=== PATIENT | female | born 1945 | race Caucasian/White ===

== ENCOUNTER 2023-11-15 22:11 | Inpatient (IN) | payer OTHER, SELFPAY ==
[2023-11-15] VITALS (7 sets, daily range): BP systolic 81–168; BP diastolic 51–94; BMI 18.4
[2023-11-15 14:49] LABS: COVID-19 Antigen Negative (Negative)
[2023-11-15] MEDS: NSS 1000 IV ×2 (18:33→21:02)
--- NOTE | 2023-11-15 18:33 | ED.GENMED ---
History of Present Illness
General
Chief Complaint: Abdominal Pain
Source: patient
Exam Limitations: none
Time Seen by Provider: 11/15/23 17:48
Travel History
Have you had any contact with someone who has COVID-19?: No
Do you have any symptoms of coronavirus? Fever > 100 degrees, chills, cough, shortness of breath, sore throat, loss of taste or smell, muscle aches, or headache?: No
History of Present Illness
History of Present Illness:
See MDM
Past History
Past History
ED Past Medical History: Arrthythmia, CHF and HTN
ED Past Surgical History: Appendectomy and Cholecystectomy
Social History
Tobacco: Non-smoker
Alcohol: None
Phy Exam
Physical Exam
Physical Exam:
See MDM
Course
Orders/Labs/Results
Orders:
Orders
11/15/23 14:07
CR Chest - 2 Views Urgent
Comment:
Reason For Exam: congestion
11/15/23 14:27
COVID-19 Antigen Urgent
Source: Nasal Swab
Influenza A+B Rapid Molecular Urgent
RICK Source: Nasal Swab
Specimen Description:
11/15/23 18:19
Complete Blood Count/With Diff Urgent
Comprehensive Metabolic Panel Urgent
Lactic Acid Urgent
Lipase Urgent
Troponin I Urgent
Blood Culture Urgent
RICK Source: Blood/Venous
Specimen Description:
11/15/23 18:30
CT Abd/pelvis W Iv Cont Urgent
Comment:
Reason For Exam: general abd pain
11/15/23 18:31
0.9% Sodium Chloride 1000 ml [Nss] 1,000 ml IV BOLUS
11/15/23 18:55
Ketorolac [Toradol] 15 mg IV NOW STA
11/15/23 19:00
Electrocardiogram (*1) Urgent
Reason for Study: Abdominal Pain
EKG- Treatment ONCE
11/15/23 19:11
Aspirin Chewable [Low Strength Aspirin] 324 mg PO NOW STA
11/15/23 20:39
Consult Colorectal Surgery [ColoRectal Surgery Consult] Urgent
Consulting Provider: Barak Alcaraz
Was physician already notified: Yes
Piperacillin/Tazo 3.375 Gram [Zosyn] 3.375 gram in 50 ml IV NOW
11/15/23 20:45
Protime/PTT Urgent
Prothrombin Complex(Pcc),Human [Kcentra] 2,505 unit Empty Viaflex Container 100 ml [Viaflex Empty Container] 0 ml IV NOW
Does patient have a dx of serious acute active bleeding?: No
Does patient have prior history of HIT?: No
Urgent surgery/invasive procedure planned in next 6 hours?: Yes
Abnormal Lab Results
11/15/23
18:19
RDW 15.1 H %
(11.5-14.5)
Plt Count 407 H 10^3/uL
(130-400)
Absolute Monos (auto) 0.8 H 10^3/uL
(0.1-0.6)
Lymphocytes % 16.3 L %
(20.5-51.1)
Glucose 238 H mg/dl
(70-99)
Lactic Acid 4.9 H* mmol/L
(0.7-2.0)
Troponin I 0.083 H* ng/ml
11/15/23 18:19
11/15/23 18:19
Vital Signs
Initial and Last Documented VS:
Initial Vital Signs
Temp Pulse Resp BP Pulse Ox
98.9 F 78 18 168/94 98
11/15/23 14:03 11/15/23 14:03 11/15/23 14:03 11/15/23 14:03 11/15/23 14:03
Last Documented Vital Signs
Temp Pulse Resp BP Pulse Ox
98.9 F 78 18 168/94 98
11/15/23 14:03 11/15/23 14:03 11/15/23 14:03 11/15/23 14:03 11/15/23 14:03
MDM/Problems Addressed
Differential Diagnosis Includes:
HPI and MDM Narrative:
78-year-old female presenting with shortness of breath and cough. This has been ongoing for the past few days. She is also complaining of constipation and abdominal pain. Patient lives with her daughter. Her daughter recently developed COVID so
she was avoiding contact with the patient. Because of that, daughter is concerned that the patient did not have enough oversight to ensure that she was drinking enough water
Patient is clinically dehydrated. Will give IV fluids. Rectal vault empty. Will obtain CT abdomen/pelvis. Chest x-ray clear
Physical exam
General: Well appearing and non-toxic
HEENT: protecting airway. Dry mucous membranes
Neck: appears supple
CV: No evidence of cyanosis
Resp: No accessory muscle use. Lungs clear
Abd: Non-distended. Generalized tenderness throughout
Rectal: Performed with nurse Marla. No stool palpated
Extremities: No deformities
Neuro: alert
Psych: Normal affect
Skin: Intact
Problems Addressed including Acute and Chronic Conditions affecting care:
1. Shortness of breath and cough
Acuity: acute
Prognosis: stable
Details: Viral testing negative. Chest x-ray clear
2. Sterile coral colitis with perforation
Acuity: acute
Prognosis: stable
Details: Colorectal surgery made aware. Zosyn started
Updates
Radiology called indicating concern for stercoral colitis with perforation at descending colon or sigmoid. Colorectal surgery made aware. Zosyn started
Per colorectal surgery, will reverse Eliquis for OR tonight
Differential Diagnosis (but not limited to): Perforation, constipation
Testing considered: Urinalysis
Drug therapy (if applicable): OTC meds, please see d/c instruction regarding Rx drugs
Amount and/or Complexity of Data Reviewed
Clinical info obtained from: Patient
External data reviewed: N/A
Labs I independently reviewed (but not limited to): Elevated troponin and lactic acid
Radiology: X-ray independently reviewed: Chest x-ray clear
The CT scan was personally and independently reviewed. In addition, official CT report reviewed.
Pulse Ox: not hypoxic
EKG independently reviewed: sinus rhythm, normal axis, no STEMI
Supervisor Finish End: Sinus rhythm
Critical Care: N/A
Risk of Complication:
Social Determinants of health: Good social support
Discussed with other providers: Colorectal surgery, hospitalist
Escalation of Care includes Admit/Obs: Given the stercoral colitis with perforation, will admit
Occasional wrong word or 'sound a like' substitutions may have occurred due to the inherent limitations of voice recognition software. Read the chart carefully and recognize, using context, where substitutions have occurred.
*Critical Care Note
Total Time (30-74mins, 75-104mins- exclusive of procedures): Not Applicable
ED Attending Note
-
Portions of this chart may have been created with voice recognition software.� Occasional wrong word or��sound alike� substitutions may have occurred due to the inherent limitations of voice recognition software.
Discharge Plan
Departure
Patient Disposition: Admit
Date of Disposition: 11/15/23
Time of Disposition: 20:44
Admit to: Telemetry
Presentation/result/management discussed w/ accepting MD/DO: Hospitalist
Discharge Problem:
Stercoral colitis, Bowel perforation
Prescriptions:
No Action
atorvastatin 20 mg Tablet
20 mg PO DAILY
doxazosin 1 mg Tablet
1 mg PO HS
metoprolol succinate 100 mg Tablet Extended Release 24 Hr
100 mg PO BID
buprenorphine-naloxone 4-1 mg Film
1 film BUCCAL BID
Patient Comments:
11/15/2023: last filled 10/14/23, 60 film for 30 days from [facility]
Eliquis 5 mg Tablet
5 mg PO BID
polyethylene glycol 3350 [Miralax] 17 gram Powder In Packet
17 g PO BID
ondansetron HCl 8 mg tablet
8 mg PO Q12H PRN (Reason: nausea/vomiting)
nicotine 7 mg/24 hr Patch 24 Hour
7 mg TRANSDERMAL Q48H
melatonin 10 mg Tablet
10 mg PO HS
Referrals:
UNKNOWN - PT DOES,NOT KNOW [Family Provider] -
Interventions
Interventions:
*Risk Screen - Suicide Last Done: 11/15/23 14:03
*General Assessment Last Done: 11/15/23 14:03
*Neglect/Abuse Screening Last Done: 11/15/23 14:03
*ED COVID-19 Vaccine History Last Done: 11/15/23 18:07
ND-Tvlmug-Saltfftoyp Assessment Last Done: 11/15/23 18:23
[2023-11-15 18:38] LABS: % Basophils 0.5 % (0-2); % Eosinophils 0.1 % (0-6); % Immature Granulocytes 0.2 % (0-0.5); % Lymphocytes 16.3 % (20.5-51.1); % Monocytes 8.9 % (1.7-9.3); Absolute Lymphocytes 1.4 10^3/uL (1.2-3.4); Absolute Monocytes 0.8 10^3/uL (0.1-0.6); Absolute Neutrophils 6.2 10^3/uL (1.4-6.5); Hemoglobin 13.3 g/dL (12.0-16.0); Mean Corp Hgb Conc. 34.1 g/dL (33.0-37.0); Mean Corpuscular Hgb 27.7 pg (27.0-31.0); Mean Corpuscular Volume 81.3 fL (81.0-99.0); Nucleated Red Blood Cells % 0 %; Platelet Count 407 10^3/uL (130-400); Red Cell Dist. Width 15.1 % (11.5-14.5); White Blood Cell Count 8.4 10^3/uL (4.8-10.8)
[2023-11-15 18:46] LABS: ALT (SGPT) 19 U/L (0-35); AST (SGOT) 32 U/L (14-36); Alkaline Phosphatase 100 U/L (38-126); Blood Urea Nitrogen 17 mg/dl (7-17); Calcium 9.6 mg/dl (8.4-10.2); Carbon Dioxide 23 mmol/L (22-30); Chloride 101 mmol/L (98-107); Estimated Creatinine Clearance 44 ml/min; Glucose 238 mg/dl (70-99); Potassium 3.8 mmol/L (3.5-5.1); Sodium 135 mmol/L (135-145); Total Bilirubin 0.8 mg/dl (0.2-1.3); Total Protein 6.8 g/dl (6.3-8.2); eGFR > 60.00
[2023-11-15 18:49] LABS: Lactic Acid 4.9 mmol/L (0.7-2.0)
[2023-11-15 18:59] LABS: Troponin I 0.083 ng/ml
[2023-11-15 19:10] LABS: Lipase 47 U/L (23-300)
[2023-11-15] MEDS: TORADOL 15 MG IV (19:22)
[2023-11-15] MEDS: LOW STRENGTH ASPIRIN 324 MG PO (19:23)
[2023-11-15] MEDS: ZOSYN 50 IV (20:52)
--- NOTE | 2023-11-15 21:09 | HPS.HSE ---
Addendum entered and electronically signed by Dav Gudino MD 11/15/23 21:31:
Patient seen and examined independently with PA.� 78-year-old female past medical history of paroxysmal atrial fibrillation on Eliquis status post ablation, hypertension, chronic pain presenting with abdominal pain over the past few days.� Abdominal
distention with severe pain and peritoneal signs on examination.� CT abdomen pelvis consistent with perforation of a diverticulum with free air, masslike area of fluid and free air in left-sided abdomen findings consistent with peritonitis.� N.p.o.,
IV fluids, Zosyn.� Hold Eliquis and all p.o. medications.� Eliquis being reversed with Kcentra.� Colorectal surgery to take to the OR today.
Original Note:
Family Physician
-
Family Physician: NOT KNOW UNKNOWN - PT DOES
Chief Complaint
-
Abdominal pain
History of Present Illness
Patient is an 78-year-old female with past medical history of paroxysmal atrial fibrillation on anticoagulation, and chronic pain with opiate dependence who presents with constipation and abdominal pain. Patient lives in an in-law suite with her
daughter. Daughter recently had COVID and therefore was not checking on her mother quite as frequently. Over the last 2 days patient began to complain of increased abdominal pain. She was associated chills. CT scan revealed findings consistent
with perforated diverticulitis with peritonitis. Patient reports prior history of diverticulitis. While emergency room patient developed hypotension. Colorectal surgery was notified and plans for patient to go the operating room this evening
following Eliquis reversed with Kcentra. Hospitalist group was asked evaluate patient for admission to the hospital.
Medical History
Past Medical History
Past Medical History: Reports Other
Additional Past Medical History:
Paroxysmal Atrial Fibrillation
Essential Hypertension
Hyperlipidemia
Interstitial cystitis
Chronic Pain with Opioid Dependence
Past Surgical History: Reports Other
Additional Past Surgical History:
Tonsillectomy
Appendectomy
Hysterectomy
Partial hysterectomy
Right rotator cuff
Social History
Tobacco: Former Smoker (Quit a little over a year ago)
Alcohol: None
Living: With Family
Family History
Family History: Not pertinent
Allergies / Home Medications
Allergies reflects when Allergies were last updated in [facility].
Home Medications with original date entered in [facility]
Allergy/Medication List:
Allergies
Allergy/AdvReac Type Severity Reaction Status Date / Time
No Known Allergies Allergy Verified 11/15/23 14:07
Home Medications
apixaban 5 mg tablet (Eliquis) 5 mg PO BID 05/15/23
atorvastatin 20 mg tablet 20 mg PO DAILY 05/15/23
buprenorphine 4 mg-naloxone 1 mg sublingual film 1 film buccal BID 05/15/23
doxazosin 1 mg tablet 1 mg PO HS 05/15/23
metoprolol succinate 100 mg tablet,extended release 24 hr 100 mg PO BID 05/15/23
melatonin 10 mg tablet 10 mg PO HS 11/15/23
nicotine 7 mg/24 hr daily transdermal patch 7 mg transdermal Q48H 11/15/23
ondansetron HCl 8 mg tablet 8 mg PO Q12H PRN nausea/vomiting 11/15/23
polyethylene glycol 3350 17 gram oral powder packet (Miralax) 17 g PO BID 11/15/23
Review of Systems
-
A 12 point ROS was completed and negative except as noted: Yes
Constitutional: Reports Chills
Respiratory: Reports Cough; Denies Trouble Breathing
Cardiac: Denies Chest Pain or Palpitations
Abdomen/GI: Reports See HPI
Physical Exam
Vital Signs
Vital Signs
Temp Pulse Resp BP Pulse Ox
98.9 F 89 29 120/62 98
11/15/23 14:03 11/15/23 21:00 11/15/23 21:00 11/15/23 21:00 11/15/23 20:43
Physical Exam
General: No Apparent Distress, Conversant and Other (Appears acutely ill with poor coloration)
HEENT: Anicteric, Moist mucous membranes and Other (Mucous membranes are dry)
Respiratory: Clear and Non Labored Respirations
Cardiac: S1/S2 and Regular Rhythm; No Murmur
GI: Tender (Significant tenderness throughout with positive peritoneal signs) and Distended
Rectal: Deferred by Provider
Musculoskeletal: No Clubbing, No Cyanosis and No Edema
Skin: Warm and Dry
Neuro: Awake, Alert, Oriented and Nonfocal/grossly intact
Laboratory Results
-
11/15/23 18:19
11/15/23 18:19
Laboratory Results
Lactic Acid 4.9 mmol/L (0.7-2.0) H* 11/15/23 18:19
Total Bilirubin 0.8 mg/dl (0.2-1.3) 11/15/23 18:19
AST 32 U/L (14-36) 11/15/23 18:19
ALT 19 U/L (0-35) 11/15/23 18:19
Alkaline Phosphatase 100 U/L (38-126) 11/15/23 18:19
Troponin I 0.083 ng/ml H* 11/15/23 18:19
Lipase 47 U/L (23-300) 11/15/23 18:19
Abd/Pelvis CT Scan:
The findings are most consistent with perforation (partially contained) of a diverticulum in the descending or sigmoid colon with free air scattered throughout the abdomen and pelvis, forming a masslike area with fluid and free air in the left side
of the abdomen measuring 10 x 10 x 13 cm. Additionally there is fluid in the anterior peripancreatic and pararenal space consistent with peritonitis, no discrete fluid collection to suggest an abscess.
There is significant stool within the colon and air within the colon wall, which may be due to previous obstruction prior to perforation or the differential includes the possibility of stercoral colitis.
Edema within the small bowel wall. Likely reactive. No small bowel obstruction.
Data Reviewed
-
Lab Data: Labs Reviewed by me
Impression/Plan
-
Severe Sepsis Secondary to Perforated Diverticulitis with Peritonitis by CT Scan
-Plan for OR this evening with colorectal surgery then monitor closely in ICU postop
-Continue Zosyn
-Continue NPO/IV fluids
-Monitor blood pressure closely -May need pressors if blood pressure does not improve following sepsis fluid resuscitation
Paroxysmal Atrial Fibrillation
-Patient received Kcentra on 11/15 prior to OR
-Metoprolol on hold due to hypotension
Chronic Pain with Opioid Dependence
-Continue Dilaudid as needed for pain
-Resume buprenorphine when able
DVT prophylaxis: SCDs preparation for OR
CODE STATUS: Full code
--- NOTE | 2023-11-15 21:15 | EDRN ---
marquise contacted for tatianaa and to be sent to tube station [id number] in OR
--- NOTE | 2023-11-15 21:46 | CON.MD ---
Consultation - Medical
-
Full consult to be dictated.
History, vitals, labs, and imaging reviewed. Patient seen and examined.
78-year-old female on Eliquis for atrial fibrillation; also with a history of chronic pain issues, chronic constipation, and opioid dependence here with apparent perforation of the descending/sigmoid colon due to either diverticulitis or more likely
stercoral colitis. There is free air in all 4 quadrants of the abdomen on CT and she is fairly tender on exam. She has evidence for sepsis particularly with hypotension and an elevated lactate. Discussed the situation with the patient and her
daughter at the bedside in detail. Recommended trip to the OR for exploration with likely Juliet's resection. Risk and benefits described. Risks discussed included but are not limited to bleeding, infection, ureteral injury, bowel or solid
organ injury, rectal stump dehiscence, urinary or sexual dysfunction, and anesthetic risks. I did touch on the possibility of given her morbid state. I did also emphasized that her increased risk for bleeding and that we will be giving her
Kcentra to mitigate the effects of her Eliquis. She understood and agrees to proceed.
Thanks.
[2023-11-16] VITALS (16 sets, daily range): BP systolic 57–166; BP diastolic 36–73; BMI 18.4; BMI 18.7
--- NOTE | 2023-11-16 00:31 | W.IMMPOSTOP ---
Addendum entered and electronically signed by Barak Alcaraz MD 11/16/23 00:49:
Patient's daughter updated in waiting area.
Original Note:
Surgical Immed Post Op Note
-
Primary Surgeon: Nancy Alcaraz MD
Assisting Surgeon: none
Pre-op Diagnosis: perforated sigmoid/descending colon
Post-op Diagnosis: same
Procedure Performed: 1) Juliet's procedure (left colectomy with colostomy) 2) takedown splenic flexure
Anesthesia Type: general plus TAP
Specimen / Cultures: 1) abdominal fluid cultures 2) descending and sigmoid colon
Estimated Blood Loss: 150 cc
Complications: no immediate
Operative Findings: perforated distal descending colon with associated bloody contamination (blood plus stool--particularly at left retroperitoneum)
#19 Toni in pelvis.
Joseph in bladder.
NGT in stomach--confirmed intraoperatively.
Kept intubated and sent to ICU.
--- NOTE | 2023-11-16 01:00 | PTCARENOTE ---
pt adm from OR, arrived intubated #05/29, NGT in place, BRAD w/gamal drsg, LUQ colostomy w/red stoma, abd HEMA draining bloody, Joseph in place, B/L UE IV WNL, precedex gtt/IVF infusing per work list. L radial calderon leveled/zeroed. CHG cloths done.
[2023-11-16] MEDS: NORMOSOL-R 1000 IV ×2 (01:38→13:30)
[2023-11-16] MEDS: OFIRMEV 100 IV ×4 (01:38→18:24)
[2023-11-16] MEDS: ZOSYN 50 IV ×4 (01:39→20:32)
[2023-11-16] MEDS: LEVOPHED 250 IV (02:05)
[2023-11-16 02:33] LABS: Lactic Acid 4.4 mmol/L (0.7-2.0); Troponin I 0.128 ng/ml
--- NOTE | 2023-11-16 02:44 | W.PN.UPDATE ---
Update Note
Progress Note Update
1 unit of RBC, given for hgb of 6.6.
[2023-11-16] MEDS: LR 500 IV (02:58)
[2023-11-16] MEDS: DILAUDID 0.5 MG IV ×3 (03:18→20:32)
--- NOTE | 2023-11-16 04:00 | PTCARENOTE ---
pt received 500cc LR bolus for low BP, levo gtt as documented on work list.
[2023-11-16 05:57] LABS: % Basophils 0.1 % (0-2); % Immature Granulocytes 0.9 % (0-0.5); % Lymphocytes 15.1 % (20.5-51.1); % Monocytes 4.5 % (1.7-9.3); % Neutrophils 79.4 % (42.2-75.2); Absolute Immature Granulocytes 0.1 10^3/uL (0-0.05); Absolute Monocytes 0.3 10^3/uL (0.1-0.6); Absolute Neutrophils 5.4 10^3/uL (1.4-6.5); B.E. -5.1 mmol/L; HCO3 19.7 mmol/L (21-28); Mean Corpuscular Hgb 28.8 pg (27.0-31.0); Mean Corpuscular Volume 84.7 fL (81.0-99.0); Mean Platelet Volume 9.4 fL (7.4-10.4); Nucleated Red Blood Cells % 0 %; PCO2 34 mmHg (32-35); PO2 244 mmHg (83-108); Platelet Count 247 10^3/uL (130-400); Potassium 3.7 mMOL/L (3.5-5.1); Red Blood Cell Count 2.29 10^6/uL (4.20-5.40); Red Cell Dist. Width 15.1 % (11.5-14.5); Sodium 133 mMOL/L (136-145); White Blood Cell Count 6.7 10^3/uL (4.8-10.8); pH 7.37 (7.35-7.45)
[2023-11-16 06:06] LABS: INR 1.25; O2 Therapy 50%
[2023-11-16 06:07] LABS: APTT 29.9 Sec (23.4-35.0)
[2023-11-16 06:13] LABS: Hematocrit 19.4 % (37.0-47.0); Hemoglobin 6.6 g/dL (12.0-16.0)
--- NOTE | 2023-11-16 06:15 | PTCARENOTE ---
BDoughertyNP aware of hgb 6.6
[2023-11-16 06:26] LABS: Lactic Acid 4.8 mmol/L (0.7-2.0)
[2023-11-16 06:33] LABS: Blood Urea Nitrogen 19 mg/dl (7-17); Calcium 7.2 mg/dl (8.4-10.2); Carbon Dioxide 19 mmol/L (22-30); Chloride 103 mmol/L (98-107); Estimated Creatinine Clearance 52 ml/min; Glucose 142 mg/dl (70-99); Potassium 3.6 mmol/L (3.5-5.1); Sodium 133 mmol/L (135-145); eGFR > 60.00
--- NOTE | 2023-11-16 07:30 | CON.INTV ---
Consultation
Consultation Request
Date/Time Consultation Requested: 11-16-23
Date/Time Consultation Performed: 11-16-23
Requesting Provider: Hospitalist
Performing Provider: Dr Amador
Reason for Consultation: resp failure
Medical History
-
Chief Complaint: abd pain
History of Present Illness:
Mrs Bailey Martinez is an 78/W adm 11-15 with 2 d h/o abd pain, constipation and chills.
Seen at ER, abd CT showed perforated colon. Taken to OR, needed reversal of DOAC with kcentra (apixaban for AFib). Intubated for surgery and left on MV
Past Medical History
Past Medical History: Other (see A&P for PMH/PSH)
Social History
Tobacco: Former Smoker
Alcohol: None
Drug: None
Personal:
Living: With Family
Employment: Not Employed
Family History
Family History: Reviewed & Not Pertinent
Allergies / Home Medications
Allergies
Allergy/AdvReac Type Severity Reaction Status Date / Time
No Known Allergies Allergy Verified 11/15/23 14:07
Home Medications
Medication Instructions Recorded Confirmed Last Taken Type
apixaban 5 mg tablet (Eliquis) 5 mg PO BID 05/15/23 11/15/23 11/15/23 History
atorvastatin 20 mg tablet 20 mg PO DAILY 05/15/23 11/15/23 11/15/23 History
buprenorphine 4 mg-naloxone 1 mg 1 film buccal BID 05/15/23 11/15/23 11/15/23 History
sublingual film
doxazosin 1 mg tablet 1 mg PO HS 05/15/23 11/15/23 11/14/23 History
metoprolol succinate 100 mg 100 mg PO BID 05/15/23 11/15/23 11/15/23 History
tablet,extended release 24 hr
melatonin 10 mg tablet 10 mg PO HS 11/15/23 11/15/23 11/14/23 History
nicotine 7 mg/24 hr daily 7 mg transdermal Q48H 11/15/23 11/15/23 11/15/23 History
transdermal patch
ondansetron HCl 8 mg tablet 8 mg PO Q12H PRN nausea/vomiting 11/15/23 11/15/23 Unknown History
polyethylene glycol 3350 17 gram 17 g PO BID 11/15/23 11/15/23 11/15/23 History
oral powder packet (Miralax)
Review of Systems
-
Unable to Obtain full review of systems at this time due to: Patient Intubation
Vitals / Labs / Diagnostic Testing
Vital Signs
Temp Pulse Resp BP Pulse Ox
96.8 F L 65 12 75/54 100
11/16/23 03:01 11/16/23 05:30 11/16/23 05:30 11/16/23 02:00 11/16/23 04:57
Lab Data
11/16/23 05:41
Laboratory Results
11/16/23
05:41
PT 16.0 H
INR 1.25
APTT 29.9
pH 7.37
pCO2 34
pO2 244 H
HCO3 19.7 L
O2 Delivery Level 50%
Microbiology
11/15/23 14:27 Nasal Swab Influenza Types A & B (MARIELA) - Final
Negative for Influenza A & B, NAAT
Negative results must be combined with clinical observations
and patient history.
Nucleic Acid Amplification test (NAAT)performed on the
[employer] platform.
Diagnostic Testing:
Physical Exam
-
HEENT: Normocephalic and Moist Mucous Membranes
Cardiovascular: Regular Rhythm, Murmur (n) and Peripheral Edema (n)
Respiratory: Clear and Non-Labored Respirations
GI: Non Tender (postsurgical)
Neurology: Other (sedated)
Skin: Dry
General: Respiratory Distress (n)
Assessment
-
Assessment:
Mrs Bailey Martinez is an 78/W adm 11-15 with 2 d h/o abd pain, constipation and chills. Seen at ER, abd CT showed perforated colon. Taken to OR, needed reversal of DOAC with kcentra. Intubated for surgery and left on MV
Impression
Postop resp failure
Intubated for surgery
Perforated sigmoid/descending colon
S/p Juliet's procedure (left colectomy with colostomy), takedown splenic flexure
Postop anemia
Chronic apixaban, s/p reversal pre surgery
Conditions [employer] WORK[employer]:
AFib on apixaban
HLD
HTN
Chronic pain on chronic buprenorphine
Tobacco dependence, on NRT
Plan:
Admitted to ICU after abd surgery for perforated sigmoid/descending colon
Intubated for surgery, kept on MV afterwards
ACV: 12-400-5-0.4 (POx 100%)
Comfortable on above settings
Daily weaning trial
SBT today, wean as tolerated, will reevaluate for extubation
Dexmedetomidine
IV opiates (noted h/o opiate use for chronic back pain)
IVFs
Transfusion ongoing (2nd U to be started this AM)
Monitor Hgb
NE gtt at 8 mcg this morning, will wean as tolerated
Follow HEMA output
Continue on empiric zosyn
Follow cxs
Postop pain mgmt
SCDs
D/w patient's daughter at bedside
Critical care time: 35 min
Diagnostic tests:
CXR 11-16-23: no infiltrates
--- NOTE | 2023-11-16 09:00 | PTCARENOTE ---
pt sedated on vent , awakens with moderate to severe pain , pt given Dilaudid for pain , pt nods head appropriately , follows commands , restless at times , Levophed to keep map of 65, currently at 12mcg , pt receiving 1st unit of PRBC hemoglobin
down to 6.6 , abd incision intact , colostomy stoma pink , no drainage, Joseph draining adequate amount of urine , Precedex gtt for agitation
--- NOTE | 2023-11-16 09:50 | WOUNDNOTE ---
KARINA RN note: Patient s/p Juliet's for perforated sigmoid by Dr. Alcaraz.
See H&P for complete history.
PMH: CHF,HTN, Appy and cholecystectomy.
Ostomy location and type: L Colostomy, stoma red, no output at this time. Patient is vented still, left ostomy folder at bedside for family to review, will do further teaching with patient/family when appropriate.
[place] wafer # [id number]
[place] pouch # [id number]
Ostomy supplies ordered from [facility] and instructed nurse Maura to bring to bedside.
Note to case management: VN services recommended for ostomy teaching.
Nursing care plan updated, will follow as needed.
--- NOTE | 2023-11-16 09:55 | W.PN.CRS1 ---
Today's Communication / Plan
-
Give a second pRBC and repeat CBC, hold all AC
Continue critical care needs
Assessment/Plan
-
78-year-old female with PMH of A-fib (on Eliquis, last dose was the morning of 11/15/2023), chronic pain (on Suboxone), HTN who presented with acute abdominal pain and was found to have perforated stercoral colitis and underwent emergency Dos Santos's
procedure for perforation in the descending colon, in septic shock; given Kcentra preoperatively
POD 1 Dos Santos's procedure
Remains intubated, on levo at 8, on Precedex, Hb 6.6 s/p pRBC X1, pending second pRBC
�Appreciate hospitalist and human services case manager for critical care needs
�Wean vent
�Wean pressors
� Hold AC, no evidence of surgical bleeding at this point but needs to be closely monitored as she still has Eliquis in her system
-give a second PRBC and repeat CBC once completed
� Continue NGT
� Continue Weiss
� Continue antibiotics
� Continue HEMA to bulb suction
Subjective Data
Subjective Data
Date of Service: November 16, 2023
Per nurse, Hb 6.6 this a.m. and patient received 1 pRBC. Was on levo at 12, down to 8 this a.m.
Patient sedated but awake/alert to verbal commands.
+intubated
+ngt
+weiss
Objective Data
-
Vital Signs
Temp Pulse Resp BP Pulse Ox
98.4 F 74 14 106/46 100
11/16/23 08:02 11/16/23 08:02 11/16/23 08:02 11/16/23 08:02 11/16/23 07:30
Intake & Output
11/15/23 11/16/23 11/17/23
06:59 06:59 06:59
Intake Total 1390.3 / 1499.1 108.8 / 108.8
Output Total 645 / 715 70 / 70
Balance 745.3 / 784.1 38.8 / 38.8
Intake:
IV fluids (Total) 640.3 / 749.1 108.8 / 108.8
Normosol-R 1,000 ml @ 100 mls/ 600 / 700 100 / 100
hr IV .Q10H FELIPA Rx#:[id number]
precedex 40.3 / 49.1 8.8 / 8.8
IV piggybacks 750 / 750
Blood Product Amount Infused ( 0 / 0
mL)
Packed Rbc Leukoreduced Unit 0 / 0
[id number]
Output:
Drain Output (Total) 320 / 390 70 / 70
Abdomen David-Clarke 320 / 390 70 / 70
Gastrointestinal tube output ( 0 / 0
Total)
Cloud Sump 0 / 0
Urine, Weiss 325 / 325
Lab Results
11/16/23 05:41
Physical Exam
-
General: No Acute Distress and Other (Intubated/sedated)
HEENT: Grossly Normal
Abdomen: Soft, Non Distended, Tender (Appropriately tender near incisions), No Guarding, No Rebound and Other (HEMA-390 cc, dark serosanguineous output; colostomy bud pink)
Skin: Warm and Dry
Wound: No Signs of Infection, Dressing in Place (Aquacel) and No Skin Erythema
[2023-11-16] MEDS: SUBLIMAZE 50 MCG IV ×3 (10:49→14:10)
[2023-11-16] MEDS: PRECEDEX 100 IV (11:37)
[2023-11-16 12:01] LABS: Glucose - Point of Care 103 mg/dl (70-99)
[2023-11-16] MEDS: NSS (PRESERVATIVE FREE) 10 ML IV (13:20)
[2023-11-16] MEDS: PROTONIX IV 40 MG IV (13:20)
[2023-11-16] MEDS: NORMOSOL-R IV (13:37)
--- NOTE | 2023-11-16 13:50 | W.PN.HOSP.TC ---
Today's Communication/Plan
-
see outlined plan below
Assessment / Plan
Assessment / Plan
Assessment:
Septic Shock secondary to perforated bowel from diverticulitis vs stercoral colitis
- s/p urgent K-centra for Eliquis reversal
- s/p 1) Juliet's procedure (left colectomy with colostomy) 2) takedown splenic flexure on 11/16/23. Operative findings: perforated distal descending colon with associated bloody contamination (blood plus stool--particularly at left retroperitoneum)
- continue NPO/IVF
- wean pressors; currently on 2 mcg
- continue Zosyn
- NGT/Joseph
- Colorectal following
VDRF in setting of acute emergency surgery for airway protection
- wean vent/sedation
Post-operative acute anemia from blood loss
- 2 units PRBCs and follow Hb
Non-IN trop elevation
- trend trops to peak
- follow tele/EKGs
Parox A. fib
- s/p urgent K-centra for Eliquis reversal; resume when cleared by surgery
- hold BB until sepsis improves
Chronic Pain with Opioid Dependence
- continue Dilaudid as needed for pain
- resume buprenorphine when able
Essential HTN
- hold BB/Doxazosin until sepsis improves
DVT prophylaxis: SCDs
CODE STATUS: Full code
Total Critical Care Time 40 minutes. I was immediately available to the patient and staff. I personally examined, reviewed labs, diagnostic images/reports, interpretations, treatment plans, discussed patient care with other providers and family
or caregivers (if patient is unable to make decisions), entered orders as appropriate and documented the medical record.
Anticipated Discharge: > 48 hours
Subjective/Interval History
-
Date of Service: November 16, 2023
remains intubated, on and off on pressors
received 2 units PRBCs
Objective Data
-
Labs:
Laboratory Results
11/16/23 11/16/23 11/16/23
05:41 05:41 05:41
WBC 6.7 Pending
Hgb 6.6 L* D Pending
Hct 19.4 L*
Plt Count
PT
INR
APTT
HCO3
Sodium
Potassium
Chloride
Carbon Dioxide
BUN
Creatinine
Glucose
Calcium
11/16/23 11/16/23 11/16/23
05:41 05:41 05:41
WBC
Hgb
Hct Pending
Plt Count 247 D Pending
PT 16.0 H
INR 1.25
APTT 29.9
HCO3 19.7 L
Sodium 133 L Cancelled
Potassium 3.6
Chloride
Carbon Dioxide
BUN
Creatinine
Glucose
Calcium
11/16/23 11/16/23 11/16/23
05:41 05:41 05:41
WBC
Hgb
Hct
Plt Count
PT
INR
APTT
HCO3
Sodium
Potassium Cancelled
Chloride 103 Cancelled
Carbon Dioxide 19 L Cancelled
BUN 19 H
Creatinine
Glucose
Calcium
11/16/23 11/16/23 11/16/23
05:41 05:41 05:41
WBC
Hgb
Hct
Plt Count
PT
INR
APTT
HCO3
Sodium
Potassium
Chloride
Carbon Dioxide
BUN Cancelled
Creatinine 0.7 Cancelled
Glucose 142 H Cancelled
Calcium 7.2 L D
11/16/23 11/16/23
05:41 09:00
WBC
Hgb Pending
Hct Pending
Plt Count
PT
INR
APTT
HCO3
Sodium
Potassium
Chloride
Carbon Dioxide
BUN
Creatinine
Glucose
Calcium Cancelled
Vital Signs:
Vital Signs
Temp Pulse Resp BP Pulse Ox
99.1 F 74 18 113/49 98
11/16/23 13:05 11/16/23 13:05 11/16/23 13:05 11/16/23 13:05 11/16/23 12:00
I&O
11/15/23 11/16/23 11/17/23
06:59 06:59 06:59
Intake Total 1390.3 / 1652.9 1634.5 / 1634.5
Output Total 645 / 765 470 / 470
Balance 745.3 / 887.9 1164.5 / 1164.5
Physical Exam
-
General: Intubated
HEENT: Normocephalic and Atraumatic
Cardiac: Regular Rhythm and S1/S2
GI: Soft
Neuro: Sedated
Psych: Calm
Data Reviewed
-
Critical Care Time (in minutes): 40
Labs: Labs Reviewed by me
--- NOTE | 2023-11-16 14:14 | PTCARENOTE ---
pt on vent wean of Cpap and PS tolerating well, pt having episodes of anxiety and pain , fentanyl has been effective for pain , completed PRBC , urine output adequate .pt daughter at bedside and updated on current plan of care and condition
[2023-11-16 14:15] LABS: Hematocrit 29.4 % (37.0-47.0)
[2023-11-16 14:22] LABS: Hemoglobin 10.5 g/dL (12.0-16.0)
[2023-11-16 14:31] LABS: Lactic Acid 3.5 mmol/L (0.7-2.0)
--- NOTE | 2023-11-16 14:35 | CM ---
CM following re: discharge planning.
Discussed in rounds, reviewed pt's chart, met with pt and pt's daughter Jennifer at bedside.
Pt is an 78 year old female, admitted with primary dx of Septic Shock . Per Rounds meeting, pt intubated for surgery S/p Juliet's procedure.
Per daughter, she brought her mother from [place] where pt lived for many years and pt lives in in law suite attached to daughter's house. Pt has been falling at home and daughter was in and out to help the pt.
Pharmacy: [facility].
D/c plan: TBD and will depend on pt's progress
CM will follow with discharge plan updates as hospitalization progresses
[2023-11-16 14:52] LABS: Troponin I 0.096 ng/ml
--- NOTE | 2023-11-16 15:12 | RESPNOTE ---
Patient extubated at 1445 to 6LNC spo2 100% no signs of stridor are present.
--- NOTE | 2023-11-16 15:49 | PTCARENOTE ---
pt extubated at 1445 as ordered, pt is now on 6L NC with 02 sat at 100% , continues on Levophed for low MAPs , rate 2-4 mcg per hour , pt is alert and oriented , pleasant and following commands
[2023-11-16] MEDS: CALCIUM GLUCONATE 100 IV (16:39)
[2023-11-16 18:01] LABS: Glucose - Point of Care 86 mg/dl (70-99)
[2023-11-16 18:49] LABS: Lactic Acid 2.9 mmol/L (0.7-2.0)
--- NOTE | 2023-11-16 20:15 | PTCARENOTE ---
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 SR HR 70s. L radial calderon WNL, leveled&zeroed. B/L IV patent- levo gtt, IVF infusing per work list. RA Sat 100% on 4LNC. R NGT to LIWS, bilious drainage. LUQ colostomy WNL- no drainage in bag. HEMA drain
w/bloody drainage. Joseph catheter in place draining yellow urine. prn pain med per JAN. POC discussed, call simmons with patient.
[2023-11-16 21:18] LABS: Lactic Acid 2.8 mmol/L (0.7-2.0)
[2023-11-16 21:32] LABS: Troponin I 0.089 ng/ml
[2023-11-17] VITALS (16 sets, daily range): BP systolic 129–217; BP diastolic 63–109; PULSE 106–125; BMI 20.2
--- NOTE | 2023-11-17 00:30 | PTCARENOTE ---
no changes in pt assessment, prn dilaudid per MAR, assisted w/repositioning. levo remains off.
[2023-11-17] MEDS: DILAUDID 0.5 MG IV ×6 (00:42→19:29)
[2023-11-17] MEDS: NORMOSOL-R 1000 IV ×3 (00:49→20:22)
[2023-11-17] MEDS: ZOSYN 50 IV ×4 (03:00→22:21)
[2023-11-17 04:20] LABS: Hematocrit 26.9 % (37.0-47.0); Hemoglobin 9.8 g/dL (12.0-16.0); Mean Corp Hgb Conc. 36.4 g/dL (33.0-37.0); Mean Corpuscular Hgb 30.3 pg (27.0-31.0); Mean Corpuscular Volume 83.3 fL (81.0-99.0); Mean Platelet Volume 9.2 fL (7.4-10.4); Platelet Count 177 10^3/uL (130-400); Red Blood Cell Count 3.23 10^6/uL (4.20-5.40); Red Cell Dist. Width 14.7 % (11.5-14.5); White Blood Cell Count 19.7 10^3/uL (4.8-10.8)
[2023-11-17 04:30] LABS: Lactic Acid 2.2 mmol/L (0.7-2.0)
[2023-11-17 04:45] LABS: Troponin I 0.077 ng/ml
[2023-11-17 04:49] LABS: Blood Urea Nitrogen 19 mg/dl (7-17); Calcium 8.2 mg/dl (8.4-10.2); Carbon Dioxide 23 mmol/L (22-30); Chloride 103 mmol/L (98-107); Estimated Creatinine Clearance 45 ml/min; Glucose 88 mg/dl (70-99); Potassium 3.8 mmol/L (3.5-5.1); Sodium 135 mmol/L (135-145); eGFR > 60.00
--- NOTE | 2023-11-17 07:53 | W.PN.INTV ---
Today's Communication / Plan
Recommendations
Asp precs
Zosyn
Pain mgmt
AC per sx
GMF
Reconsult prn
Assessment
-
Assessment:
Mrs Bailey Martinez is an 78/W adm 11-15 with 2 d h/o abd pain, constipation and chills. Seen at ER, abd CT showed perforated colon. Taken to OR, needed reversal of DOAC with kcentra. Intubated for surgery and left on MV
Impression
Postop resp failure
Intubated for surgery 11-15
Extubated 11-16
Perforated sigmoid/descending colon
S/p Juliet's procedure (left colectomy with colostomy), takedown splenic flexure
Postop anemia
Chronic apixaban, s/p reversal pre surgery
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
AFib on apixaban
HLD
HTN
Chronic pain on chronic buprenorphine
Tobacco dependence, on NRT
Plan:
Admitted to ICU after abd surgery for perforated sigmoid/descending colon
Intubated for surgery, kept on MV afterwards
Was on ACV: 12-400-5-0.4 (POx 100%)
Comfortable on above settings
SBT 11-16, extubated with no issue
Currently on RA, POx high 90s
Dexmedetomidine off
Postop pain mgmt
IV opiates (noted h/o opiate use for chronic back pain): hydromorphone 0.5 mg IV q4hrs prn
Resume buprenorphine SL 11-17
IVFs
S/p 2 U PRBCs 11-16
Monitor Hgb, Hgb remains stable
NE off since MN last night
Follow HEMA output
Can adm enteral meds per Sx starting -
Continue on empiric zosyn
Abd cx: moderate presumptive E coli
Blood cxs so far negative
Resolving lactic acidosis
HTN, on oral metoprolol at home
Resume enteral metoprolol regular release at 100 mg bid
SCDs
Can resume apixaban once OK by Sx
D/w MDT
Can transfer to [facility] today, OK by Sx, will sign off then
Diagnostic tests:
CXR 11-16-23: no infiltrates
Subjective Dataa
Subjective Data
Date of Service:
Date of Service: November 17, 2023
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
Subjective:
No major events reported overnight
Extubated with no issue yesterday afternoon
Pain better controlled
Review of Systems
General: Fever (n), Sweats (n), Chills and Satisfactory Appetite
Cardiopulmonary: Dyspnea, Cough and Chest Pain
GI: Abdominal Pain (postop), Nausea (n) and Vomiting (n)
Neuro: Weakness
Objective Data
Data Reviewed
Vital Signs / I&O / Oxygen:
Vital Signs
Temp Pulse Resp BP Pulse Ox
99.7 F 84 17 83/50 97
11/17/23 07:45 11/17/23 06:00 11/17/23 06:00 11/16/23 15:42 11/17/23 06:32
Intake and Output
11/16/23 11/17/23 11/18/23
06:59 06:59 06:59
Intake Total 1390.3 / 1652.9 3658.3 / 3658.3
Output Total 645 / 765 2395 / 2395
Balance 745.3 / 887.9 1263.3 / 1263.3
SaO2 [CPAP/PSV] 98
SaO2 [A/C] 100
SaO2 97
Nasal Cannula flow liters per 2
minute
Physical Exam
General: Respiratory Distress (n)
HEENT: Normocephalic and Moist Mucous Membranes
Cardiovascular: Regular Rhythm and Peripheral Edema (n)
Respiratory: Clear, Non-Labored Respirations and Stridor
GI: Soft, Non Distended, Tender, Other (surgical wound with clean dressing) and Other (colostomy)
Neurology: Awake, Oriented and No Motor Deficits
Skin: Dry
Labs/Micro/Reports
Lab Data
11/17/23 04:06
11/17/23 04:06
Microbiology
11/15/23 18:19 Blood/Venous Blood Culture - Preliminary
No Growth in 24 hours- Final report to follow
11/15/23 22:44 Abdomen Gram Stain - Preliminary
11/15/23 14:27 Nasal Swab Influenza Types A & B (MARIELA) - Final
Negative for Influenza A & B, NAAT
Negative results must be combined with clinical observations
and patient history.
Nucleic Acid Amplification test (NAAT)performed on the
[facility] platform.
--- NOTE | 2023-11-17 07:54 | W.PN.ANS.POP ---
Anesthesia Post Operative
- Anesthesia Post Op Note
Vital Signs Stable-See Nursing Note: Yes
Airway Patent: Yes (extubated)
Adequate Pain Control: Yes
Change in Mental Status: No
Current Postoperative Nausea & Vomiting: No
Anesthesia Complications: No
General Anesthetic Recall: No
Unplanned Admission: No
Post Op Hydration Adequate: Yes
[2023-11-17] MEDS: TYLENOL/FEVERALL 650 MG RECTAL (08:03)
[2023-11-17] MEDS: PROTONIX IV 40 MG IV (08:03)
[2023-11-17] MEDS: NSS (PRESERVATIVE FREE) 10 ML IV (08:04)
--- NOTE | 2023-11-17 08:21 | W.PN.HOSP.TC ---
Addendum entered and electronically signed by Liborio Andrade MD 11/17/23 13:22:
Lactic acidosis
Underweight
Original Note:
Today's Communication/Plan
-
monitor vitals
DC [place] and later Joseph and continue NGT
continue Abx
possible transfer to floors later
Assessment / Plan
Assessment / Plan
Assessment:
Septic Shock secondary to perforated bowel from diverticulitis vs stercoral colitis
- s/p urgent K-centra for Eliquis reversal
- s/p 1) Juliet's procedure (left colectomy with colostomy) 2) takedown splenic flexure on 11/16/23. Operative findings: perforated distal descending colon with associated bloody contamination (blood plus stool--particularly at left retroperitoneum)
- continue NPO/IVF
- pressors weaned overnight
- continue Zosyn
- continue NGT/Joseph
- Colorectal following
VDRF in setting of acute emergency surgery for airway protection
- extubated 11/26/23 - satting well
Post-operative acute anemia from blood loss
- s/p 2 units PRBCs. Hb is 9.8
Non-CT trop elevation
- trop peaked at .128
- follow tele/EKGs
Parox A. fib
- s/p urgent K-centra for Eliquis reversal; resume when cleared by surgery
- hold BB until sepsis improves
Chronic Pain with Opioid Dependence
- continue Dilaudid as needed for pain
- resume buprenorphine when able
Essential HTN
- hold BB/Doxazosin until sepsis improves
DVT prophylaxis: SCDs
CODE STATUS: Full code
Dispo: possible transfer to 2S/Tele if ok with ICU/CRS
Total Critical Care Time 41 minutes. I was immediately available to the patient and staff. I personally examined, reviewed labs, diagnostic images/reports, interpretations, treatment plans, discussed patient care with other providers and family
or caregivers (if patient is unable to make decisions), entered orders as appropriate and documented the medical record.
Anticipated Discharge: > 48 hours
Subjective/Interval History
-
Date of Service: November 17, 2023
extubated last evening
remains with NGT
reports pain
Objective Data
-
Labs:
Laboratory Results
11/17/23
04:06
WBC 19.7 H
Hgb 9.8 L
Hct 26.9 L
Plt Count 177 D
Sodium 135
Potassium 3.8
Chloride 103
Carbon Dioxide 23
BUN 19 H
Creatinine 0.8
Glucose 88
Calcium 8.2 L
Vital Signs:
Vital Signs
Temp Pulse Resp BP Pulse Ox
99.7 F 84 17 83/50 97
11/17/23 07:45 11/17/23 06:00 11/17/23 06:00 11/16/23 15:42 11/17/23 06:32
I&O
11/16/23 11/17/23 11/18/23
06:59 06:59 06:59
Intake Total 1390.3 / 1652.9 3658.3 / 3658.3
Output Total 645 / 765 2395 / 2395
Balance 745.3 / 887.9 1263.3 / 1263.3
Physical Exam
-
General: No Apparent Distress
HEENT: Normocephalic, Atraumatic and Other (NGT)
Respiratory: Clear to Auscultation; Negative Wheezes or Rales
Cardiac: Regular Rhythm and S1/S2
GI: Soft and Nontender
Genito-urinary: No Costovertebral Tender
Neuro: AO x 3
Psych: Calm
Data Reviewed
-
Critical Care Time (in minutes): 41
Labs: Labs Reviewed by me
--- NOTE | 2023-11-17 09:00 | W.PN.CRS1 ---
Today's Communication / Plan
-
Continue NGT
Discontinue Joseph
Okay to transfer to floor
Assessment/Plan
-
78-year-old female with PMH of A-fib (on Eliquis, last dose was the morning of 11/15/2023), chronic pain (on Suboxone), HTN who presented with acute abdominal pain and was found to have perforated stercoral colitis and underwent emergency Dos Santos's
procedure for perforation in the descending colon, in septic shock; given Kcentra preoperatively
POD 2 Dos Santos's procedure
Extubated, off levo, Hb 9.8 from 10.5
�Appreciate hospitalist and utility tender carding for critical care needs
� Hold AC, Daily CBC; expected blood loss from operation and delusional
� Continue NGT until ostomy function
�Discontinue Joseph, monitor for void
� Continue antibiotics
� Continue HEMA to bulb suction
Subjective Data
Subjective Data
Date of Service: November 17, 2023
No overnight events. Per nurse, patient was extubated this morning and pressors have been weaned off.
Pain not well�controlled.
Denies nausea/vomiting. Patient n.p.o. with NGT.
No ostomy function
+ Joseph
Objective Data
-
Vital Signs
Temp Pulse Resp BP Pulse Ox
99.7 F 84 17 83/50 97
11/17/23 07:45 11/17/23 06:00 11/17/23 06:00 11/16/23 15:42 11/17/23 06:32
Intake & Output
11/16/23 11/17/23 11/18/23
06:59 06:59 06:59
Intake Total 1390.3 / 1652.9 3658.3 / 3658.3
Output Total 645 / 765 2395 / 2395
Balance 745.3 / 887.9 1263.3 / 1263.3
Intake:
IV fluids (Total) 640.3 / 902.9 2828.3 / 2828.3
Normosol-R 1,000 ml @ 100 mls/ 600 / 800 2500 / 2500
hr IV .Q10H FELIPA Rx#:[id number]
levophed 254.3 / 254.3
precedex 40.3 / 57.9 74.0 / 74.0
IV piggybacks 750 / 750 300 / 300
Amount instilled into GI Tube ( 30 / 30
Total)
[place] Sump 30 / 30
Blood Product Amount Infused ( 500 / 500
mL)
Packed Rbc Leukoreduced Unit 250 / 250
[id number]
Packed Rbc Leukoreduced Unit 250 / 250
[id number]
Output:
Drain Output (Total) 320 / 390 370 / 370
Abdomen David-Clarke 320 / 390 370 / 370
Gastrointestinal tube output ( 0 / 0 150 / 150
Total)
[place] Sump 0 / 0 150 / 150
Urine, Joseph 325 / 375 1875 / 1875
Lab Results
11/17/23 04:06
11/17/23 04:06
Physical Exam
-
General: No Acute Distress and AOx3
HEENT: Grossly Normal
Abdomen: Soft, Non Distended, Tender (Appropriately tender near incisions), No Guarding, No Rebound and Other (HEMA-300 mL serous sanguinous output, NGT 150 mL output; ostomy pink and edematous)
Neurological: No Motor Deficits and No Sensory Deficits
Skin: Warm and Dry
Wound: No Signs of Infection, Dressing in Place (Aquacel) and No Skin Erythema
--- NOTE | 2023-11-17 12:06 | PN.CDI ---
CDI
- -
CDI:
Physician Documentation Request
Admit Date: 11/15/23 22:11
Dear Doctor Raymond,
Patient admitted with septic shock.
Clinical Indicators: 11/15/23
Height: 5' 5'
Weight: 110 lb 7 oz
BMI: 18.4
Please provide an associated diagnosis related to the abnormal BMI, such as:
Underweight
Cachectic
Anorexia
BMI is not significant
Other
BMI < or = to 19
Underweight
Weight Loss
Cachectic
Anorexia
Use of terms such as suspected, likely, concern for, or probable (associated with a specific diagnosis that is being evaluated, monitored, or treated as if it exists) are acceptable and can be coded in the inpatient setting, when documented at the
time of discharge.
Thank you,
Twila HERNANDEZ,RN,CCDS
CDI Specialist
Available via [place]
Please use your independent medical judgment in providing your response.
--- NOTE | 2023-11-17 12:35 | PN.CDI ---
CDI
- -
CDI:
Physician Documentation Request
Admit Date: 11/15/23 22:11
Dear Doctor Raymond,
Patient admitted with septic shock.
Lactic acid levels documented below:
Patient received IV NSS.
Laboratory Tests
11/15/23 11/16/23 11/16/23
18:19 01:52 05:41
Lactic Acid 4.9 H* 4.4 H* 4.8 H*
Based on the above, please clarify in the progress notes, the appropriate diagnosis, if significant, that supports the above abnormalities and additional evaluation, monitoring and/or treatment rendered:
Lactic acidosis
Insignificant abnormal lab findings
Other
Unable to determine
Use of terms such as suspected, likely, concern for, or probable (associated with a specific diagnosis that is being evaluated, monitored, or treated as if it exists) are acceptable and can be coded in the inpatient setting, when documented at the
time of discharge.
Thank you,
Twila HERNANDEZ,RN,CCDS
CDI Specialist
Available via [employer] text
Please use your independent medical judgment in providing your response.
[2023-11-17] MEDS: SUBUTEX 4 MG SL ×2 (12:50→21:27)
[2023-11-17] MEDS: LOPRESSOR 100 MG PO (12:50)
--- NOTE | 2023-11-17 14:05 | PTCARENOTE ---
pt awake and oriented, NSR on monitor , BP elevated 169/57 , weiss draining clear yellow urine , DC at 0900 , pt with NGT minimal drainage , pt has started on her home dose of Metoprol for BP control via NGT as ordered , oob in chair at 14:00
tolerating well , frequent complaints of pain with abdomen , pt was restarted on her Subutex, for better pain control , pt is now written for telemetry status
--- NOTE | 2023-11-17 16:32 | PTCARENOTE ---
pt to transfer to room 2108 , report given to receiving RN
--- NOTE | 2023-11-17 17:25 | PTCARENOTE ---
Pt received from ICU via bed. Transport was w/o incident. Pt is AAOx3, HRR/bounding @86 apically. Lungs are clear, NGT to Right nare intact, draining green fluid. Abd round, Colostomy stoma, pink and budded. Wilfred drain to Left abd intact draining
serosanquinous fluid. Aquacell dressing to mid abd intact, with old shadowing noted. Pt w/ generalized anasarca 1+, maegan area, hips, thighs, arms. Pt with positive PP,no pedal edema, Pt denies nausea and denies pain at this time. Vss, Pt is
afebrile. Pt instructed on plan of care, pt verbalized understanding of instructions, Call simmons is within reach.
[2023-11-17] MEDS: LOPRESSOR 5 MG IV ×2 (19:46→20:09)
[2023-11-17] MEDS: NSS 250 IV (20:20)
[2023-11-17 20:24] LABS: Hematocrit 27.1 % (37.0-47.0); Hemoglobin 9.6 g/dL (12.0-16.0); Mean Corp Hgb Conc. 35.4 g/dL (33.0-37.0); Mean Corpuscular Hgb 29.6 pg (27.0-31.0); Mean Corpuscular Volume 83.6 fL (81.0-99.0); Mean Platelet Volume 9.3 fL (7.4-10.4); Platelet Count 196 10^3/uL (130-400); Red Blood Cell Count 3.24 10^6/uL (4.20-5.40); Red Cell Dist. Width 15.4 % (11.5-14.5); White Blood Cell Count 17.4 10^3/uL (4.8-10.8)
[2023-11-17 20:35] LABS: Lactic Acid 2.3 mmol/L (0.7-2.0)
[2023-11-17 20:36] LABS: Blood Urea Nitrogen 20 mg/dl (7-17); Calcium 8.5 mg/dl (8.4-10.2); Carbon Dioxide 29 mmol/L (22-30); Chloride 99 mmol/L (98-107); Estimated Creatinine Clearance 43 ml/min; Glucose 83 mg/dl (70-99); Magnesium 2.4 mg/dl (1.6-2.3); Potassium 4.1 mmol/L (3.5-5.1); Sodium 134 mmol/L (135-145); eGFR > 60.00
--- NOTE | 2023-11-17 20:44 | W.PN.UPDATE ---
Update Note
Progress Note Update
Patient has tachycardia with hr 160s-170s. Denied chest pain and SOB. Afebrile, 157/85, SPo2 93 on RA.
-Stat lab ordered, Pro kimberly and WBCs elevated but patient continue to be afebrile and currently one Zosyn, will order set of blood culture, Ua. Also initially lactic acid was elevated IVF bolus given repeated Lactic acid within limit.
-EKG a-fib with RVR, Lopressor 5mg IV x2. Patient continue with hr between 150s-160s Cardizem bolus and Cardizem drip started. This morning K is 3.3 repleted as needed and hypoglycemic 59. Hypoglycemia protocol initiated for IV dextrose 12.5 PRN as
needed.
[2023-11-17 20:54] LABS: Absolute Neutrophils -Man Diff 15.3 10^3/uL (1.4-6.5); Atypical Lymphocytes 1 %; Band Neutrophils 12 % (0-3); Lymphocytes 6 % (20-51); Metamyelocytes 3 % (-); Monocytes 2 % (2-9); Segmented Neutrophils 76 % (42-75)
[2023-11-17 20:55] LABS: Burr Cells 1+; Normal RBC Morphology No; Platelets Checked Yes; Total Cells Counted 100
[2023-11-17] MEDS: DILAUDID 0.25 MG IV (21:56)
[2023-11-17] MEDS: LOPRESSOR PO (22:00)
[2023-11-18] VITALS (15 sets, daily range): BP systolic 96–134; BP diastolic 44–71; BMI 20.2
--- NOTE | 2023-11-18 00:32 | PTCARENOTE ---
Nurse did 2300 vitals.
[2023-11-18] MEDS: DILAUDID 0.5 MG IV ×4 (00:44→20:27)
[2023-11-18] MEDS: ZOFRAN 4 MG IV ×2 (00:45→18:36)
[2023-11-18 01:10] LABS: Lactic Acid 1.7 mmol/L (0.7-2.0)
[2023-11-18] MEDS: NSS 500 IV (01:33)
[2023-11-18] MEDS: CARDIZEM 125 IV ×2 (02:19→17:39)
[2023-11-18] MEDS: NORMOSOL-R 1000 IV (02:41)
[2023-11-18] MEDS: ZOSYN 50 IV ×4 (03:12→20:28)
--- NOTE | 2023-11-18 04:18 | PTCARENOTE ---
Nurse took 0300 vitals.
[2023-11-18] MEDS: CARDIZEM 5 MG IV (04:33)
[2023-11-18 05:28] LABS: Hematocrit 23.1 % (37.0-47.0); Hemoglobin 8.2 g/dL (12.0-16.0); Mean Corp Hgb Conc. 35.5 g/dL (33.0-37.0); Mean Corpuscular Hgb 29.9 pg (27.0-31.0); Mean Corpuscular Volume 84.3 fL (81.0-99.0); Mean Platelet Volume 9.4 fL (7.4-10.4); Platelet Count 173 10^3/uL (130-400); Red Blood Cell Count 2.74 10^6/uL (4.20-5.40); Red Cell Dist. Width 15.4 % (11.5-14.5); White Blood Cell Count 18.5 10^3/uL (4.8-10.8)
[2023-11-18 05:46] LABS: Blood Urea Nitrogen 21 mg/dl (7-17); Calcium 7.9 mg/dl (8.4-10.2); Carbon Dioxide 24 mmol/L (22-30); Chloride 103 mmol/L (98-107); Estimated Creatinine Clearance 43 ml/min; Glucose 59 mg/dl (70-99); Potassium 3.3 mmol/L (3.5-5.1); Sodium 135 mmol/L (135-145); eGFR > 60.00
[2023-11-18 05:48] LABS: Lactic Acid 1.2 mmol/L (0.7-2.0)
[2023-11-18] MEDS: DILAUDID 0.25 MG IV (06:02)
[2023-11-18] MEDS: KCL 270 MEQ IV (07:28)
--- NOTE | 2023-11-18 07:33 | PTCARENOTE ---
11/17 Patient has tachycardia with hr 160s-170s. Denied chest pain and SOB. VS initiated. ADVISOR TO COMMAND IN COMBAT made aware. EKG Afib W/ RVR. new order Lopressor 5mg IV x2. Patient continue with hr between 150s-160s Cardizem drip started.
[2023-11-18] MEDS: DEXTROSE 50% SYRINGE 12.5 GRAMS IV (08:03)
[2023-11-18] MEDS: NSS (PRESERVATIVE FREE) 10 ML IV (08:04)
[2023-11-18] MEDS: PROTONIX IV 40 MG IV (08:04)
[2023-11-18] MEDS: SUBUTEX 4 MG SL ×2 (08:07→20:27)
[2023-11-18] MEDS: LOPRESSOR 100 MG PO (08:14)
[2023-11-18 08:47] LABS: Glucose - Point of Care 135 mg/dl (70-99)
--- NOTE | 2023-11-18 09:03 | W.PN.CRS1 ---
Today's Communication / Plan
-
Afib w/ RVR, cont dilt gtt, appreciate hospitalist
If fails another void trail, place weiss
Cont abx
Assessment/Plan
-
78-year-old female with PMH of A-fib (on Eliquis, last dose was the morning of 11/15/2023), chronic pain (on Suboxone), HTN who presented with acute abdominal pain and was found to have perforated stercoral colitis and underwent emergency Dos Santos's
procedure for perforation in the descending colon, in septic shock; given Kcentra preoperatively
POD 2 Dos Santos's procedure
Afib w/ RVR to 140s-105s, BP stable; Hb 8.2 from 9.8
�Appreciate hospitalist; d/w Dr. Coburn, plan will be to transfer back to ICU after he evaluates her
-drawing repeat trop
� Hold AC, Daily CBC; expected blood loss from operation and delusional
-hold dvt ppx as Hb drifted today
� Continue NGT until ostomy function
� If fails next void trial, replace weiss
� Continue antibiotics
� Continue HEMA to bulb suction
Subjective Data
Subjective Data
Date of Service: November 18, 2023
Overnight, the patient went into A-fib with RVR. She was given 2 doses of metoprolol, but it persisted. She was bolused with Cardizem and started on a Cardizem gtt.
This morning, she feels okay. She states she had some shortness of breath overnight but that improved. She has some mild chest pain.
Mild nausea overnight, no vomiting. Still n.p.o. with NGT.
No ostomy function.
Weiss was removed, but was just recently straight cath.
Objective Data
-
Vital Signs
Temp Pulse Resp BP Pulse Ox
98.8 F 137 17 134/64 95
11/18/23 07:15 11/18/23 07:15 11/18/23 07:15 11/18/23 07:15 11/18/23 07:15
Intake & Output
11/17/23 11/18/23 11/19/23
06:59 06:59 06:59
Intake Total 3658.3 / 3758.3 2280 / 2310 30 / 30
Output Total 2395 / 2395 460 / 960 1130 / 1130
Balance 1263.3 / 1363.3 1820 / 1350 -1100 / -1100
Intake:
IV fluids (Total) 2828.3 / 2928.3 2120 / 2120
Normosol-R 1,000 ml @ 100 mls/ 2500 / 2600 1000 / 1000
hr IV .Q10H FELIPA Rx#:[id number]
levophed 254.3 / 254.3
precedex 74.0 / 74.0
IV piggybacks 300 / 300 100 / 100
Amount instilled into GI Tube ( 30 / 30 60 / 90 30 / 30
Total)
[place] Sump 30 / 30 60 / 90 30 / 30
Blood Product Amount Infused ( 500 / 500
mL)
Packed Rbc Leukoreduced Unit 250 / 250
[id number]
Packed Rbc Leukoreduced Unit 250 / 250
[id number]
Output:
Drain Output (Total) 370 / 370 60 / 60 30 / 30
Abdomen David-Clarke 370 / 370 60 / 60 30 / 30
Gastrointestinal tube output ( 150 / 150 100 / 600 500 / 500
Total)
[place] Sump 150 / 150 100 / 600 500 / 500
Urine, Weiss 1875 / 1875 300 / 300
Straight cath output 600 / 600
Other:
Number of approximated MODERATE 1
amounts of urine
Lab Results
11/18/23 05:13
11/18/23 05:13
Physical Exam
-
General: No Acute Distress and AOx3
HEENT: Grossly Normal
Chest: Other (Bilateral excursion, no respiratory distress)
Abdomen: Soft, Distended (Mildly distended), Tender (Appropriately tender near incisions), No Guarding, No Rebound and Other (HEMA-90 mL serosang output, NGT-600 mL light bilious output; ostomy pink with bowel sweat in bag)
Neurological: Other (Moving all extremities)
Skin: Warm and Dry
Wound: No Signs of Infection, Dressing in Place (Aquacel) and No Skin Erythema
[2023-11-18 10:04] LABS: % Basophils 0.6 % (0-2); % Immature Granulocytes 0.4 % (0-0.5); % Monocytes 2.8 % (1.7-9.3); % Neutrophils 92.2 % (42.2-75.2); Absolute Basophils 0.1 10^3/uL (0-0.2); Absolute Immature Granulocytes 0.1 10^3/uL (0-0.05); Absolute Lymphocytes 0.9 10^3/uL (1.2-3.4); Absolute Monocytes 0.6 10^3/uL (0.1-0.6); Absolute Neutrophils 21.1 10^3/uL (1.4-6.5); Hematocrit 25.8 % (37.0-47.0); Hemoglobin 9.2 g/dL (12.0-16.0); Mean Corp Hgb Conc. 35.7 g/dL (33.0-37.0); Mean Corpuscular Hgb 30.2 pg (27.0-31.0); Mean Corpuscular Volume 84.6 fL (81.0-99.0); Mean Platelet Volume 9.3 fL (7.4-10.4); Nucleated Red Blood Cells % 0 %; Platelet Count 184 10^3/uL (130-400); Red Blood Cell Count 3.05 10^6/uL (4.20-5.40); Red Cell Dist. Width 15.5 % (11.5-14.5); White Blood Cell Count 22.9 10^3/uL (4.8-10.8)
[2023-11-18 10:30] LABS: Troponin I 0.744 ng/ml
--- NOTE | 2023-11-18 11:42 | W.PN.HOSP.TC ---
Today's Communication/Plan
-
transfer back to ICU
Assessment / Plan
Assessment / Plan
Assessment:
Septic Shock secondary to perforated bowel from diverticulitis vs stercoral colitis
- s/p urgent K-centra for Eliquis reversal
- underwent on 11/16 1) Juliet's procedure (left colectomy with colostomy) 2) takedown splenic flexure on 11/16/23. Operative findings: perforated distal descending colon with associated bloody contamination (blood plus stool--particularly at left
retroperitoneum)
- continue NPO/IVF
- pressors were weaned
as per nursing, BP currently in the 130/60 range
- continue Zosyn
- continue NGT/Joseph
- Colorectal following
Called to see pt urgently due to A. Fib with rvr
Pt with hx of a.fib, has not yet established with a cardio in this area since her move from [facility]
VDRF in setting of acute emergency surgery for airway protection
- extubated - pt denies respiratory distress
Post-operative acute anemia from blood loss
- s/p 2 units PRBCs. Hb is 9.8
Non-UT trop elevation
- trop this morning 0.744
- follow tele/EKGs
Parox A. fib
- s/p urgent K-centra for Eliquis reversal; resume when cleared by surgery
- hold oral BB as pt is NPO
currently on IV Dilt for rate control
Chronic Pain with Opioid Dependence
- continue Dilaudid as needed for pain
- resume buprenorphine when able
Essential HTN
- hold BB/Doxazosin until sepsis improves
DVT prophylaxis: SCDs
CODE STATUS: Full code
Dispo: discussed with Dr. Jerry Ramsey, pt top be transferred back to ICU. Replanter and Cardio consults will be requested
Total Critical Care Time 50 minutes. I was immediately available to the patient and staff. I personally examined, reviewed labs, diagnostic images/reports, interpretations, treatment plans, discussed patient care with other providers and family
or caregivers (if patient is unable to make decisions), entered orders as appropriate and documented the medical record.
Anticipated Discharge: > 48 hours
Subjective/Interval History
-
Date of Service: November 18, 2023
Called to see pt urgently because of a.fib with rvr. Discussed with Dr. Ramsey, ISABELLE
Objective Data
-
Labs:
Laboratory Results
11/18/23 11/18/23
05:13 09:55
WBC 18.5 H 22.9 H
Hgb 8.2 L 9.2 L
Hct 23.1 L 25.8 L
Plt Count 173 184
Sodium 135
Potassium 3.3 L
Chloride 103
Carbon Dioxide 24
BUN 21 H
Creatinine 0.9
Glucose 59 L
Calcium 7.9 L
Vital Signs:
Vital Signs
Temp Pulse Resp BP Pulse Ox
98.8 F 137 17 134/64 95
11/18/23 07:15 11/18/23 07:15 11/18/23 07:15 11/18/23 07:15 11/18/23 07:15
I&O
11/17/23 11/18/23 11/19/23
06:59 06:59 06:59
Intake Total 3658.3 / 3758.3 2280 / 2310 30 / 30
Output Total 2395 / 2395 460 / 960 1130 / 1130
Balance 1263.3 / 1363.3 1820 / 1350 -1100 / -1100
Review of Systems
-
History Source: Patient, Physician and Coordinated Provider
Constitutional: Denies Fever
EENT: Reports No Symptoms Reported
Cardiac: Reports Palpitations; Denies Chest Pain
Abdomen/GI: Reports Abdominal Pain (post op)
Physical Exam
-
General: Well Developed and Well Nourished; Negative Respiratory Distress
HEENT: Normocephalic, Atraumatic, Moist Mucous Membranes and Other (NG tube in place)
Respiratory: Clear to Auscultation; Negative Wheezes, Rales or Rhonchi
Cardiac: S1/S2, Irregular Rhythm and Tachycardic
GI: Soft, Nontender (to light palpation) and Ostomy
Musculoskeletal: No Clubbing, No Cyanosis and No Edema
Neuro: Awake, Alert and Oriented
--- NOTE | 2023-11-18 12:05 | WOUNDNOTE ---
[facility] RN note: Patient's stoma pink and budded. Appliance intact. t/c Spoke with daughter earlier today who wants to do ostomy teaching session tomorrow at 11:30am when she is available. Instructed patient pouch emptying, how to cut wafer and snap on
pouch. Patient was able to open and close pouch, assist with cutting wafer and snapping on pouch. Skin on heels intact. Sacrum mild red and intact. Sacral shaped silicone border foam maintained. Heels off bed with pillow and air chair cushion.
Discussed with EUGENE Pena who stated she will apply waffle air overlay if patient not transferred to IMU or ICU. Ostomy supplies and teaching folder in room.
[2023-11-18 12:24] LABS: Lactic Acid 1.1 mmol/L (0.7-2.0)
--- NOTE | 2023-11-18 12:34 | CON.CAR ---
Addendum entered and electronically signed by Martin De Jesus MD 11/18/23 14:45:
I saw and examined the patient.
The Council Member's note was reviewed and I agree with the note.
Comment:
GEN: No distress, awake, Ox3
HEENT: supple, anicteric, mmm
LUNGS: CTA, no wheezes/rales
CV: Irreg, S1/S2, 1/6 syst LSB, no gallop
ABD: soft, BS dec, incis tenderness
EXT: No edema
NEURO: Gross non-focal
SKIN: No rash
plan:
She has a past medical history of paroxysmal atrial fibrillation, chronic heart failure preserved action fraction, hypertension, and hyperlipidemia who presented with a perforated diverticulum and peritonitis. She then had a Dos Santos's procedure
with takedown of splenic flexure. On postop day November 17 she went into rapid atrial fibrillation. She was started on IV diltiazem. She takes long-term Eliquis but this is currently on hold. She is having many episodes of pain per surgery.
Continue IV diltiazem drip. Blood pressure is overall stable. Would resume metoprolol oral when she is able to take p.o. medication.
Okay to hold Eliquis for now would restart when okay with surgery. Eliquis dosing based on age and weight should be 2.5 mg p.o. twice daily.
We will check an echocardiogram this admission
She has no chest pain and abnormal troponin is likely non-AL troponin elevation from A-fib.
Continue antibiotics and postop care.
Original Note:
Consultation
Consultation Request
Date/Time Consultation Requested: 11/18/2023
Date/Time Consultation Performed: 11/18/2023 at 1200
Requesting Provider: Dr. Coburn
Performing Provider: Dr. De Jesus
Reason for Consultation: Afib w/ RVR
Medical History
-
History of Present Illness:
HPI: Bailey is an 78 year old female with PMH of paroxysmal atrial fibrillation, chronic HFpEF, hypertension, hyperlipidemia, and chronic pain who presented to [facility] for evaluation of abdominal pain. She reported that for approximately 2 days prior
to arrival, she noted increased abdominal pain and constipation. She also noted associated chills. On arrival to ER, she was found to have perforated diverticulitis by CT scan with associated peritonitis. She was admitted, started on antibiotics,
and ultimately underwent Juliet's procedure w/ takedown of splenic flexure on 11/16/2023. She then went into rapid atrial fibrillation post op on 11/17/2023. She was started on IV diltiazem and cardiology consulted for evaluation. She was symptomatic
with this and noted palpitations and some chest pain. Her heart rates are improved this AM on cardizem gtt and she is feeling better from a cardiac standpoint, although still complains of pain related to surgery.
PMH:
Paroxysmal atrial fibrillation
Chronic Eliquis anticoagulation
Chronic HFpEF
Hypertension
Hyperlipidemia
Spinal stenosis
Fibromyalgia
h/o tobacco abuse on nicotine patch
Past Medical History
Past Medical History: Other (In HPI)
Past Surgical History: Appendectomy, Cholecystectomy, Gynecological (Hysterectomy), Orthopedic (Rotator cuff repair) and Tonsilectomy
Social History
Tobacco: Former Smoker
Alcohol: None
Drug: None
Personal:
Living: With Family
Employment: Retired
Family History
Family History: CAD and Hypertension
Allergies / Home Medications
Allergy/AdvReac Type Severity Reaction Status Date / Time
No Known Allergies Allergy Verified 11/15/23 14:07
Medication Instructions Recorded Confirmed Type
apixaban 5 mg tablet (Eliquis) 5 mg PO BID Blood Clot 05/15/23 11/15/23 History
Prevention/Tx
atorvastatin 20 mg tablet 20 mg PO DAILY High Cholesterol 05/15/23 11/15/23 History
buprenorphine 4 mg-naloxone 1 mg 1 film buccal BID Pain 05/15/23 11/15/23 History
sublingual film
doxazosin 1 mg tablet 1 mg PO HS Blood Pressure 05/15/23 11/15/23 History
metoprolol succinate 100 mg 100 mg PO BID Heart 05/15/23 11/15/23 History
tablet,extended release 24 hr Disease/Condition
melatonin 10 mg tablet 10 mg PO HS Sleep 11/15/23 11/15/23 History
nicotine 7 mg/24 hr daily 7 mg transdermal Q48H Smoking 11/15/23 11/15/23 History
transdermal patch Cessation
ondansetron HCl 8 mg tablet 8 mg PO Q12H PRN nausea/vomiting 11/15/23 11/15/23 History
polyethylene glycol 3350 17 gram 17 g PO BID Constipation 11/15/23 11/15/23 History
oral powder packet (Miralax)
Review of Systems
-
History Source: Patient
All other systems: Negative unless noted
Physical Exam
Vital Signs
Temp Pulse Resp BP Pulse Ox
98.6 F 94 15 109/62 94
11/18/23 11:43 11/18/23 11:43 11/18/23 11:43 11/18/23 11:43 11/18/23 11:43
Lab Results
11/18/23 09:55
11/18/23 05:13
Troponin I 0.744 ng/ml H* 11/18/23 09:55
Physical Exam
General: Well Developed, Well Nourished and No Apparent Distress
HEENT: Normocephalic, Anicteric and Other (NGT in place)
Respiratory: Rhonchi and Non Labored Respirations
Cardiac: S1/S2, Irregular Rhythm and Murmur
Musculoskeletal: No Clubbing, No Cyanosis and No Edema
Skin: Warm and Dry
Neuro: AO x 3 and Nonfocal/Grossly Intact
Psych: Calm
Impression / Plan
-
Automation Developer: Dr. HAILEY Nash
Impression:
Presented with abdominal pain
Septic shock
Perforated stercoral colitis s/p Juliet's procedure 11/16/2023
Paroxysmal atrial fibrillation w/ RVR
Chronic Eliquis anticoagulation
Acute blood loss anemia
Hypokalemia
Troponin elevation
Chronic HFpEF
Hypertension
Hyperlipidemia
Spinal stenosis
Fibromyalgia
h/o tobacco abuse on nicotine patch
Echo 11/19/2023: Study pending
Plan:
-Presented with abdominal pain and constipation, found to have perforated colon s/p Juliet's procedure on 11/16/2023.
-Has been NPO and metoprolol and Eliquis have been on hold perioperatively.
-Went into rapid afib in PM on 11/17/2023. Patient noted palpitations and some mild chest pain with this
-Started on cardizem gtt and HRs improved in the 80s this AM. Continue cardizem gtt while NPO.
-K 3.3, agree w/ repletion. Continue to follow K and mag.
-TSH 1.0
-Hemoglobin stable at 9.2. Resume Eliquis when ok per surgery
-Troponin elevation noted, trending up to 0.744. Continue to trend to peak. Suspect nonMI troponin elevation in the setting of septic shock and rapid afib.
-EKG w/ rapid afib, would repeat in AM. Will check echo
-Continue post op care/abx per surgery/primary service
HPI: Bailey is an 78 year old female with PMH of paroxysmal atrial fibrillation, chronic HFpEF, hypertension, hyperlipidemia, and chronic pain who presented to [facility] for evaluation of abdominal pain. She reported that for approximately 2 days prior
to arrival, she noted increased abdominal pain and constipation. She also noted associated chills. On arrival to ER, she was found to have perforated diverticulitis by CT scan with associated peritonitis. She was admitted, started on antibiotics,
and ultimately underwent Juliet's procedure w/ takedown of splenic flexure on 11/16/2023. She then went into rapid atrial fibrillation post op on 11/17/2023. She was started on IV diltiazem and cardiology consulted for evaluation. She was symptomatic
with this and noted palpitations and some chest pain. Her heart rates are improved this AM on cardizem gtt and she is feeling better from a cardiac standpoint, although still complains of pain related to surgery.
Data Reviewed
-
EKG: Tracing Personally Visualized and interpreted
[2023-11-18 12:55] LABS: Glucose - Point of Care 72 mg/dl (70-99)
--- NOTE | 2023-11-18 13:10 | PTCARENOTE ---
Pt was received this morning with a heart rate of 154. Pt on Cardizem drip. Cardizem drip was increased to 10mg/hr @6am by prior shift. Pt currently remains in Afib. Pt blood glucose was 59 with AM labs. 1/2amp of Dextrose given as ordered. Blood
sugar up to 135. Pt also given k-rider as ordered for K+ level of 3.3. Pt continues with Cardizem drip running at 10mg/10 mls/hr. Pt's heart rate now varies from 70's to 90's. Dr Coburn notified of changes. Pt awaiting ICU bed. No new changes at
this time.
--- NOTE | 2023-11-18 14:30 | CM ---
communication manager reviewed patient's chart and per notes patient is for possible transfer to ICU. communication manager will need to follow with patient progress.
Plan; To follow with patient progress.
--- NOTE | 2023-11-18 15:30 | PTCARENOTE ---
Pt transferred to ICU as ordered. Verbal Report given to Omaira KNIGHT.
--- NOTE | 2023-11-18 17:45 | W.PN.INTV ---
Today's Communication / Plan
Recommendations
IS
Diltiazem
Assessment
-
Assessment:
Mrs Bailey Martinez is an 78/W adm 11-15 with 2 d h/o abd pain, constipation and chills. Seen at ER, abd CT showed perforated colon. Taken to OR, needed reversal of DOAC with kcentra. Intubated for surgery 11-15 and left on MV with extubation 11-16.
Transferred to [facility] 11-17, developed RVR AFib, did not respond to IV BB, started diltiazem gtt, returned to ICU 11-18
Impression
AFib c RVR since evening 11-17, h/o AFib
Perforated sigmoid/descending colon
S/p Juliet's procedure (left colectomy with colostomy), takedown splenic flexure
Intubated for surgery 11-15, extubated 11-16
Postop anemia
Chronic apixaban, s/p reversal pre surgery
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
AFib on apixaban
HLD
HTN
Chronic pain on chronic buprenorphine
Tobacco dependence, on NRT
Plan:
Returned to ICU for RVR AFib
Already on diltiazem gtt, attempted rate control with IV BB prior to diltiazem
O2 protocol if needed
So far on RA, POx 93%
Encouraged to do IS
Postop pain mgmt
IV opiates (noted h/o opiate use for chronic back pain): hydromorphone 0.25 to 0.5 mg IV q4hrs prn
Resumed buprenorphine SL 11-17
Surgery following
Enteral meds when OK with Sx
Continue on empiric zosyn
Abd cx: E coli, Enterococcus sp, Strep sp
Blood cxs 11-15 so far negative, 11-18 pending
HTN, on oral metoprolol at home, will resume when able
SCDs
Can resume apixaban once OK by Sx (2.5 mg bid)
GI proph: PPI IV
D/w Mrs Martinez in presence of EUGENE Castano
Diagnostic tests:
CXR 11-16-23: no infiltrates
Subjective Dataa
Subjective Data
Date of Service:
Date of Service: November 18, 2023
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
Objective Data
Data Reviewed
Vital Signs / I&O / Oxygen:
Vital Signs
Temp Pulse Resp BP Pulse Ox
98.3 F 90 15 125/64 92
11/18/23 16:31 11/18/23 16:31 11/18/23 16:31 11/18/23 16:31 11/18/23 16:31
Intake and Output
11/17/23 11/18/23 11/19/23
06:59 06:59 06:59
Intake Total 3658.3 / 3758.3 2280 / 2310 30 / 30
Output Total 2395 / 2395 460 / 960 1130 / 1130
Balance 1263.3 / 1363.3 1820 / 1350 -1100 / -1100
SaO2 [CPAP/PSV] 98
SaO2 [A/C] 100
SaO2 92
Nasal Cannula flow liters per 2
minute
Physical Exam
General: Respiratory Distress (n)
HEENT: Normocephalic and Moist Mucous Membranes
Cardiovascular: Regular Rhythm and Peripheral Edema (n)
Respiratory: Clear, Non-Labored Respirations and Stridor
GI: Soft, Non Distended, Tender, Other (surgical wound with clean dressing) and Other (colostomy)
Neurology: Awake, Oriented and No Motor Deficits
Skin: Dry
Labs/Micro/Reports
Lab Data
11/18/23 09:55
11/18/23 05:13
Microbiology
11/15/23 22:44 Abdomen Anaerobic Culture - Preliminary
Culture pending. Anaerobic cultures are examined after 3
days incubation. Additional information to follow.
11/15/23 22:44 Abdomen Wound Culture - Preliminary
Escherichia coli
Enterococcus species
Streptococcus species
11/15/23 22:44 Abdomen Gram Stain - Preliminary
11/15/23 18:19 Blood/Venous Blood Culture - Preliminary
No Growth in 48 hours- Final report to follow
11/15/23 14:27 Nasal Swab Influenza Types A & B (MARIELA) - Final
Negative for Influenza A & B, NAAT
Negative results must be combined with clinical observations
and patient history.
Nucleic Acid Amplification test (NAAT)performed on the
[employer] platform.
[2023-11-18 18:01] LABS: Glucose - Point of Care 79 mg/dl (70-99)
[2023-11-18] MEDS: D5/0.45%NSS with KCL 20 MEQ 1000 IV (18:26)
[2023-11-18 18:38] LABS: Lactic Acid 0.9 mmol/L (0.7-2.0); Magnesium 2.5 mg/dl (1.6-2.3)
[2023-11-18 18:43] LABS: Urine Albumin 1+ (Neg - Trace); Urine Bilirubin Negative (Negative); Urine Character Slightly Cloudy (Clear); Urine Color Yellow; Urine Glucose Negative (Negative); Urine Ketone 3+ (Negative); Urine Leukocyte Trace (Negative); Urine Nitrite Negative (Negative); Urine Occult Blood 3+ (Negative); Urine Urobilinogen Negative (Neg - 1+)
[2023-11-18 18:45] LABS: INR 1.27; PT 16.1 Sec (11.4-14.6)
--- NOTE | 2023-11-18 18:45 | PTCARENOTE ---
recd from 2S as transfer to ICU into room 3357 at 1700, settled into new bed, cardizem infusing as ordered 10 mg/hr. VS noted stable. Joseph placed per order, discussed wtih Dr. Amador before proceeding. c/o pain, 08/17 aware not due for anything
at this time and very agreeable. c/o nausea requested zofran, given. 12 lead, CXR, labs obtained per ICU protocol/orders. positioned to side for comfort. IS given, using with encouragement, shallow, requested ice chips, advised NPO order at this
time does not include ice chips, mouth swabs offered. IV fluids ordered, hanging now.
[2023-11-18 18:46] LABS: APTT 27.8 Sec (23.4-35.0)
[2023-11-18 18:57] LABS: Troponin I 0.834 ng/ml
[2023-11-18 19:09] LABS: Urine Bacteria Moderate (Negative); Urine Red Blood Cell 0-2 /HPF (0-2)
[2023-11-18 19:10] LABS: Urine Granular Cast 0-2 /LPF (0)
[2023-11-18 19:37] LABS: Blood Urea Nitrogen 24 mg/dl (7-17); Calcium 8.2 mg/dl (8.4-10.2); Carbon Dioxide 21 mmol/L (22-30); Chloride 105 mmol/L (98-107); Estimated Creatinine Clearance 49 ml/min; Glucose 80 mg/dl (70-99); Potassium 3.8 mmol/L (3.5-5.1); Sodium 136 mmol/L (135-145); eGFR > 60.00
--- NOTE | 2023-11-18 20:53 | PTCARENOTE ---
pt received. alert and oriented x3. afib on monitor, rate 70-90s. cardizem gtt infusing at 10mg. IVF also infusing. temp 101.5, ICU TUBE DISPATCHER notified, IV ofirmev ordered. pt satting 89-90%, 2L nasal cannula placed, now satting 96%. intermittent,
productive cough noted. lips dry and flaking, oral care provided along with moistened swabs. NGT to LIS, green drainage noted. colostomy and HEMA drain in place, stoma beefy red, minimal drainage noted. abdominal dressing C/D/I. weiss in place,
draining clear yellow urine. patient repositioned. c/o 08/17 generalized pain, PRN dilaudid given - see MAR. meds given. patient now resting comfortably, pt care ongoing.
[2023-11-18] MEDS: OFIRMEV 100 IV (21:28)
[2023-11-18 23:42] LABS: Glucose - Point of Care 137 mg/dl (70-99)
[2023-11-19] VITALS (28 sets, daily range): BP systolic 103–170; BP diastolic 41–116; BMI 20.2
--- NOTE | 2023-11-19 00:04 | PTCARENOTE ---
pt reassessed. oriented x3. cardizem and ivf infusing, HR controlled 70-80s. repositioned q2h. oral swabs provided. resting comfortably in bed. pt care ongoing.
[2023-11-19] MEDS: DILAUDID 0.5 MG IV ×6 (00:38→22:53)
[2023-11-19] MEDS: ZOSYN 50 IV ×4 (00:39→20:02)
[2023-11-19] MEDS: ZOFRAN 4 MG IV (00:39)
[2023-11-19 01:21] LABS: Troponin I 0.744 ng/ml
[2023-11-19] MEDS: CARDIZEM 125 IV ×3 (03:46→22:31)
[2023-11-19] MEDS: D5/0.45%NSS with KCL 20 MEQ 1000 IV ×3 (03:47→23:49)
--- NOTE | 2023-11-19 04:22 | PTCARENOTE ---
pt reassessed. cardizem and IVF infusing. AM labs sent. pt repositioned, oral care provided. moistened swabs provided to patient for independent use. pt with moist productive cough, on 2L nasal cannula. HR controlled in 70-90s. abdomen incisional
site and HEMA drain site C/D/I. colostomy intact. weiss care provided. pt care ongoing.
[2023-11-19 04:37] LABS: Blood Urea Nitrogen 21 mg/dl (7-17); Calcium 7.5 mg/dl (8.4-10.2); Carbon Dioxide 25 mmol/L (22-30); Chloride 107 mmol/L (98-107); Estimated Creatinine Clearance 49 ml/min; Glucose 149 mg/dl (70-99); Potassium 3.7 mmol/L (3.5-5.1); Sodium 134 mmol/L (135-145); eGFR > 60.00
[2023-11-19 04:49] LABS: Troponin I 0.702 ng/ml
[2023-11-19 04:51] LABS: % Basophils 0.5 % (0-2); % Eosinophils 0.7 % (0-6); % Immature Granulocytes 0.4 % (0-0.5); % Lymphocytes 5.6 % (20.5-51.1); % Monocytes 4.4 % (1.7-9.3); % Neutrophils 88.4 % (42.2-75.2); Absolute Basophils 0.1 10^3/uL (0-0.2); Absolute Eosinophils 0.1 10^3/uL (0-0.7); Absolute Immature Granulocytes 0.1 10^3/uL (0-0.05); Absolute Monocytes 0.8 10^3/uL (0.1-0.6); Absolute Neutrophils 15.8 10^3/uL (1.4-6.5); Mean Corp Hgb Conc. 35.1 g/dL (33.0-37.0); Mean Corpuscular Hgb 29.5 pg (27.0-31.0); Mean Platelet Volume 9.5 fL (7.4-10.4); Nucleated Red Blood Cells % 0 %; Platelet Count 205 10^3/uL (130-400); Red Blood Cell Count 2.44 10^6/uL (4.20-5.40); Red Cell Dist. Width 15.7 % (11.5-14.5); White Blood Cell Count 17.9 10^3/uL (4.8-10.8)
[2023-11-19 05:11] LABS: Hematocrit 20.5 % (37.0-47.0); Hemoglobin 7.2 g/dL (12.0-16.0)
[2023-11-19] MEDS: CALCIUM GLUCONATE 100 IV (05:54)
[2023-11-19 06:26] LABS: Glucose - Point of Care 178 mg/dl (70-99)
--- NOTE | 2023-11-19 07:27 | W.PN.INTV ---
Today's Communication / Plan
Recommendations
Asp precs
Diltiazem gtt, IV BB prn
1u PRBCs
Zosyn
CT abd
Assessment
-
Assessment:
Mrs Bailey Martinez is an 78/W adm 11-15 with 2 d h/o abd pain, constipation and chills. Seen at ER, abd CT showed perforated colon. Taken to OR, needed reversal of DOAC with kcentra. Intubated for surgery 11-15 and left on MV with extubation 11-16.
Transferred to [facility] 11-17, developed RVR AFib, did not respond to IV BB, started diltiazem gtt, returned to ICU 11-18
Impression
AFib c RVR since evening 11-17, h/o AFib
Perforated sigmoid/descending colon
S/p Juliet's procedure (left colectomy with colostomy), takedown splenic flexure
Intubated for surgery 11-15, extubated 11-16
Postop anemia
Chronic apixaban, s/p reversal pre surgery
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
AFib on apixaban
HLD
HTN
Chronic pain on chronic buprenorphine
Tobacco dependence, on NRT
Plan:
Returned to ICU for RVR AFib 11-19
Already on diltiazem gtt, attempted rate control with IV BB prior to diltiazem
Continue diltiazem gtt
Added lopressor 5 mg IV prn
O2 protocol if needed
So far on RA, POx 93%
Encouraged to do IS
Postop pain mgmt
IV opiates (noted h/o opiate use for chronic back pain): hydromorphone 0.25 to 0.5 mg IV q4hrs prn
Resumed buprenorphine SL 11-17
APAP IV q6h
Surgery following
Enteral meds when OK with Sx
Continue on empiric zosyn
Abd cx: E coli, Enterococcus sp, Strep sp
Blood cxs 11-15 so far negative, 11-18 so far negative
Fever evening 11-18
CXR with no infiltrates 11-[address] c oral contrast 11-19 pending
Interim anemia with 2 g drop in 24 h
1 U PRBCs 11-19
HTN, on oral metoprolol at home, will resume when able
SCDs
Can resume apixaban once OK by Sx (2.5 mg bid)
GI proph: PPI IV
D/w Mrs Martinez in presence of RN Omaira
Critical care time: 35 min
Diagnostic tests:
CXR 11-16 and : no infiltrates
Subjective Dataa
Subjective Data
Date of Service:
Date of Service: November 19, 2023
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
Subjective:
Remains on room air
1 episode of fever reported
Surgery visiting, will check abdominal CT
Dropping hemoglobin, will proceed to 1 unit of packed red blood cells today
Review of Systems
General: Fever, Sweats (n), Chills and Satisfactory Appetite (n)
HEENT: Epistaxis (n)
Cardiopulmonary: Dyspnea (n), Cough (n) and Hemoptysis (n)
GI: Abdominal Pain (postop), Nausea (n) and Vomiting (n)
Neuro: Weakness
Objective Data
Data Reviewed
Vital Signs / I&O / Oxygen:
Vital Signs
Temp Pulse Resp BP Pulse Ox
98.5 F 95 16 120/57 97
11/19/23 03:22 11/19/23 06:30 11/19/23 06:30 11/19/23 06:00 11/19/23 06:30
Intake and Output
11/18/23 11/19/23 11/20/23
06:59 06:59 06:59
Intake Total 2280 / 2310 1959 / 2069 110 / 110
Output Total 460 / 960 2880 / 2880
Balance 1820 / 1350 -920 / -810 110 / 110
SaO2 [CPAP/PSV] 98
SaO2 [A/C] 100
SaO2 97
Nasal Cannula flow liters per 2
minute
Physical Exam
General: Respiratory Distress (n)
HEENT: Normocephalic and Moist Mucous Membranes
Cardiovascular: Regular Rhythm and Peripheral Edema (n)
Respiratory: Clear, Non-Labored Respirations and Stridor
GI: Soft, Non Distended, Tender, Other (surgical wound with clean dressing) and Other (colostomy)
Neurology: Awake, Oriented and No Motor Deficits
Skin: Dry
Labs/Micro/Reports
Laboratory Results
11/18/23
18:15
PT 16.1 H
INR 1.27
APTT 27.8
Microbiology
11/18/23 00:47 Blood/Venous Blood Culture - Preliminary
No Growth in 24 hours- Final report to follow
11/18/23 00:48 Blood/Venous Blood Culture - Preliminary
No Growth in 24 hours- Final report to follow
11/15/23 18:19 Blood/Venous Blood Culture - Preliminary
No Growth in 72 hours- Final report to follow
11/15/23 22:44 Abdomen Anaerobic Culture - Preliminary
Culture pending. Anaerobic cultures are examined after 3
days incubation. Additional information to follow.
11/15/23 22:44 Abdomen Wound Culture - Preliminary
Escherichia coli
Enterococcus species
Streptococcus species
11/15/23 22:44 Abdomen Gram Stain - Preliminary
[2023-11-19] MEDS: SUBUTEX 4 MG SL ×2 (07:40→20:02)
[2023-11-19] MEDS: NSS (PRESERVATIVE FREE) 10 ML IV (07:41)
[2023-11-19] MEDS: PROTONIX IV 40 MG IV (07:41)
--- NOTE | 2023-11-19 08:44 | PTCARENOTE ---
recd pt, handoff at bedside, assessed. cardizem continues, requesting pain med, rests when undisturbed. OOB to chair assist 2, tolerated, to recliner. seen by Drs. Alcaraz and Perry. stoma red, budded, HEMA minimal drainage. aquacell with
drainage, intact. NG to low intermittent, mouth swabs. Per Dr. Alcaraz, few ice chips allowed, given. pending plans for the day, discussed with pt, transfusion and CT. call simmons in reach.
[2023-11-19 09:26] LABS: Blood Urea Nitrogen 17 mg/dl (7-17); Calcium 8.1 mg/dl (8.4-10.2); Carbon Dioxide 23 mmol/L (22-30); Chloride 106 mmol/L (98-107); Estimated Creatinine Clearance 56 ml/min; Glucose 182 mg/dl (70-99); Potassium 3.7 mmol/L (3.5-5.1); Sodium 132 mmol/L (135-145); eGFR > 60.00
[2023-11-19] MEDS: OMNIPAQUE 50 ML PO (09:45)
--- NOTE | 2023-11-19 09:55 | PTCARENOTE ---
started CT contrast by mouth, prefers to drink rather than via NG. Off suction, still in chair.
--- NOTE | 2023-11-19 11:33 | W.PN.CRS1 ---
Today's Communication / Plan
-
CT scan.
Assessment/Plan
-
POD 4.
1. WBC still up at 17.9. Fever overnight with Tm 101.5. Source unclear. Arranging CTA/P with IV and water soluble oral (via NGT) and water soluble rectal contrast to further evaluate. OR cultures growing Zosyn sensitive E coli. Continue Zosyn
for now.
2. Hg down to 7.2 from 9.2--?some venous oozing. Ordered 1 uPRBCs to be transfused. Hold all anticoagulants for now.
3. tachycardic (a fib?). Troponin a bit elevated. Care per cardiology.
4. appreciate help of hospitalist/bicycle ii assembler/assembly detailer.
Subjective Data
Procedure
Juliet's resection 11/15/23
Subjective Data
Date of Service: November 19, 2023
Seems congested.
Denies dyspnea.
Admits to mild chest discomfort.
Pain control ok.
Denies nausea.
Objective Data
-
Vital Signs
Temp Pulse Resp BP Pulse Ox
97.9 F 107 20 124/60 93
11/19/23 11:30 11/19/23 10:56 11/19/23 10:56 11/19/23 10:56 11/19/23 08:00
Intake & Output
11/18/23 11/19/23 11/20/23
06:59 06:59 06:59
Intake Total 2280 / 2310 1960 / 2070 470 / 470
Output Total 460 / 960 2880 / 2880 300 / 300
Balance 1820 / 1350 -920 / -810 170 / 170
Intake:
IV fluids (Total) 2120 / 2120 1320 / 1430 390 / 390
D5/0.45%NSS with KCL 20 MEQ 20 1200 / 1300 350 / 350
meq In 1,000 ml @ 100 mls/hr IV
.Q10H FELIPA Rx#:[id number]
Normosol-R 1,000 ml @ 100 mls/ 1000 / 1000
hr IV .Q10H FELIPA Rx#:[id number]
cardizem 120 / 130 40 / 40
IV piggybacks 100 / 100 550 / 550 50 / 50
Amount instilled into GI Tube ( 60 / 90 90 / 90 30 / 30
Total)
[place] Sump 60 / 90 90 / 90 30 / 30
Blood Product Amount Infused ( 0 / 0
mL)
Packed Rbc Leukoreduced Unit 0 / 0
[id number]
Output:
Drain Output (Total) 60 / 60 130 / 130
Abdomen David-Clarke 60 / 60 130 / 130
Gastrointestinal tube output ( 100 / 600 1100 / 1100
Total)
[place] Sump 100 / 600 1100 / 1100
Urine, Joseph 300 / 300 1050 / 1050 300 / 300
Straight cath output 600 / 600
Other:
Number of approximated MODERATE 1
amounts of urine
Lab Results
11/19/23 09:00
Physical Exam
-
General: No Acute Distress
Chest: Decreased Breath Sounds (at bases)
Cardiovascular: Sinus Tachycardia (?a fib)
Abdomen: Distended (mild), Tender (mild incisional) and Other (stoma viable with bowel sweat in bag; HEMA with SS output)
Incision: No Skin Erythema and Serous Drainage (on dressing)
[2023-11-19 11:53] LABS: Glucose - Point of Care 196 mg/dl (70-99)
--- NOTE | 2023-11-19 12:06 | WOUNDNOTE ---
WO RN note: Patient in recliner chair. Skin on heels intact. Patient on an air chair cushion. Stoma pink, swollen and budded. Patient reports flatus. Peristomal skin intact. Patient and daughter Jennifer instructed ostomy pouch emptying and changing
appliance using Many wafer # [id number] and Enrique pouch #[id number]. Post op midline incisional Aquacell changed as approved by GI surgeon. Dry gauze dressing applied (sky left in place). Ostomy supplies and teaching folder in patient's room.
Patient gave this casualty underwriter verbal permission to order a Enrique ostomy secure starter kit. Next appliance change planned Wednesday. Daughter would like to be there if her working schedule allows.
--- NOTE | 2023-11-19 12:20 | WOUNDNOTE ---
WOC RN note: t/c Spoke with Destiney from [facility] and ordered patient a NGI ostomy secure starter kit.
--- NOTE | 2023-11-19 12:20 | W.PN.CARDCBS ---
Today's Communication / Plan
-
Continue IV Cardizem drip at 15. Will add Lopressor 5 mg IV as needed.
Hold anticoagulation for now with hemoglobin down to 7.2.
Continue antibiotics. Getting CT scan today with fever and elevated white count.
Weight is overall up but stable. May need a dose of Lasix over the next 24 to 48 hours.
Remains in the intensive care unit.
Abnormal troponins are likely non-DE troponin elevation
Impression / Plan
-
Bin Cleaner: Dr. HAILEY Nash
Impression:
Presented with abdominal pain
Septic shock
Perforated stercoral colitis s/p Juliet's procedure 11/16/2023
Paroxysmal atrial fibrillation w/ RVR
Chronic Eliquis anticoagulation
Acute blood loss anemia
Hypokalemia
Troponin elevation
Chronic HFpEF
Hypertension
Hyperlipidemia
Spinal stenosis
Fibromyalgia
h/o tobacco abuse on nicotine patch
Echo 11/19/2023: Study pending
Plan:
-Presented with abdominal pain and constipation, found to have perforated colon s/p Juliet's procedure on 11/16/2023.
-Has been NPO and metoprolol and Eliquis have been on hold perioperatively.
-Went into rapid afib in PM on 11/17/2023.
-Continue cardizem gtt at 15. Will add Lopressor 5 mg IV every 4 as needed for heart rates greater than 140
-Continue to follow K and mag.
-TSH 1.0
-Hemoglobin down to 7.2. Agree with transfusion. Resume Eliquis when ok per surgery. Possibly over the next 24 to 48 hours.
-Troponin elevation noted, peak at 0.744. Suspect nonMI troponin elevation in the setting of septic shock and rapid afib.
Will check echo
-Continue post op care/abx per surgery/primary service
CC time 32 min
HPI: Bailey is an 78 year old female with PMH of paroxysmal atrial fibrillation, chronic HFpEF, hypertension, hyperlipidemia, and chronic pain who presented to [facility] for evaluation of abdominal pain. She reported that for approximately 2 days prior
to arrival, she noted increased abdominal pain and constipation. She also noted associated chills. On arrival to ER, she was found to have perforated diverticulitis by CT scan with associated peritonitis. She was admitted, started on antibiotics,
and ultimately underwent Juliet's procedure w/ takedown of splenic flexure on 11/16/2023. She then went into rapid atrial fibrillation post op on 11/17/2023. She was started on IV diltiazem and cardiology consulted for evaluation. She was symptomatic
with this and noted palpitations and some chest pain. Her heart rates are improved this AM on cardizem gtt and she is feeling better from a cardiac standpoint, although still complains of pain related to surgery.
Progress Note - Bin Cleaner
Subjective
Date of Service: November 19, 2023
Having fevers. Remains in A-fib with modestly elevated rates. Occasional palpitations. getting PRBCs
Objective
Labs:
11/19/23 09:00
Labs
Hgb 7.2 g/dL (12.0-16.0) L D 11/19/23 03:56
Hct 20.5 % (37.0-47.0) L* 11/19/23 03:56
Plt Count 205 10^3/uL (130-400) 11/19/23 03:56
PT 16.1 Sec (11.4-14.6) H 11/18/23 18:15
INR 1.27 11/18/23 18:15
APTT 27.8 Sec (23.4-35.0) 11/18/23 18:15
Sodium 132 mmol/L (135-145) L 11/19/23 09:00
Potassium 3.7 mmol/L (3.5-5.1) 11/19/23 09:00
BUN 17 mg/dl (7-17) 11/19/23 09:00
Creatinine 0.7 mg/dL (0.6-1.0) 11/19/23 09:00
Glucose 182 mg/dl (70-99) H 11/19/23 09:00
Troponins
11/16/23 11/16/23 11/17/23
14:01 20:58 04:06
Troponin I 0.096 H* 0.089 H* 0.077 H*
11/18/23 11/18/23 11/19/23
09:55 18:15 00:47
Troponin I 0.744 H* 0.834 H* 0.744 H*
11/19/23
03:56
Troponin I 0.702 H*
Vital Signs and I&O:
Vital Signs
Temp Pulse Resp BP Pulse Ox
97.9 F 107 20 124/60 93
11/19/23 11:30 11/19/23 10:56 11/19/23 10:56 11/19/23 10:56 11/19/23 08:00
Vital Signs
Temp Pulse Resp BP Pulse Ox
97.9 F 107 20 124/60 93
11/19/23 11:30 11/19/23 10:56 11/19/23 10:56 11/19/23 10:56 11/19/23 08:00
Intake & Output
11/17/23 11/18/23 11/19/23 11/20/23
06:59 06:59 06:59 06:59
Intake Total 3658.3 / 3758.3 2280 / 2310 1960 / 2070 470 / 470
Output Total 2395 / 2395 460 / 960 2880 / 2880 300 / 300
Balance 1263.3 / 1363.3 1820 / 1350 -920 / -810 170 / 170
Physical Exam
Physical Exam
GEN: No distress, awake, Ox3
HEENT: supple, anicteric, mmm
LUNGS: scatt rhonchi
CV: Irreg, S1/S2, 11/13 syst LSB, no gallop
ABD: soft, BS dec, mild incis tend
EXT: No edema
NEURO: Gross non-focal
SKIN: No rash
--- NOTE | 2023-11-19 13:07 | PTCARENOTE ---
back to bed, PC completed, awaiting CAT scan.
--- NOTE | 2023-11-19 13:22 | CM ---
CM following re: discharge planning.
Discussed in rounds reviewed pt's chart, met with t and spoke to pt's daughter Jennifer to update on discharge planning progress.
Both pt and her daughter are aware that PT/OT recommended SNF vs home Pt and will re-evaluate that pt again. Pt reports she feels being very deconditioned and she stated she will prefer to go to a SNF for a short term rehab. A list of SNFs provided
to the pt and her daughter. Following SNFs preferred: [facility], [facility], [facility], [facility], [facility]. Referral to above SNFs made with a potential discharge date early next week. Awaiting for determination.
D/C plan: preferred SNF.
CM will follow to assist pt with discharge to a preferred SNF when pt is medically stable.
[2023-11-19 14:51] LABS: Hematocrit 27.6 % (37.0-47.0)
[2023-11-19 15:06] LABS: Hemoglobin 9.8 g/dL (12.0-16.0)
[2023-11-19] MEDS: OFIRMEV 100 IV ×2 (15:18→22:31)
--- NOTE | 2023-11-19 15:26 | W.PN.UPDATE ---
Update Note
Progress Note Update
CT scan reviewed. I discussed with Dr. Rodriguez of radiology. R pelvic fluid collection/abscess noted--approachable from transgluteal approach. Also some bibasilar airspace consolidation, which may represent subsegmental atelectasis or pneumonia.
Consulting IR for drain placement. Patient and her daughter updated.
--- NOTE | 2023-11-19 18:00 | PTCARENOTE ---
complete bath, linen change, monitor leads. Positioned for comfort. Awaiting IR procedure. Remains on cardizem gtt 15 mg/hr and IV fluids. taking few ice chips per order.
--- NOTE | 2023-11-19 19:56 | W.PN.HOSP.TC ---
Today's Communication/Plan
-
continue Zosyn
Continue Cardizem drip
follow labs
Assessment / Plan
Assessment / Plan
Assessment:
Septic Shock secondary to perforated bowel from diverticulitis vs stercoral colitis
- was given K-centra for Eliquis reversal
- underwent on 11/16 1) Juliet's procedure (left colectomy with colostomy) 2) takedown splenic flexure on 11/16/23. Operative findings: perforated distal descending colon with associated bloody contamination (blood plus stool--particularly at left
retroperitoneum)
- continue NPO/IVF
- pressors were weaned
as per nursing, BP currently in the 130/60 range
- continue Zosyn
- continue NGT/Joseph
- Colorectal following
11/19 CT scan: 1. Elongated fluid collection within the pelvis, extending into the retroperitoneum, measuring 8 x 5.6 x 3.3 cm. Internal gas bubbles and peripheral contrast enhancement are suggestive of postoperative abscess. Abscess is not
immediately adjacent to the suture line for the rectal stump.
2. Bubbles of air within the left paracolic gutter as detailed above, without associated abscess formation. These bubbles of air may be postoperative in nature.
3. Bibasilar airspace consolidation, which may represent subsegmental atelectasis or pneumonia. Tiny left pleural effusion.
Called to see pt urgently due to A. Fib with rvr 11/18
transferred to ICU, now on Cardizem gtt, cardio following
VDRF in setting of acute emergency surgery for airway protection
- extubated - pt denies respiratory distress
Post-operative acute anemia from blood loss
- s/p 2 units PRBCs. Hb was 9.8, the morning of 11/19 Hgb dropped to 7.2, transfused another unit 9.8 on 11/19 post transfusion
Non-OH trop elevation
- trop 0.744
- follow tele/EKGs
Parox A. fib
- s/p urgent K-centra for Eliquis reversal; resume when cleared by surgery
- hold oral BB as pt is NPO
currently on IV Dilt for rate control
Chronic Pain with Opioid Dependence
- continue Dilaudid as needed for pain
- resume buprenorphine when able
Essential HTN
- hold BB/Doxazosin until sepsis improves
DVT prophylaxis: SCDs
CODE STATUS: Full code
Dispo: discussed with Dr. Jerry Ramsey, pt top be transferred back to ICU. Temp Recruiter and Cardio consults noted and appreciated
Dr Alcaraz consulted IRAD for drain placement
Total Critical Care Time 40 minutes. I was immediately available to the patient and staff. I personally examined, reviewed labs, diagnostic images/reports, interpretations, treatment plans, discussed patient care with other providers and family
or caregivers (if patient is unable to make decisions), entered orders as appropriate and documented the medical record.
Anticipated Discharge: > 48 hours
Subjective/Interval History
-
Date of Service: November 19, 2023
Awake, alert, looks less toxic past 24 hrs
Objective Data
-
Labs:
Laboratory Results
11/19/23 11/19/23
09:00 14:38
Hgb 9.8 L D
Hct 27.6 L
Sodium 132 L
Potassium 3.7
Chloride 106
Carbon Dioxide 23
BUN 17
Creatinine 0.7
Glucose 182 H
Calcium 8.1 L
Vital Signs:
Vital Signs
Temp Pulse Resp BP Pulse Ox
98.8 F 99 19 114/56 93
11/19/23 15:36 11/19/23 18:00 11/19/23 18:00 11/19/23 16:00 11/19/23 18:00
I&O
11/18/23 11/19/23 11/20/23
06:59 06:59 06:59
Intake Total 2280 / 2310 1959 / 0 2460 / 2460
Output Total 460 / 960 2880 / 2880 1700 / 1700
Balance 1820 / 1350 -920 / -810 760 / 760
Review of Systems
-
History Source: Patient, Physician and Coordinated Provider
Constitutional: Denies Fever
EENT: Reports No Symptoms Reported
Cardiac: Reports Palpitations; Denies Chest Pain
Abdomen/GI: Reports Abdominal Pain (post op)
Physical Exam
-
General: Well Developed, Well Nourished and No Apparent Distress
HEENT: Normocephalic, Atraumatic and Moist Mucous Membranes
Respiratory: Clear to Auscultation; Negative Wheezes, Rales or Rhonchi
Cardiac: Regular Rhythm and S1/S2
GI: Soft, Nondistended and Ostomy; Negative Normal Bowel Sounds (absent BS)
Musculoskeletal: No Clubbing, No Cyanosis and No Edema
--- NOTE | 2023-11-19 22:20 | PTCARENOTE ---
Assumed care of pt at 1900. Pt is A/Ox4, pleasant and cooperative with care. Received pt on cardizem infusion at 15mg/hr, pt has been in AFib 90s-110s so far this shift. Physical assessment completed, see nursing shift assessment flowsheet for full
details. Pt consistently c/o 10/10 pain, states it is in her lower abd, back, and legs. Receiving PRN Dilaudid and scheduled Ofirmev.
[2023-11-20] VITALS (38 sets, daily range): BP systolic 86–162; BP diastolic 47–128; BMI 20.1
--- NOTE | 2023-11-20 00:14 | PTCARENOTE ---
Assessment unchanged. Pt was due to void by around 2200, bladder scan done closer to 2245 and showed 174mL, pt says she does not feel the urge to urinate, will rescan later in shift. Remains on cardizem at 15mg/hr, HR in 80s-90s.
[2023-11-20] MEDS: ZOSYN 50 IV ×4 (02:36→20:57)
[2023-11-20] MEDS: DILAUDID 0.5 MG IV ×5 (02:40→20:57)
[2023-11-20 03:51] LABS: Hematocrit 25.5 % (37.0-47.0); Mean Corp Hgb Conc. 35.3 g/dL (33.0-37.0); Mean Corpuscular Hgb 29.1 pg (27.0-31.0); Mean Corpuscular Volume 82.5 fL (81.0-99.0); Mean Platelet Volume 9.4 fL (7.4-10.4); Platelet Count 231 10^3/uL (130-400); Red Blood Cell Count 3.09 10^6/uL (4.20-5.40); Red Cell Dist. Width 16.3 % (11.5-14.5); White Blood Cell Count 14.6 10^3/uL (4.8-10.8)
[2023-11-20 04:18] LABS: Blood Urea Nitrogen 8 mg/dl (7-17); Calcium 7.8 mg/dl (8.4-10.2); Carbon Dioxide 24 mmol/L (22-30); Chloride 100 mmol/L (98-107); Estimated Creatinine Clearance 65 ml/min; Glucose 158 mg/dl (70-99); Potassium 3.3 mmol/L (3.5-5.1); Sodium 133 mmol/L (135-145); eGFR > 60.00
[2023-11-20] MEDS: OFIRMEV 100 IV ×3 (04:25→15:46)
--- NOTE | 2023-11-20 05:33 | PTCARENOTE ---
0400 assessment mostly unchanged, lung sounds are more clear with just faint crackles in the bases. Remains on cardizem drip, attempted to wean down to 10mg/hr but pt's HR increased again to 110s-120s, therefore increased back to 15mg/hr. Remains in
AFib. Pt finally felt the urge to void around 0300, agreeable to using the BSC. Pt was a heavy x2 assist to the BSC and back to bed. With this exertion, pt's HR increased to the 140s, came down on its own once pt back in bed.
[2023-11-20] MEDS: KCL 270 MEQ IV (06:34)
[2023-11-20] MEDS: CARDIZEM 125 IV ×2 (07:18→15:53)
--- NOTE | 2023-11-20 07:36 | W.PN.INTV ---
Today's Communication / Plan
Recommendations
Cardizem
Atb
IRad drainage
Pain mgmt
Assessment
-
Assessment:
Mrs Bailey Martinez is an 78/W adm 11-15 with 2 d h/o abd pain, constipation and chills. Seen at ER, abd CT showed perforated colon. Taken to OR, needed reversal of DOAC with kcentra. Intubated for surgery 11-15 and left on MV with extubation 11-16.
Transferred to [facility] 11-17, developed RVR AFib, did not respond to IV BB, started diltiazem gtt, returned to ICU 11-18
Impression
AFib c RVR since evening 11-17, h/o AFib
Perforated sigmoid/descending colon
S/p Juliet's procedure (left colectomy with colostomy), takedown splenic flexure
Intubated for surgery 11-15, extubated 11-16
Postop anemia
Chronic apixaban, s/p reversal pre surgery
Conditions THREAD CHECKER:
AFib on apixaban
HLD
HTN
Chronic pain on chronic buprenorphine
Tobacco dependence, on NRT
Plan:
Returned to ICU for RVR AFib 11-19
Already on diltiazem gtt, attempted rate control with IV BB prior to diltiazem
Continue diltiazem gtt while NPO
Added lopressor 5 mg IV prn
Cards following
O2 protocol if needed
So far on RA, POx 93%
Encouraged to do IS
Postop pain mgmt
IV opiates (noted h/o opiate use for chronic back pain): hydromorphone 0.25 to 0.5 mg IV q4hrs prn
Resumed buprenorphine SL 11-17
APAP IV q6h
Surgery following
Enteral meds when OK with Sx
Continue on empiric zosyn
Abd cx: E coli, Enterococcus sp, Strep sp
Blood cxs 11-15 so far negative, 11-18 so far negative
Fever evening 11-18
CXR with no infiltrates 11-[address] c oral contrast 11-19: R pelvic fluid/abscess, mild posterior basilar atelectatic changes
IRad consulted for drainage
Interim anemia with 2 g drop in 24 h down to 7.2
1 U PRBCs 11-19, Hgb then 9.8 and now 9.0
HTN, on oral metoprolol at home, will resume when able
SCDs
Can resume apixaban once OK by Sx (2.5 mg bid)
GI proph: PPI IV
D/w Mrs Martinez in presence of EUGENE Castano
Critical care time: 35 min
Diagnostic tests:
CXR 11-16 and : no infiltrates
Subjective Dataa
Subjective Data
Date of Service:
Date of Service: November 20, 2023
Chief Complaint: Accordion Tuner Follow Up
Subjective:
No major events reported overnight
Continues on antibiotic
CT abdomen found collection that would be drained today by IR
Review of Systems
General: Fever (n), Sweats (n), Chills and Satisfactory Appetite (n)
HEENT: Epistaxis (n)
Cardiopulmonary: Dyspnea (n), Cough (n) and Chest Pain (n)
GI: Abdominal Pain (incisional), Nausea (n) and Vomiting
Neuro: Weakness
Objective Data
Data Reviewed
Vital Signs / I&O / Oxygen:
Vital Signs
Temp Pulse Resp BP Pulse Ox
98.9 F 92 20 126/65 92
11/20/23 01:55 11/20/23 07:00 11/20/23 07:00 11/20/23 07:00 11/20/23 07:00
Intake and Output
11/19/23 11/20/23 11/21/23
06:59 06:59 06:59
Intake Total 1959 4315 / 4700 385 / 385
Output Total 2880 / 2880 2465 / 2665 200 / 200
Balance -920 / -810 1849 185 / 185
SaO2 [CPAP/PSV] 98
SaO2 [A/C] 100
SaO2 92
Nasal Cannula flow liters per 2
minute
Physical Exam
General: Respiratory Distress (n)
HEENT: Normocephalic and Moist Mucous Membranes
Cardiovascular: Regular Rhythm and Peripheral Edema (n)
Respiratory: Clear, Non-Labored Respirations and Stridor
GI: Soft, Non Distended, Tender, Other (surgical wound with clean dressing) and Other (colostomy)
Neurology: Awake, Oriented and No Motor Deficits
Skin: Dry
Labs/Micro/Reports
Lab Data
11/20/23 03:33
11/20/23 03:33
Microbiology
11/18/23 00:47 Blood/Venous Blood Culture - Preliminary
No Growth in 48 hours- Final report to follow
11/18/23 00:48 Blood/Venous Blood Culture - Preliminary
No Growth in 48 hours- Final report to follow
11/15/23 18:19 Blood/Venous Blood Culture - Preliminary
No Growth in 4 days- Final report to follow
11/18/23 18:31 Urine Urine Culture - Final
NO GROWTH
11/15/23 22:44 Abdomen Wound Culture - Preliminary
Escherichia coli
Enterococcus faecium
Streptococcus species
11/15/23 22:44 Abdomen Gram Stain - Preliminary
11/15/23 22:44 Abdomen Anaerobic Culture - Preliminary
Culture pending. Anaerobic cultures are examined after 3
days incubation. Additional information to follow.
[2023-11-20] MEDS: SUBUTEX 4 MG SL (07:58)
[2023-11-20] MEDS: PROTONIX IV 40 MG IV (07:59)
--- NOTE | 2023-11-20 08:00 | PTCARENOTE ---
Received pt from previous shift. Assessment performed, see flowsheets. AFib 90s-100s on heart monitor. SaO2 92-93% on RA. Lungs diminished with crackles at the bases. R nare NGT to LIWS. LUQ colostomy in place. RLQ HEMA drain in place. Hypoactive BS.
Midline surgical incision with gauze dressing dry and intact. Pt states 10/10 RLQ abdominal pain but that the recent IV dilaudid took the edge off the pain. R upper arm #20 PIV patent with KCL repletion infusing. R forearm PIV patent with D2 1/2NS
w/ 20KCl and cardizem gtt infusing. Waiting to hear from IRAD about procedure. Will continue to monitor.
[2023-11-20] MEDS: NSS (PRESERVATIVE FREE) 10 ML IV (08:01)
--- NOTE | 2023-11-20 08:20 | W.PN.CARDCBS ---
Today's Communication / Plan
-
Continue IV Cardizem while NPO. Continue Lopressor as needed.
Hemoglobin improved.
Resume Eliquis when okay with surgery.
Continue antibiotics and treatment for sepsis/infection
Impression / Plan
-
Deicer Element Winder Machine: Dr. HAILEY Nash
Impression:
Presented with abdominal pain
Septic shock
Perforated stercoral colitis s/p Juliet's procedure 11/16/2023
Paroxysmal atrial fibrillation w/ RVR
Chronic Eliquis anticoagulation
Acute blood loss anemia
Hypokalemia
Troponin elevation
Chronic HFpEF
Hypertension
Hyperlipidemia
Spinal stenosis
Fibromyalgia
h/o tobacco abuse on nicotine patch
Echo 11/19/2023: Study pending
Plan:
-Presented with abdominal pain and constipation, found to have perforated colon s/p Juliet's procedure on 11/16/2023.
-Has been NPO and metoprolol and Eliquis have been on hold perioperatively.
-Went into rapid afib in PM on 11/17/2023.
-Continue cardizem gtt at 15. Ventricular rates are controlled. Cont Lopressor 5 mg IV every 4 as needed for heart rates greater than 140
-Continue to follow K and mag.
-TSH 1.0
-Hemoglobin to 9.0. Resume Eliquis when ok per surgery. Possibly over the next 24 to 48 hours.
-Troponin elevation noted, peak at 0.744. Suspect nonMI troponin elevation in the setting of septic shock and rapid afib.
Will check echo
-Continue post op care/abx per surgery/primary service
CC time 31 min
HPI: Bailey is an 78 year old female with PMH of paroxysmal atrial fibrillation, chronic HFpEF, hypertension, hyperlipidemia, and chronic pain who presented to [facility] for evaluation of abdominal pain. She reported that for approximately 2 days prior
to arrival, she noted increased abdominal pain and constipation. She also noted associated chills. On arrival to ER, she was found to have perforated diverticulitis by CT scan with associated peritonitis. She was admitted, started on antibiotics,
and ultimately underwent Juliet's procedure w/ takedown of splenic flexure on 11/16/2023. She then went into rapid atrial fibrillation post op on 11/17/2023. She was started on IV diltiazem and cardiology consulted for evaluation. She was symptomatic
with this and noted palpitations and some chest pain. Her heart rates are improved this AM on cardizem gtt and she is feeling better from a cardiac standpoint, although still complains of pain related to surgery.
Progress Note - Deicer Element Winder Machine
Subjective
Date of Service: November 20, 2023
Remains in A-fib. Still with intermittent abdominal pains.
Objective
Labs:
11/20/23 03:33
11/20/23 03:33
Labs
Hgb 9.0 g/dL (12.0-16.0) L 11/20/23 03:33
Hct 25.5 % (37.0-47.0) L 11/20/23 03:33
Plt Count 231 10^3/uL (130-400) 11/20/23 03:33
PT 16.1 Sec (11.4-14.6) H 11/18/23 18:15
INR 1.27 11/18/23 18:15
APTT 27.8 Sec (23.4-35.0) 11/18/23 18:15
Sodium 133 mmol/L (135-145) L 11/20/23 03:33
Potassium 3.3 mmol/L (3.5-5.1) L 11/20/23 03:33
BUN 8 mg/dl (7-17) 11/20/23 03:33
Creatinine 0.6 mg/dL (0.6-1.0) 11/20/23 03:33
Glucose 158 mg/dl (70-99) H 11/20/23 03:33
Troponins
0111/18/23 11/19/23
09:55 18:15 00:47
Troponin I 0.744 H* 0.834 H* 0.744 H*
11/19/23
03:56
Troponin I 0.702 H*
Vital Signs and I&O:
Vital Signs
Temp Pulse Resp BP Pulse Ox
98.8 F 92 20 126/65 92
11/20/23 07:30 11/20/23 07:00 11/20/23 07:00 11/20/23 07:00 11/20/23 07:00
Vital Signs
Temp Pulse Resp BP Pulse Ox
98.8 F 92 20 126/65 92
11/20/23 07:30 11/20/23 07:00 11/20/23 07:00 11/20/23 07:00 11/20/23 07:00
Intake & Output
11/18/23 11/19/23 11/20/23 11/21/23
06:59 06:59 06:59 06:59
Intake Total 2280 / 2310 1960 / 2070 4315 / 4700 385 / 385
Output Total 460 / 960 2880 / 2880 2465 / 2665 200 / 200
Balance 1820 / 1350 -920 / -810 1850 / 2035 185 / 185
Physical Exam
Physical Exam
GEN: No distress, awake, Ox3
HEENT: supple, anicteric, mmm
LUNGS: CTA, no wheezes/rales
CV: Irreg, S1/S2, 1/6 syst LSB, no gallop
ABD: soft, BS+, incisional tenderness
EXT: No edema
NEURO: Gross non-focal
SKIN: No rash
[2023-11-20] MEDS: D5/0.45%NSS with KCL 20 MEQ 1000 IV ×2 (10:14→20:57)
--- NOTE | 2023-11-20 11:30 | PTCARENOTE ---
Brought pt down for IRAD procedure.
--- NOTE | 2023-11-20 12:52 | W.PN.CRS1 ---
Today's Communication / Plan
-
IR drain/abx
NGT to LIWS
Assessment/Plan
-
78 yo female presents with perforated sigmoid/descending colon now POD 5 Juliet's
Await bowel function to return
VSS
WBC trending back down. Hemoglobin slowly trending down
11/19/23 Fevers/chills/increased leucocytosis: Pelvic abscess noted on repeat CT of abd/pelvis. Transfused d/t drifting h/h.
11/20/23 IR drain placed for 50ml of purulent drainage (after my exam), cultures sent
--Continue IV abx and IR drain of pelvic abscess
--NPO with NGT to LIWS until ROBF
--Repeat h/h this afternoon
--HEMA to be removed prior to d/c
--Continue local dressing changes to incisions
--Medical management as per primary team
Subjective Data
Procedure
Juliet's resection 11/15/23
Subjective Data
Date of Service: November 20, 2023
Patient seen and examined at bedside with Dr. Harvey. Edie n/v. No passage of flatus as of yet. Pain management has been difficult.
Objective Data
-
Vital Signs
Temp Pulse Resp BP Pulse Ox
98.4 F 106 22 144/86 96
11/20/23 12:15 11/20/23 12:15 11/20/23 12:15 11/20/23 12:15 11/20/23 12:15
Intake & Output
11/19/23 11/20/23 11/21/23
06:59 06:59 06:59
Intake Total 1959 / 2069 4315 / 4700 995 / 995
Output Total 2880 / 2880 2465 / 2665 200 / 200
Balance -920 / -810 185 / 5 795 / 795
Intake:
Oral fluids 100 / 100
IV fluids (Total) 1320 / 1430 2600 / 2715 575 / 575
D5/0.45%NSS with KCL 20 MEQ 20 1200 / 1300 2275 / 2375 500 / 500
meq In 1,000 ml @ 100 mls/hr IV
.Q10H [facility] Rx#:[id number]
cardizem 120 / 130 325 / 340 75 / 75
IV piggybacks 550 / 550 525 / 795 420 / 420
Amount instilled into GI Tube ( 90 / 90 840 / 840
Total)
[place] Sump / 90 840 / 840
Blood Product Amount Infused ( 250 / 250
mL)
Packed Rbc Leukoreduced Unit 250 / 250
[id number]
Output:
Drain Output (Total) 130 / 130 115 / 115
Abdomen David-Clarke 130 / 130 115 / 115
Gastrointestinal tube output ( 1100 / 1100 1350 / 1350
Total)
[place] Sump 1100 / 1100 1350 / 1350
Urine, Joseph 1050 / 1050 750 / 750
Urine, Voided 250 / 450 200 / 200
Straight cath output 600 / 600
Other:
How many times incontinent 1
SMALL amount urine
How many times incontinent 1
MODERATE amount urine
Lab Results
11/20/23 03:33
Physical Exam
-
General: No Acute Distress
Abdomen: Soft, Distended (mild), Tender, No Bowel Movement, No Flatus (stoma pale pink/viable/appliance flat without flatus/stool. minimal bowel sweat noted) and Other (NGT with bilious outputs)
Skin: Warm
Wound: Dressing in Place, Dressing Dry and Other (HEMA with SSF)
Incision: Clear, Dry, Intact
Data Reviewed
-
CT Scan: Image Reviewed, Report Reviewed and Discussed with Radiology
--- NOTE | 2023-11-20 13:30 | PTCARENOTE ---
Back from IRAD. New R transglutteal HEMA drain in place with 50mL output during the procedure. Once back in the ICU, pt became tachycardic into the 160s. PRN IV lopressor given. H&H drawn post procedure. Pt shivering and reporting feeling very cold.
Temp taken, 98.7F. Warm blankets applied, thermostat raised. Will continue to monitor.
[2023-11-20] MEDS: LOPRESSOR 5 MG IV (13:31)
[2023-11-20 13:47] LABS: Hematocrit 34.5 % (37.0-47.0); Hemoglobin 12.4 g/dL (12.0-16.0)
--- NOTE | 2023-11-20 16:00 | PTCARENOTE ---
Cardizem gtt now at 10. PRN dilaudid given for '9.5/10' pain in the RLQ and R lower back (new drain site). Otherwise no changes in assessment. Pt's daughter at bedside.
[2023-11-20 17:06] LABS: Glucose - Point of Care 118 mg/dl (70-99)
--- NOTE | 2023-11-20 17:58 | W.PN.HOSP.TC ---
Today's Communication/Plan
-
advance diet once bowel fxn returns
follow labs
continue IVF
Assessment / Plan
Assessment / Plan
Assessment:
Septic Shock secondary to perforated bowel from diverticulitis vs stercoral colitis
- was given K-centra for Eliquis reversal
- underwent on 11/16 1) Juliet's procedure (left colectomy with colostomy) 2) takedown splenic flexure on 11/16/23. Operative findings: perforated distal descending colon with associated bloody contamination (blood plus stool--particularly at left
retroperitoneum)
- continue NPO/IVF
- pressors were weaned
as per nursing, BP currently in the 130/60 range
- continue Zosyn
- continue NGT/Joseph
- Colorectal following
11/19 CT scan: 1. Elongated fluid collection within the pelvis, extending into the retroperitoneum, measuring 8 x 5.6 x 3.3 cm. Internal gas bubbles and peripheral contrast enhancement are suggestive of postoperative abscess. Abscess is not
immediately adjacent to the suture line for the rectal stump.
2. Bubbles of air within the left paracolic gutter as detailed above, without associated abscess formation. These bubbles of air may be postoperative in nature.
3. Bibasilar airspace consolidation, which may represent subsegmental atelectasis or pneumonia. Tiny left pleural effusion.
Called to see pt urgently due to A. Fib with rvr 11/18
transferred to ICU, now on Cardizem gtt, cardio following. remains in A.Fib
IRAD placed CT guided drain into pelvic abscess 11/20
VDRF in setting of acute emergency surgery for airway protection
- extubated - pt denies respiratory distress
Post-operative acute anemia from blood loss
- s/p 2 units PRBCs. Hb was 9.8, the morning of 11/19 Hgb dropped to 7.2, transfused another unit 9.8 on 11/19 post transfusion, 11/20 Hgb 12.4
Non-HI trop elevation
- trop 0.744
- follow tele/EKGs
Parox A. fib
- s/p urgent K-centra for Eliquis reversal; resume when cleared by surgery
- hold oral BB as pt is NPO
currently on IV Dilt for rate control
Chronic Pain with Opioid Dependence
- continue Dilaudid as needed for pain
- resume buprenorphine when able
Essential HTN
- hold BB/Doxazosin until sepsis improves
DVT prophylaxis: SCDs
CODE STATUS: Full code
Dispo: discussed with Dr. Jerry Ramsey, pt remains in ICU. 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
reviewed with dgt at bedside 11/20
Anticipated Discharge: > 48 hours
Subjective/Interval History
-
Date of Service: November 20, 2023
Awake, alert, appears much less toxic
Objective Data
-
Labs:
Laboratory Results
11/20/23
13:36
Hgb 12.4 D
Hct 34.5 L
Vital Signs:
Vital Signs
Temp Pulse Resp BP Pulse Ox
97.8 F 83 15 111/58 98
11/20/23 15:12 11/20/23 17:30 11/20/23 17:30 11/20/23 17:30 11/20/23 17:30
I&O
11/19/23 11/20/23 11/21/23
06:59 06:59 06:59
Intake Total 1959 4315 / 4700 1575 / 1575
Output Total 2880 / 2880 2465 / 2665 730 / 730
Balance -920 / -810 1849 845 / 845
Review of Systems
-
History Source: Patient, Physician and Coordinated Provider
Constitutional: Denies Fever
EENT: Reports No Symptoms Reported
Cardiac: Reports Palpitations; Denies Chest Pain
Abdomen/GI: Reports Abdominal Pain (post op)
Musculoskeletal: Reports No Symptoms
Neuro: Reports No Symptoms
Physical Exam
-
General: Well Developed, Well Nourished and No Apparent Distress
HEENT: Normocephalic, Atraumatic and Moist Mucous Membranes
Respiratory: Clear to Auscultation; Negative Wheezes, Rales or Rhonchi
Cardiac: S1/S2 and Irregular Rhythm
GI: Soft, Nondistended, Ostomy and Other (drain placed by IRAD); Negative Normal Bowel Sounds (scattered BS are now present)
Musculoskeletal: No Clubbing, No Cyanosis and No Edema
[2023-11-20] MEDS: SUBUTEX SL ×2 (20:57→21:50)
--- NOTE | 2023-11-20 21:58 | PTCARENOTE ---
Pt receiving Subutex BID (continued from home which, per patient, she is on for chronic pain). Pt consistently c/o 9-10 pain mostly to abdominal region 2/2 incision, drains, etc. Has been medicated ATC with PRN Dilaudid with very little effect.
Discussed with pharmacy, per pharmacist Dilaudid is most likely not helping patient because of the Subutex she is on. He stated the half life of Subutex is approx 37 hrs, if it were to be stopped. Discussed with Bria WALDRON, Subutex now on
hold. Continuing PRN Dilaudid. Valium 5mg x1 ordered to see if it helps with patient's pain/helps her to relax.
[2023-11-20] MEDS: VALIUM INJECTION 5 MG IV (22:05)
--- NOTE | 2023-11-20 22:32 | PTCARENOTE ---
Assumed care of pt at 1900. Pt is A/O x4, pleasant and cooperative with care. Received pt on cardizem infusion at 10mg/hr, has been AFib 80s most of shift. NGT to LIWS with green drainage, patent, irrigated PRN. x2 HEMA drains, protective foam
dressing placed under stopcock of new right transgluteal drain that was placed today, as it was digging into pt's skin. CHG cloth bath done and all linens changed. Purewick in place. Currently on 2LNC with SpO2 97%. See nursing shift assessment
flowsheet for further physical assessment details. Pt fell asleep, snoring, almost immediately after receiving Valium which is the first time (between last night's shift and current shift) that pt has seemed relaxed and actually sleeping. Call simmons
and personal belongings within reach.
[2023-11-21] VITALS (25 sets, daily range): BP systolic 99–166; BP diastolic 53–99; PULSE 95; O2SAT 96; BMI 20.4
--- NOTE | 2023-11-21 00:08 | PTCARENOTE ---
Assessment unchanged. AFib 80s on monitor, SpO2 98-99% on 2LNC. Pt still resting with eyes closed, no s/s pain or distress noted. Cardizem infusion still at 10mg/hr.
[2023-11-21] MEDS: ZOSYN 50 IV ×4 (02:43→20:20)
[2023-11-21] MEDS: CARDIZEM 125 IV ×3 (03:41→23:18)
[2023-11-21] MEDS: DILAUDID 0.5 MG IV ×2 (03:49→08:03)
--- NOTE | 2023-11-21 04:23 | PTCARENOTE ---
Assessment unchanged. Pt has slept most of the shift. AFib 80s on monitor, still on cardizem at 10mg/hr. Purewick changed.
[2023-11-21 04:56] LABS: Hematocrit 24.7 % (37.0-47.0); Hemoglobin 8.8 g/dL (12.0-16.0); Mean Corp Hgb Conc. 35.6 g/dL (33.0-37.0); Mean Corpuscular Hgb 29.8 pg (27.0-31.0); Mean Corpuscular Volume 83.7 fL (81.0-99.0); Mean Platelet Volume 9.5 fL (7.4-10.4); Platelet Count 289 10^3/uL (130-400); Red Blood Cell Count 2.95 10^6/uL (4.20-5.40); Red Cell Dist. Width 16.8 % (11.5-14.5); White Blood Cell Count 13.8 10^3/uL (4.8-10.8)
[2023-11-21] MEDS: VALIUM INJECTION 5 MG IV (05:18)
[2023-11-21 05:19] LABS: Blood Urea Nitrogen 6 mg/dl (7-17); Calcium 7.3 mg/dl (8.4-10.2); Carbon Dioxide 24 mmol/L (22-30); Chloride 107 mmol/L (98-107); Estimated Creatinine Clearance 66 ml/min; Glucose 113 mg/dl (70-99); Potassium 3.9 mmol/L (3.5-5.1); Sodium 132 mmol/L (135-145); eGFR > 60.00
[2023-11-21] MEDS: D5/0.45%NSS with KCL 20 MEQ 1000 IV ×2 (05:24→14:58)
--- NOTE | 2023-11-21 07:42 | W.PN.CARDCBS ---
Today's Communication / Plan
-
Continue IV Cardizem and Lopressor as needed
Hemoglobin stable at 8.8. Continue to hold Eliquis
Continue antibiotics for sepsis/abscess
Ventricular rates are stable and controlled.
No clear signs of volume overload and weight stable
Impression / Plan
-
Mail Weigher: Dr. HAILEY Nash
Impression:
Presented with abdominal pain
Septic shock
Perforated stercoral colitis s/p Juliet's procedure 11/16/2023
Paroxysmal atrial fibrillation w/ RVR
Chronic Eliquis anticoagulation
Acute blood loss anemia
Hypokalemia
Troponin elevation
Chronic HFpEF
Hypertension
Hyperlipidemia
Spinal stenosis
Fibromyalgia
h/o tobacco abuse on nicotine patch
Plan:
-Presented with abdominal pain and constipation, found to have perforated colon s/p Juliet's procedure on 11/16/2023 and abd abscess
-Has been NPO and metoprolol and Eliquis have been on hold perioperatively.
-Went into rapid afib in PM on 11/17/2023.
-Continue cardizem gtt at 15. Ventricular rates are stable Cont Lopressor 5 mg IV every 4 as needed for heart rates greater than 140
-Continue to follow K and mag.
-TSH 1.0
-Hemoglobin at 8.8.. Resume Eliquis when ok per surgery. Possibly over the next 24 to 48 hours.
-Troponin elevation noted, peak at 0.744. Suspect nonMI troponin elevation in the setting of septic shock and rapid afib.
-Will check echo. Weight and volume status appears stable.
-Continue post op care/abx per surgery/primary service
-CC time 33 min
HPI: Bailey is an 78 year old female with PMH of paroxysmal atrial fibrillation, chronic HFpEF, hypertension, hyperlipidemia, and chronic pain who presented to [facility] for evaluation of abdominal pain. She reported that for approximately 2 days prior
to arrival, she noted increased abdominal pain and constipation. She also noted associated chills. On arrival to ER, she was found to have perforated diverticulitis by CT scan with associated peritonitis. She was admitted, started on antibiotics,
and ultimately underwent Juliet's procedure w/ takedown of splenic flexure on 11/16/2023. She then went into rapid atrial fibrillation post op on 11/17/2023. She was started on IV diltiazem and cardiology consulted for evaluation. She was symptomatic
with this and noted palpitations and some chest pain. Her heart rates are improved this AM on cardizem gtt and she is feeling better from a cardiac standpoint, although still complains of pain related to surgery.
Progress Note - Mail Weigher
Subjective
Date of Service: November 21, 2023
Having significant abdominal pains. Does not feel A-fib. No chest pains. Weight is stable.
Objective
Labs:
11/21/23 04:16
Labs
Hgb 8.8 g/dL (12.0-16.0) L D 11/21/23 04:16
Hct 24.7 % (37.0-47.0) L 11/21/23 04:16
Plt Count 289 10^3/uL (130-400) D 11/21/23 04:16
PT 16.1 Sec (11.4-14.6) H 11/18/23 18:15
INR 1.27 11/18/23 18:15
APTT 27.8 Sec (23.4-35.0) 11/18/23 18:15
Sodium 132 mmol/L (135-145) L 11/21/23 04:16
Potassium 3.9 mmol/L (3.5-5.1) 11/21/23 04:16
BUN 6 mg/dl (7-17) L 11/21/23 04:16
Creatinine 0.6 mg/dL (0.6-1.0) 11/21/23 04:16
Glucose 113 mg/dl (70-99) H 11/21/23 04:16
Troponins
11/18/23 11/18/23 11/19/23
09:55 18:15 00:47
Troponin I 0.744 H* 0.834 H* 0.744 H*
11/19/23
03:56
Troponin I 0.702 H*
Vital Signs and I&O:
Vital Signs
Temp Pulse Resp BP Pulse Ox
98.6 F 94 18 99/59 98
11/21/23 03:23 11/21/23 06:00 11/21/23 06:00 11/21/23 06:00 11/21/23 06:00
Vital Signs
Temp Pulse Resp BP Pulse Ox
98.6 F 94 18 99/59 98
11/21/23 03:23 11/21/23 06:00 11/21/23 06:00 11/21/23 06:00 11/21/23 06:00
Intake & Output
11/19/23 11/20/23 11/21/23 11/22/23
06:59 06:59 06:59 06:59
Intake Total 1960 / 0 4315 / 4700 3320 / 3320
Output Total 2880 / 2880 2465 / 2665 2295 / 2295
Balance -920 / -810 1850 / 2035 1025 / 1025
Physical Exam
Physical Exam
GEN: No distress, awake,
HEENT: supple, anicteric, mmm, Ng tube
LUNGS: scatt rhonchi
CV: irreg, S1/S2, 1/6 syst LSB, no gallop
ABD: soft, BSdec , incisional tenderness
EXT: No edema
NEURO: Gross non-focal
SKIN: No rash
--- NOTE | 2023-11-21 08:00 | PTCARENOTE ---
Received pt from previous shift. Assessment performed, see flowsheets. AFib 80s-100s on heart monitor. SaO2 98-99% on 2L NC. R nare NGT to LIWS with sticky green output. RLQ HEMA drain in place draining serous fluid. R transgluteal HEMA drain with
sanguineous fluid. Purewick in place. Midline incision dressing intact. LUQ colostomy with small amount of yellow fluid. Cardizem gtt at 10 and D5 1/2 NS w/ 20KCl at 100mL/hr infusing through R forearm PIV. R upper arm #[address] Pt
requesting more valium as it controlled her pain better than the dilaudid. Will reach out to MD and continue to monitor.
[2023-11-21] MEDS: PROTONIX IV 40 MG IV (08:02)
[2023-11-21] MEDS: NSS (PRESERVATIVE FREE) 10 ML IV (08:03)
[2023-11-21] MEDS: CALCIUM GLUCONATE 100 IV (09:55)
--- NOTE | 2023-11-21 11:14 | W.PN.INTV ---
Today's Communication / Plan
Recommendations
O2 protocol
Diltiazem gtt, BB prn
Atbs
IMU
Assessment
-
Assessment:
Mrs Bailey Martinez is an 78/W adm 11-15 with 2 d h/o abd pain, constipation and chills. Seen at ER, abd CT showed perforated colon. Taken to OR, needed reversal of DOAC with kcentra. Intubated for surgery 11-15 and left on MV with extubation 11-16.
Transferred to [facility] 11-17, developed RVR AFib, did not respond to IV BB, started diltiazem gtt, returned to ICU 11-18
Impression
AFib c RVR since evening 11-17, h/o AFib
Perforated sigmoid/descending colon
S/p Juliet's procedure (left colectomy with colostomy), takedown splenic flexure
Intubated for surgery 11-15, extubated 11-16
Postop anemia
Chronic apixaban, s/p reversal pre surgery
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
AFib on apixaban
HLD
HTN
Chronic pain on chronic buprenorphine
Tobacco dependence, on NRT
Plan:
Returned to ICU for RVR AFib 11-19
Already on diltiazem gtt, attempted rate control with IV BB prior to diltiazem
Continue diltiazem gtt while NPO
Added lopressor 5 mg IV prn
Cards following, HR controlled on diltiazem
O2 protocol if needed
Currently on 2L, POx 99%
Encouraged to do IS
Postop pain mgmt
IV opiates (noted h/o opiate use for chronic back pain): hydromorphone 0.25 to 0.5 mg IV q4hrs prn
Resumed buprenorphine SL 11-17
APAP IV q6h
Surgery following
Enteral meds when OK with Sx
Continue zosyn
Abd cx: E coli, Enterococcus faecium (both quirzo-S), Strep sp
Consider ID evaluation to tailor atbs
Blood cxs 11-15 so far negative, 11-18 so far negative
Fever evening 11-18
CXR with no infiltrates 11-[address] c oral contrast 11-19: R pelvic fluid/abscess, mild posterior basilar atelectatic changes
IRad placed pelvic drain 11-20
Interim anemia with 2 g drop in 24 h down to 7.2
1 U PRBCs 11-19, Hgb then 9.8 and now 9.0
HTN, on oral metoprolol at home, will resume when able
SCDs
Can resume apixaban once OK by Sx (2.5 mg bid)
GI proph: PPI IV
D/w Mrs Martinez on a daily basis
Can transfer to IMU today, will sign off then
Diagnostic tests:
CXR 11-16 and : no infiltrates
Subjective Dataa
Subjective Data
Date of Service:
Date of Service: November 21, 2023
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
Subjective:
No major events reported overnight
Pelvic collection addressed yesterday by IR, drainage catheter placed
Review of Systems
General: Fever (n), Sweats (n), Chills (n) and Satisfactory Appetite (n)
HEENT: Epistaxis (n)
Cardiopulmonary: Dyspnea (n) and Cough (n)
GI: Abdominal Pain (incisional), Nausea (n) and Vomiting (n)
Neuro: Weakness
Objective Data
Data Reviewed
Vital Signs / I&O / Oxygen:
Vital Signs
Temp Pulse Resp BP Pulse Ox
98.4 F 113 21 120/67 97
11/21/23 07:30 11/21/23 10:00 11/21/23 10:00 11/21/23 10:00 11/21/23 10:00
Intake and Output
01/11/21/23 11/22/23
06:59 06:59 06:59
Intake Total 4315 / 4700 3320 / 3430 700 / 700
Output Total 2465 / 2665 2295 / 2295
Balance 1850 / 2035 1025 / 1135 700 / 700
SaO2 [CPAP/PSV] 98
SaO2 [A/C] 100
SaO2 97
Nasal Cannula flow liters per 2
minute
Physical Exam
General: Respiratory Distress (n)
HEENT: Normocephalic and Moist Mucous Membranes
Cardiovascular: Regular Rhythm and Peripheral Edema (n)
Respiratory: Clear, Non-Labored Respirations and Stridor
GI: Soft, Non Distended, Tender, Other (surgical wound with clean dressing) and Other (colostomy. HEMA drain at RLQ)
Neurology: Awake, Oriented and No Motor Deficits
Skin: Dry
Labs/Micro/Reports
Lab Data
11/21/23 04:16
Microbiology
11/20/23 12:39 Fluid Body Fluid Culture - Preliminary
Escherichia coli
Enterococcus faecium
11/20/23 12:39 Fluid Gram Stain - Preliminary
11/15/23 22:44 Abdomen Anaerobic Culture - Preliminary
Culture pending. Anaerobic cultures are examined after 3
days incubation. Additional information to follow.
11/18/23 00:47 Blood/Venous Blood Culture - Preliminary
No Growth in 72 hours- Final report to follow
11/18/23 00:48 Blood/Venous Blood Culture - Preliminary
No Growth in 72 hours- Final report to follow
11/15/23 18:19 Blood/Venous Blood Culture - Final
No Growth - Final Report
11/18/23 18:31 Urine Urine Culture - Final
NO GROWTH
11/15/23 22:44 Abdomen Wound Culture - Preliminary
Escherichia coli
Enterococcus faecium
Streptococcus species
11/15/23 22:44 Abdomen Gram Stain - Preliminary
--- NOTE | 2023-11-21 11:42 | W.PN.CRS1 ---
Today's Communication / Plan
-
--Continue IV abx and IR drain
--NPO with NGT to LIWS until ROBF
--Repeat h/h this afternoon
--HEMA to be removed prior to d/c
--Continue local dressing changes to incisions
--Anxiolytics prn with multimodal analgesics
--SCD's while in bed
--Continue to hold full strength anticoagulation
--Medical management as per primary team
OK to transfer to IMU from surgical standpoint
Assessment/Plan
-
78 yo female presents with perforated sigmoid/descending colon now POD 6 Juliet's
Await bowel function to return
VSS
WBC trending down. Hemoglobin slowly trending down s/p transfusion
11/19/23 Fevers/chills/increased leucocytosis: Pelvic abscess noted on repeat CT of abd/pelvis. Transfused d/t drifting h/h.
11/20/23 IR drain placed for fluid collection, cultures sent and +ecoli/enterococcus f.
Subjective Data
Procedure
Juliet's resection 11/15/23
Subjective Data
Date of Service: November 21, 2023
Patient seen and examined at bedside. Denies n/v. c/o rlq abdominal pain which is stable from previous.
Objective Data
-
Vital Signs
Temp Pulse Resp BP Pulse Ox
98.4 F 113 21 120/67 97
11/21/23 11:29 11/21/23 10:00 11/21/23 10:00 11/21/23 10:00 11/21/23 10:00
Intake & Output
11/20/23 11/21/23 11/22/23
06:59 06:59 06:59
Intake Total 4315 / 4700 3320 / 3430 700 / 700
Output Total 2465 / 2665 2295 / 2295
Balance 1850 / 2034 1025 / 1135 700 / 700
Intake:
Oral fluids 100 / 100 120 / 120
IV fluids (Total) 2600 / 2715 2485 / 2595 550 / 550
D5/0.45%NSS with KCL 20 MEQ 20 2275 / 2375 2200 / 2300 500 / 500
meq In 1,000 ml @ 100 mls/hr IV
.Q10H [facility] Rx#:[id number]
cardizem 325 / 340 285 / 295 50 / 50
IV piggybacks 525 / 795 595 / 595 150 / 150
Amount instilled into GI Tube ( 840 / 840 120 / 120
Total)
[place] Sump 840 / 840 120 / 120
Blood Product Amount Infused ( 250 / 250
mL)
Packed Rbc Leukoreduced Unit 250 / 250
[id number]
Output:
Drain Output (Total) 115 / 115 145 / 145
Abdomen David-Clarke 115 / 115 70 / 70
Right Back David-Clarke Placed 75 / 75
in IR
Gastrointestinal tube output ( 1350 / 1350 750 / 750
Total)
[place] Sump 1350 / 1350 750 / 750
Urine, Joseph 750 / 750
Urine, Voided 250 / 450 1400 / 1400
Other:
How many times incontinent 1
SMALL amount urine
How many times incontinent 1
MODERATE amount urine
How many times incontinent 1
SATURATED amount urine
Lab Results
11/21/23 04:16
Physical Exam
-
General: No Acute Distress
Abdomen: Soft, Distended (mild), Tender, No Bowel Movement, No Flatus (stoma pale pink/viable/appliance flat without flatus/stool. minimal bowel sweat noted) and Other (NGT with bilious outputs)
Skin: Warm
Wound: Dressing in Place, Dressing Dry and Other (HEMA with serous drainage, IR drain with rust colored drainage)
Incision: Clear, Dry, Intact
[2023-11-21] MEDS: DILAUDID 1 MG IV ×2 (11:51→18:24)
[2023-11-21 12:14] LABS: Glucose - Point of Care 133 mg/dl (70-99)
--- NOTE | 2023-11-21 12:56 | W.PN.HOSP.TC ---
Today's Communication/Plan
-
transfer to IMU
consider TPN
remains on Zosyn, will continue
Assessment / Plan
Assessment / Plan
Assessment:
Septic Shock secondary to perforated bowel from diverticulitis vs stercoral colitis
- was given K-centra for Eliquis reversal
- underwent on 11/16 1) Juliet's procedure (left colectomy with colostomy) 2) takedown splenic flexure on 11/16/23. Operative findings: perforated distal descending colon with associated bloody contamination (blood plus stool--particularly at left
retroperitoneum)
- continue NPO/IVF
CRS is considering starting TPN
- pressors were weaned
as per nursing, BP currently in the 130/67 range
- continue Zosyn
- continue NGT/Joseph
- Colorectal following
11/19 CT scan: 1. Elongated fluid collection within the pelvis, extending into the retroperitoneum, measuring 8 x 5.6 x 3.3 cm. Internal gas bubbles and peripheral contrast enhancement are suggestive of postoperative abscess. Abscess is not
immediately adjacent to the suture line for the rectal stump.
2. Bubbles of air within the left paracolic gutter as detailed above, without associated abscess formation. These bubbles of air may be postoperative in nature.
3. Bibasilar airspace consolidation, which may represent subsegmental atelectasis or pneumonia. Tiny left pleural effusion.
Called to see pt urgently due to A. Fib with rvr 11/18
transferred to ICU, now on Cardizem gtt, cardio following. remains in A.Fib
IRAD placed CT guided drain into pelvic abscess 11/20
VDRF in setting of acute emergency surgery for airway protection
- extubated - pt denies respiratory distress
Post-operative acute anemia from blood loss
- s/p 2 units PRBCs. Hb was 9.8, the morning of 11/19 Hgb dropped to 7.2, transfused another unit 9.8 on 11/19 post transfusion, 11/20 Hgb 12.4-->11/21 8.8
Non-AK trop elevation
- trop 0.744
- follow tele/EKGs
Parox A. fib
- s/p urgent K-centra for Eliquis reversal; resume when cleared by surgery
- hold oral BB as pt is NPO
currently on IV Dilt for rate control
Chronic Pain with Opioid Dependence
- continue Dilaudid as needed for pain
- resume buprenorphine when able
Essential HTN
- hold BB/Doxazosin until sepsis improves
DVT prophylaxis: SCDs
CODE STATUS: Full code
Dispo: CRS has cleared pt to move to IMU, will place transfer orders
Anticipated Discharge: > 48 hours
Subjective/Interval History
-
Date of Service: November 21, 2023
Appears weak, fully alert
Objective Data
-
Labs:
Laboratory Results
11/21/23 11/21/23
04:16 13:00
WBC 13.8 H
Hgb 8.8 L D Pending
Hct 24.7 L Pending
Plt Count 289 D
Sodium 132 L
Potassium 3.9
Chloride 107
Carbon Dioxide 24
BUN 6 L
Creatinine 0.6
Glucose 113 H
Calcium 7.3 L
Vital Signs:
Vital Signs
Temp Pulse Resp BP Pulse Ox
98.4 F 113 21 120/67 97
11/21/23 11:29 11/21/23 10:00 11/21/23 10:00 11/21/23 10:00 11/21/23 10:00
I&O
11/20/23 11/21/23 11/22/23
06:59 06:59 06:59
Intake Total 4315 / 4700 3320 / 3430 810 / 810
Output Total 2465 / 2665 2295 / 2295
Balance 1849 1025 / 1135 810 / 810
Review of Systems
-
History Source: Patient, Physician and Coordinated Provider
Constitutional: Denies Fever
EENT: Reports No Symptoms Reported
Cardiac: Reports Palpitations; Denies Chest Pain
Abdomen/GI: Reports Abdominal Pain (post op)
Musculoskeletal: Reports No Symptoms
Neuro: Reports No Symptoms
Physical Exam
-
General: Well Developed, No Apparent Distress and Appears Chronically Ill
HEENT: Normocephalic, Atraumatic and Moist Mucous Membranes
Respiratory: Clear to Auscultation; Negative Wheezes, Rales or Rhonchi
Cardiac: S1/S2 and Irregular Rhythm
GI: Soft, Nondistended, Ostomy and Other (drain placed by IRAD); Negative Normal Bowel Sounds (scattered BS are now present)
Musculoskeletal: No Clubbing, No Cyanosis and No Edema
Neuro: Awake and Alert
[2023-11-21 13:53] LABS: Hemoglobin 9.2 g/dL (12.0-16.0)
[2023-11-21] MEDS: ATIVAN 0.5 MG IV (14:57)
[2023-11-21] MEDS: NSS (PRESERVATIVE FREE) 0.25 ML IV (14:58)
--- NOTE | 2023-11-21 16:39 | CON.ID ---
Consultation
-
Date/Time Consultation Requested: November 21, 2023 1508
Date/Time Consultation Performed: November 21, 2023 1640
Requesting Provider: Dr. Barak Coburn
Performing Provider: Dr. Jackie Sanchez
Reason for Consultation: yeast in blood
Chief Complaint / Past History
Chief Complaint
Abdominal pain
History of Present Illness
78-year-old female with atrial fibrillation, hypertension, who presented to the ER on November 15, 2023 night due to several day history of worsening abdominal pain. No fever. Positive chills and constipation. CAT scan showed perforated descending
colon/sigmoid diverticulitis with free air and peritonitis. She was taken to the OR emergently status post left colectomy with colostomy, abdominal washout. The OR culture grew polymicrobial bacteria. She was maintained on Zosyn. On November 18
she spiked a fever with worsening leukocytosis. She was pancultured. Urine culture was negative. Blood cultures obtained. Repeat CAT scan on November 19 showed postop fluid collections/abscess. On November 20, she underwent percutaneous drain
placement into pelvic fluid collection with turbid hemorrhagic fluid output. The culture was positive for E. coli and Enterococcus faecium. In the meantime the blood culture 1 out of 2 set shows yeast. Today she reports no stool yet.
+ abdominal discomfort from surgery. + cough from NGT.
Past History
Additional Past Medical History:
Paroxysmal Atrial Fibrillation
CHF
Essential Hypertension
Hyperlipidemia
Interstitial cystitis
Chronic Pain with Opioid Dependence
Diverticulitis
Appendectomy
Cholecystectomy
Hysterectomy
Partial hysterectomy
Right rotator cuff
Allergy History:
No Known Allergies Allergy (Verified 11/15/23 14:07)
Medications Reviewed: Yes
Current Antibiotics:
Zosyn day 6
Social History
Tobacco: Former Smoker (Recently quit)
Alcohol: None
Drug: None
Living: With Family
Family History
Family History: Not Pertinent
Review of Systems
Review of Systems
General: Change in Appetite
HEENT: Negative Sinus Problems, Headache or Pharyngitis
Respiratory: Dyspnea and Cough
Gasteroenterology: Negative Nausea or Vomiting
Genital / Urological: Negative Dysuria
Endocrine: Weakness and Fatigue
Neurological: Negative Headache or Dizziness
All systems: All other systems were reviewed and were negative
Vital Signs
Temp Pulse Resp BP Pulse Ox
97.7 F 93 19 125/61 99
11/21/23 15:30 11/21/23 14:30 11/21/23 14:30 11/21/23 14:00 11/21/23 14:30
Physical Exam
Physical Exam
Constitutional: Acutely Ill
Head: Other (NGT in place)
Eyes: No Conjunctival Hemorrhage and Sclera Anicteric
Cardiovascular: Irregular Rate and Other (tachy)
Pulmonary: Clear (anteriorly)
Gastrointestinal: Soft, Tender (mild diffuse. ), Non Distended, Decreased Bowel Sounds and Other (HEMA drain 1 serous fluid; HEMA 2 bloody fluid.)
Extremities: Edema (LUE 1+ edema)
Neurological: Oriented
Lab / Diagnostic Study Results
11/21/23 13:44
11/21/23 04:16
Abs Immat Gran (auto) 0.1 10^3/uL (0-0.05) H 11/19/23 03:56
Absolute Neuts (auto) 15.8 10^3/uL (1.4-6.5) H 11/19/23 03:56
Absolute Lymphs (auto) 1.0 10^3/uL (1.2-3.4) L 11/19/23 03:56
Absolute Monos (auto) 0.8 10^3/uL (0.1-0.6) H 11/19/23 03:56
Absolute Basos (auto) 0.1 10^3/uL (0-0.2) 11/19/23 03:56
Total Counted 100 01/10/24 20:16
Immature Gran % 0.4 % (0-0.5) 11/19/23 03:56
Neutrophils % 88.4 % (42.2-75.2) H 11/19/23 03:56
Lymphocytes % 5.6 % (20.5-51.1) L 11/19/23 03:56
Monocytes % 4.4 % (1.7-9.3) 11/19/23 03:56
Eosinophils % 0.7 % (0-6) 11/19/23 03:56
Basophils % 0.5 % (0-2) 11/19/23 03:56
Abs Neuts (Manual) 15.3 10^3/uL (1.4-6.5) H 11/17/23 20:16
Segmented Neutrophils 76 % (42-75) H 11/17/23 20:16
Band Neutrophils 12 % (0-3) H 11/17/23 20:16
Lymphocytes (Manual) 6 % (20-51) L 11/17/23 20:16
PT 16.1 Sec (11.4-14.6) H 11/18/23 18:15
INR 1.27 11/18/23 18:15
Lactic Acid 0.9 mmol/L (0.7-2.0) 11/18/23 18:15
Procalcitonin 8.20 ng/ml (0.0-0.25) H* 11/17/23 21:07
Ur Squamous Epith Cells 11-15 /LPF (Few) 11/18/23 18:31
Microbiology Results
Micro:
11/21/23 16:20 Blood Culture - Pending
Blood/Venous
11/18/23 00:47 Blood Culture - Preliminary
Blood/Venous Positive culture in progress
Gram Stain - Preliminary
11/15/23 22:44 Wound Culture - Final
Abdomen Escherichia coli
Enterococcus faecium
Streptococcus species
Gram Stain - Final
11/15/23 22:44 Anaerobic Culture - Final
Abdomen Bacteroides fragilis
Clostridium species
11/20/23 12:39 Body Fluid Culture - Preliminary
Fluid Escherichia coli
Enterococcus faecium
Gram Stain - Preliminary
11/18/23 00:48 Blood Culture - Preliminary
Blood/Venous No Growth in 72 hours- Final report to follow
11/15/23 18:19 Blood Culture - Final
Blood/Venous No Growth - Final Report
11/18/23 18:31 Urine Culture - Final
Urine NO GROWTH
11/15/23 14:27 Influenza Types A & B (MARIELA) - Final
Nasal Swab Negative for Influenza A & B, NAAT
Negative results must be combined with clinical observations
and patient history.
Nucleic Acid Amplification test (NAAT)performed on the
[employer] platform.
11/15/23 CT a/p: The findings are most consistent with perforation (partially contained) of a diverticulum in the descending or sigmoid colon with free air scattered throughout the abdomen and pelvis, forming a masslike area with fluid and free air in
the left side of the abdomen measuring 10 x 10 x 13 cm.� Additionally there is fluid in the anterior peripancreatic and pararenal space consistent with peritonitis, no discrete fluid collection to suggest an abscess. There is significant stool
within the colon and air within the colon wall, which may be due to previous obstruction prior to perforation or the differential includes the possibility of stercoral colitis.
11/19/23 CT a/p: Elongated fluid collection within the pelvis, extending into the retroperitoneum, measuring 8 x 5.6 x 3.3 cm. Internal gas bubbles and peripheral contrast enhancement are suggestive of postoperative abscess. Abscess is not
immediately adjacent to the suture line for the rectal stump. Bubbles of air within the left paracolic gutter as detailed above, without associated abscess formation. These bubbles of air may be postoperative in nature. Bibasilar airspace
consolidation, which may represent subsegmental atelectasis or pneumonia. Tiny left pleural effusion.
Assessment / Plan
# Candidemia 1 out of 2 sets
-Febrile at the time 11/18 bcx drawn
- Suspect GI source (although no yeast isolated from abdomen)
-Repeat blood cx's x 2 then start Micafungin 100mg IV q24.
# Perforated diverticulitis with free air and peritonitis
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
- OR cx, E. coli. E faecium, Strep, Clostridium, Bacteroides
- Continue Zosyn d6
# Post-op pelvic abscess
- 11/20 s/p perc drain
- Cx: E. coli, E. faecium; no anaerobic cx sent
- Continue Zosyn d6
# Leukocytosis slowly trending down
-Continue to follow.
[2023-11-21 17:44] LABS: Glucose - Point of Care 112 mg/dl (70-99)
--- NOTE | 2023-11-21 18:00 | PTCARENOTE ---
Pt transferred to IMU.
--- NOTE | 2023-11-21 18:35 | PTCARENOTE ---
Patient transferred from ICU to IMU. Patient oriented to the room, complaining of severe pain 10 out of 10 upon arrival. Dilaudid 1mg IV administered. Cardizem drip at 10 infusing along with IV fluids. Patient on 2 liters oxygen via nasal cannula,
pulse ox 90%. Oxygen increased to 3 liters. Patient is NPO.
[2023-11-21] MEDS: MYCAMINE 105 MG IV (19:07)
--- NOTE | 2023-11-21 20:38 | PTCARENOTE ---
Recieved patient resting in bed - sleeping, but easily arousable. AAOx3 Lungs w/ crackles at the bases on 2L o2 pox 99%. Frequent weak cough. NGT in place to Low Int Suction - confirmed placement - flushed w/ 20 ml - green drainage. Transgluteal HEMA
in place - flushed - draining sang drainage. R abd HEMA draining serous drainage. BS Hypoactive. Midline dressing CDI. L colostomy w/ small amount of fluid output. On Cardizem gtt - increased to 15 mg d/t elevated HR - Afib. Temp 99.5 orally. +2 LUE
swelling + pulses. +2 Anasarca. C/o 07/18 abd pain - medicated by previous RN. IVF infusing.
[2023-11-21] MEDS: OFIRMEV 100 IV (22:12)
[2023-11-22] VITALS (21 sets, daily range): BP systolic 80–138; BP diastolic 49–91; PULSE 113; O2SAT 100; BMI 20.4
[2023-11-22] MEDS: DILAUDID 1 MG IV ×4 (00:19→18:21)
[2023-11-22 00:35] LABS: Glucose - Point of Care 93 mg/dl (70-99)
[2023-11-22] MEDS: D5/0.45%NSS with KCL 20 MEQ 1000 IV ×2 (01:37→11:31)
[2023-11-22] MEDS: ZOSYN 50 IV ×4 (01:38→19:54)
[2023-11-22 04:56] LABS: Hematocrit 26.6 % (37.0-47.0); Hemoglobin 9.2 g/dL (12.0-16.0); Mean Corp Hgb Conc. 34.6 g/dL (33.0-37.0); Mean Corpuscular Hgb 29.2 pg (27.0-31.0); Mean Corpuscular Volume 84.4 fL (81.0-99.0); Mean Platelet Volume 8.9 fL (7.4-10.4); Platelet Count 369 10^3/uL (130-400); Red Blood Cell Count 3.15 10^6/uL (4.20-5.40); Red Cell Dist. Width 16.3 % (11.5-14.5); White Blood Cell Count 19.2 10^3/uL (4.8-10.8)
[2023-11-22 05:23] LABS: ALT (SGPT) 16 U/L (0-35); AST (SGOT) 26 U/L (14-36); Albumin 2.1 g/dl (3.5-5.0); Alkaline Phosphatase 101 U/L (38-126); Blood Urea Nitrogen 3 mg/dl (7-17); Calcium 7.7 mg/dl (8.4-10.2); Carbon Dioxide 25 mmol/L (22-30); Chloride 104 mmol/L (98-107); Estimated Creatinine Clearance 66 ml/min; Glucose 107 mg/dl (70-99); Magnesium 1.9 mg/dl (1.6-2.3); Phosphorus 3.1 mg/dl (2.5-4.5); Potassium 3.8 mmol/L (3.5-5.1); Sodium 132 mmol/L (135-145); Total Bilirubin 0.7 mg/dl (0.2-1.3); Total Protein 4.5 g/dl (6.3-8.2); Triglycerides 126 mg/dl (10-149); eGFR > 60.00
[2023-11-22 05:27] LABS: Prealbumin (Transthyretin) 7.4 mg/dl (17.6-36.0)
[2023-11-22 06:43] LABS: Glucose - Point of Care 127 mg/dl (70-99)
--- NOTE | 2023-11-22 06:43 | PTCARENOTE ---
Pt given IV Offirmev for a temp of 100.4 ax. Cardizem gtt remains at 15mg/hr. HRs in the 90s-100s.
[2023-11-22] MEDS: CARDIZEM 125 IV ×3 (08:05→21:54)
[2023-11-22] MEDS: PROTONIX IV 40 MG IV (08:09)
[2023-11-22] MEDS: NSS (PRESERVATIVE FREE) 10 ML IV (08:10)
[2023-11-22] MEDS: ATIVAN 0.5 MG IV (08:10)
[2023-11-22] MEDS: NSS (PRESERVATIVE FREE) 0.25 ML IV (08:11)
[2023-11-22] MEDS: FLUSH (NSS) 2 FLUSH IV (08:12)
--- NOTE | 2023-11-22 09:39 | W.PN.PUL3 ---
Today's Communication / Plan
-
O2
IS/acap
Levalb n prn
Assessment
-
Assessment:
Mrs Bailey Martinez is an 78/W adm 11-15 with 2 d h/o abd pain, constipation and chills. Seen at ER, abd CT showed perforated colon. Taken to OR, needed reversal of DOAC with kcentra. Intubated for surgery 11-15 and left on MV with extubation 11-16.
Transferred to F 11-17, developed RVR AFib, did not respond to IV BB, started diltiazem gtt, returned to ICU 11-18
Impression
AFib c RVR since evening 11-17, h/o AFib
Perforated sigmoid/descending colon
S/p Juliet's procedure (left colectomy with colostomy), takedown splenic flexure
Abd source cx: E coli, Enterococcus faecium (both quiroz-S), Strep sp
Fungemia 1/2 cx 11-18: budding yeasts
Intubated for surgery 11-15, extubated 11-16
Postop anemia
Chronic apixaban, s/p reversal pre surgery
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
AFib on apixaban
HLD
HTN
Chronic pain on chronic buprenorphine
Tobacco dependence, on NRT
Plan:
RVR AFib 11-19
Already on diltiazem gtt, attempted rate control with IV BB prior to diltiazem
Continue diltiazem gtt while NPO
Added lopressor 5 mg IV prn
Cards following, HR controlled on diltiazem
O2 protocol if needed
Currently on 1L, POx 95%
Encouraged to do IS
Asp precs
Acapella valve
Levalbuterol nebs prn
Postop pain mgmt
IV opiates (noted h/o opiate use for chronic back pain): hydromorphone 0.25 to 0.5 mg IV q4hrs prn
Resumed buprenorphine SL 11-17
APAP IV q6h
Surgery following
Enteral meds when OK with Sx
Continue zosyn
Abd cx: E coli, Enterococcus faecium (both quiroz-S), Strep sp
Fungemia /2 cx 11-18: budding yeasts
Blood cxs 11-15 so far negative
Fever evening 11-18
CXR with no infiltrates 11-[address] c oral contrast 11-19: R pelvic fluid/abscess, mild posterior basilar atelectatic changes
IRad placed pelvic drain 11-20
ID following: continue zosyn, added micafungin 11-21 (blood cx repeated)
Interim anemia with 2 g drop in 24 h down to 7.2
1 U PRBCs 11-19, Hgb then 9.8 and now 9.0
HTN, on oral metoprolol at home, will resume when able
LUE SVT cephalic just above antecubital vein
SCDs
Can resume apixaban once OK by Sx (2.5 mg bid)
GI proph: PPI IV
D/w Mrs Ritz on a daily basis
Diagnostic tests:
CXR 11-16 and 24: no infiltrates
Subjective Data
-
Date of Service:
Date of Service: November 22, 2023
Chief Complaint: Pulmonary Follow Up
Subjective:
No major events reported overnight
Continues on low-flow O2
Trace intermittent cough
Postop pain
Review of Systems
General: Fever (n), Sweats (n), Chills and Satisfactory Appetite (n)
Cardiopulmonary: Dyspnea (n), Cough (trace), Sputum Production and Wheezing (n)
GI: Abdominal Pain
Neuro: Weakness
Objective Data
Data Reviewed
Vital Signs / I&O / Oxygen:
Vital Signs
Temp Pulse Resp BP Pulse Ox
98.6 F 102 18 113/84 99
11/22/23 08:42 11/22/23 08:00 11/22/23 08:00 11/22/23 08:00 11/22/23 08:00
Intake and Output
11/21/23 11/22/23 11/23/23
06:59 06:59 06:59
Intake Total 3320 / 3430 3070 / 3070
Output Total 2295 / 2295 2070 / 2070
Balance 1025 / 1135 1000 / 1000
SaO2 [CPAP/PSV] 98
SaO2 [A/C] 100
SaO2 99
Nasal Cannula flow liters per 2
minute
Physical Exam
General: Comfortable
HEENT: Normocephalic and Moist Mucous Membranes
Cardiovascular: Regular Rhythm, Murmur (n) and Peripheral Edema (n)
Respiratory: Rhonchi (few scattered) and Stridor
GI: Tender and Other (RLQ drain)
Neurology: Awake, Oriented and No Motor Deficits
Skin: Dry
Labs/Micro/Reports
Lab Data
11/22/23 04:38
11/22/23 04:38
Microbiology
11/18/23 00:48 Blood/Venous Blood Culture - Preliminary
No Growth in 4 days- Final report to follow
11/18/23 00:47 Blood/Venous Blood Culture - Preliminary
Positive culture in progress
11/18/23 00:47 Blood/Venous Gram Stain - Preliminary
11/15/23 22:44 Abdomen Wound Culture - Final
Escherichia coli
Enterococcus faecium
Streptococcus species
11/15/23 22:44 Abdomen Gram Stain - Final
11/15/23 22:44 Abdomen Anaerobic Culture - Final
Bacteroides fragilis
Clostridium species
11/20/23 12:39 Fluid Body Fluid Culture - Preliminary
Escherichia coli
Enterococcus faecium
11/20/23 12:39 Fluid Gram Stain - Preliminary
11/15/23 18:19 Blood/Venous Blood Culture - Final
No Growth - Final Report
11/18/23 18:31 Urine Urine Culture - Final
NO GROWTH
--- NOTE | 2023-11-22 10:11 | W.PN.ID1 ---
Date of Service
Date of Service: November 22, 2023
Today's Communication
See below.
Assessment / Plan
# Sepsis: new fever and worsening leukocytosis
- Blood cx's pending
-Consider repeat CT a/p to evaluate for drainable abscess
- Continue broad-spectrum abx.
# Candidemia 1 out of 2 sets
-Febrile at the time 11/18 bcx drawn
- Suspect GI source (although no yeast isolated from abdomen)
-Continue Micafungin 100mg IV q24 (d2)
- Follow repeat blood cx (1 set prior to micafungin, 2nd set after 1 dose micafungin).
# Perforated diverticulitis with free air and peritonitis
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
- OR cx, E. coli. E faecium, Strep, Clostridium, Bacteroides
- Continue Zosyn d7
# Post-op pelvic abscess
- 11/20 s/p perc drain
- Cx: E. coli, E. faecium; no anaerobic cx sent
- Continue Zosyn d7
#Additional Past Medical History:
Paroxysmal Atrial Fibrillation
CHF
Essential Hypertension
Hyperlipidemia
Interstitial cystitis
Chronic Pain with Opioid Dependence
Diverticulitis
Appendectomy
Cholecystectomy
Hysterectomy
Partial hysterectomy
Right rotator cuff
Chief Complaint
-: Other (Fungemia)
Subjective / Review of Systems
Feels week. Still with abdominal pain.
Vital Signs / Physical Exam
Vital Signs
Vital Signs
Temp Pulse Resp BP Pulse Ox
98.6 F 102 18 113/84 99
11/22/23 08:42 11/22/23 08:00 11/22/23 08:00 11/22/23 08:00 11/22/23 08:00
Selected Entries
11/21/23
21:00 11/21/23
23:24
Temp 100.4 F H 100.5 F H
Physical Exam
Constitutional: Acutely Ill
Eyes: Sclera Anicteric
Cardiovascular: Irregular Rate and Other (tachycardic)
Pulmonary: Rhonchi
Gastrointestinal: Soft, Tender, Decreased Bowel Sounds and Other (colostomy- empty; dressings dry. HEMA drain#1 with serous fluid; #2 bloody fluid)
Extremities: Edema (LUE edema improving)
Neurological: Other (drowsy)
Objective Data
Lab Data
Lab Results
11/22/23 04:38
11/22/23 04:38
PT 16.1 Sec (11.4-14.6) H 11/18/23 18:15
INR 1.27 11/18/23 18:15
APTT 27.8 Sec (23.4-35.0) 11/18/23 18:15
Estimated Creat Clear 66 ml/min 11/22/23 04:38
Lactic Acid 0.9 mmol/L (0.7-2.0) 11/18/23 18:15
Total Bilirubin 0.7 mg/dl (0.2-1.3) 11/22/23 04:38
AST 26 U/L (14-36) 11/22/23 04:38
ALT 16 U/L (0-35) 11/22/23 04:38
Alkaline Phosphatase 101 U/L (38-126) 11/22/23 04:38
Most recent labs reviewed.
Micro Results:
11/21/23 16:20 Blood Culture - Pending
Blood/Venous
11/22/23 04:38 Blood Culture - Pending
Blood/Venous
11/18/23 00:48 Blood Culture - Preliminary
Blood/Venous No Growth in 4 days- Final report to follow
11/18/23 00:47 Blood Culture - Preliminary
Blood/Venous Positive culture in progress
Gram Stain - Preliminary
11/15/23 22:44 Wound Culture - Final
Abdomen Escherichia coli
Enterococcus faecium
Streptococcus species
Gram Stain - Final
11/15/23 22:44 Anaerobic Culture - Final
Abdomen Bacteroides fragilis
Clostridium species
11/20/23 12:39 Body Fluid Culture - Preliminary
Fluid Escherichia coli
Enterococcus faecium
Gram Stain - Preliminary
11/15/23 18:19 Blood Culture - Final
Blood/Venous No Growth - Final Report
11/18/23 18:31 Urine Culture - Final
Urine NO GROWTH
11/15/23 14:27 Influenza Types A & B (MARIELA) - Final
Nasal Swab Negative for Influenza A & B, NAAT
Negative results must be combined with clinical observations
and patient history.
Nucleic Acid Amplification test (NAAT)performed on the
[employer] platform.
11/15/23 CT a/p: The findings are most consistent with perforation (partially contained) of a diverticulum in the descending or sigmoid colon with free air scattered throughout the abdomen and pelvis, forming a masslike area with fluid and free air in
the left side of the abdomen measuring 10 x 10 x 13 cm.� Additionally there is fluid in the anterior peripancreatic and pararenal space consistent with peritonitis, no discrete fluid collection to suggest an abscess. There is significant stool
within the colon and air within the colon wall, which may be due to previous obstruction prior to perforation or the differential includes the possibility of stercoral colitis.
11/19/23 CT a/p: Elongated fluid collection within the pelvis, extending into the retroperitoneum, measuring 8 x 5.6 x 3.3 cm. Internal gas bubbles and peripheral contrast enhancement are suggestive of postoperative abscess. Abscess is not
immediately adjacent to the suture line for the rectal stump. Bubbles of air within the left paracolic gutter as detailed above, without associated abscess formation. These bubbles of air may be postoperative in nature. Bibasilar airspace
consolidation, which may represent subsegmental atelectasis or pneumonia. Tiny left pleural effusion.
--- NOTE | 2023-11-22 11:09 | W.PN.CARDCBS ---
Addendum entered and electronically signed by Mark eHrnandez DO 11/22/23 15:55:
I saw and examined the patient.
The Slag Dumper's note was reviewed and I agree with the note.
Comment:
Plan:
Continue IV Cardizem for heart rate control
Echo is pending
Cont post op supportive care
Remains NPO
Resume Eliquis once ok with surgery.
Original Note:
Today's Communication / Plan
-
Echo pending.
Continue IV Cardizem for heart rate control.
Resume Eliquis when okay per surgery
Impression / Plan
-
Welder Machine Operator: Dr. HAILEY Nash
Impression:
Presented with abdominal pain
Septic shock
Perforated stercoral colitis s/p Juliet's procedure 11/16/2023
Paroxysmal atrial fibrillation w/ RVR
Chronic Eliquis anticoagulation
Acute blood loss anemia
Hypokalemia
Troponin elevation
Chronic HFpEF
Hypertension
Hyperlipidemia
Spinal stenosis
Fibromyalgia
h/o tobacco abuse on nicotine patch
Echo 11/22/2023: Study pending.
Plan:
-Presented with abdominal pain and constipation, found to have perforated colon s/p Juliet's procedure on 11/16/2023 and abd abscess.
-Has been NPO and metoprolol and Eliquis have been on hold perioperatively.
-Went into rapid afib in PM on 11/17/2023. HRs stable on cardizem gtt @15.
-Resume Eliquis when okay per surgery. Hemoglobin 9.2.
-K stable at 3.8 with mag of 1.9. Continue to follow.
-TSH 1.0
-Elevated troponin noted with peak 0.774. Suspect non-AL troponin elevation in the setting of septic shock and rapid A-fib.
-Echo pending 11/22/2023. Weight and volume status stable.
-Continue post op care/abx per surgery/primary service
HPI: Bailey is an 78 year old female with PMH of paroxysmal atrial fibrillation, chronic HFpEF, hypertension, hyperlipidemia, and chronic pain who presented to [facility] for evaluation of abdominal pain. She reported that for approximately 2 days prior
to arrival, she noted increased abdominal pain and constipation. She also noted associated chills. On arrival to ER, she was found to have perforated diverticulitis by CT scan with associated peritonitis. She was admitted, started on antibiotics,
and ultimately underwent Juliet's procedure w/ takedown of splenic flexure on 11/16/2023. She then went into rapid atrial fibrillation post op on 11/17/2023. She was started on IV diltiazem and cardiology consulted for evaluation. She was symptomatic
with this and noted palpitations and some chest pain. Her heart rates are improved this AM on cardizem gtt and she is feeling better from a cardiac standpoint, although still complains of pain related to surgery.
Progress Note - Welder Machine Operator
Subjective
Date of Service: November 22, 2023
Objective
Labs:
11/22/23 04:38
11/22/23 04:38
Labs
Hgb 9.2 g/dL (12.0-16.0) L 11/22/23 04:38
Hct 26.6 % (37.0-47.0) L 11/22/23 04:38
Plt Count 369 10^3/uL (130-400) D 11/22/23 04:38
PT 16.1 Sec (11.4-14.6) H 11/18/23 18:15
INR 1.27 11/18/23 18:15
APTT 27.8 Sec (23.4-35.0) 11/18/23 18:15
Sodium 132 mmol/L (135-145) L 11/22/23 04:38
Potassium 3.8 mmol/L (3.5-5.1) 11/22/23 04:38
BUN 3 mg/dl (7-17) L 11/22/23 04:38
Creatinine 0.6 mg/dL (0.6-1.0) 11/22/23 04:38
Glucose 107 mg/dl (70-99) H 11/22/23 04:38
Vital Signs and I&O:
Vital Signs
Temp Pulse Resp BP Pulse Ox
99 F 102 18 113/84 99
11/22/23 11:03 11/22/23 08:00 11/22/23 08:00 11/22/23 08:00 11/22/23 08:00
Vital Signs
Temp Pulse Resp BP Pulse Ox
99 F 102 18 113/84 99
11/22/23 11:03 11/22/23 08:00 11/22/23 08:00 11/22/23 08:00 11/22/23 08:00
Intake & Output
11/20/23 11/21/23 11/22/23 11/23/23
06:59 06:59 06:59 06:59
Intake Total 4315 / 4700 3320 / 3430 3070 / 3070
Output Total 2465 / 2665 2295 / 2295 2069 / 2069
Balance 1849 / 2034 1025 / 1135 1000 / 1000
Physical Exam
Physical Exam
GEN: No distress, awake, alert
HEENT: supple, anicteric
LUNGS: scatt rhonchi
CV: irreg, S1/S2, 1/6 syst LSB, no gallop
EXT: No clubbing, cyanosis, or edema
NEURO: Gross non-focal
SKIN: Warm, dry, no rash
--- NOTE | 2023-11-22 11:21 | W.PN.CRS1 ---
Today's Communication / Plan
-
TPN
Await bowel function, continue NG tube
Assessment/Plan
-
78 yo female presents with perforated sigmoid/descending colon now�POD #7�Juliet's
1. Afebrile. WBC is 19.2. Trend.
2. Continue IV antibiotics.
3. Continue HEMA drain and IR drain.
4. N.p.o. with NG tube. Will start TPN today.
5. Continue to hold Eliquis.
6. Continue local dressing changes.
7. Follow cultures. Cultures E. coli and Enterococcus faecium. Blood cultures pending.
Subjective Data
Procedure
Juliet's resection 11/15/23
Subjective Data
Date of Service: November 22, 2023
Patient states she does not feel 'too bad'. Her main complaint is that she 'hurts all over'. She has an NG tube in place. She has not had bowel function yet.
Objective Data
-
Vital Signs
Temp Pulse Resp BP Pulse Ox
99 F 102 18 113/84 99
11/22/23 11:03 11/22/23 08:00 11/22/23 08:00 11/22/23 08:00 11/22/23 08:00
Intake & Output
11/21/23 11/22/23 11/23/23
06:59 06:59 06:59
Intake Total 3320 / 3430 3070 / 3070
Output Total 2295 / 2295 207 / 2070
Balance 1025 / 1135 1000 / 1000
Intake:
Oral fluids 120 / 120
IV fluids (Total) 2485 / 2595 2620 / 2620
D5/0.45%NSS with KCL 20 MEQ 20 2200 / 2300 1200 / 1200
meq In 1,000 ml @ 100 mls/hr IV
.Q10H FELIPA Rx#:[id number]
cardizem 285 / 295 120 / 120
IV piggybacks 595 / 595 350 / 350
Amount instilled into Drain (
Total)
Right Back David-Clarke Placed
in IR
Amount instilled into GI Tube ( 120 / 120 90 / 90
Total)
Chuckey Sump 120 / 120 90 / 90
Output:
Drain Output (Total) 145 / 145 120 / 120
Abdomen David-Clarke 70 / 70 80 / 80
Right Back David-Clarke Placed 75 / 75 40 / 40
in IR
Gastrointestinal tube output ( 750 / 750 300 / 300
Total)
Chuckey Sump 750 / 750 300 / 300
Urine, Voided 1400 / 1400 1650 / 1650
Other:
How many times incontinent 1
SMALL amount urine
How many times incontinent 1
MODERATE amount urine
How many times incontinent 1 1 1
SATURATED amount urine
Lab Results
11/22/23 04:38
11/22/23 04:38
Physical Exam
-
General: No Acute Distress and AOx3
Abdomen: Soft, Distended (Mild), Tender and Other (Stoma pink and warm to touch. Serous drainage in bag. No flatus. HEMA drain with serous drainage. IR drain with serous drainage.)
Incision: Clear, Dry, Intact
[2023-11-22] MEDS: FLUSH (NSS) 1 FLUSH IV ×2 (12:08→18:17)
[2023-11-22 12:33] LABS: Glucose - Point of Care 114 mg/dl (70-99)
--- NOTE | 2023-11-22 15:09 | W.PN.HOSP.TC ---
Today's Communication/Plan
-
continue IV abx per ID
TPN per CRS
Assessment / Plan
Assessment / Plan
Assessment:
Septic Shock secondary to perforated bowel from diverticulitis vs stercoral colitis
- was given K-centra for Eliquis reversal
- underwent on 11/16 1) Juliet's procedure (left colectomy with colostomy) 2) takedown splenic flexure on 11/16/23. Operative findings: perforated distal descending colon with associated bloody contamination (blood plus stool-- particularly at left
retroperitoneum)
- post-op course complicated by post-op pelvic abscess seen on CT 11/19 s/p IRAD drain. Culture growing E. coli. E faecium and yeast
- continue NPO/IVF. CRS starting TPN
- currently shock state is resolved
- continue Zosyn; OR cx, E. coli. E faecium, Strep, Clostridium, Bacteroides
- continue Micafungin for candidemia 1/2 sets
- continue NGT/Joseph
- Colorectal/ID following
Parox A Fib with RVR
- continue Cardizem drip; hold oral BB
- resume Eliquis when cleared by GS
VDRF in setting of acute emergency surgery for airway protection
- extubated - pt denies respiratory distress
Post-operative acute anemia from blood loss
- s/p 3 units PRBCs. Hb was 9.2
Non-PA trop elevation
- trop 0.744
- follow tele/EKGs
Chronic Pain with Opioid Dependence
- continue Dilaudid as needed for pain
- resume buprenorphine when able
Essential HTN
- hold BB/Doxazosin until sepsis improves
LUE SVT cephalic just above antecubital vein
- resume Eliquis when cleared by GS
DVT prophylaxis: SCDs
CODE STATUS: Full code
Anticipated Discharge: > 48 hours
Subjective/Interval History
-
Date of Service: November 22, 2023
no new complaints
a bit sedated from receiving IV ativan earlier
NGT remains
Objective Data
-
Labs:
Laboratory Results
11/22/23
04:38
WBC 19.2 H
Hgb 9.2 L
Hct 26.6 L
Plt Count 369 D
Sodium 132 L
Potassium 3.8
Chloride 104
Carbon Dioxide 25
BUN 3 L
Creatinine 0.6
Glucose 107 H
Calcium 7.7 L
Total Bilirubin 0.7
AST 26
ALT 16
Alkaline Phosphatase 101
Vital Signs:
Vital Signs
Temp Pulse Resp BP Pulse Ox
99 F 107 19 111/83 99
11/22/23 11:03 11/22/23 12:00 11/22/23 12:00 11/22/23 12:00 11/22/23 12:07
I&O
11/21/23 11/22/23 11/23/23
06:59 06:59 06:59
Intake Total 3320 / 3430 3070 / 3070 55 / 55
Output Total 2295 / 2295 2070 / 2070
Balance 1025 / 1135 1000 / 1000 55 / 55
Physical Exam
-
General: No Apparent Distress
HEENT: Normocephalic and Atraumatic
Respiratory: Negative Wheezes
Cardiac: Regular Rhythm and S1/S2
GI: Soft and Other (NGT in place)
Genito-urinary: No Costovertebral Tender
Musculoskeletal: No Edema
Neuro: AO x 3
Hematologic / Lymphatic: No Lymphadenopathy
Psych: Calm
Data Reviewed
-
Total Time Spent with Patient (in minutes): 47
Labs: Labs Reviewed by me
--- NOTE | 2023-11-22 16:08 | CM ---
CM reviewed pt with Dr Andrade- ADC >48 hours
Pt remains in IMU with NGT- plan to start TPN
Pt denied at [facility] and due to lack of [employer] contract
[facility] following for possible admission
Per attending, likely will not require Subutex on dc
Pt will require [employer] auth
Discharge Disposition- SNF pending [employer] auth
--- NOTE | 2023-11-22 18:00 | PTCARENOTE ---
Patient out of bed to chair for two hours. Heavy assist x2 back to bed. Patient drowsy, easily arousable. Right dual lumen PICC placed today. Cardizem drip at 15 mg/hr patient remains in afib with heart rates 95-120. IV fluids and antibiotics as
ordered. Patient will start TPN tonight. NPO with ice chips as per surgery. Medicating with IV dilaudid as ordered for pain. Colostomy drained 100 mls of serous drainage. HEMA drains and abdominal dressing C/D/I. Right thea santos to
intermittent suction draining dark green drainage.
[2023-11-22] MEDS: MYCAMINE 105 MG IV (18:13)
[2023-11-22 18:14] LABS: Glucose - Point of Care 99 mg/dl (70-99)
[2023-11-22] MEDS: Parenteral Nutrition, Central 820 IV (20:39)
[2023-11-23] VITALS (40 sets, daily range): BP systolic 82–140; BP diastolic 20–101; PULSE 105; O2SAT 98; BMI 19.7
[2023-11-23] MEDS: DILAUDID 0.5 MG IV ×5 (00:49→21:21)
--- NOTE | 2023-11-23 01:45 | PTCARENOTE ---
Pt drowsy, but arousable to voice, responds appropriately and follows commands, assessment as documented. TPN initiated via R double lumen PICC. Cardizem titrated to 5mg/hr with HR 80s-100s. O2 weaned to 2L with SaO2 maintaining >97%. BPs soft
throughout shift, 80s-low 100s systolic, mentation remains unchanged. Pt c/o 10/10 abdominal pain and requests medication. 0.5mg diluadid given per JAN. Pt experienced 1 episode of saturated incontinence, hygiene care performed and linens changed.
[place] sump patent in R nare to low intermittent suction, producing dark green drainage, tube flushed per order. HEMA drains and abdominal dressings CDI.
[2023-11-23 02:26] LABS: Glucose - Point of Care 138 mg/dl (70-99)
[2023-11-23] MEDS: ZOSYN 50 IV ×4 (02:28→19:28)
[2023-11-23 04:30] LABS: Blood Urea Nitrogen 6 mg/dl (7-17); Calcium 7.8 mg/dl (8.4-10.2); Carbon Dioxide 31 mmol/L (22-30); Chloride 98 mmol/L (98-107); Estimated Creatinine Clearance 66 ml/min; Glucose 139 mg/dl (70-99); Phosphorus 3.3 mg/dl (2.5-4.5); Potassium 3.4 mmol/L (3.5-5.1); Sodium 134 mmol/L (135-145); eGFR > 60.00
[2023-11-23 06:45] LABS: Glucose - Point of Care 138 mg/dl (70-99)
[2023-11-23] MEDS: PROTONIX IV 40 MG IV (08:08)
[2023-11-23] MEDS: NSS (PRESERVATIVE FREE) 10 ML IV (08:08)
[2023-11-23] MEDS: ATIVAN 0.5 MG IV ×2 (08:09→23:48)
[2023-11-23] MEDS: NSS (PRESERVATIVE FREE) 0.25 ML IV (08:09)
--- NOTE | 2023-11-23 09:09 | VATNOTE ---
11/23 Patient has need for 3 accesses but has a left arm clot and right arm PICC. MD notified and requested for order for either 'ok to have IV in right arm' or foot IV order.
--- NOTE | 2023-11-23 09:14 | W.PN.PUL3 ---
Today's Communication / Plan
-
O2 protocol
Asp precs
Reconsult prn
Assessment
-
Assessment:
Mrs Bailey Martinez is an 78/W adm 11-15 with 2 d h/o abd pain, constipation and chills. Seen at ER, abd CT showed perforated colon. Taken to OR, needed reversal of DOAC with kcentra. Intubated for surgery 11-15 and left on MV with extubation 11-16.
Transferred to F 11-17, developed RVR AFib, did not respond to IV BB, started diltiazem gtt, returned to ICU 11-18
Impression
AFib c RVR since evening 11-17, h/o AFib
Perforated sigmoid/descending colon
S/p Juliet's procedure (left colectomy with colostomy), takedown splenic flexure
Abd source cx: E coli, Enterococcus faecium (both quiroz-S), Strep sp
Fungemia 1/2 cx 11-18: budding yeasts
Intubated for surgery 11-15, extubated 11-16
Postop anemia
Chronic apixaban, s/p reversal pre surgery
Conditions HAT LINING PASTER:
AFib on apixaban
HLD
HTN
Chronic pain on chronic buprenorphine
Tobacco dependence, on NRT
Plan:
RVR AFib 11-19
Already on diltiazem gtt, attempted rate control with IV BB prior to diltiazem
Continue diltiazem gtt while NPO
Added lopressor 5 mg IV prn
Cards following, HR controlled on diltiazem
O2 protocol if needed
Currently on 2L, POx 99%
Encouraged to do IS and acapella
Asp precs
Levalbuterol nebs prn
Postop pain mgmt
IV opiates (noted h/o opiate use for chronic back pain): hydromorphone 0.25 to 0.5 mg IV q4hrs prn
Resumed buprenorphine SL 11-17
APAP IV q6h
Surgery following
Enteral meds when OK with Sx
Continue zosyn
Abd cx: E coli, Enterococcus faecium (both quiroz-S), Strep sp
Fungemia /2 cx 11-18: budding yeasts
Blood cxs 11-15 so far negative
Fever evening 11-18
CXR with no infiltrates 11-[address] c oral contrast 11-19: R pelvic fluid/abscess, mild posterior basilar atelectatic changes
IRad placed pelvic drain 11-20
ID following: continue zosyn, added micafungin 11-21 (blood cx repeated)
Started TPN
Interim anemia with 2 g drop in 24 h down to 7.2
1 U PRBCs 11-19, Hgb then 9.8 and now 9.0
HTN, on oral metoprolol at home, will resume when able
LUE SVT cephalic just above antecubital vein
SCDs
Can resume apixaban once OK by Sx (2.5 mg bid)
GI proph: PPI IV
D/w Mrs Ritz on a daily basis
Pulm randall stable
Reconsult prn
Diagnostic tests:
CXR 11-16 and 24: no infiltrates
CXR 11-22-23: no infiltrates. RUE PICC
Subjective Data
-
Date of Service:
Date of Service: November 23, 2023
Chief Complaint: Pulmonary Follow Up
Subjective:
No major events reported
Continue on low flow O2
Incisional pain
Started TPN
Review of Systems
General: Fever (n), Sweats (n), Chills and Satisfactory Appetite (n)
Cardiopulmonary: Dyspnea, Cough (mild intermittent), Sputum Production (n) and Wheezing (n)
GI: Abdominal Pain
Neuro: Weakness
Objective Data
Data Reviewed
Vital Signs / I&O / Oxygen:
Vital Signs
Temp Pulse Resp BP Pulse Ox
98 F 104 19 94/55 98
11/23/23 07:10 11/23/23 05:00 11/23/23 05:00 11/23/23 04:01 11/23/23 05:00
Intake and Output
11/22/23 11/23/23 11/24/23
06:59 06:59 06:59
Intake Total 3070 / 3070 1780 / 1780
Output Total 2069 / 0 2700 / 2700 400 / 400
Balance 1000 / 1000 -920 / -920 -400 / -400
SaO2 [CPAP/PSV] 98
SaO2 [A/C] 100
SaO2 98
Nasal Cannula flow liters per 3
minute
Physical Exam
General: Comfortable
HEENT: Normocephalic and Moist Mucous Membranes
Cardiovascular: Regular Rhythm, Murmur (n) and Peripheral Edema (n)
Respiratory: Rhonchi (few scattered), Non-Labored Respirations and Stridor
GI: Tender and Other (RLQ drain)
Neurology: Awake, Oriented and No Motor Deficits
Skin: Dry
Labs/Micro/Reports
Lab Data
11/23/23 03:49
Microbiology
11/18/23 00:47 Blood/Venous Blood Culture - Preliminary
Yeast
11/18/23 00:47 Blood/Venous Gram Stain - Preliminary
11/22/23 04:38 Blood/Venous Blood Culture - Preliminary
No Growth in 24 hours- Final report to follow
11/18/23 00:48 Blood/Venous Blood Culture - Final
No Growth - Final Report
11/21/23 16:20 Blood/Venous Blood Culture - Preliminary
No Growth in 24 hours- Final report to follow
11/20/23 12:39 Fluid Body Fluid Culture - Final
Escherichia coli
Enterococcus faecium
Yeast
11/20/23 12:39 Fluid Gram Stain - Final
11/15/23 22:44 Abdomen Wound Culture - Final
Escherichia coli
Enterococcus faecium
Streptococcus species
11/15/23 22:44 Abdomen Gram Stain - Final
11/15/23 22:44 Abdomen Anaerobic Culture - Final
Bacteroides fragilis
Clostridium species
11/15/23 18:19 Blood/Venous Blood Culture - Final
No Growth - Final Report
[2023-11-23 09:20] LABS: % Basophils 0.3 % (0-2); % Eosinophils 1.2 % (0-6); % Immature Granulocytes 1.2 % (0-0.5); % Lymphocytes 5.7 % (20.5-51.1); % Monocytes 4.8 % (1.7-9.3); % Neutrophils 86.8 % (42.2-75.2); Absolute Basophils 0.1 10^3/uL (0-0.2); Absolute Eosinophils 0.2 10^3/uL (0-0.7); Absolute Immature Granulocytes 0.2 10^3/uL (0-0.05); Absolute Monocytes 0.9 10^3/uL (0.1-0.6); Absolute Neutrophils 15.9 10^3/uL (1.4-6.5); Hematocrit 27.2 % (37.0-47.0); Hemoglobin 9.2 g/dL (12.0-16.0); Mean Corp Hgb Conc. 33.8 g/dL (33.0-37.0); Mean Corpuscular Hgb 29.4 pg (27.0-31.0); Mean Corpuscular Volume 86.9 fL (81.0-99.0); Mean Platelet Volume 8.8 fL (7.4-10.4); Nucleated Red Blood Cells % 0 %; Platelet Count 465 10^3/uL (130-400); Red Blood Cell Count 3.13 10^6/uL (4.20-5.40); Red Cell Dist. Width 15.9 % (11.5-14.5); White Blood Cell Count 18.3 10^3/uL (4.8-10.8)
--- NOTE | 2023-11-23 09:20 | W.PN.CARDCBS ---
Today's Communication / Plan
-
IV Lasix x 1
Supplement potassium
Renew IV diltiazem
And digoxin when potassium is improved
Will write for Paul-Synephrine if needed to support blood pressure
Eventual restart of anticoagulation
Impression / Plan
-
Casing In Line Setter: Dr. HAILEY Nash
Impression:
Presented with abdominal pain
Septic shock
Perforated stercoral colitis s/p Juliet's procedure 11/16/2023
Paroxysmal atrial fibrillation w/ RVR
Chronic Eliquis anticoagulation
Acute blood loss anemia
Hypokalemia
Troponin elevation
Chronic HFpEF
Hypertension
Hyperlipidemia
Spinal stenosis
Fibromyalgia
h/o tobacco abuse on nicotine patch
Acute HFpEF
Echo 11/22/2023: EF 55-60% mild LVH, dilated left atrium and right atrium, moderate mitral regurgitation mild TR, pulmonary artery systolic pressure 43-48 mmHg
Plan:
She needs additional rate control. Blood pressure is marginal on IV diltiazem. Will add Paul-Synephrine if blood pressure drops. Will add digoxin once potassium is improved. We could consider boluses of IV amiodarone for rate control as well.
IV access is a problem on TPN, IV diltiazem, and as needed IV meds.. She has a dual-lumen PICC.
She remains NPO.
She is volume overloaded at present and requires Lasix. We will ask colorectal surgery to add potassium to TPN.
Restart Eliquis when okay with surgery. If she will remain n.p.o. for a considerable period of time, consider IV heparin.
CCT: 40 minutes
HPI: Bailey is an 78 year old female with PMH of paroxysmal atrial fibrillation, chronic HFpEF, hypertension, hyperlipidemia, and chronic pain who presented to [facility] for evaluation of abdominal pain. She reported that for approximately 2 days prior
to arrival, she noted increased abdominal pain and constipation. She also noted associated chills. On arrival to ER, she was found to have perforated diverticulitis by CT scan with associated peritonitis. She was admitted, started on antibiotics,
and ultimately underwent Juliet's procedure w/ takedown of splenic flexure on 11/16/2023. She then went into rapid atrial fibrillation post op on 11/17/2023. She was started on IV diltiazem and cardiology consulted for evaluation. She was symptomatic
with this and noted palpitations and some chest pain. Her heart rates are improved this AM on cardizem gtt and she is feeling better from a cardiac standpoint, although still complains of pain related to surgery.
Progress Note - Casing In Line Setter
Subjective
Date of Service: November 23
Patient is fairly uncomfortable. She remains n.p.o., drainage from NG tube, on TPN, diltiazem is at 15 mg/h, blood pressure is relatively hypotensive
IV access is a problem she has a dual-lumen PICC
She has a upper extremity thrombus anticoagulation is currently on hold
Medications:: Pantoprazole 40 mg a day, Zosyn, Subutex, diltiazem IV, micafungin, TPN
PMH/PSH/FH/SH: Reviewed
Allergies: None
Outpatient meds: Apixaban 5 mg twice daily, atorvastatin, doxazosin, metoprolol ER 100 twice daily
ROS negative as above,
94/55, pulse 104, resp rate 19, afebrile, sats 98%, weight is 53.7 kg, was 50.1 kg on admission, peak was 55.7 kg, down 2 kg today
Intake and output -1.3 L
Chest x-ray today: Possible left basal infiltrate, vague opacity right lung
Potassium 3.4, sodium 134, CO2 31, BUN/creatinine 6 and 0.5, troponin 0.7, 0.834, proBNP is 2720
Objective
Labs:
11/23/23 03:49
Labs
Hgb Cancelled 11/23/23 08:25
Hct Cancelled 11/23/23 08:25
Plt Count Cancelled 11/23/23 08:25
PT 16.1 Sec (11.4-14.6) H 11/18/23 18:15
INR 1.27 11/18/23 18:15
APTT 27.8 Sec (23.4-35.0) 11/18/23 18:15
Sodium 134 mmol/L (135-145) L 11/23/23 03:49
Potassium 3.4 mmol/L (3.5-5.1) L 11/23/23 03:49
BUN 6 mg/dl (7-17) L 11/23/23 03:49
Creatinine 0.5 mg/dL (0.6-1.0) L 11/23/23 03:49
Glucose 139 mg/dl (70-99) H 11/23/23 03:49
Vital Signs and I&O:
Vital Signs
Temp Pulse Resp BP Pulse Ox
36.6 C 104 19 94/55 98
11/23/23 07:10 11/23/23 05:00 11/23/23 05:00 11/23/23 04:01 11/23/23 05:00
Vital Signs
Temp Pulse Resp BP Pulse Ox
36.6 C 104 19 94/55 98
11/23/23 07:10 11/23/23 05:00 11/23/23 05:00 11/23/23 04:01 11/23/23 05:00
Intake & Output
11/21/23 11/22/23 11/23/23 11/24/23
07:59 07:59 07:59 07:59
Intake Total 3045 / 3155 2960 / 2960 1780 / 1780
Output Total 5 / 2095 207 / 207 2700 / 2700 400 / 400
Balance 950 / 1060 890 / 890 -920 / -920 -400 / -400
Physical Exam
Physical Exam
Frail, uncomfortable, NG tube in place
Head neck exam unremarkable, NG tube as above
Limited pulmonary exam, relatively clear
Irregular rate and rhythm, tachycardic,JVD elevated, systolic murmur at apex
Abdomen quiet bowel sounds, dressing intact
Extremities without edema
Pulses palpable
[2023-11-23] MEDS: CARDIZEM 125 IV ×2 (10:38→19:28)
[2023-11-23 10:54] LABS: NT-proBNP 2720 pg/ml
--- NOTE | 2023-11-23 11:00 | WOUNDNOTE ---
WON RN NOTE: Appliance changed today, stoma pink slightly less swollen, for straw colored output. Peristomal skin intact, mid line dressing dry and intact. TPN started, tolerating ice chips. Spoke to daughter Jennifer who was not able to meet today
for appliance change. Answered all questions. Attempted to have patient participate in care but kept on falling asleep. Easily arousable and trying to be cooperative, too tired for teaching at this moment. Supplies at bedside, plan is for SNF when
ready for discharge. Patient able to turn to side, heels and sacrum are intact. Protective foams in place near intact drains. Pillow placed under calves and repositioned. Updated nurse Melva on the above.
--- NOTE | 2023-11-23 11:15 | W.PN.ID1 ---
Date of Service
Date of Service: November 23, 2023
Today's Communication
See below.
Continue Zosyn/micafungin
Assessment / Plan
# Sepsis: new fever and worsening leukocytosis
- fever trending down
- leukocytosis stable
- Blood cx's pending
- CXR worsening RLL infiltrate, on Zosyn
- If fever persists, consider repeat CT a/p to evaluate for drainable abscess
- Continue Zosyn d8
-Trend temps/wbc.
# Candidemia 1 out of 2 sets
- GI source. 11/20 perc drain of pelvic post-op abscess +yeast.
Asked micro to identify yeast.
- repeat blood cx (1 set prior to micafungin, 2nd set after 1 dose micafungin) neg to date
-Continue Micafungin 100mg IV q24 (d3)
# Perforated diverticulitis with free air and peritonitis
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
- OR cx, E. coli. E faecium, Strep, Clostridium, Bacteroides
- Continue Zosyn d8
# Post-op pelvic abscess
- 11/20 s/p perc drain
- Cx: E. coli, E. faecium;yeast, no anaerobic cx sent
- Continue Zosyn d8
# TPN started 11/22 for nutrition.
#Additional Past Medical History:
Paroxysmal Atrial Fibrillation
CHF
Essential Hypertension
Hyperlipidemia
Interstitial cystitis
Chronic Pain with Opioid Dependence
Diverticulitis
Appendectomy
Cholecystectomy
Hysterectomy
Partial hysterectomy
Right rotator cuff
Chief Complaint
-: Other (Fungemia)
Subjective / Review of Systems
Very weak/tired
Vital Signs / Physical Exam
Vital Signs
Vital Signs
Temp Pulse Resp BP Pulse Ox
98 F 123 20 121/101 98
11/23/23 07:10 11/23/23 09:30 11/23/23 09:30 11/23/23 08:00 11/23/23 10:12
Physical Exam
Constitutional: Acutely Ill
Cardiovascular: Irregular Rate, S1/S2 and Other (tachycardic)
Pulmonary: Clear (anteriorly)
Gastrointestinal: Soft and Decreased Bowel Sounds
Extremities: Edema (LUE edema improved. )
Neurological: Other (drowsy)
Lines: PICC (RUE)
Objective Data
Lab Data
Lab Results
11/23/23 09:03
11/23/23 03:49
PT 16.1 Sec (11.4-14.6) H 11/18/23 18:15
INR 1.27 11/18/23 18:15
APTT 27.8 Sec (23.4-35.0) 11/18/23 18:15
Estimated Creat Clear 66 ml/min 11/23/23 03:49
Lactic Acid 0.9 mmol/L (0.7-2.0) 11/18/23 18:15
Total Bilirubin 0.7 mg/dl (0.2-1.3) 11/22/23 04:38
AST 26 U/L (14-36) 11/22/23 04:38
ALT 16 U/L (0-35) 11/22/23 04:38
Alkaline Phosphatase 101 U/L (38-126) 11/22/23 04:38
Most recent labs reviewed.
Micro Results:
11/18/23 00:47 Blood Culture - Preliminary
Blood/Venous Yeast
Gram Stain - Preliminary
11/18/23 08:05 Fungus Mold Identification - Pending
Blood/Venous
11/22/23 04:38 Blood Culture - Preliminary
Blood/Venous No Growth in 24 hours- Final report to follow
11/18/23 00:48 Blood Culture - Final
Blood/Venous No Growth - Final Report
11/21/23 16:20 Blood Culture - Preliminary
Blood/Venous No Growth in 24 hours- Final report to follow
11/20/23 12:39 Body Fluid Culture - Final
Fluid Escherichia coli
Enterococcus faecium
Yeast
Gram Stain - Final
11/15/23 22:44 Wound Culture - Final
Abdomen Escherichia coli
Enterococcus faecium
Streptococcus species
Gram Stain - Final
11/15/23 22:44 Anaerobic Culture - Final
Abdomen Bacteroides fragilis
Clostridium species
11/15/23 18:19 Blood Culture - Final
Blood/Venous No Growth - Final Report
11/18/23 18:31 Urine Culture - Final
Urine NO GROWTH
11/15/23 14:27 Influenza Types A & B (MARIELA) - Final
Nasal Swab Negative for Influenza A & B, NAAT
Negative results must be combined with clinical observations
and patient history.
Nucleic Acid Amplification test (NAAT)performed on the
[employer] platform.
11/15/23 CT a/p: The findings are most consistent with perforation (partially contained) of a diverticulum in the descending or sigmoid colon with free air scattered throughout the abdomen and pelvis, forming a masslike area with fluid and free air in
the left side of the abdomen measuring 10 x 10 x 13 cm.� Additionally there is fluid in the anterior peripancreatic and pararenal space consistent with peritonitis, no discrete fluid collection to suggest an abscess. There is significant stool
within the colon and air within the colon wall, which may be due to previous obstruction prior to perforation or the differential includes the possibility of stercoral colitis.
11/19/23 CT a/p: Elongated fluid collection within the pelvis, extending into the retroperitoneum, measuring 8 x 5.6 x 3.3 cm. Internal gas bubbles and peripheral contrast enhancement are suggestive of postoperative abscess. Abscess is not
immediately adjacent to the suture line for the rectal stump. Bubbles of air within the left paracolic gutter as detailed above, without associated abscess formation. These bubbles of air may be postoperative in nature. Bibasilar airspace
consolidation, which may represent subsegmental atelectasis or pneumonia. Tiny left pleural effusion.
11/22/23: CXR: Right PICC in position as described. Worsening right lung airspace disease suspicious for pneumonia. Stable small left pleural effusion with associated airspace disease.
--- NOTE | 2023-11-23 11:43 | W.PN.CRS1 ---
Today's Communication / Plan
-
Continue n.p.o. with NGT and IV antibiotics; continue TPN
Hold on CT scan today as WBC improved; will continue to monitor
Assessment/Plan
-
78-year-old female with PMH of A-fib (on Eliquis, last dose was the morning of 11/15/2023), chronic pain (on Suboxone), HTN who presented with acute abdominal pain and was found to have perforated stercoral colitis and underwent emergency Dos Santos's
procedure for perforation in the descending colon, in septic shock; given Kcentra preoperatively
POD 8 Dos Santos's procedure, c/b intra-abdominal abscess s/p IR drain on 11/20, still with ileus
HRs 90-120s, BP stable; Hb stable, WBC 18.3 from 19.2
�Appreciate hospitalist
� Okay for DVT PPx with Lovenox; continue to hold Eliquis
� Continue NGT until ostomy function
� Continue antibiotics, appreciate ID
-WBC improved today; hold off on CT scan, but may reconsider tomorrow if no improvement
� Continue HEMA to bulb suction
�Appreciate PT, OOB/IS
-Appreciate cardiology
Subjective Data
Procedure
Juliet's resection 11/15/23
Subjective Data
Date of Service: November 23, 2023
No overnight events.
Pain controlled.
Denies nausea/vomiting. Patient is n.p.o. with NGT.
-Ostomy function +voiding
Objective Data
-
Vital Signs
Temp Pulse Resp BP Pulse Ox
98 F 123 20 121/101 98
11/23/23 07:10 11/23/23 09:30 11/23/23 09:30 11/23/23 08:00 11/23/23 10:12
Intake & Output
01/15/24 01/16/24 01/17/24
06:59 06:59 06:59
Intake Total 3070 / 3070 1780 / 1780
Output Total 2069 / 0 2700 / 2700 400 / 400
Balance 1000 / 1000 -920 / -920 -400 / -400
Intake:
IV fluids (Total) 2620 / 2620 1000 / 1000
D5/0.45%NSS with KCL 20 MEQ 20 1200 / 1200
meq In 1,000 ml @ 100 mls/hr IV
.Q10H FELIPA Rx#:[id number]
cardizem 120 / 120
IV piggybacks 350 / 350 345 / 345
TPN/PPN 340 / 340
Amount instilled into Drain ( 10 5 / 5
Total)
Right Back David-Clarke Placed 10 10 5 / 5
in IR
Amount instilled into GI Tube ( 90 / 90 / 90
Total)
[place] Sump 90 / 90 90 / 90
Output:
Liquid stool amount 100 / 100
Colostomy 100 / 100
Drain Output (Total) 120 / 120 70 / 70
Abdomen David-Clarke 80 / 80 60 / 60
Right Back David-Clarke Placed 40 / 40 10 / 10
in IR
Gastrointestinal tube output ( 300 / 300 820 / 820 400 / 400
Total)
[place] Sump 300 / 300 820 / 820 400 / 400
Urine, Voided 1650 / 1650 1710 / 1710
Other:
How many times incontinent 1
MODERATE amount urine
How many times incontinent 1 2
SATURATED amount urine
Lab Results
11/23/23 09:03
11/23/23 03:49
Physical Exam
-
General: No Acute Distress and AOx3
HEENT: Grossly Normal
Abdomen: Soft, Distended (Mildly distended), Tender (Appropriately tender near incision), No Guarding, No Rebound and Other (Ostomy pink with bowel sweat; IR-10 mL serous, OR drain-60 mL serosang)
Skin: Warm and Dry
Wound: No Signs of Infection, Dressing Changed and No Skin Erythema
Incision: Clear, Dry, Intact (Telfa sky removed)
[2023-11-23 12:39] LABS: Glucose - Point of Care 147 mg/dl (70-99)
[2023-11-23] MEDS: NEO-SYNEPHRINE 250 IV (14:02)
--- NOTE | 2023-11-23 14:20 | PTCARENOTE ---
Pt hypotensive Paul started per protocol as ordered. Discussed with VAT team. OK to Y site with Cardizem as they are compatible. ABX and antifungals infusing through right wrist.
--- NOTE | 2023-11-23 16:15 | W.PN.HOSP.TC ---
Today's Communication/Plan
-
await ROBF and continue NGT/TPN
considering CT scan tomorrow
continue dilt drip; monitor bella-synephrine
Assessment / Plan
Assessment / Plan
Assessment:
Septic Shock secondary to perforated bowel from diverticulitis vs stercoral colitis
- was given K-centra for Eliquis reversal
- underwent on 11/16 1) Juliet's procedure (left colectomy with colostomy) 2) takedown splenic flexure on 11/16/23. Operative findings: perforated distal descending colon with associated bloody contamination (blood plus stool-- particularly at left
retroperitoneum)
- post-op course complicated by post-op pelvic abscess seen on CT 11/19 s/p IRAD drain. Culture growing E. coli. E faecium and yeast
- continue NPO/IVF. CRS starting TPN
- currently shock state is resolved
- continue Zosyn; OR cx, E. coli. E faecium, Strep, Clostridium, Bacteroides
- continue Micafungin for candidemia 1/2 sets
- continue NGT/Joseph
- Colorectal/ID following
Parox A Fib with RVR
- continue Cardizem drip; hold oral BB
- resume Eliquis when cleared by GS
VDRF in setting of acute emergency surgery for airway protection
- extubated - pt denies respiratory distress
Post-operative acute anemia from blood loss
- s/p 3 units PRBCs. Hb was 9.2
Non-AZ trop elevation
- trop 0.744
- follow tele/EKGs
Chronic Pain with Opioid Dependence
- continue Dilaudid as needed for pain
- resume buprenorphine when able
Essential HTN
- hold BB/Doxazosin until sepsis improves
LUE SVT cephalic just above antecubital vein
- resume Eliquis when cleared by GS
DVT prophylaxis: Lovenox
CODE STATUS: Full code
Anticipated Discharge: > 48 hours
Subjective/Interval History
-
Date of Service: November 23, 2023
placed on bella-synephrine
remains with NGT
Objective Data
-
Labs:
Laboratory Results
11/23/23 11/23/23 11/23/23
03:49 08:25 09:03
WBC Cancelled 18.3 H
Hgb Cancelled 9.2 L
Hct Cancelled 27.2 L
Plt Count Cancelled 465 H D
Sodium 134 L
Potassium 3.4 L
Chloride 98
Carbon Dioxide 31 H
BUN 6 L
Creatinine 0.5 L
Glucose 139 H
Calcium 7.8 L
Vital Signs:
Vital Signs
Temp Pulse Resp BP Pulse Ox
98 F 112 20 93/66 98
11/23/23 15:37 11/23/23 15:30 11/23/23 15:30 11/23/23 15:30 11/23/23 15:30
I&O
11/22/23 11/23/23 11/24/23
06:59 06:59 06:59
Intake Total 3070 / 3070 1780 / 1780
Output Total 2069 / 2069 2700 / 2700 400 / 400
Balance 1000 / 1000 -920 / -920 -400 / -400
Physical Exam
-
General: Well Developed and Well Nourished
HEENT: Normocephalic, Atraumatic and Other (NGT)
Respiratory: Negative Wheezes or Rales
Cardiac: Regular Rhythm and S1/S2
GI: Soft and Ostomy
Neuro: AO x 3
Psych: Calm
Data Reviewed
-
Total Time Spent with Patient (in minutes): 45
Labs: Labs Reviewed by me
[2023-11-23] MEDS: DURAGESIC 25 MCG/HR PATCH 1 PATCH TRANSDERM (16:29)
[2023-11-23] MEDS: LOVENOX 40 MG SC (17:25)
[2023-11-23] MEDS: LASIX 20 MG IV (17:25)
[2023-11-23] MEDS: MYCAMINE 105 MG IV (17:25)
[2023-11-23 18:04] LABS: Glucose - Point of Care 139 mg/dl (70-99)
--- NOTE | 2023-11-23 18:26 | PTCARENOTE ---
Pt tolerating NGT, large amount of dark green drainage. pain well controlled at this time. no drainage in ostomy. small amount in both HEMA drains.
[2023-11-23] MEDS: LANOXIN 250 MCG IV (19:29)
[2023-11-23] MEDS: OFIRMEV 100 IV (19:32)
[2023-11-23] MEDS: Parenteral Nutrition, Central 1050 IV (21:06)
--- NOTE | 2023-11-23 21:37 | PTCARENOTE ---
Pt drowsy, but arousable to verbal stimuli. Continues w/ complaints of 10/10 pain across her abdomen and R buttock. Fentanyl patch present on RUE, 0.5mL diluadid given per JAN, repositioning performed. HR remains elevated 100-130 with episodes of
increased tachycardia up to 180bpm. IV cardizem running at 15mg/hr, COTY running at 20mcg/min. TPN running at 44mL/hr, tubing exchanged. 1x Ofirmev given for fever per CHIVO Solano. Carpenter sump NGT remains patent in R nare producing green drainage,
flushed with NSS per orders. Both HEMA drains remain patent, see I&O for drainage. Pt has been educated to alert this RN of any changes. Will monitor and titrate gtts closely throughout shift.
[2023-11-23 23:39] LABS: Glucose - Point of Care 182 mg/dl (70-99)
[2023-11-24] VITALS (53 sets, daily range): BP systolic 85–159; BP diastolic 40–130; BMI 19.2
[2023-11-24] MEDS: ZOSYN 50 IV ×4 (01:27→19:22)
[2023-11-24] MEDS: DILAUDID 0.5 MG IV ×5 (04:13→22:35)
[2023-11-24 04:19] LABS: Glucose - Point of Care 195 mg/dl (70-99)
[2023-11-24 04:31] LABS: % Basophils 0.2 % (0-2); % Eosinophils 1.9 % (0-6); % Lymphocytes 6.3 % (20.5-51.1); % Monocytes 6.7 % (1.7-9.3); % Neutrophils 83.9 % (42.2-75.2); Absolute Eosinophils 0.4 10^3/uL (0-0.7); Absolute Immature Granulocytes 0.2 10^3/uL (0-0.05); Absolute Lymphocytes 1.2 10^3/uL (1.2-3.4); Absolute Monocytes 1.2 10^3/uL (0.1-0.6); Absolute Neutrophils 15.2 10^3/uL (1.4-6.5); Hematocrit 27.6 % (37.0-47.0); Hemoglobin 9.3 g/dL (12.0-16.0); Mean Corp Hgb Conc. 33.7 g/dL (33.0-37.0); Mean Platelet Volume 8.8 fL (7.4-10.4); Nucleated Red Blood Cells % 0 %; Platelet Count 572 10^3/uL (130-400); Red Blood Cell Count 3.21 10^6/uL (4.20-5.40); Red Cell Dist. Width 15.5 % (11.5-14.5); White Blood Cell Count 18.2 10^3/uL (4.8-10.8)
[2023-11-24 04:42] LABS: Blood Urea Nitrogen 10 mg/dl (7-17); Calcium 8.2 mg/dl (8.4-10.2); Carbon Dioxide 32 mmol/L (22-30); Chloride 97 mmol/L (98-107); Estimated Creatinine Clearance 63 ml/min; Glucose 192 mg/dl (70-99); Magnesium 2.3 mg/dl (1.6-2.3); Phosphorus 3.1 mg/dl (2.5-4.5); Potassium 3.5 mmol/L (3.5-5.1); Sodium 133 mmol/L (135-145); eGFR > 60.00
[2023-11-24] MEDS: CARDIZEM 125 IV (06:17)
[2023-11-24] MEDS: PROTONIX IV 40 MG IV (07:54)
[2023-11-24] MEDS: NSS (PRESERVATIVE FREE) 10 ML IV (07:54)
[2023-11-24] MEDS: ATIVAN 0.5 MG IV (08:00)
[2023-11-24] MEDS: NSS (PRESERVATIVE FREE) 0.25 ML IV (08:01)
--- NOTE | 2023-11-24 09:07 | W.PN.CARDCBS ---
Today's Communication / Plan
-
Cont IV Cardizem for rate control. Blood pressure has been labile and she was briefly on IV Paul-synephrine for bp support.
She is now on IV Digoxin
Consider IV amiodarone for rate control if needed.
Her IV access is a problem on TPN, IV diltiazem, and as needed IV meds. She has a dual-lumen PICC.
She remains NPO and is getting CT scan 11/24/2023.
Cont Lasix for volume overload. She continues with TPN. Monitor lytes and replete as needed.
Restart Eliquis when okay with surgery. If she will remain NPO need to consider IV heparin once ok with surgery
Impression / Plan
-
Internet Network Specialist: Dr. HAILEY Nash
Impression:
Presented with abdominal pain
Septic shock
Perforated stercoral colitis s/p Juliet's procedure 11/16/2023
Paroxysmal atrial fibrillation w/ RVR
Chronic Eliquis anticoagulation
Acute blood loss anemia
Hypokalemia
Troponin elevation
Chronic HFpEF
Hypertension
Hyperlipidemia
Spinal stenosis
Fibromyalgia
h/o tobacco abuse on nicotine patch
Acute HFpEF
Echo 11/22/2023: EF 55-60% mild LVH, dilated left atrium and right atrium, moderate mitral regurgitation mild TR, pulmonary artery systolic pressure 43-48 mmHg
Plan:
Cont IV Cardizem for rate control. Blood pressure has been labile and she was briefly on IV Paul-synephrine for bp support.
She is now on IV Digoxin
Consider IV amiodarone for rate control if needed.
Her IV access is a problem on TPN, IV diltiazem, and as needed IV meds. She has a dual-lumen PICC.
She remains NPO and is getting CT scan 11/24/2023.
Cont Lasix for volume overload. She continues with TPN. Monitor lytes and replete as needed.
Restart Eliquis when okay with surgery. If she will remain NPO need to consider IV heparin once ok with surgery
Reviewed with nursing
HPI: Bailey is an 78 year old female with PMH of paroxysmal atrial fibrillation, chronic HFpEF, hypertension, hyperlipidemia, and chronic pain who presented to [facility] for evaluation of abdominal pain. She reported that for approximately 2 days prior
to arrival, she noted increased abdominal pain and constipation. She also noted associated chills. On arrival to ER, she was found to have perforated diverticulitis by CT scan with associated peritonitis. She was admitted, started on antibiotics,
and ultimately underwent Juliet's procedure w/ takedown of splenic flexure on 11/16/2023. She then went into rapid atrial fibrillation post op on 11/17/2023. She was started on IV diltiazem and cardiology consulted for evaluation. She was symptomatic
with this and noted palpitations and some chest pain. Her heart rates are improved this AM on cardizem gtt and she is feeling better from a cardiac standpoint, although still complains of pain related to surgery.
Progress Note - Internet Network Specialist
Subjective
Date of Service: November 24, 2023
Pt seen and examined. No cp.
Objective
Labs:
11/24/23 04:01
11/24/23 04:01
Labs
Hgb 9.3 g/dL (12.0-16.0) L 11/24/23 04:01
Hct 27.6 % (37.0-47.0) L 11/24/23 04:01
Plt Count 572 10^3/uL (130-400) H D 11/24/23 04:01
PT 16.1 Sec (11.4-14.6) H 11/18/23 18:15
INR 1.27 11/18/23 18:15
APTT 27.8 Sec (23.4-35.0) 11/18/23 18:15
Sodium 133 mmol/L (135-145) L 11/24/23 04:01
Potassium 3.5 mmol/L (3.5-5.1) 11/24/23 04:01
BUN 10 mg/dl (7-17) 11/24/23 04:01
Creatinine 0.5 mg/dL (0.6-1.0) L 11/24/23 04:01
Glucose 192 mg/dl (70-99) H 11/24/23 04:01
Vital Signs and I&O:
Vital Signs
Temp Pulse Resp BP Pulse Ox
97.6 F 108 22 123/91 98
11/24/23 07:15 11/24/23 06:00 11/24/23 06:00 11/24/23 06:00 11/24/23 04:00
Vital Signs
Temp Pulse Resp BP Pulse Ox
97.6 F 108 22 123/91 98
11/24/23 07:15 11/24/23 06:00 11/24/23 06:00 11/24/23 06:00 11/24/23 04:00
Intake & Output
11/22/23 11/23/23 11/24/23 11/25/23
06:59 06:59 06:59 06:59
Intake Total 3070 / 3070 1870 / 1870 1721 / 1721
Output Total 2069 / 2069 2700 / 2700 2940 / 2940
Balance 1000 / 1000 -830 / -830 -1219 / -1219
Physical Exam
Physical Exam
General: No acute distress, arousable, frail
HEENT: NGT in place
Neck: Negative JVD
Heart: Irregularly irregular, Negative S3 positive S1/S2, Negative S4, No murmur
Lungs: CTA b/l, negative wheezes/rales/rhonchi
Abd: Positive BS, NT/ND, neg rebound/rigidity/guarding
Ext: Negative cyanosis/clubbing/edema
Neuro: nonfocal
[2023-11-24] MEDS: OMNIPAQUE 50 ML PO (09:49)
--- NOTE | 2023-11-24 10:15 | CM ---
Patient with Dx Septic Shock secondary to perforated bowel s/p left colectomy with colostomy, Parox A Fib with RVR, Post-operative anemia, LUE SVT cephalic. O2 2L last charted. NPO/TPN. On cardizem gtt. Receiving IV Digoxin, IV Micafingin, IV
Zosyn. Fentanyl Patch. PT recommends skilled rehab. OT recommends SNF vs . Per nurse; minimally awake, lethargic. Seen by [facility] for ostomy. Plan CT Scan today.
SNF referrals reviewed in [facility] - accepted by [facility] if bed available at time of d/c. Declined by [facility] due to [email or web address] insurance. No response [facility] or [facility].
CM continuing to follow for d/c needs.
Plan contact patient & daughter about SNF when closer to d/c.
Plan [facility] when medically ready.
--- NOTE | 2023-11-24 10:45 | PTCARENOTE ---
Rec'd pt this AM. Pain and anxiety meds given. Contrast given and NGT clamped as per GI for CT scan at noon. Per Dr. Raymond DE LA VEGA to stop TPN during CT scan to allow PICC to be used for IV contrast.
--- NOTE | 2023-11-24 11:32 | W.PN.CRS1 ---
Today's Communication / Plan
-
CT abdomen and pelvis
TPN
Assessment/Plan
-
78-year-old female with PMH of A-fib (on Eliquis, last dose was the morning of 11/15/2023), chronic pain (on Suboxone), HTN who presented with acute abdominal pain and was found to have perforated stercoral colitis and underwent emergency Dos Santos's
procedure for perforation in the descending colon, in septic shock; given Kcentra preoperatively, on Paul-Synephrine overnight
1. WBC is about the same, 18.2. Hypotensive overnight and placed on a Paul-Synephrine drip. Afebrile.
2. Given lack of bowel function and minimal improvement, CT abdomen and pelvis with p.o. and IV contrast ordered.
3. TPN daily.
4. Continue to hold Eliquis. On Lovenox for DVT prophylaxis.
5. NG tube until ostomy function.
6. Continue antibiotics, appreciate ID.
7. Continue HEMA drains.
Subjective Data
Procedure
Juliet's resection 11/15/23
Subjective Data
Date of Service: November 24, 2023
Patient states she feels bloated. She has no changes since yesterday. She denies nausea or vomiting. She has no colostomy output. Overnight she became hypotensive and was placed on Paul-Synephrine drip which has been weaning off.
Objective Data
-
Vital Signs
Temp Pulse Resp BP Pulse Ox
97.6 F 126 33 146/95 96
11/24/23 07:15 11/24/23 10:00 11/24/23 10:00 11/24/23 10:00 11/24/23 10:46
Intake & Output
11/23/23 11/24/23 11/25/23
06:59 06:59 06:59
Intake Total 1870 / 1870 1721 / 1721
Output Total 2700 / 2700 2940 / 2940
Balance -830 / -830 -1219 / -1219
Intake:
IV fluids (Total) 1000 / 1000
IV piggybacks 345 / 345 625 / 625
TPN/PPN 340 / 340 916 / 916
Amount instilled into Drain ( 5 / 5
Total)
Right Back David-Clarke Placed 5 / 5
in IR
Amount instilled into GI Tube ( 180 / 180 180 / 180
Total)
[place] Sump 180 / 180 180 / 180
Output:
Liquid stool amount 100 / 100
Colostomy 100 / 100
Drain Output (Total) 70 / 70 40 / 40
Abdomen David-Clarke 60 / 60 30 / 30
Right Back David-Clarke Placed 10 / 10 10 / 10
in IR
Gastrointestinal tube output ( 820 / 820 1400 / 1400
Total)
[place] Sump 820 / 820 1400 / 1400
Urine, Voided 1710 / 1710 1500 / 1500
Other:
How many times incontinent 1
MODERATE amount urine
How many times incontinent 2 3
SATURATED amount urine
Lab Results
11/24/23 04:01
11/24/23 04:01
Physical Exam
-
General: No Acute Distress
Abdomen: Soft, Distended (mild), Non Tender and Other (Colostomy warm and pink. IR drain with serosanguineous output, OR drain with serous output.)
Skin: Warm and Dry
[2023-11-24] MEDS: LANOXIN 125 MCG IV (12:08)
[2023-11-24 12:49] LABS: Glucose - Point of Care 155 mg/dl (70-99)
--- NOTE | 2023-11-24 12:58 | W.PN.ID1 ---
Date of Service
Date of Service: November 24, 2023
Today's Communication
Continue Zosyn and Micafungin.
Assessment / Plan
# Perforated diverticulitis with free air and peritonitis
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
- OR cx, E. coli. E faecium, Strep, Clostridium, Bacteroides
# Post-op pelvic abscess
- 11/20 s/p perc drain
- Cx: E. coli, E. faecium;yeast, no anaerobic cx sent
# Candidemia 1 out of 2 sets
- Intra-abdominal source.
Asked micro to identify yeast.
- repeat blood cx (1 set prior to micafungin, 2nd set after 1 dose micafungin) neg to date
# Leukocytosis stable
# New fever resolved
# Ileus - on TPN since 11/22
PLAN:
- Continue Zosyn d9 and Micafungin d3
-For repeat CT a/p, per Surgery.
- Follow wbc, temps.
#Additional Past Medical History:
Paroxysmal Atrial Fibrillation
CHF
Essential Hypertension
Hyperlipidemia
Interstitial cystitis
Chronic Pain with Opioid Dependence
Diverticulitis
Appendectomy
Cholecystectomy
Hysterectomy
Partial hysterectomy
Right rotator cuff
Chief Complaint
-: Other (Fungemia)
Subjective / Review of Systems
High NGT ouput per nurse
Vital Signs / Physical Exam
Vital Signs
Vital Signs
Temp Pulse Resp BP Pulse Ox
98.3 F 127 26 140/102 92
11/24/23 11:15 11/24/23 12:30 11/24/23 12:30 11/24/23 12:30 11/24/23 12:30
Physical Exam
Constitutional: Acutely Ill and Chronically Ill
Cardiovascular: Irregular Rate and Other (tachycardic)
Pulmonary: Clear
Gastrointestinal: Soft, Tender and Decreased Bowel Sounds
Extremities: Negative Edema (LE)
Neurological: Other (drowsy)
Lines: PICC
Objective Data
Lab Data
Lab Results
11/24/23 04:01
11/24/23 04:01
PT 16.1 Sec (11.4-14.6) H 11/18/23 18:15
INR 1.27 11/18/23 18:15
APTT 27.8 Sec (23.4-35.0) 11/18/23 18:15
Estimated Creat Clear 63 ml/min 11/24/23 04:01
Lactic Acid 0.9 mmol/L (0.7-2.0) 11/18/23 18:15
Total Bilirubin 0.7 mg/dl (0.2-1.3) 11/22/23 04:38
AST 26 U/L (14-36) 11/22/23 04:38
ALT 16 U/L (0-35) 11/22/23 04:38
Alkaline Phosphatase 101 U/L (38-126) 11/22/23 04:38
Most recent labs reviewed.
Micro Results:
11/22/23 04:38 Blood Culture - Preliminary
Blood/Venous No Growth in 48 hours- Final report to follow
11/21/23 16:20 Blood Culture - Preliminary
Blood/Venous No Growth in 48 hours- Final report to follow
11/18/23 00:47 Blood Culture - Preliminary
Blood/Venous Yeast
Gram Stain - Preliminary
11/20/23 12:39 Body Fluid Culture - Preliminary
Fluid Escherichia coli
Enterococcus faecium
Yeast
Gram Stain - Final
11/18/23 08:05 Fungus Mold Identification - Pending
Blood/Venous
11/18/23 00:48 Blood Culture - Final
Blood/Venous No Growth - Final Report
11/15/23 22:44 Wound Culture - Final
Abdomen Escherichia coli
Enterococcus faecium
Streptococcus species
Gram Stain - Final
11/15/23 22:44 Anaerobic Culture - Final
Abdomen Bacteroides fragilis
Clostridium species
11/15/23 18:19 Blood Culture - Final
Blood/Venous No Growth - Final Report
11/18/23 18:31 Urine Culture - Final
Urine NO GROWTH
11/15/23 14:27 Influenza Types A & B (MARIELA) - Final
Nasal Swab Negative for Influenza A & B, NAAT
Negative results must be combined with clinical observations
and patient history.
Nucleic Acid Amplification test (NAAT)performed on the
[employer] platform.
11/15/23 CT a/p: The findings are most consistent with perforation (partially contained) of a diverticulum in the descending or sigmoid colon with free air scattered throughout the abdomen and pelvis, forming a masslike area with fluid and free air in
the left side of the abdomen measuring 10 x 10 x 13 cm.� Additionally there is fluid in the anterior peripancreatic and pararenal space consistent with peritonitis, no discrete fluid collection to suggest an abscess. There is significant stool
within the colon and air within the colon wall, which may be due to previous obstruction prior to perforation or the differential includes the possibility of stercoral colitis.
11/19/23 CT a/p: Elongated fluid collection within the pelvis, extending into the retroperitoneum, measuring 8 x 5.6 x 3.3 cm. Internal gas bubbles and peripheral contrast enhancement are suggestive of postoperative abscess. Abscess is not
immediately adjacent to the suture line for the rectal stump. Bubbles of air within the left paracolic gutter as detailed above, without associated abscess formation. These bubbles of air may be postoperative in nature. Bibasilar airspace
consolidation, which may represent subsegmental atelectasis or pneumonia. Tiny left pleural effusion.
11/22/23: CXR: Right PICC in position as described. Worsening right lung airspace disease suspicious for pneumonia. Stable small left pleural effusion with associated airspace disease.
--- NOTE | 2023-11-24 13:12 | W.PN.HOSP.TC ---
Today's Communication/Plan
-
continue NPO/TPN and await CT imaging
continue Abx
Assessment / Plan
Assessment / Plan
Assessment:
Septic Shock secondary to perforated bowel from diverticulitis vs stercoral colitis
- was given K-centra for Eliquis reversal
- underwent on 11/16 1) Juliet's procedure (left colectomy with colostomy) 2) takedown splenic flexure on 11/16/23. Operative findings: perforated distal descending colon with associated bloody contamination (blood plus stool-- particularly at left
retroperitoneum)
- post-op course complicated by post-op pelvic abscess seen on CT 11/19 s/p IRAD drain. Culture growing E. coli. E faecium and yeast.
- continue NPO/IVF. CRS started TPN
- currently shock state is resolved after bella-synephrine shut off this morning
- continue Zosyn; OR cx, E. coli. E faecium, Strep, Clostridium, Bacteroides
- continue Micafungin for candidemia 1/2 sets
- continue NGT/Joseph
- CT abdomen/pelvis today
- Colorectal/ID following
Parox A Fib with RVR
- continue Cardizem drip; hold oral BB
- continue IV digoxin
- consider IV Amiodarone
- resume Eliquis when cleared by GS
Acute HFpEF
- IV Lasix - requires intensive monitoring
VDRF in setting of acute emergency surgery for airway protection
- extubated - pt denies respiratory distress
Post-operative acute anemia from blood loss
- s/p 3 units PRBCs. Hb was 9.3
Hyponatremia
Non-SC trop elevation
- trop 0.744
- follow tele/EKGs
Chronic Pain with Opioid Dependence
- continue Dilaudid as needed for pain. Fentanyl patch also added
- holding buprenorphine
Essential HTN
- hold BB/Doxazosin
LUE SVT cephalic just above antecubital vein
- resume Eliquis when cleared by GS
DVT prophylaxis: Lovenox
CODE STATUS: Full code
Anticipated Discharge: > 48 hours
Subjective/Interval History
-
Date of Service: November 24, 2023
off pressors
for CT abdomen today
Objective Data
-
Labs:
Laboratory Results
11/24/23
04:01
WBC 18.2 H
Hgb 9.3 L
Hct 27.6 L
Plt Count 572 H D
Sodium 133 L
Potassium 3.5
Chloride 97 L
Carbon Dioxide 32 H
BUN 10
Creatinine 0.5 L
Glucose 192 H
Calcium 8.2 L
Vital Signs:
Vital Signs
Temp Pulse Resp BP Pulse Ox
98.3 F 127 26 140/102 92
11/24/23 11:15 11/24/23 12:30 11/24/23 12:30 11/24/23 12:30 11/24/23 12:30
I&O
11/23/23 11/24/23 11/25/23
06:59 06:59 06:59
Intake Total 1870 / 1870 1721 / 1721
Output Total 2700 / 2700 2940 / 2940
Balance -830 / -830 -1219 / -1219
Physical Exam
-
General: No Apparent Distress
HEENT: Normocephalic and Atraumatic
Respiratory: Negative Wheezes or Rales
Cardiac: Regular Rhythm, S1/S2 and Tachycardic
GI: Soft and Tender
Neuro: AO x 3
Psych: Calm
Data Reviewed
-
Total Time Spent with Patient (in minutes): 51
Labs: Labs Reviewed by me
--- NOTE | 2023-11-24 14:54 | W.PN.UPDATE ---
Update Note
Progress Note Update
Today CT results are back. I reviewed the images with Dr. Amaral of interventional radiology. The fluid collection that the right-sided drain was placed into is resolved. There is a maturing fluid collection in the left paracolic gutter area
noted which is not being addressed by the the drains. He will attempt to placement into this area either later today or tomorrow morning. Patient and patient's daughter updated.
[2023-11-24] MEDS: LOVENOX 40 MG SC (17:04)
[2023-11-24] MEDS: MYCAMINE 105 MG IV (17:04)
[2023-11-24 18:26] LABS: Glucose - Point of Care 194 mg/dl (70-99)
[2023-11-24] MEDS: Parenteral Nutrition, Central 1060 IV (20:44)
[2023-11-24 23:48] LABS: Glucose - Point of Care 147 mg/dl (70-99)
[2023-11-25] VITALS (44 sets, daily range): BP systolic 78–156; BP diastolic 57–139; BMI 18.2
[2023-11-25] MEDS: ATIVAN 0.5 MG IV ×3 (00:25→19:23)
[2023-11-25] MEDS: NSS (PRESERVATIVE FREE) 0.25 ML IV ×2 (00:26→19:23)
[2023-11-25] MEDS: CARDIZEM 125 IV ×3 (01:40→19:57)
[2023-11-25] MEDS: ZOSYN 50 IV ×4 (01:43→19:26)
[2023-11-25] MEDS: OFIRMEV 100 IV ×2 (03:11→20:09)
--- NOTE | 2023-11-25 03:20 | PTCARENOTE ---
Pt AAOx3, but forgetful, lethargic and drowsy. Easily arousable to verbal stimuli. Requests pain management when awoken, this RN is providing PRN 0.5mg diluadid and PRN ativan 0.5mg as ordered. Pt repositioned frequently as tolerated. Upon follow-up
assessment at 02:00, pt noted to feel very warm, temp 99.7 axillary. Unable to acquire accurate oral temp d/t open mouth breathing and order to follow nothing by rectum. Pt complains of feeling uncomfortably warm. CHIVO Sotelo ordered IV
acetaminophen, medication given per JAN. Attempted cardizem titration to 10mcg, not tolerated by HR, gtt increased to 15 mcg. Systolic BP remains >90. TPN in place, tubing replaced. Assessment as documented. Safe environment maintained.
[2023-11-25] MEDS: DILAUDID 0.5 MG IV ×3 (03:53→14:05)
[2023-11-25 04:49] LABS: % Basophils 0.3 % (0-2); % Immature Granulocytes 1.5 % (0-0.5); % Lymphocytes 5.7 % (20.5-51.1); % Monocytes 7.2 % (1.7-9.3); % Neutrophils 83.3 % (42.2-75.2); Absolute Basophils 0.1 10^3/uL (0-0.2); Absolute Eosinophils 0.4 10^3/uL (0-0.7); Absolute Immature Granulocytes 0.3 10^3/uL (0-0.05); Absolute Lymphocytes 1.1 10^3/uL (1.2-3.4); Absolute Monocytes 1.4 10^3/uL (0.1-0.6); Absolute Neutrophils 16.4 10^3/uL (1.4-6.5); Hematocrit 25.5 % (37.0-47.0); Hemoglobin 8.7 g/dL (12.0-16.0); Mean Corp Hgb Conc. 34.1 g/dL (33.0-37.0); Mean Corpuscular Hgb 28.9 pg (27.0-31.0); Mean Corpuscular Volume 84.7 fL (81.0-99.0); Mean Platelet Volume 8.8 fL (7.4-10.4); Nucleated Red Blood Cells % 0 %; Platelet Count 636 10^3/uL (130-400); Red Blood Cell Count 3.01 10^6/uL (4.20-5.40); Red Cell Dist. Width 15.7 % (11.5-14.5); White Blood Cell Count 19.7 10^3/uL (4.8-10.8)
[2023-11-25 05:16] LABS: Blood Urea Nitrogen 12 mg/dl (7-17); Calcium 8.1 mg/dl (8.4-10.2); Carbon Dioxide 30 mmol/L (22-30); Chloride 95 mmol/L (98-107); Estimated Creatinine Clearance 59 ml/min; Glucose 152 mg/dl (70-99); Magnesium 2.3 mg/dl (1.6-2.3); Phosphorus 3.3 mg/dl (2.5-4.5); Potassium 3.7 mmol/L (3.5-5.1); Sodium 133 mmol/L (135-145); eGFR > 60.00
--- NOTE | 2023-11-25 06:08 | PTCARENOTE ---
Pt requesting pain medication, but is not yet due for diluadid or ativan. Supportive care provided, repositioning offered.
[2023-11-25] MEDS: NSS (PRESERVATIVE FREE) 10 ML IV (08:28)
[2023-11-25] MEDS: PROTONIX IV 40 MG IV (08:29)
--- NOTE | 2023-11-25 09:39 | W.PN.CARDCBS ---
Today's Communication / Plan
-
Start bolus amiodarone
Renew diltiazem
Follow digoxin level with addition of amiodarone
Start full dose Lovenox for anticoagulation given persistent atrial fibrillation
Impression / Plan
-
Soil Science Teacher: Dr. HAILEY Nash
Impression:
Perforated stercoral colitis with septic shock
s/p Juliet's procedure 11/16/2023
Paroxysmal atrial fibrillation w/ RVR recurrent postoperatively with difficult to control rates
Acute blood loss anemia
Troponin elevation
Chronic HFpEF
Hypertension
Hyperlipidemia
Spinal stenosis
Fibromyalgia
h/o tobacco abuse on nicotine patch
Acute HFpEF postoperatively
Echo 11/22/2023: EF 55-60% mild LVH, dilated left atrium and right atrium, moderate mitral regurgitation mild TR, pulmonary artery systolic pressure 43-48 mmHg
Plan:
She is still strictly n.p.o. with lots of NG drainage. This makes management difficult as oral medications are not an option.
Her heart rate is still relatively rapid in atrial fibrillation, she is not anticoagulated, and she is hypotensive. She may need repositioning of an abdominal/pelvic drain later today per nursing.
Based on this, will add amiodarone as a bolus IV for rate control.
We will need to follow digoxin levels on amiodarone.
Continue IV diltiazem.
Regarding acute HFpEF, her volume status seems reasonable at present, no need for Lasix
We will continue to follow, discussed with nursing.
HPI: Bailey is an 78 year old female with PMH of paroxysmal atrial fibrillation, chronic HFpEF, hypertension, hyperlipidemia, and chronic pain who presented to [facility] for evaluation of abdominal pain. She reported that for approximately 2 days prior
to arrival, she noted increased abdominal pain and constipation. She also noted associated chills. On arrival to ER, she was found to have perforated diverticulitis by CT scan with associated peritonitis. She was admitted, started on antibiotics,
and ultimately underwent Juliet's procedure w/ takedown of splenic flexure on 11/16/2023. She then went into rapid atrial fibrillation post op on 11/17/2023. She was started on IV diltiazem and cardiology consulted for evaluation. She was symptomatic
with this and noted palpitations and some chest pain. Her heart rates are improved this AM on cardizem gtt and she is feeling better from a cardiac standpoint, although still complains of pain related to surgery.
Progress Note - Soil Science Teacher
Subjective
Date of Service: November 25, 2023:
No new complaints, abdominal discomfort, NG tube uncomfortable no chest pain or dyspnea of note
Medications: IV diltiazem, IV Protonix, IV Zosyn, nicotine patch, digoxin 125 mcg daily, subcu Lovenox, fentanyl, TPN
Outpatient meds apixaban 5 twice daily, atorvastatin, doxazosin, metoprolol ER 100 twice daily,
PMH/PSH/FH/SH: Reviewed
Allergies reviewed
ROS no changes
111/70, 90/63 pulse 120s, weight is 49.6 kg down 2.8 kg, peak weight had been 55.7 kg, intake and output -1.1 L
Hemoglobin 19.7, hemoglobin 8.7, hemoglobin had been 9.3, sodium 133, BUN/creatinine 12 and 0.5, potassium 3.7, proBNP had been [address] 11/24/2023: Improved pelvic abscess with drain, left lower lobe lung consolidation with small left pleural effusion consistent with atelectasis/pneumonia, cannot exclude small left flank collection
Objective
Labs:
11/25/23 04:32
11/25/23 04:32
Labs
Hgb 8.7 g/dL (12.0-16.0) L 11/25/23 04:32
Hct 25.5 % (37.0-47.0) L 11/25/23 04:32
Plt Count 636 10^3/uL (130-400) H 11/25/23 04:32
PT 16.1 Sec (11.4-14.6) H 11/18/23 18:15
INR 1.27 11/18/23 18:15
APTT 27.8 Sec (23.4-35.0) 11/18/23 18:15
Sodium 133 mmol/L (135-145) L 11/25/23 04:32
Potassium 3.7 mmol/L (3.5-5.1) 11/25/23 04:32
BUN 12 mg/dl (7-17) 11/25/23 04:32
Creatinine 0.5 mg/dL (0.6-1.0) L 11/25/23 04:32
Glucose 152 mg/dl (70-99) H 11/25/23 04:32
Vital Signs and I&O:
Vital Signs
Temp Pulse Resp BP Pulse Ox
36.6 C 121 26 111/70 97
11/25/23 07:10 11/25/23 06:00 11/25/23 06:00 11/25/23 06:00 11/25/23 06:00
Vital Signs
Temp Pulse Resp BP Pulse Ox
36.6 C 121 26 111/70 97
11/25/23 07:10 11/25/23 06:00 11/25/23 06:00 11/25/23 06:00 11/25/23 06:00
Intake & Output
11/23/23 11/24/23 11/25/23 11/26/23
07:59 07:59 07:59 07:59
Intake Total 1870 / 1870 1721 / 1721 933 / 933
Output Total 2700 / 2700 2940 / 2940 2064 / 2064
Balance -830 / -830 -1219 / -1219 -1132 / -1132
Physical Exam
Physical Exam
Frail, NG tube, appears uncomfortable but not acutely in distress
Temporal wasting, cachectic
Lungs with rhonchi
Relatively tachycardic irregular rate and rhythm, JVD okay
Abdomen drains in place, dressing intact
Extremities without edema
Neuro nonfocal
--- NOTE | 2023-11-25 10:34 | W.PN.ID1 ---
Date of Service
Date of Service: November 25, 2023
Today's Communication
Continue Zosyn/micafungin.
Agree with perc drain abd fluid collection; send cx.
Assessment / Plan
# Perforated diverticulitis with free air and peritonitis
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
- OR cx, E. coli. E faecium, Strep, Clostridium, Bacteroides
# Post-op pelvic abscess
- 11/20 s/p perc drain
- Cx: E. coli, E. faecium;yeast, no anaerobic cx sent
# Transient Candidemia 1 out of 2 sets
- Intra-abdominal source.
- identification of yeast in progress
- repeat blood cx (1 set prior to micafungin, 2nd set after 1 dose micafungin) neg to date
# Leukocytosis
# Ileus - on TPN since 11/22 (picc placed after candidemia)
PLAN:
- Leukocytosis continues to trend up.
-Repeat CT with possible left paracolic gutter.
Agree with IR drain placement, as per Colorectal. Send cx.
- Continue Zosyn d10 and Micafungin d4
- Follow wbc
#Additional Past Medical History:
Paroxysmal Atrial Fibrillation
CHF
Essential Hypertension
Hyperlipidemia
Interstitial cystitis
Chronic Pain with Opioid Dependence
Diverticulitis
Appendectomy
Cholecystectomy
Hysterectomy
Partial hysterectomy
Right rotator cuff
Chief Complaint
-: Leukocytosis and Other (Fungemia)
Subjective / Review of Systems
Still with post-op abdominal pain.
Vital Signs / Physical Exam
Vital Signs
Vital Signs
Temp Pulse Resp BP Pulse Ox
97.8 F 100 19 93/60 98
11/25/23 07:10 11/25/23 09:30 11/25/23 09:30 11/25/23 09:20 11/25/23 09:50
Physical Exam
Constitutional: Acutely Ill
Eyes: Sclera Anicteric
Cardiovascular: Irregular Rate and Other (tachy)
Pulmonary: Rales (bases)
Gastrointestinal: Soft, Tender (mild diffuse), Decreased Bowel Sounds and Other (HEMA drains x 2: serous in one drain, serosanguinous in 2nd drain; ostomy empty)
Extremities: Negative Edema
Skin: Negative Rash
Lines: PICC
Objective Data
Lab Data
Lab Results
11/25/23 04:32
11/25/23 04:32
PT 16.1 Sec (11.4-14.6) H 11/18/23 18:15
INR 1.27 11/18/23 18:15
APTT 27.8 Sec (23.4-35.0) 11/18/23 18:15
Estimated Creat Clear 59 ml/min 11/25/23 04:32
Lactic Acid 0.9 mmol/L (0.7-2.0) 11/18/23 18:15
Total Bilirubin 0.7 mg/dl (0.2-1.3) 11/22/23 04:38
AST 26 U/L (14-36) 11/22/23 04:38
ALT 16 U/L (0-35) 11/22/23 04:38
Alkaline Phosphatase 101 U/L (38-126) 11/22/23 04:38
Most recent labs reviewed.
Micro Results:
11/22/23 04:38 Blood Culture - Preliminary
Blood/Venous No Growth in 72 hours- Final report to follow
11/21/23 16:20 Blood Culture - Preliminary
Blood/Venous No Growth in 72 hours- Final report to follow
11/18/23 00:47 Blood Culture - Preliminary
Blood/Venous Yeast
Gram Stain - Preliminary
11/20/23 12:39 Body Fluid Culture - Preliminary
Fluid Escherichia coli
Enterococcus faecium
Yeast
Gram Stain - Final
11/18/23 08:05 Fungus Mold Identification - Pending
Blood/Venous
11/18/23 00:48 Blood Culture - Final
Blood/Venous No Growth - Final Report
11/15/23 22:44 Wound Culture - Final
Abdomen Escherichia coli
Enterococcus faecium
Streptococcus species
Gram Stain - Final
11/15/23 22:44 Anaerobic Culture - Final
Abdomen Bacteroides fragilis
Clostridium species
11/15/23 18:19 Blood Culture - Final
Blood/Venous No Growth - Final Report
11/18/23 18:31 Urine Culture - Final
Urine NO GROWTH
11/15/23 14:27 Influenza Types A & B (MARIELA) - Final
Nasal Swab Negative for Influenza A & B, NAAT
Negative results must be combined with clinical observations
and patient history.
Nucleic Acid Amplification test (NAAT)performed on the
[employer] platform.
11/15/23 CT a/p: The findings are most consistent with perforation (partially contained) of a diverticulum in the descending or sigmoid colon with free air scattered throughout the abdomen and pelvis, forming a masslike area with fluid and free air in
the left side of the abdomen measuring 10 x 10 x 13 cm.� Additionally there is fluid in the anterior peripancreatic and pararenal space consistent with peritonitis, no discrete fluid collection to suggest an abscess. There is significant stool
within the colon and air within the colon wall, which may be due to previous obstruction prior to perforation or the differential includes the possibility of stercoral colitis.
11/19/23 CT a/p: Elongated fluid collection within the pelvis, extending into the retroperitoneum, measuring 8 x 5.6 x 3.3 cm. Internal gas bubbles and peripheral contrast enhancement are suggestive of postoperative abscess. Abscess is not
immediately adjacent to the suture line for the rectal stump. Bubbles of air within the left paracolic gutter as detailed above, without associated abscess formation. These bubbles of air may be postoperative in nature. Bibasilar airspace
consolidation, which may represent subsegmental atelectasis or pneumonia. Tiny left pleural effusion.
11/22/23: CXR: Right PICC in position as described. Worsening right lung airspace disease suspicious for pneumonia. Stable small left pleural effusion with associated airspace disease.
11/24/23 CT a/p: Right true pelvic pigtail drainage catheter in position with significantly decreased abnormal fluid collection/abscess in comparison to prior study.
Density left lower lobe consolidation and small left pleural effusion which could represent atelectasis and/or pneumonia. Limited evaluation as a result of paucity of oral contrast including possibly of oral contrast opacification of portions of
small bowel as well as entire large bowel. CANNOT EXCLUDE small extraluminal collection in the left flank measuring approximately 3.5 cm such as an abscess, as noted above.
[2023-11-25] MEDS: CORDARONE 104 MG IV ×2 (11:50→21:38)
[2023-11-25 12:07] LABS: Glucose - Point of Care 152 mg/dl (70-99)
--- NOTE | 2023-11-25 12:19 | W.PN.CRS1 ---
Today's Communication / Plan
-
IR for drain placement
continue TPN/NGT
Assessment/Plan
-
78-year-old female with PMH of A-fib (on Eliquis, last dose was the morning of 11/15/2023), chronic pain (on Suboxone), HTN who presented with acute abdominal pain and was found to have perforated stercoral colitis and underwent emergency Dos Santos's
procedure for perforation in the descending colon, in septic shock; given Kcentra preoperatively, on Paul-Synephrine overnight
1.� WBC is 9.7, � Somewhat hypotensive.� Afebrile.
2.� Given lack of bowel function and minimal improvement, CT abdomen and pelvis with left paracolic gutter fluid. IR to place drain today.
3.� TPN daily.
4.� Continue to hold Eliquis.� On Lovenox for DVT prophylaxis.
5.� NG tube until ostomy function.
6.� Continue antibiotics, appreciate ID.
7.� Continue HEMA drains.
Subjective Data
Procedure
Juliet's resection 11/15/23
Subjective Data
Date of Service: November 25, 2023
Patient states she feels 'so-so'. She feels about the same since yesterday. She denies nausea or vomiting.
Objective Data
-
Vital Signs
Temp Pulse Resp BP Pulse Ox
97.6 F 100 19 93/60 98
11/25/23 11:00 11/25/23 09:30 11/25/23 09:30 11/25/23 09:20 11/25/23 09:50
Intake & Output
11/24/23 11/25/23 11/26/23
06:59 06:59 06:59
Intake Total 1721 / 1721 265 / 265 668 / 668
Output Total 2940 / 2940 1415 / 1415 650 / 650
Balance -1219 / -1219 -1150 / -1150
Intake:
IV piggybacks 625 / 625 200 / 200 140 / 140
TPN/PPN 916 / 916 528 / 528
Amount instilled into Drain (
Total)
Right Back David-Clarke Placed
in IR
Amount instilled into GI Tube ( 180 / 180 60 / 60
Total)
[place] Sump 180 / 180 60 / 60
Output:
Drain Output (Total) 40 / 40 15
Abdomen David-Clarke
Right Back David-Clarke Placed
in IR
Gastrointestinal tube output ( 1400 / 1400 650 / 650
Total)
[place] Sump 1400 / 1400 650 / 650
Urine, Joseph 700 / 700
Urine, Voided 1500 / 1500 700 / 700
Other:
How many times incontinent 3
SATURATED amount urine
Lab Results
11/25/23 04:32
11/25/23 04:32
Physical Exam
-
General: No Acute Distress and AOx3
Abdomen: Soft, Non Distended, Non Tender and Other (stoma warm no output)
Skin: Warm and Dry
[2023-11-25] MEDS: LANOXIN 125 MCG IV (13:07)
--- NOTE | 2023-11-25 15:52 | W.PN.HOSP.TC ---
Today's Communication/Plan
-
IRAD drainage
continue plan per consultants
Assessment / Plan
Assessment / Plan
Assessment:
Septic Shock secondary to perforated bowel from diverticulitis vs stercoral colitis
- was given K-centra for Eliquis reversal
- underwent on 11/16 1) Juliet's procedure (left colectomy with colostomy) 2) takedown splenic flexure on 11/16/23. Operative findings: perforated distal descending colon with associated bloody contamination (blood plus stool-- particularly at left
retroperitoneum)
- post-op course complicated by post-op pelvic abscess seen on CT 11/19 s/p IRAD drain. Culture growing E. coli. E faecium and yeast.
- currently shock state is resolved after bella-synephrine shut off this morning
- continue Zosyn; OR cx, E. coli. E faecium, Strep, Clostridium, Bacteroides
- continue Micafungin for candidemia 1/2 sets
- continue NPO/IVF/TPN per CRS
- continue NGT/Joseph
- CT abdomen/pelvis on 11/24 showed left paracolic gutter area; for IR Drainage today.
- Colorectal/ID following
Parox A Fib with RVR
- continue Cardizem drip; hold oral BB
- continue IV digoxin
- start IV Amiodarone
- resume Eliquis when cleared by GS; currently on full dose Lovenox
Acute HFpEF
- monitoring off Lasix
VDRF in setting of acute emergency surgery for airway protection
- extubated - pt denies respiratory distress
Post-operative acute anemia from blood loss
- s/p 3 units PRBCs. Hb was 8.7
Hyponatremia
Non-AR trop elevation
- trop 0.744
- follow tele/EKGs
Chronic Pain with Opioid Dependence
- continue Dilaudid as needed for pain. Fentanyl patch also added
- holding buprenorphine
Essential HTN
- hold BB/Doxazosin
LUE SVT cephalic just above antecubital vein
- resume Eliquis when cleared by GS; currently on full dose Lovenox
DVT prophylaxis: Lovenox
CODE STATUS: Full code
Anticipated Discharge: > 48 hours
Subjective/Interval History
-
Date of Service: November 25, 2023
for IR drain today
Objective Data
-
Labs:
Laboratory Results
11/25/23
04:32
WBC 19.7 H
Hgb 8.7 L
Hct 25.5 L
Plt Count 636 H
Sodium 133 L
Potassium 3.7
Chloride 95 L
Carbon Dioxide 30
BUN 12
Creatinine 0.5 L
Glucose 152 H
Calcium 8.1 L
Vital Signs:
Vital Signs
Temp Pulse Resp BP Pulse Ox
97.6 F 106 20 116/58 95
11/25/23 14:30 11/25/23 14:30 11/25/23 14:30 11/25/23 14:30 11/25/23 14:30
I&O
11/24/23 11/25/23 11/26/23
06:59 06:59 06:59
Intake Total 1721 / 1721 265 / 265 668 / 668
Output Total 2940 / 2940 1415 / 1415 650 / 650
Balance -1219 / -1219 -1150 / -1150
Physical Exam
-
General: No Apparent Distress
HEENT: Normocephalic and Atraumatic
Respiratory: Negative Wheezes
Cardiac: Regular Rhythm and S1/S2
GI: Soft
Genito-urinary: No Costovertebral Tender
Musculoskeletal: No Edema
Neuro: AO x 3
Hematologic / Lymphatic: No Lymphadenopathy
Psych: Calm
Data Reviewed
-
Total Time Spent with Patient (in minutes): 47
Labs: Labs Reviewed by me
[2023-11-25] MEDS: DILAUDID 1 MG IV ×2 (17:55→22:13)
[2023-11-25] MEDS: MYCAMINE 105 MG IV (17:56)
[2023-11-25 18:07] LABS: Glucose - Point of Care 128 mg/dl (70-99)
--- NOTE | 2023-11-25 19:26 | PTCARENOTE ---
assessment as charted. pt had new chaka drain placed in irad this afternoon and posterior chaka removed. pts heart rate increased post return to floor, cardizem increased to 15mg/hr per protocol. pt medicated for c/o incisional pain with 1 mg dilaudid
heart rate not improved with increase cardizem.heart rate up to 150s.pt s bp is increase to 140s systolic from 110s systolic this am. discussed with oncoming rn and general freight agent. pt to recieve prn ativan and prn lopressor. colostomy with minimal
amount of serous drainage, no flatus or bm noted.
[2023-11-25] MEDS: LOPRESSOR 5 MG IV (19:48)
[2023-11-25] MEDS: LOVENOX 50 MG SC (21:10)
[2023-11-25] MEDS: Parenteral Nutrition, Central 1060 IV (21:13)
[2023-11-25] MEDS: NSS 500 IV (23:25)
--- NOTE | 2023-11-25 23:33 | W.PN.UPDATE ---
Update Note
Progress Note Update
Patient will noticeable drop in bp post amiodorone bolus infusion. She also received 1 mg of Dilaudid IV at 2213. Will hold Cardizem, give NS 500 IV bolus at 125/hr, dc'd dilaudid 1 mg for severe pain, changed dilaudid 0.5 mg to q 3 hours and add
ofirmiv Q6 H RTC for pain control. If necessary will restart Paul infusion for bp support.
[2023-11-25 23:42] LABS: Glucose - Point of Care 199 mg/dl (70-99)
[2023-11-26] VITALS (35 sets, daily range): BP systolic 83–171; BP diastolic 51–101; PULSE 107–128; O2SAT 93–96; BMI 18.0
[2023-11-26] MEDS: OFIRMEV 100 IV ×4 (02:02→19:54)
[2023-11-26] MEDS: DILAUDID 0.5 MG IV ×7 (02:16→23:10)
[2023-11-26] MEDS: ZOSYN 50 IV ×4 (02:17→19:55)
[2023-11-26] MEDS: ATIVAN 0.5 MG IV (03:40)
[2023-11-26] MEDS: NSS (PRESERVATIVE FREE) 0.25 ML IV (03:41)
--- NOTE | 2023-11-26 04:39 | PTCARENOTE ---
Received pt at start of shift. aaox3, forgetful, drowsy. C/o 10 abdominal pain. Colostomy in place, no drainage. 2JP drains in place & draining. NGT in place, draining. Joseph in place, draining. Belly round, tender, incision covered and cdi.
scds. q2t. Fever overnight, SKI PATROL DIRECTOR ordered ofirmev q6 to help with fevers and pain. Dilaudid order changed to 0.5 q3h to reduce the risk of dropping pts bp too much with giving 1mg dilaudid. Remains afib on monitor. Order from SKI PATROL DIRECTOR to titrated
cardizem drip down to 5mg while giving amio bolus d/t pts bp's being so low. A few hours after, pt bp continued to drop. 500cc bolus given & cardizem gtt turned off, HR 100's at this time. Pt bp began rising & stable, around 0430 order from SKI PATROL DIRECTOR to
resume cardizem gtt. Pt remains NPO with ice chips. Extensive mouth care provided. Ativan given as needed. NO other issues at this time. call iris in reach, will monitor.
[2023-11-26 05:45] LABS: % Basophils 0.4 % (0-2); % Eosinophils 2.5 % (0-6); % Immature Granulocytes 1.1 % (0-0.5); % Lymphocytes 6.4 % (20.5-51.1); % Monocytes 7.1 % (1.7-9.3); % Neutrophils 82.5 % (42.2-75.2); Absolute Basophils 0.1 10^3/uL (0-0.2); Absolute Eosinophils 0.5 10^3/uL (0-0.7); Absolute Immature Granulocytes 0.2 10^3/uL (0-0.05); Absolute Lymphocytes 1.2 10^3/uL (1.2-3.4); Absolute Monocytes 1.3 10^3/uL (0.1-0.6); Absolute Neutrophils 15.1 10^3/uL (1.4-6.5); Hematocrit 23.3 % (37.0-47.0); Mean Corp Hgb Conc. 34.3 g/dL (33.0-37.0); Mean Corpuscular Hgb 29.2 pg (27.0-31.0); Nucleated Red Blood Cells % 0 %; Platelet Count 686 10^3/uL (130-400); Red Blood Cell Count 2.74 10^6/uL (4.20-5.40); Red Cell Dist. Width 15.8 % (11.5-14.5); White Blood Cell Count 18.3 10^3/uL (4.8-10.8)
[2023-11-26 06:31] LABS: ALT (SGPT) 17 U/L (0-35); AST (SGOT) 27 U/L (14-36); Albumin 2.1 g/dl (3.5-5.0); Alkaline Phosphatase 123 U/L (38-126); Blood Urea Nitrogen 13 mg/dl (7-17); Calcium 7.8 mg/dl (8.4-10.2); Carbon Dioxide 28 mmol/L (22-30); Chloride 103 mmol/L (98-107); Digoxin 0.7 ng/ml (0.8-2.0); Estimated Creatinine Clearance 59 ml/min; Glucose 148 mg/dl (70-99); Potassium 4.5 mmol/L (3.5-5.1); Sodium 131 mmol/L (135-145); Total Bilirubin 0.8 mg/dl (0.2-1.3); Total Protein 4.8 g/dl (6.3-8.2); eGFR > 60.00
[2023-11-26] MEDS: PROTONIX IV 40 MG IV (07:29)
[2023-11-26] MEDS: NSS (PRESERVATIVE FREE) 10 ML IV (07:29)
[2023-11-26] MEDS: CORDARONE 104 MG IV ×2 (07:32→20:10)
--- NOTE | 2023-11-26 10:25 | WOUNDNOTE ---
[facility] RN note: Assisted from chair to bed with help from RN Wendy. Midline incisional dry gauze dressing was changed. Small-moderate serous drainage. Stoma pink and budded. Minimal local erythema. Colostomy appliance changed using [place] wafer #
[id number] and Enrique pouch # [id number]. Ostomy supplies left in room. Skin on patient's heels and sacrum intact. Heels off bed with pillow. Patient turned to L semi side lying position. Air chair cushion in chair. Patient is on a [facility] air bed.
No stool in pouch. NGT in place. Next appliance change due Wednesday.
[2023-11-26] MEDS: LOVENOX 50 MG SC ×2 (10:26→19:56)
--- NOTE | 2023-11-26 12:06 | W.PN.ID1 ---
Date of Service
Date of Service: November 26, 2023
Today's Communication
Continue antibiotics. Trend white count. Continue supportive care. Hornick very guarded.
Assessment / Plan
# Perforated diverticulitis with free air and peritonitis
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
- OR cx, E. coli. E faecium, Strep spp., Clostridium, Bacteroides
# Post-op pelvic abscess
- 11/20 s/p perc drain
- Cx: E. coli, E. faecium;yeast, no anaerobic cx sent
# Transient Candidemia 1 out of 2 sets
- Intra-abdominal source.
- identification of yeast in progress
- repeat blood cx (1 set prior to micafungin, 2nd set after 1 dose micafungin) neg to date
# Leukocytosis
# Ileus - on TPN since 11/22 (picc placed after candidemia)
PLAN:
- Leukocytosis stable today.
- Continue Zosyn (d#11) and Micafungin (d#5)
- Follow WBC
#Additional Past Medical History:
Paroxysmal Atrial Fibrillation
CHF
Essential Hypertension
Hyperlipidemia
Interstitial cystitis
Chronic Pain with Opioid Dependence
Diverticulitis
Appendectomy
Cholecystectomy
Hysterectomy
Partial hysterectomy
Right rotator cuff
Chief Complaint
-: Leukocytosis and Other (Fungemia)
Vital Signs / Physical Exam
Vital Signs
Vital Signs
Temp Pulse Resp BP Pulse Ox
98.5 F 124 22 109/84 96
11/26/23 07:22 11/26/23 06:30 11/26/23 06:30 11/26/23 06:30 11/26/23 06:30
Physical Exam
Constitutional: Comfortable, Acutely Ill, Chronically Ill, Non-toxic, Cachetic and Other (Exceedingly frail in appearance)
Eyes: Pupils Equal
Oropharyngeal: Poor Dention and Other (NG in place to suction.)
Cardiovascular: S1/S2; Negative S3/S4
Pulmonary: Non Labored
Gastrointestinal: Soft, Decreased Bowel Sounds and Other (HEMA x 2.)
Extremities: Edema; Negative Cyanosis or Erythema
Skin: Warm and Dry; Negative Rash
Neurological: Other (Arousable to voice.)
Objective Data
Lab Data
Lab Results
11/26/23 05:04
11/26/23 05:04
PT 16.1 Sec (11.4-14.6) H 11/18/23 18:15
INR 1.27 11/18/23 18:15
APTT 27.8 Sec (23.4-35.0) 11/18/23 18:15
Estimated Creat Clear 59 ml/min 11/26/23 05:04
Lactic Acid 0.9 mmol/L (0.7-2.0) 11/18/23 18:15
Total Bilirubin 0.8 mg/dl (0.2-1.3) 11/26/23 05:04
AST 27 U/L (14-36) 11/26/23 05:04
ALT 17 U/L (0-35) 11/26/23 05:04
Alkaline Phosphatase 123 U/L (38-126) 11/26/23 05:04
Most recent labs reviewed.
Micro Results:
11/25/23 15:39 Wound Culture - Preliminary
Abscess Gram negative bacilli
Gram Stain - Preliminary
11/22/23 04:38 Blood Culture - Preliminary
Blood/Venous No Growth in 4 days- Final report to follow
11/21/23 16:20 Blood Culture - Preliminary
Blood/Venous No Growth in 4 days- Final report to follow
11/20/23 12:39 Body Fluid Culture - Final
Fluid Escherichia coli
Enterococcus faecium
Samantha glabrata (T. glab)
Gram Stain - Final
11/18/23 08:05 Fungus Mold Identification - Preliminary
Blood/Venous
11/18/23 00:47 Blood Culture - Preliminary
Blood/Venous Yeast
Gram Stain - Preliminary
11/18/23 00:48 Blood Culture - Final
Blood/Venous No Growth - Final Report
11/15/23 22:44 Wound Culture - Final
Abdomen Escherichia coli
Enterococcus faecium
Streptococcus species
Gram Stain - Final
11/15/23 22:44 Anaerobic Culture - Final
Abdomen Bacteroides fragilis
Clostridium species
11/15/23 18:19 Blood Culture - Final
Blood/Venous No Growth - Final Report
11/18/23 18:31 Urine Culture - Final
Urine NO GROWTH
11/15/23 14:27 Influenza Types A & B (MARIELA) - Final
Nasal Swab Negative for Influenza A & B, NAAT
Negative results must be combined with clinical observations
and patient history.
Nucleic Acid Amplification test (NAAT)performed on the
[employer] platform.
11/15/23 CT a/p: The findings are most consistent with perforation (partially contained) of a diverticulum in the descending or sigmoid colon with free air scattered throughout the abdomen and pelvis, forming a masslike area with fluid and free air in
the left side of the abdomen measuring 10 x 10 x 13 cm.� Additionally there is fluid in the anterior peripancreatic and pararenal space consistent with peritonitis, no discrete fluid collection to suggest an abscess. There is significant stool
within the colon and air within the colon wall, which may be due to previous obstruction prior to perforation or the differential includes the possibility of stercoral colitis.
11/19/23 CT a/p: Elongated fluid collection within the pelvis, extending into the retroperitoneum, measuring 8 x 5.6 x 3.3 cm. Internal gas bubbles and peripheral contrast enhancement are suggestive of postoperative abscess. Abscess is not
immediately adjacent to the suture line for the rectal stump. Bubbles of air within the left paracolic gutter as detailed above, without associated abscess formation. These bubbles of air may be postoperative in nature. Bibasilar airspace
consolidation, which may represent subsegmental atelectasis or pneumonia. Tiny left pleural effusion.
11/22/23: CXR: Right PICC in position as described. Worsening right lung airspace disease suspicious for pneumonia. Stable small left pleural effusion with associated airspace disease.
11/24/23 CT a/p: Right true pelvic pigtail drainage catheter in position with significantly decreased abnormal fluid collection/abscess in comparison to prior study.
Density left lower lobe consolidation and small left pleural effusion which could represent atelectasis and/or pneumonia. Limited evaluation as a result of paucity of oral contrast including possibly of oral contrast opacification of portions of
small bowel as well as entire large bowel. CANNOT EXCLUDE small extraluminal collection in the left flank measuring approximately 3.5 cm such as an abscess, as noted above.
--- NOTE | 2023-11-26 12:12 | W.PN.CRS1 ---
Today's Communication / Plan
-
continue tpn
await IR drain cultures
digitilize stoma
Assessment/Plan
-
78-year-old female with PMH of A-fib (on Eliquis, last dose was the morning of 11/15/2023), chronic pain (on Suboxone), HTN who presented with acute abdominal pain and was found to have perforated stercoral colitis and underwent emergency Dos Santos's
procedure for perforation in the descending colon, in septic shock; given Kcentra preoperatively, on Paul-Synephrine overnight, s/p IR drain placement
1.� WBC is 18.3, � Somewhat hypotensive.� Afebrile.
2.� S/P IR drain placement yesterday. OR cultures are pending.
3.� TPN daily.
4.� Continue to hold Eliquis.� On Lovenox for DVT prophylaxis, 50meq BID.
5.� NG tube until ostomy function. Put out 425ml.
6.� Continue antibiotics, appreciate ID.
7.� Continue HEMA drains.
8. Cultures from IR drain placement are pending.
9. Will reach out to wound RN to digitalize colostomy.
Subjective Data
Procedure
Juliet's resection 11/15/23
Subjective Data
Date of Service: November 26, 2023
Patient states she feels 'the same'. She is still bloated but improving. She has no pain.
Objective Data
-
Vital Signs
Temp Pulse Resp BP Pulse Ox
98.5 F 124 22 109/84 96
11/26/23 07:22 11/26/23 06:30 11/26/23 06:30 11/26/23 06:30 11/26/23 06:30
Intake & Output
11/25/23 11/26/23 11/27/23
06:59 06:59 06:59
Intake Total 265 / 265 3125 / 3125
Output Total 1415 / 1415 2695 / 2695
Balance -1150 / -1150 430 / 430
Intake:
IV fluids (Total) 500 / 500
IV piggybacks 200 / 200 924 / 924
TPN/PPN 1576 / 1576
Amount instilled into Drain (
Total)
Left Middle Abdomen David-
Clarke C Placed in IR
Right Back David-Clarke Placed
in IR
Amount instilled into GI Tube ( 60 / 60 120 / 120
Total)
Shackelford Sump 60 / 60 120 / 120
Output:
Liquid stool amount 25 / 25
Colostomy 25 / 25
Drain Output (Total) 15 / 15 45 / 45
Abdomen David-Clarke 10 / 10 40 / 40
Left Middle Abdomen David-
Clarke C Placed in IR
Right Back David-Clarke Placed
in IR
Gastrointestinal tube output ( 1075 / 1075
Total)
Shackelford Sump 1075 / 1075
Urine, Joseph 700 / 700 1550 / 1550
Urine, Voided 700 / 700
Lab Results
11/26/23 05:04
11/26/23 05:04
Physical Exam
-
General: No Acute Distress and AOx3
Abdomen: Soft, Distended (mild) and Non Tender
Skin: Warm and Dry
[2023-11-26] MEDS: LANOXIN 125 MCG IV (12:35)
[2023-11-26] MEDS: CARDIZEM 125 IV ×2 (12:36→23:10)
[2023-11-26 12:42] LABS: Glucose - Point of Care 180 mg/dl (70-99)
--- NOTE | 2023-11-26 13:12 | W.PN.UPDATE ---
Update Note
Progress Note Update
Patient's daughterJennifer, updated via phone.
--- NOTE | 2023-11-26 13:35 | WOUNDNOTE ---
[facility] RN note: Dr. Ramsey requested this keno writer/runner to digitize and irrigate stoma with 50-100ml of tap water x 1. Digitized stoma using water soluble lubricant then irrigated stoma with 100ml of water with approximately 80ml brown tinged irrigant return
with few very small pieces of soft dark brown stool. Patient tolerated well.
--- NOTE | 2023-11-26 14:10 | W.PN.CARDCBS ---
Today's Communication / Plan
-
Continue amidoarone, diltiazem, digoxin
Daily digoxin level
IV AC when able for AF
Transition to orals when able
Impression / Plan
-
Administrative Technician: Dr. HAILEY Nash
Impression:
Perforated stercoral colitis with septic shock
s/p Juliet's procedure 11/16/2023
Paroxysmal atrial fibrillation w/ RVR recurrent postoperatively with difficult to control rates
Acute blood loss anemia
Troponin elevation
Chronic HFpEF
Hypertension
Hyperlipidemia
Spinal stenosis
Fibromyalgia
h/o tobacco abuse on nicotine patch
Acute HFpEF postoperatively
Echo 11/22/2023: EF 55-60% mild LVH, dilated left atrium and right atrium, moderate mitral regurgitation mild TR, pulmonary artery systolic pressure 43-48 mmHg
Plan:
She is still strictly n.p.o. with lots of NG drainage. This makes management difficult as oral medications are not an option currently.
Her heart rate improved control on IV amiodarone, digoxin, diltiazem. Transition to oral when able. Medications currently used for rate control.
We will need to follow digoxin levels on amiodarone, please obtain daily levels for digoxin.
Continue IV diltiazem.
Regarding acute HFpEF, her volume status seems reasonable at present, no need for Lasix
Resume anticoagulation when stable from surgical standpoint.
We will continue to follow, discussed with nursing.
HPI: Bailey is an 78 year old female with PMH of paroxysmal atrial fibrillation, chronic HFpEF, hypertension, hyperlipidemia, and chronic pain who presented to [facility] for evaluation of abdominal pain. She reported that for approximately 2 days prior
to arrival, she noted increased abdominal pain and constipation. She also noted associated chills. On arrival to ER, she was found to have perforated diverticulitis by CT scan with associated peritonitis. She was admitted, started on antibiotics,
and ultimately underwent Juliet's procedure w/ takedown of splenic flexure on 11/16/2023. She then went into rapid atrial fibrillation post op on 11/17/2023. She was started on IV diltiazem and cardiology consulted for evaluation. She was symptomatic
with this and noted palpitations and some chest pain. Her heart rates are improved this AM on cardizem gtt and she is feeling better from a cardiac standpoint, although still complains of pain related to surgery.
Progress Note - Administrative Technician
Subjective
Date of Service: November 26, 2023
Patient seen and examined this morning. No acute events overnight. AF with controlled rates on telemetry. Notes nausea, fatigue, abdominal pain. No other complaints.
Objective
Labs:
11/26/23 05:04
11/26/23 05:04
Labs
Hgb 8.0 g/dL (12.0-16.0) L 11/26/23 05:04
Hct 23.3 % (37.0-47.0) L 11/26/23 05:04
Plt Count 686 10^3/uL (130-400) H 11/26/23 05:04
PT 16.1 Sec (11.4-14.6) H 11/18/23 18:15
INR 1.27 11/18/23 18:15
APTT 27.8 Sec (23.4-35.0) 11/18/23 18:15
Sodium 131 mmol/L (135-145) L 11/26/23 05:04
Potassium 4.5 mmol/L (3.5-5.1) 11/26/23 05:04
BUN 13 mg/dl (7-17) 11/26/23 05:04
Creatinine 0.6 mg/dL (0.6-1.0) 11/26/23 05:04
Glucose 148 mg/dl (70-99) H 11/26/23 05:04
Digoxin 0.7 ng/ml (0.8-2.0) L 11/26/23 05:04
Vital Signs and I&O:
Vital Signs
Temp Pulse Resp BP Pulse Ox
98.4 F 95 22 95/74 96
11/26/23 11:38 11/26/23 12:35 11/26/23 12:00 11/26/23 12:00 11/26/23 12:43
Vital Signs
Temp Pulse Resp BP Pulse Ox
98.4 F 95 22 95/74 96
11/26/23 11:38 11/26/23 12:35 11/26/23 12:00 11/26/23 12:00 11/26/23 12:43
Intake & Output
11/24/23 11/25/23 11/26/23 11/27/23
06:59 06:59 06:59 06:59
Intake Total 1721 / 1721 265 / 265 3125 / 3125
Output Total 2940 / 2940 1415 / 1415 2695 / 2695
Balance -1219 / -1219 -1150 / -1150 430 / 430
Physical Exam
Physical Exam
Frail, NG tube, appears uncomfortable but not acutely in distress
Temporal wasting, cachectic
Lungs with scattered, faint rhonchi
Relatively tachycardic irregular rate and rhythm, JVD okay
Abdomen drains in place, dressing intact
Extremities without edema
Neuro nonfocal
--- NOTE | 2023-11-26 15:44 | W.PN.HOSP.TC ---
Today's Communication/Plan
-
continue IV abx and drains
TPN per GS
Afib control with Dig, Amio, Cardizem per Cards
Assessment / Plan
Assessment / Plan
Assessment:
Septic Shock secondary to perforated bowel from diverticulitis vs stercoral colitis
- was given K-centra for Eliquis reversal
- underwent on 11/16 1) Juliet's procedure (left colectomy with colostomy) 2) takedown splenic flexure on 11/16/23. Operative findings: perforated distal descending colon with associated bloody contamination (blood plus stool-- particularly at left
retroperitoneum)
- post-op course complicated by post-op pelvic abscess seen on CT 11/19 s/p IRAD drain. Culture growing E. coli. E faecium and yeast.
- later CT abdomen/pelvis on 11/24 showed left paracolic gutter area; IR drain placed 11/25
- currently shock state is resolved
- continue Zosyn; OR cx, E. coli. E faecium, Strep, Clostridium, Bacteroides
- continue Micafungin for candidemia 1/2 sets
- continue NPO/IVF/TPN per CRS
- continue NGT/Joseph
- CT abdomen/pelvis on 11/24 showed left paracolic gutter area; IR drain placed 11/25
- Colorectal/ID following
Parox A Fib with RVR
- continue Cardizem drip; hold oral BB
- continue IV digoxin
- start IV Amiodarone
- resume Eliquis when cleared by GS; currently on full dose Lovenox
Acute HFpEF
- monitoring off Lasix
VDRF in setting of acute emergency surgery for airway protection
- extubated - pt denies respiratory distress
Post-operative acute anemia from blood loss
- s/p 3 units PRBCs. Hb was 8.7
Hyponatremia
Non-GA trop elevation
- trop 0.744
- follow tele/EKGs
Chronic Pain with Opioid Dependence
- continue Dilaudid as needed for pain. Fentanyl patch also added
- holding buprenorphine
Essential HTN
- hold BB/Doxazosin
LUE SVT cephalic just above antecubital vein
- resume Eliquis when cleared by GS; currently on full dose Lovenox
DVT prophylaxis: Lovenox
CODE STATUS: Full code
Anticipated Discharge: > 48 hours
Subjective/Interval History
-
Date of Service: November 26, 2023
reports pain
Objective Data
-
Labs:
Laboratory Results
11/26/23
05:04
WBC 18.3 H
Hgb 8.0 L
Hct 23.3 L
Plt Count 686 H
Sodium 131 L
Potassium 4.5
Chloride 103
Carbon Dioxide 28
BUN 13
Creatinine 0.6
Glucose 148 H
Calcium 7.8 L
Total Bilirubin 0.8
AST 27
ALT 17
Alkaline Phosphatase 123
Vital Signs:
Vital Signs
Temp Pulse Resp BP Pulse Ox
98.4 F 95 22 95/74 96
11/26/23 11:38 11/26/23 12:35 11/26/23 12:00 11/26/23 12:00 11/26/23 12:43
I&O
11/25/23 11/26/23 11/27/23
06:59 06:59 06:59
Intake Total 265 / 265 3125 / 3125
Output Total 1415 / 1415 2695 / 2695
Balance -1150 / -1150 430 / 430
Physical Exam
-
General: No Apparent Distress
HEENT: Normocephalic and Atraumatic
Respiratory: Negative Wheezes
Cardiac: Regular Rhythm
GI: Soft
Genito-urinary: No Costovertebral Tender
Psych: Calm
Data Reviewed
-
Total Time Spent with Patient (in minutes): 43
Labs: Labs Reviewed by me
[2023-11-26] MEDS: DURAGESIC 25 MCG/HR PATCH 1 PATCH TRANSDERM (16:01)
--- NOTE | 2023-11-26 16:39 | CM ---
Patient with Dx Septic Shock secondary to perforated bowel s/p left colectomy with colostomy, Parox A Fib with RVR, Post-operative anemia, LUE SVT cephalic. O2 2L. Receiving IV Amio, IV Cardizem, IV Abx. TPN/NPO/NGT. HEMA drain for abscess. Seen
by [facility] for ostomy. PT & OT recommend skilled rehab.
Plan contact patient & daughter about SNF when closer to d/c.
Plan [facility] when medically ready.
[2023-11-26] MEDS: MYCAMINE 105 MG IV (16:58)
[2023-11-26 18:30] LABS: Glucose - Point of Care 183 mg/dl (70-99)
--- NOTE | 2023-11-26 19:31 | PTCARENOTE ---
day shift note. assessmnet as charted. pt remains in afib. cardizem at 15mg /hr per orders. tpn infusing. ng drained 350 mls green fluid. no flatus or bm noted in colostomy. pt was oob in chair x 1 hr and tolerated well. abd incision with lamonte
intact. chaka x 2 recorded in i&o. pt drowsy but awakens easily. requesting dilaudid q 3 hrs for pain.
[2023-11-26] MEDS: Parenteral Nutrition, Central 1060 IV (21:01)
--- NOTE | 2023-11-26 23:32 | PTCARENOTE ---
Pt received at beginning of shift resting in bed requesting pain med. PRN Dilaudid given as ordered for pain rating of 10/10 abdominal pain. Fentanyl patch on MAGGIE and verified with day shift RN. Abdominal incision c/d/i. HEMA sites c/d/i with no
drainage in either bulb. Colostomy intact with no stool or flatus - bag completely flat on abdomen. Right nare salem sump to LIS with scant amount green drainage in canister. Irrigated with 30mls NS with minimal return. Hypoactive BS. Joseph draining
clear yellow urine. TPN infusing as ordered. Cardizem gtt infusing at 15ml/hr. VSS. Afebrile. POX on 3L NC 98%. Afib on CM rate 90's-110's. Rest of assessment as documented. Maintained on Q2hr turns. Call simmons remains within reach. Will continue to
monitor.
[2023-11-26 23:57] LABS: Glucose - Point of Care 180 mg/dl (70-99)
[2023-11-27] VITALS (23 sets, daily range): BP systolic 90–152; BP diastolic 50–97; BMI 17.9
[2023-11-27] MEDS: ZOSYN 50 IV ×4 (01:59→20:25)
[2023-11-27] MEDS: DILAUDID 0.5 MG IV ×6 (02:10→18:42)
[2023-11-27 05:04] LABS: % Basophils 0.3 % (0-2); % Eosinophils 1.6 % (0-6); % Immature Granulocytes 0.8 % (0-0.5); % Lymphocytes 5.1 % (20.5-51.1); % Monocytes 6.5 % (1.7-9.3); % Neutrophils 85.7 % (42.2-75.2); Absolute Basophils 0.1 10^3/uL (0-0.2); Absolute Eosinophils 0.4 10^3/uL (0-0.7); Absolute Immature Granulocytes 0.2 10^3/uL (0-0.05); Absolute Lymphocytes 1.1 10^3/uL (1.2-3.4); Absolute Monocytes 1.5 10^3/uL (0.1-0.6); Absolute Neutrophils 19.2 10^3/uL (1.4-6.5); Hematocrit 25.8 % (37.0-47.0); Hemoglobin 8.9 g/dL (12.0-16.0); Mean Corp Hgb Conc. 34.5 g/dL (33.0-37.0); Mean Corpuscular Hgb 29.5 pg (27.0-31.0); Mean Corpuscular Volume 85.4 fL (81.0-99.0); Mean Platelet Volume 8.8 fL (7.4-10.4); Nucleated Red Blood Cells % 0 %; Platelet Count 801 10^3/uL (130-400); Red Blood Cell Count 3.02 10^6/uL (4.20-5.40); Red Cell Dist. Width 15.6 % (11.5-14.5); White Blood Cell Count 22.4 10^3/uL (4.8-10.8)
[2023-11-27 06:09] LABS: Glucose - Point of Care 160 mg/dl (70-99)
[2023-11-27 06:12] LABS: ALT (SGPT) 18 U/L (0-35); AST (SGOT) 26 U/L (14-36); Albumin 2.5 g/dl (3.5-5.0); Alkaline Phosphatase 142 U/L (38-126); Blood Urea Nitrogen 11 mg/dl (7-17); Calcium 8.4 mg/dl (8.4-10.2); Carbon Dioxide 26 mmol/L (22-30); Chloride 102 mmol/L (98-107); Estimated Creatinine Clearance 57 ml/min; Glucose 145 mg/dl (70-99); Potassium 4.5 mmol/L (3.5-5.1); Sodium 131 mmol/L (135-145); Total Bilirubin 0.7 mg/dl (0.2-1.3); Total Protein 5.7 g/dl (6.3-8.2); eGFR > 60.00
--- NOTE | 2023-11-27 06:13 | PTCARENOTE ---
No colostomy output or HEMA output for both HEMA's overnight. 100ml green liquid from salem sump after irrigating with 90mls overnight.
[2023-11-27] MEDS: CORDARONE 104 MG IV ×2 (07:48→20:27)
[2023-11-27] MEDS: LOVENOX 50 MG SC ×2 (07:52→20:25)
[2023-11-27] MEDS: PROTONIX IV 40 MG IV (07:55)
[2023-11-27] MEDS: NSS (PRESERVATIVE FREE) 10 ML IV (07:56)
[2023-11-27] MEDS: NSS (PRESERVATIVE FREE) 0.25 ML IV ×2 (09:15→23:29)
[2023-11-27] MEDS: ATIVAN 0.5 MG IV ×2 (09:15→23:29)
--- NOTE | 2023-11-27 09:39 | W.PN.CRS1 ---
Today's Communication / Plan
-
Continue TPN/NPO/NGT
Assessment/Plan
-
78-year-old female with PMH of A-fib, chronic pain (on Suboxone), HTN who presented with acute abdominal pain and was found to have perforated stercoral colitis and underwent emergency Dos Santos's procedure for perforation in the descending colon on
11/15/23
IR drainage of intraabdominal abscess on 11/20 with subsequent drain removal and drainage of second collection to left paracolic gutter in IR on 11/25 with drain still in place.
Ecoli, enterococcus and ramiro from abscess cultures. Yeast in blood initially, repeat cultures with NGTD
Await return of bowel function
Tachycardia with AFib/rvr
No further fevers
H/H stable on BID Lovenox
WBC continues to trend up
1.� ID following for abx
2.� Continue HEMA and IR drain
3.� NPO with NGT until bowel function returns. TPN daily, renewed with attention to hyponatremia
4.� Continue to hold Eliquis until ROBF.� Stable on therapeutic Lovenox
5.� OOB as able
6. Stoma/Wound nurse following
7. Medical management as per primary team
Subjective Data
Procedure
Juliet's resection 11/15/23
Subjective Data
Date of Service: November 27, 2023
Patient seen and examined with Dr Benito at bedside. Denies n/v. Voice is hoarse. Requesting anxiety medications
Objective Data
-
Vital Signs
Temp Pulse Resp BP Pulse Ox
98.5 F 117 27 130/92 99
11/27/23 08:22 11/27/23 06:00 11/27/23 06:00 11/27/23 06:00 11/27/23 06:00
Intake & Output
01/19/24 01/20/24 01/21/24
06:59 06:59 06:59
Intake Total 3125 / 3125 2176 / 2176
Output Total 2695 / 2695 3165 / 3165
Balance 430 / 430 -989 / -989
Intake:
IV fluids (Total) 500 / 500 180 / 180
IV piggybacks 924 / 924 700 / 700
TPN/PPN 1576 / 1576 1056 / 1056
Amount instilled into Drain ( 5 / 5
Total)
Left Middle Abdomen David- 5 /
Clarke C Placed in IR
Amount instilled into GI Tube ( 120 / 120 240 / 240
Total)
[place] Sump 120 / 120 240 / 240
Output:
Liquid stool amount 25 / 25
Colostomy 25 / 25
Drain Output (Total) 45 / 45 15 / 15
Abdomen David-Clarke 40 / 40 10 / 10
Left Middle Abdomen David- 5 / 5 5 / 5
Clarke C Placed in IR
Gastrointestinal tube output ( 1075 / 1075 450 / 450
Total)
[place] Sump 1075 / 1075 450 / 450
Urine, Joseph 1550 / 1550 2700 / 2700
Lab Results
11/27/23 04:53
11/27/23 04:53
Physical Exam
-
General: No Acute Distress and AOx3
Abdomen: Soft, Distended (mild), Non Tender, No Bowel Movement (Ostomy with very minimal air/bowel sweat. Stoma pink/viable) and Other (NGT with bilious output)
Skin: Warm and Dry
Wound: No Signs of Infection and Other (HEMA with minimal serous fluid. IR drain with cloudy ssf)
[2023-11-27 10:02] LABS: Digoxin 0.5 ng/ml (0.8-2.0)
[2023-11-27] MEDS: CARDIZEM 125 IV (10:02)
--- NOTE | 2023-11-27 10:29 | W.PN.ID1 ---
Date of Service
Date of Service: November 27, 2023
Today's Communication
Continue Zosyn (d#12) and Micafungin (d#6)
Assessment / Plan
# Perforated diverticulitis with free air and peritonitis
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
- OR cx, E. coli. E faecium, Strep spp., Clostridium, Bacteroides
# Post-op pelvic abscess
- 11/20 s/p perc drain - right/pelvis
- Cx: E. coli, E. faecium; C glabrata, no anaerobic cx sent
- E faecium amp sensitive in this instance
- 11/25 s/p per drain in the LEFT collection
- Cx: E coli, C albicans, enterococcus
# Transient Candidemia 1 out of 2 sets
- Intra-abdominal source.
- identification of yeast in progress; from the body fluid was C glabrata likely the same isolate
- repeat blood cx (1 set prior to micafungin, 2nd set after 1 dose micafungin) neg to date
# Leukocytosis
- trend
# Ileus - on TPN since 11/22 (picc placed after candidemia)
PLAN:
- Leukocytosis stable today.
- Continue Zosyn (d#12) and Micafungin (d#6)
- Follow WBC
#Additional Past Medical History:
Paroxysmal Atrial Fibrillation
CHF
Essential Hypertension
Hyperlipidemia
Interstitial cystitis
Chronic Pain with Opioid Dependence
Diverticulitis
Appendectomy
Cholecystectomy
Hysterectomy
Partial hysterectomy
Right rotator cuff
Chief Complaint
-: Leukocytosis and Other (Fungemia)
Subjective / Review of Systems
afebrile
bp stable
stable leukocytosis
progression of thrombocytosis
cr stable
samantha was IDd as glabrata
Vital Signs / Physical Exam
Vital Signs
Vital Signs
Temp Pulse Resp BP Pulse Ox
98.5 F 117 27 130/92 99
11/27/23 08:22 11/27/23 06:00 11/27/23 06:00 11/27/23 06:00 11/27/23 09:46
Physical Exam
Constitutional: No Acute Distress and Comfortable
Cardiovascular: Regular Rate
Pulmonary: Symmetric
Gastrointestinal: Non Distended
Neurological: Negative Awake
Objective Data
Lab Data
Lab Results
11/27/23 04:53
11/27/23 04:53
PT 16.1 Sec (11.4-14.6) H 11/18/23 18:15
INR 1.27 11/18/23 18:15
APTT 27.8 Sec (23.4-35.0) 11/18/23 18:15
Estimated Creat Clear 57 ml/min 11/27/23 04:53
Lactic Acid 0.9 mmol/L (0.7-2.0) 11/18/23 18:15
Total Bilirubin 0.7 mg/dl (0.2-1.3) 11/27/23 04:53
AST 26 U/L (14-36) 11/27/23 04:53
ALT 18 U/L (0-35) 11/27/23 04:53
Alkaline Phosphatase 142 U/L (38-126) H 11/27/23 04:53
Most recent labs reviewed.
Micro Results:
11/25/23 15:39 Wound Culture - Preliminary
Abscess Escherichia coli
Samantha albicans
Enterococcus species
Gram Stain - Preliminary
11/22/23 04:38 Blood Culture - Final
Blood/Venous No Growth - Final Report
11/18/23 08:05 Fungus Mold Identification - Preliminary
Blood/Venous Nakaseomyces glabrata
11/21/23 16:20 Blood Culture - Final
Blood/Venous No Growth - Final Report
11/18/23 00:47 Blood Culture - Final
Blood/Venous Yeast
Gram Stain - Final
11/20/23 12:39 Body Fluid Culture - Final
Fluid Escherichia coli
Enterococcus faecium
Samantha glabrata (T. glab)
Gram Stain - Final
11/18/23 00:48 Blood Culture - Final
Blood/Venous No Growth - Final Report
11/15/23 22:44 Wound Culture - Final
Abdomen Escherichia coli
Enterococcus faecium
Streptococcus species
Gram Stain - Final
11/15/23 22:44 Anaerobic Culture - Final
Abdomen Bacteroides fragilis
Clostridium species
11/15/23 18:19 Blood Culture - Final
Blood/Venous No Growth - Final Report
11/18/23 18:31 Urine Culture - Final
Urine NO GROWTH
11/15/23 14:27 Influenza Types A & B (MARIELA) - Final
Nasal Swab Negative for Influenza A & B, NAAT
Negative results must be combined with clinical observations
and patient history.
Nucleic Acid Amplification test (NAAT)performed on the
[employer] platform.
11/15/23 CT a/p: The findings are most consistent with perforation (partially contained) of a diverticulum in the descending or sigmoid colon with free air scattered throughout the abdomen and pelvis, forming a masslike area with fluid and free air in
the left side of the abdomen measuring 10 x 10 x 13 cm.� Additionally there is fluid in the anterior peripancreatic and pararenal space consistent with peritonitis, no discrete fluid collection to suggest an abscess. There is significant stool
within the colon and air within the colon wall, which may be due to previous obstruction prior to perforation or the differential includes the possibility of stercoral colitis.
11/19/23 CT a/p: Elongated fluid collection within the pelvis, extending into the retroperitoneum, measuring 8 x 5.6 x 3.3 cm. Internal gas bubbles and peripheral contrast enhancement are suggestive of postoperative abscess. Abscess is not
immediately adjacent to the suture line for the rectal stump. Bubbles of air within the left paracolic gutter as detailed above, without associated abscess formation. These bubbles of air may be postoperative in nature. Bibasilar airspace
consolidation, which may represent subsegmental atelectasis or pneumonia. Tiny left pleural effusion.
11/22/23: CXR: Right PICC in position as described. Worsening right lung airspace disease suspicious for pneumonia. Stable small left pleural effusion with associated airspace disease.
11/24/23 CT a/p: Right true pelvic pigtail drainage catheter in position with significantly decreased abnormal fluid collection/abscess in comparison to prior study.
Density left lower lobe consolidation and small left pleural effusion which could represent atelectasis and/or pneumonia. Limited evaluation as a result of paucity of oral contrast including possibly of oral contrast opacification of portions of
small bowel as well as entire large bowel. CANNOT EXCLUDE small extraluminal collection in the left flank measuring approximately 3.5 cm such as an abscess, as noted above.
--- NOTE | 2023-11-27 11:07 | W.PN.CARDCBS ---
Today's Communication / Plan
-
Continue Amio, diltiazem, digoxin for rate control
Daily dig level for monitoring
Anticoagulation when able
Oral medical therapy when able per surgical service
Impression / Plan
-
Feather Edger: Dr. HAILEY Nash
Impression:
Perforated stercoral colitis with septic shock
s/p Juliet's procedure 11/16/2023
Paroxysmal atrial fibrillation w/ RVR recurrent postoperatively with difficult to control rates
Acute blood loss anemia
Troponin elevation
Chronic HFpEF
Hypertension
Hyperlipidemia
Spinal stenosis
Fibromyalgia
h/o tobacco abuse on nicotine patch
Acute HFpEF postoperatively
Echo 11/22/2023: EF 55-60% mild LVH, dilated left atrium and right atrium, moderate mitral regurgitation mild TR, pulmonary artery systolic pressure 43-48 mmHg
Plan:
She is still strictly n.p.o. with lots of NG drainage. This makes management difficult as oral medications are not an option currently.
Her heart rate improved control on IV amiodarone, digoxin, diltiazem. Transition to oral when able. 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
poor inspiratory effort as well, potentially affecting her HR, consider CXR
We will need to follow digoxin levels on amiodarone, please obtain daily levels for digoxin.
Continue IV diltiazem.
Regarding acute HFpEF, her volume status seems reasonable at present, no need for Lasix
Resume anticoagulation when stable from surgical standpoint.
WBC uptrending, defer to surgical service; afebrile
HPI: Bailey is an 78 year old female with PMH of paroxysmal atrial fibrillation, chronic HFpEF, hypertension, hyperlipidemia, and chronic pain who presented to [facility] for evaluation of abdominal pain. She reported that for approximately 2 days prior
to arrival, she noted increased abdominal pain and constipation. She also noted associated chills. On arrival to ER, she was found to have perforated diverticulitis by CT scan with associated peritonitis. She was admitted, started on antibiotics,
and ultimately underwent Juliet's procedure w/ takedown of splenic flexure on 11/16/2023. She then went into rapid atrial fibrillation post op on 11/17/2023. She was started on IV diltiazem and cardiology consulted for evaluation. She was symptomatic
with this and noted palpitations and some chest pain. Her heart rates are improved this AM on cardizem gtt and she is feeling better from a cardiac standpoint, although still complains of pain related to surgery.
Progress Note - Feather Edger
Subjective
Date of Service: November 27, 2023
Patient seen examined. No acute events overnight. Patient resting in bed reporting abdominal pain. Denies chest pain, shortness of breath, palpitations, PND, edema, or weakness. WBC increasing from yesterday, patient remains afebrile.; -900 cc
over 24h. AF 100-120s on telemetry.
Objective
Labs:
11/27/23 04:53
11/27/23 04:53
Labs
Hgb 8.9 g/dL (12.0-16.0) L 11/27/23 04:53
Hct 25.8 % (37.0-47.0) L 11/27/23 04:53
Plt Count 801 10^3/uL (130-400) H 11/27/23 04:53
PT 16.1 Sec (11.4-14.6) H 11/18/23 18:15
INR 1.27 11/18/23 18:15
APTT 27.8 Sec (23.4-35.0) 11/18/23 18:15
Sodium 131 mmol/L (135-145) L 11/27/23 04:53
Potassium 4.5 mmol/L (3.5-5.1) 11/27/23 04:53
BUN 11 mg/dl (7-17) 11/27/23 04:53
Creatinine 0.5 mg/dL (0.6-1.0) L 11/27/23 04:53
Glucose 145 mg/dl (70-99) H 11/27/23 04:53
Digoxin 0.5 ng/ml (0.8-2.0) L 11/27/23 08:46
Vital Signs and I&O:
Vital Signs
Temp Pulse Resp BP Pulse Ox
98.5 F 117 27 130/92 99
11/27/23 08:22 11/27/23 06:00 11/27/23 06:00 11/27/23 06:00 11/27/23 09:46
Vital Signs
Temp Pulse Resp BP Pulse Ox
98.5 F 117 27 130/92 99
11/27/23 08:22 11/27/23 06:00 11/27/23 06:00 11/27/23 06:00 11/27/23 09:46
Intake & Output
11/25/23 11/26/23 11/27/23 11/28/23
06:59 06:59 06:59 06:59
Intake Total 265 / 265 3125 / 3125 2176 / 2176
Output Total 1415 / 1415 2695 / 2695 3165 / 3165
Balance -1150 / -1150 430 / 430 -989 / -989
Physical Exam
Physical Exam
Frail, NG tube, appears uncomfortable but not acutely in distress
Temporal wasting, cachectic
Lungs with scattered, faint rhonchi
Relatively tachycardic irregular rate and rhythm, JVD okay
Abdomen drains in place, dressing intact
Extremities without edema
Neuro nonfocal
[2023-11-27 11:53] LABS: Glucose - Point of Care 181 mg/dl (70-99)
[2023-11-27] MEDS: LANOXIN 125 MCG IV (12:01)
[2023-11-27] MEDS: OFIRMEV 100 IV ×2 (13:27→18:43)
--- NOTE | 2023-11-27 14:34 | W.PN.HOSP.TC ---
Today's Communication/Plan
-
reduce Dilaudid to q4hprn
continue NPO/TPN
IV Abx
Assessment / Plan
Assessment / Plan
Assessment:
Septic Shock secondary to perforated bowel from diverticulitis vs stercoral colitis
- was given K-centra for Eliquis reversal
- underwent on 11/16 1) Juliet's procedure (left colectomy with colostomy) 2) takedown splenic flexure on 11/16/23. Operative findings: perforated distal descending colon with associated bloody contamination (blood plus stool-- particularly at left
retroperitoneum)
- post-op course complicated by post-op pelvic abscess seen on CT 11/19 s/p IRAD drain. Culture growing E. coli. E faecium and yeast.
- later CT abdomen/pelvis on 11/24 showed left paracolic gutter area; IR drain placed 11/25
- currently shock state is resolved
- continue Zosyn; OR cx, E. coli. E faecium, Strep, Clostridium, Bacteroides
- continue Micafungin for candidemia 1/ sets
- continue NPO/IVF/TPN per CRS
- continue NGT/Joseph
- Colorectal/ID following
Parox A Fib with RVR
- resume Eliquis when cleared by GS; currently on full dose Lovenox
Acute HFpEF
- monitoring off Lasix
VDRF in setting of acute emergency surgery for airway protection
- extubated - pt denies respiratory distress
Post-operative acute anemia from blood loss
- s/p 3 units PRBCs. Hb is 8.9
Hyponatremia
Non-NJ trop elevation
- trop 0.744
- follow tele/EKGs
Chronic Pain with Opioid Dependence
- continue Dilaudid as needed for pain; reduce to q4hprn. Fentanyl patch also added
- holding buprenorphine
Essential HTN
- hold BB/Doxazosin
LUE SVT cephalic just above antecubital vein
- resume Eliquis when cleared by GS; currently on full dose Lovenox
DVT prophylaxis: Lovenox
CODE STATUS: Full code
Anticipated Discharge: > 48 hours
Subjective/Interval History
-
Date of Service: November 27, 2023
hoarse voice, requesting pain/anxiety meds
Objective Data
-
Labs:
Laboratory Results
11/27/23
04:53
WBC 22.4 H
Hgb 8.9 L
Hct 25.8 L
Plt Count 801 H
Sodium 131 L
Potassium 4.5
Chloride 102
Carbon Dioxide 26
BUN 11
Creatinine 0.5 L
Glucose 145 H
Calcium 8.4
Total Bilirubin 0.7
AST 26
ALT 18
Alkaline Phosphatase 142 H
Vital Signs:
Vital Signs
Temp Pulse Resp BP Pulse Ox
98.2 F 121 27 130/92 99
11/27/23 12:00 11/27/23 12:01 11/27/23 06:00 11/27/23 06:00 11/27/23 09:46
I&O
11/26/23 11/27/23 11/28/23
06:59 06:59 06:59
Intake Total 3125 / 3125 2176 / 2176
Output Total 2695 / 2695 3165 / 3165
Balance 430 / 430 -989 / -989
Physical Exam
-
General: No Apparent Distress
HEENT: Normocephalic and Atraumatic
Respiratory: Negative Wheezes
Cardiac: Regular Rhythm
GI: Soft
Genito-urinary: No Costovertebral Tender
Neuro: AO x 3
Psych: Calm
Data Reviewed
-
Total Time Spent with Patient (in minutes): 45
Labs: Labs Reviewed by me
[2023-11-27] MEDS: MYCAMINE 105 MG IV (17:21)
[2023-11-27 18:49] LABS: Glucose - Point of Care 198 mg/dl (70-99)
[2023-11-27] MEDS: Parenteral Nutrition, Central 1060 IV (20:22)
[2023-11-28] VITALS (25 sets, daily range): BP systolic 90–187; BP diastolic 58–102
[2023-11-28] MEDS: ZOSYN 50 IV ×4 (01:24→20:05)
[2023-11-28] MEDS: OFIRMEV 100 IV ×4 (01:24→18:26)
[2023-11-28 01:45] LABS: Glucose - Point of Care 171 mg/dl (70-99)
[2023-11-28] MEDS: CARDIZEM 125 IV (03:33)
[2023-11-28] MEDS: DILAUDID 0.5 MG IV ×5 (04:47→20:24)
[2023-11-28] MEDS: PROTONIX IV 40 MG IV (07:37)
[2023-11-28] MEDS: NSS (PRESERVATIVE FREE) 10 ML IV (07:37)
[2023-11-28] MEDS: CORDARONE 104 MG IV ×2 (07:37→20:25)
[2023-11-28] MEDS: LOVENOX 50 MG SC ×2 (07:38→20:06)
--- NOTE | 2023-11-28 09:51 | W.PN.CRS1 ---
Today's Communication / Plan
-
Continue NPO/TPN/ABX
Assessment/Plan
-
78-year-old female with PMH of A-fib, chronic pain (on Suboxone) who presented with perforated stercoral colitis and underwent emergency Dos Santos's procedure for perforation in the descending colon on 11/15/23
11/20 IR drainage of intraabdominal abscess with subsequent drain removal
11/24 f/u CT limited d/t paucity of oral contrast, abscess seen
11/25 IR drainage of second collection to left paracolic gutter with drain still in place/brown purulent drainage present
Ecoli, enterococcus and ramiro from abscess cultures. Yeast in blood initially with final result fungal/mould, repeat cultures without growth
Await return of bowel function on TPN
Tachycardia with Afib/rvr
No further fevers
Labs pending for today. H/H has been stable on therapeutic Lovenox. Rising leukocytosis
-- ID following for abx
-- Continue HMEA and IR drain
--�NPO with NGT until bowel function returns
-- TPN daily, await labs for renewal orders today
-- Continue to hold Eliquis until ROBF.� Stable on therapeutic Lovenox
-- OOB as able
-- Stoma/Wound nurse following
-- May need repeat CT with PO contrast pending course, will follow CBC and character of abscess drainage
-- Medical management as per primary team
Subjective Data
Procedure
Juliet's resection 11/15/23
Subjective Data
Date of Service: November 28, 2023
Patient seen and examined at bedside with Dr. Benito. Avi energy levels. Denies n/v.
Objective Data
-
Vital Signs
Temp Pulse Resp BP Pulse Ox
98.2 F 105 23 129/102 98
11/28/23 04:00 11/28/23 08:00 11/28/23 08:00 11/28/23 08:00 11/28/23 08:00
Intake & Output
11/27/23 11/28/23 11/29/23
06:59 06:59 06:59
Intake Total 2176 / 2176 1970 / 1970
Output Total 3165 / 3165 1300 / 1300
Balance -989 / -989 671 / 671
Intake:
IV fluids (Total) 180 / 180 420 / 420
IV piggybacks 700 / 700 405 / 405
TPN/PPN 1056 / 1056 1056 / 1056
Amount instilled into GI Tube ( 240 / 240 90 / 90
Total)
[place] Sump 240 / 240 90 / 90
Output:
Drain Output (Total) 15 / 15 0 / 0
Abdomen David-Calrke 10 / 10 0 / 0
Left Middle Abdomen David- 5 / 5 0 / 0
Clarke C Placed in IR
Gastrointestinal tube output ( 450 / 450 100 / 100
Total)
[place] Sump 450 / 450 100 / 100
Urine, Joseph 2700 / 2700 1200 / 1200
Physical Exam
-
General: No Acute Distress and AOx3
Abdomen: Soft, Distended (mild), Non Tender, No Bowel Movement (Ostomy with very minimal air/bowel sweat. Stoma pink/viable) and Other (NGT with minimal bilious output)
Skin: Warm and Dry
Wound: No Signs of Infection and Other (HEMA with minimal serous fluid. IR drain with brown/purulent drainage)
Incision: Clear, Dry, Intact (lamonte intact with minimal SSF)
[2023-11-28 09:56] LABS: % Basophils 0.5 % (0-2); % Immature Granulocytes 0.8 % (0-0.5); % Monocytes 8.2 % (1.7-9.3); % Neutrophils 81.5 % (42.2-75.2); Absolute Basophils 0.1 10^3/uL (0-0.2); Absolute Eosinophils 0.3 10^3/uL (0-0.7); Absolute Immature Granulocytes 0.1 10^3/uL (0-0.05); Absolute Lymphocytes 1.1 10^3/uL (1.2-3.4); Absolute Monocytes 1.3 10^3/uL (0.1-0.6); Absolute Neutrophils 12.6 10^3/uL (1.4-6.5); Hematocrit 24.9 % (37.0-47.0); Hemoglobin 8.6 g/dL (12.0-16.0); Mean Corp Hgb Conc. 34.5 g/dL (33.0-37.0); Mean Corpuscular Hgb 30.2 pg (27.0-31.0); Mean Corpuscular Volume 87.4 fL (81.0-99.0); Mean Platelet Volume 8.8 fL (7.4-10.4); Nucleated Red Blood Cells % 0 %; Platelet Count 873 10^3/uL (130-400); Red Blood Cell Count 2.85 10^6/uL (4.20-5.40); Red Cell Dist. Width 15.8 % (11.5-14.5); White Blood Cell Count 15.5 10^3/uL (4.8-10.8)
[2023-11-28 11:15] LABS: ALT (SGPT) 20 U/L (0-35); AST (SGOT) 30 U/L (14-36); Albumin 2.4 g/dl (3.5-5.0); Alkaline Phosphatase 132 U/L (38-126); Blood Urea Nitrogen 15 mg/dl (7-17); Calcium 8.3 mg/dl (8.4-10.2); Carbon Dioxide 25 mmol/L (22-30); Chloride 105 mmol/L (98-107); Estimated Creatinine Clearance 57 ml/min; Glucose 171 mg/dl (70-99); Potassium 4.3 mmol/L (3.5-5.1); Sodium 132 mmol/L (135-145); Total Bilirubin 0.6 mg/dl (0.2-1.3); Total Protein 5.6 g/dl (6.3-8.2); eGFR > 60.00
[2023-11-28 11:17] LABS: Digoxin 0.4 ng/ml (0.8-2.0)
[2023-11-28] MEDS: LANOXIN 125 MCG IV (12:07)
--- NOTE | 2023-11-28 14:20 | W.PN.CARDCBS ---
Today's Communication / Plan
-
Tele monitoring
IV Amio, digoxin, diltiazem for rate control transition to oral when able
Anticoagulation when able from surgical standpoint
Impression / Plan
-
Housetrailer Servicer: Dr. HAILEY Nash
Impression:
Perforated stercoral colitis with septic shock
s/p Juliet's procedure 11/16/2023
Paroxysmal atrial fibrillation w/ RVR recurrent postoperatively with difficult to control rates
Acute blood loss anemia
Troponin elevation
Chronic HFpEF
Hypertension
Hyperlipidemia
Spinal stenosis
Fibromyalgia
h/o tobacco abuse on nicotine patch
Acute HFpEF postoperatively
Echo 11/22/2023: EF 55-60% mild LVH, dilated left atrium and right atrium, moderate mitral regurgitation mild TR, pulmonary artery systolic pressure 43-48 mmHg
Plan:
She is still strictly n.p.o. with lots of NG drainage. This makes management difficult as oral medications are not an option currently. Reported more significant abdominal discomfort and pain today
Her heart rate improved control on IV amiodarone, digoxin, diltiazem. Transition to oral when able. 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
poor inspiratory effort as well, potentially affecting her HR, consider CXR
We will need to follow digoxin levels on amiodarone, please obtain daily levels for digoxin.
Continue IV diltiazem, dig, amiodarone
Regarding acute HFpEF, her volume status seems reasonable at present, no need for Lasix
Resume anticoagulation when stable from surgical standpoint.
HPI: Bailey is an 78 year old female with PMH of paroxysmal atrial fibrillation, chronic HFpEF, hypertension, hyperlipidemia, and chronic pain who presented to [facility] for evaluation of abdominal pain. She reported that for approximately 2 days prior
to arrival, she noted increased abdominal pain and constipation. She also noted associated chills. On arrival to ER, she was found to have perforated diverticulitis by CT scan with associated peritonitis. She was admitted, started on antibiotics,
and ultimately underwent Juliet's procedure w/ takedown of splenic flexure on 11/16/2023. She then went into rapid atrial fibrillation post op on 11/17/2023. She was started on IV diltiazem and cardiology consulted for evaluation. She was symptomatic
with this and noted palpitations and some chest pain. Her heart rates are improved this AM on cardizem gtt and she is feeling better from a cardiac standpoint, although still complains of pain related to surgery.
Progress Note - Housetrailer Servicer
Subjective
Date of Service: November 28, 2023
Patient seen and examined this morning. No acute events overnight. Patient A-fib on monitor. Patient reporting more significant abdominal discomfort today. Patient denies chest pain, shortness of breath or palpitations.
Objective
Labs:
11/28/23 09:46
11/28/23 10:53
Labs
Hgb 8.6 g/dL (12.0-16.0) L 11/28/23 09:46
Hct 24.9 % (37.0-47.0) L 11/28/23 09:46
Plt Count 873 10^3/uL (130-400) H 11/28/23 09:46
PT 16.1 Sec (11.4-14.6) H 11/18/23 18:15
INR 1.27 11/18/23 18:15
APTT 27.8 Sec (23.4-35.0) 11/18/23 18:15
Sodium 132 mmol/L (135-145) L 11/28/23 10:53
Potassium 4.3 mmol/L (3.5-5.1) 11/28/23 10:53
BUN 15 mg/dl (7-17) 11/28/23 10:53
Creatinine 0.5 mg/dL (0.6-1.0) L 11/28/23 10:53
Glucose 171 mg/dl (70-99) H 11/28/23 10:53
Digoxin 0.4 ng/ml (0.8-2.0) L 11/28/23 10:53
Vital Signs and I&O:
Vital Signs
Temp Pulse Resp BP Pulse Ox
97.5 F 105 23 129/102 98
11/28/23 07:10 11/28/23 12:07 11/28/23 08:00 11/28/23 08:00 11/28/23 08:00
Vital Signs
Temp Pulse Resp BP Pulse Ox
97.5 F 105 23 129/102 98
11/28/23 07:10 11/28/23 12:07 11/28/23 08:00 11/28/23 08:00 11/28/23 08:00
Intake & Output
11/26/23 11/27/23 11/28/23 11/29/23
06:59 06:59 06:59 06:59
Intake Total 3125 / 3125 2176 / 2176 1970 / 1970
Output Total 2695 / 2695 3165 / 3165 1300 / 1300
Balance 430 / 430 -989 / -989 671 / 671
Physical Exam
Physical Exam
Frail, NG tube, appears uncomfortable but not acutely in distress
Temporal wasting, cachectic
Lungs with scattered, faint rhonchi, poor inspiratory effort
Relatively tachycardic irregular rate and rhythm, JVD okay
Abdomen drains in place, dressing intact
Extremities without edema
Neuro nonfocal
[2023-11-28 15:54] LABS: Glucose - Point of Care 159 mg/dl (70-99)
--- NOTE | 2023-11-28 17:34 | W.PN.HOSP.TC ---
Today's Communication/Plan
-
continue NPO/TPN
IV Abx
Assessment / Plan
Assessment / Plan
Assessment:
Septic Shock secondary to perforated bowel from diverticulitis vs stercoral colitis
- was given K-centra for Eliquis reversal
- underwent on 11/16 1) Juliet's procedure (left colectomy with colostomy) 2) takedown splenic flexure on 11/16/23. Operative findings: perforated distal descending colon with associated bloody contamination (blood plus stool-- particularly at left
retroperitoneum)
- post-op course complicated by post-op pelvic abscess seen on CT 11/19 s/p IRAD drain. Culture growing E. coli. E faecium and yeast.
- later CT abdomen/pelvis on 11/24 showed left paracolic gutter area; IR drain placed 11/25
- currently shock state is resolved
- continue Zosyn; OR cx, E. coli. E faecium, Strep, Clostridium, Bacteroides
- continue Micafungin for candidemia 1/2 sets
- continue NPO/IVF/TPN per CRS
- continue NGT/Joseph
- Colorectal/ID following
Parox A Fib with RVR
- resume Eliquis when cleared by GS; currently on full dose Lovenox
Acute HFpEF
- monitoring off Lasix
VDRF in setting of acute emergency surgery for airway protection
- extubated - pt denies respiratory distress
Post-operative acute anemia from blood loss
- s/p 3 units PRBCs. Hb is 8.9
Hyponatremia
Non-CO trop elevation
- trop 0.744
- follow tele/EKGs
Chronic Pain with Opioid Dependence
- continue Dilaudid as needed for pain; reduce to q4hprn. Fentanyl patch also added
- holding buprenorphine
Essential HTN
- hold BB/Doxazosin
LUE SVT cephalic just above antecubital vein
- resume Eliquis when cleared by GS; currently on full dose Lovenox
DVT prophylaxis: Lovenox
CODE STATUS: Full code
Anticipated Discharge: > 48 hours
Subjective/Interval History
-
Date of Service: November 28, 2023
no new complaints
has poor energy levels
Objective Data
-
Labs:
Laboratory Results
11/28/23 11/28/23
09:46 10:53
WBC 15.5 H
Hgb 8.6 L
Hct 24.9 L
Plt Count 873 H
Sodium Cancelled 132 L
Potassium Cancelled 4.3
Chloride Cancelled 105
Carbon Dioxide Cancelled 25
BUN Cancelled 15
Creatinine Cancelled 0.5 L
Glucose Cancelled 171 H
Calcium Cancelled 8.3 L
Total Bilirubin Cancelled 0.6
AST Cancelled 30
ALT Cancelled 20
Alkaline Phosphatase Cancelled 132 H
Vital Signs:
Vital Signs
Temp Pulse Resp BP Pulse Ox
97.5 F 105 23 129/102 98
11/28/23 07:10 11/28/23 12:07 11/28/23 08:00 11/28/23 08:00 11/28/23 08:00
I&O
11/27/23 11/28/23 11/29/23
06:59 06:59 06:59
Intake Total 2176 / 2176 1970 / 1970
Output Total 3165 / 3165 1300 / 1300
Balance -989 / -989 671 / 671
Physical Exam
-
General: No Apparent Distress
HEENT: Normocephalic and Atraumatic
Respiratory: Negative Wheezes
Cardiac: Regular Rhythm
GI: Soft
Genito-urinary: No Costovertebral Tender
Neuro: AO x 3
Psych: Calm
Data Reviewed
-
Total Time Spent with Patient (in minutes): 45
Labs: Labs Reviewed by me
[2023-11-28] MEDS: MYCAMINE 105 MG IV (18:27)
[2023-11-28] MEDS: Parenteral Nutrition, Central 1070 IV (21:20)
[2023-11-29] VITALS (22 sets, daily range): BP systolic 83–134; BP diastolic 57–111; PULSE 105–112; O2SAT 97; BMI 18.4
[2023-11-29] MEDS: NSS (PRESERVATIVE FREE) 0.25 ML IV (00:01)
[2023-11-29 00:07] LABS: Glucose - Point of Care 165 mg/dl (70-99)
[2023-11-29] MEDS: OFIRMEV 100 IV ×2 (01:25→07:30)
[2023-11-29] MEDS: ZOSYN 50 IV ×2 (02:20→07:30)
[2023-11-29] MEDS: CARDIZEM 125 IV ×2 (02:33→07:40)
[2023-11-29] MEDS: DILAUDID 0.5 MG IV ×6 (03:36→23:41)
--- NOTE | 2023-11-29 05:02 | W.PN.HOSP.TC ---
Today's Communication/Plan
-
TPN as per surgery
cont abx as per ID
rate control IV medications as per cardio
Therapeutic Lovenox
Assessment / Plan
Assessment / Plan
Physical Exam
General: No Apparent Distress
HEENT: Normocephalic and Atraumatic
Respiratory: Negative Wheezes
Cardiac: Regular Rhythm
GI: Soft colostomy and HEMA drain inplace
Genito-urinary: No Costovertebral Tender
Neuro: AO x 3
Psych: Calm
Assessment:
Septic Shock secondary to perforated bowel from diverticulitis vs stercoral colitis
- was given K-centra for Eliquis reversal
- underwent on 11/16 1) Juliet's procedure (left colectomy with colostomy) 2) takedown splenic flexure on 11/16/23. Operative findings: perforated distal descending colon with associated bloody contamination (blood plus stool-- particularly at left
retroperitoneum)
- post-op course complicated by post-op pelvic abscess seen on CT 11/19 s/p IRAD drain. Culture growing E. coli. E faecium and yeast.
- later CT abdomen/pelvis on 11/24 showed left paracolic gutter area; IR drain placed 11/25
- shock state resolved
- Zosyn narrowed to ceftriaxone/metronidazole and empiric vanc added as per ID; OR cx, E. coli. E faecium, Strep, Clostridium, Bacteroides
- continue Micafungin for candidemia 1/2 sets
- continue NPO/IVF/TPN per CRS
- continue NGT/Joseph
- Colorectal/ID eval appreciated
Parox A Fib with RVR
- resume Eliquis when cleared by GS; currently on full dose Lovenox
Acute HFpEF
- monitoring off Lasix
VDRF in setting of acute emergency surgery for airway protection
- extubated - stable respiratory status
Post-operative acute anemia from blood loss
- s/p 3 units PRBCs
-H&H so far stable
Hyponatremia
Non-AK trop elevation
- trop 0.744
- follow tele/EKGs
Chronic Pain with Opioid Dependence
- continue Dilaudid as needed for pain; reduce to q4hprn. Fentanyl patch also added
- holding buprenorphine
Essential HTN
- hold BB/Doxazosin
LUE SVT cephalic just above antecubital vein
- resume Eliquis when cleared by GS; currently on full dose Lovenox
DVT prophylaxis: Lovenox
CODE STATUS: Full code
discussed with patient's daughter Jennifer over phone
I spent a total of 50 minutes with the patient or on the floor. More than 50% of this time involved counseling and coordination of care.
Anticipated Discharge: > 48 hours
Subjective/Interval History
-
Date of Service: November 29, 2023
Denies flatus. Abdomen remains tender.
Objective Data
-
Labs:
Laboratory Results
11/29/23
06:00
WBC Pending
Hgb Pending
Hct Pending
Plt Count Pending
Sodium Pending
Potassium Pending
Chloride Pending
Carbon Dioxide Pending
BUN Pending
Creatinine Pending
Glucose Pending
Calcium Pending
Total Bilirubin Pending
AST Pending
ALT Pending
Alkaline Phosphatase Pending
Vital Signs:
Vital Signs
Temp Pulse Resp BP Pulse Ox
98.3 F 124 26 111/88 97
11/29/23 03:05 11/29/23 03:00 11/29/23 03:00 11/29/23 03:00 11/29/23 03:00
I&O
11/27/23 11/28/23 11/29/23
06:59 06:59 06:59
Intake Total 2176 / 2176 1970 / 1970 1313 / 1313
Output Total 3165 / 3165 1300 / 1300 1770 / 1770
Balance -989 / -989 671 / 671 -457 / -457
[2023-11-29 06:11] LABS: % Basophils 0.5 % (0-2); % Eosinophils 2.6 % (0-6); % Immature Granulocytes 0.9 % (0-0.5); % Monocytes 7.1 % (1.7-9.3); % Neutrophils 79.9 % (42.2-75.2); Absolute Basophils 0.1 10^3/uL (0-0.2); Absolute Eosinophils 0.4 10^3/uL (0-0.7); Absolute Immature Granulocytes 0.1 10^3/uL (0-0.05); Absolute Lymphocytes 1.3 10^3/uL (1.2-3.4); Absolute Neutrophils 11.6 10^3/uL (1.4-6.5); Hematocrit 24.4 % (37.0-47.0); Hemoglobin 8.1 g/dL (12.0-16.0); Mean Corp Hgb Conc. 33.2 g/dL (33.0-37.0); Mean Corpuscular Hgb 28.8 pg (27.0-31.0); Mean Corpuscular Volume 86.8 fL (81.0-99.0); Nucleated Red Blood Cells % 0 %; Platelet Count 885 10^3/uL (130-400); Red Blood Cell Count 2.81 10^6/uL (4.20-5.40); Red Cell Dist. Width 15.4 % (11.5-14.5); White Blood Cell Count 14.5 10^3/uL (4.8-10.8)
[2023-11-29 06:30] LABS: Glucose - Point of Care 179 mg/dl (70-99)
[2023-11-29 06:39] LABS: ALT (SGPT) 24 U/L (0-35); AST (SGOT) 39 U/L (14-36); Albumin 2.4 g/dl (3.5-5.0); Alkaline Phosphatase 144 U/L (38-126); Blood Urea Nitrogen 16 mg/dl (7-17); Calcium 8.3 mg/dl (8.4-10.2); Carbon Dioxide 26 mmol/L (22-30); Chloride 105 mmol/L (98-107); Digoxin 0.7 ng/ml (0.8-2.0); Estimated Creatinine Clearance 59 ml/min; Glucose 159 mg/dl (70-99); Magnesium 2.3 mg/dl (1.6-2.3); Phosphorus 3.7 mg/dl (2.5-4.5); Potassium 4.6 mmol/L (3.5-5.1); Sodium 133 mmol/L (135-145); Total Bilirubin 0.5 mg/dl (0.2-1.3); Total Protein 5.5 g/dl (6.3-8.2); Triglycerides 158 mg/dl (10-149); eGFR > 60.00
[2023-11-29] MEDS: LOVENOX 50 MG SC ×2 (07:29→19:39)
[2023-11-29] MEDS: PROTONIX IV 40 MG IV (07:30)
--- NOTE | 2023-11-29 07:46 | PTCARENOTE ---
Pt AAOx3, assessment as documented. VS as documented Afib on front desk monitor. Maintains complaints of 10/10 pain around the clock, requesting pain medication when awake. Pain assessed and evaluation of pain and pain medication discussed with
patient. Pt educated on importance of accurately describing and rating pain so this RN and rest of care team can most accurately treat pt condition. Pt educated on effect of opioid pain medications on bowel motility. Pt expressed understanding of
this education and did assert to this RN that the diluadid does help ease the pain for 'about 3-4 hours' but pt is reluctant to state a number of the pain during the time that the pain medicine does help. Pt continues that the pain is located
throughout her abdomen, but declines to describe the way that the pain feels, stating that it is difficult to describe at this time. This RN assured pt that her assessment of pain will be treated, but encourages the pt to provide thoughtful
descriptions to the best of her ability. Pt did not appear anxious during this shift, VS as documented, pt sleeping most of shift. Pt awoke around 23:00 requesting ativan. When anxiety assessed, pt said yes, she was experiencing anxiety. This RN
left the room to obtain medication. Upon returning, pt was asleep, medication returned. Pt awoke at 00:00 to request ativan again. This RN gave ativan per JAN. Pt fell asleep shortly following administration. Cardizem still in place, 15 mcg/min,
unable to titrate this shift d/t elevated HR. NGT patent, flushed per order. B/l HEMA drains patent with very minimal output. Pw in place with consistent output.
[2023-11-29] MEDS: CORDARONE 104 MG IV ×2 (09:00→19:57)
--- NOTE | 2023-11-29 09:31 | W.PN.CARDCBS ---
Today's Communication / Plan
-
Await return of bowel function
Continue IV digoxin, IV diltiazem, IV amiodarone
Convert rate control regimen to oral when possible
Lovenox 50 mg IV every 12
Check proBNP in a.m.
Impression / Plan
-
Body Piercer: Dr. HAILEY Nash
Impression:
Perforated stercoral colitis with septic shock
s/p Juliet's procedure 11/16/2023
Paroxysmal atrial fibrillation w/ RVR recurrent postoperatively with difficult to control rates
Acute blood loss anemia
Troponin elevation
Chronic HFpEF
Hypertension
Hyperlipidemia
Spinal stenosis
Fibromyalgia
h/o tobacco abuse on nicotine patch
Acute HFpEF postoperatively
Echo 11/22/2023: EF 55-60% mild LVH, dilated left atrium and right atrium, moderate mitral regurgitation mild TR, pulmonary artery systolic pressure 43-48 mmHg
Plan:
Overall stable cardiac status.
Her ventricular response to atrial fibrillation is still borderline rapid but acceptable on IV amiodarone twice daily, digoxin, and IV diltiazem. Unfortunately she is still strictly n.p.o. so we cannot convert to an oral regimen.
She is fully anticoagulated on Lovenox 50 mg IV every 12 hours.
Her digoxin level is 0.7 mg/dL.
Will await jew of bowel function at which point we can convert her to an oral regimen.
Her weight is up 2 or 3 kg, we will recheck a proBNP and consider as needed Lasix. Overall she does not appear to be in acute heart failure at this time.
HPI: Bailey is an 78 year old female with PMH of paroxysmal atrial fibrillation, chronic HFpEF, hypertension, hyperlipidemia, and chronic pain who presented to [facility] for evaluation of abdominal pain. She reported that for approximately 2 days prior
to arrival, she noted increased abdominal pain and constipation. She also noted associated chills. On arrival to ER, she was found to have perforated diverticulitis by CT scan with associated peritonitis. She was admitted, started on antibiotics,
and ultimately underwent Juliet's procedure w/ takedown of splenic flexure on 11/16/2023. She then went into rapid atrial fibrillation post op on 11/17/2023. She was started on IV diltiazem and cardiology consulted for evaluation. She was symptomatic
with this and noted palpitations and some chest pain. Her heart rates are improved this AM on cardizem gtt and she is feeling better from a cardiac standpoint, although still complains of pain related to surgery.
Progress Note - Body Piercer
Subjective
Date of Service: November 29, 2023:
Current medications: IV diltiazem, Zosyn, digoxin 125 mcg a day, Lovenox 50 SQ every 12, amiodarone 200 IV twice daily, vancomycin
PMH/PSH//SH: Reviewed
Allergies none
Outpatient medications: Apixaban, atorvastatin, buprenorphine, doxazosin, metoprolol ER 100 twice daily, nicotine patch
Review of systems: Negative except as above
109/76, pulse 118, respiratory 23, afebrile, intake and output -0.5 L, weight is 50.2 kg, if accurate up 1.5 kg, peak weight in hospital had been 55.7 kg
Hemoglobin 8.1, had been 8.6, sodium 133, potassium 4.6, BUN/creatinine 16 and 0.5, potassium 4.6, albumin 2.4
Objective
Labs:
11/29/23 05:33
11/29/23 05:33
Labs
Hgb 8.1 g/dL (12.0-16.0) L 11/29/23 05:33
Hct 24.4 % (37.0-47.0) L 11/29/23 05:33
Plt Count 885 10^3/uL (130-400) H 11/29/23 05:33
PT 16.1 Sec (11.4-14.6) H 11/18/23 18:15
INR 1.27 11/18/23 18:15
APTT 27.8 Sec (23.4-35.0) 11/18/23 18:15
Sodium 133 mmol/L (135-145) L 11/29/23 05:33
Potassium 4.6 mmol/L (3.5-5.1) 11/29/23 05:33
BUN 16 mg/dl (7-17) 11/29/23 05:33
Creatinine 0.5 mg/dL (0.6-1.0) L 11/29/23 05:33
Glucose 159 mg/dl (70-99) H 11/29/23 05:33
Digoxin 0.7 ng/ml (0.8-2.0) L 11/29/23 05:33
Vital Signs and I&O:
Vital Signs
Temp Pulse Resp BP Pulse Ox
36.9 C 118 23 109/76 96
11/29/23 07:15 11/29/23 09:04 11/29/23 09:04 11/29/23 09:04 11/29/23 09:04
Vital Signs
Temp Pulse Resp BP Pulse Ox
36.9 C 118 23 109/76 96
11/29/23 07:15 11/29/23 09:04 11/29/23 09:04 11/29/23 09:04 11/29/23 09:04
Intake & Output
11/27/23 11/28/23 11/29/23 11/30/23
07:59 07:59 07:59 07:59
Intake Total 2176 / 2176 1970 / 1970 1313 / 1313
Output Total 3165 / 3165 1300 / 1300 1770 / 1770
Balance -989 / -989 671 / 671 -457 / -457
Physical Exam
Physical Exam
Chronically ill-appearing, NG tube in place, uncomfortable but not severely so
Head neck exam is unremarkable
Diminished breath sounds
Regular rate and rhythm, JVD okay, mitral regurgitation murmur
Abdomen incision intact dressing intact's
Extremities 1+ edema
--- NOTE | 2023-11-29 09:35 | PHA.VAN.IN ---
Assessment
- Assessment
Renal Function: Appears similar to baseline
Concomitant Antimicrobials: piperacillin/tazobactam, micafungin
AUC Dosing Plan
- Dosing Variables
Dosing Weight (kg): 57
Dosing CrCl (ml/min): 67
Vd coefficient (L/kg): 0.7
Utilized IBW for dosing weight and CrCl calculations
- Empiric Dosing
Initial / Loading Dose: 1000mg - administration pending
Maintenance Regimen: Vanc 500mg Q12H starting at 1800 in lieu of loading dose
Estimated AUC (mcg*h/mL): 430
Estimated Peak (mcg*h/mL): 24.4
Estimated Trough (mcg/ml): 12.6
Estimated Half Life (H): 11.5
- Monitoring
No levels ordered at this time: consider levels in next few days
Pharmacokinetics Vancomycin I
- -
Patient Age: 78
Patient Sex: Female
Vancomycin Day #: 1
Indication: Gi / Intra-Abdominal
Requesting Provider: Dr. Sanchez
Pertinent Antimicrobial Allergies:
NKDA
Height / Weight:
Height 5 ft 5 in
Actual Weight 50.2 kg
IBW in k
Pertinent Past Medical History: BMI ~18.4
- Vital Signs / Lab Results
Temp Pulse Resp BP Pulse Ox
98.5 F 118 23 109/76 96
11/29/23 07:15 11/29/23 09:04 11/29/23 09:04 11/29/23 09:04 11/29/23 09:29
Lab Results - Hematology
11/27/23 11/28/23 11/29/23
04:53 09:46 05:33
WBC 22.4 H 15.5 H 14.5 H
Lab Results - Chemistry
11/27/23 11/28/23 11/28/23
04:53 09:46 10:53
BUN 11 Cancelled 15
Creatinine 0.5 L Cancelled 0.5 L
Estimated Creat Clear 57 Cancelled 57
Albumin 2.5 L Cancelled 2.4 L
11/29/23
05:33
BUN 16
Creatinine 0.5 L
Estimated Creat Clear 59
Albumin 2.4 L
Microbiology Results
11/25/23 15:39 Wound Culture - Final
Abscess Escherichia coli
Enterococcus faecium
Samantha albicans
Gram Stain - Final
11/18/23 08:05 Fungus Mold Identification - Final
Blood/Venous Nakaseomyces glabrata
11/22/23 04:38 Blood Culture - Final
Blood/Venous No Growth - Final Report
--- NOTE | 2023-11-29 09:56 | W.PN.ID1 ---
Date of Service
Date of Service: November 29, 2023
Today's Communication
Add Vancomycin.
NArrow zosyn to ceftriaxone/metronidazole.
Continue micafungin.
Assessment / Plan
# Perforated diverticulitis with free air and peritonitis
-1/9 s/p left hemicolectomy with colostomy
- OR cx, E. coli. E faecium, Strep spp., Clostridium, Bacteroides
# Post-op pelvic abscess
- 11/20 s/p perc drain - right/pelvis
- Cx: E. coli, E. faecium; C glabrata, no anaerobic cx sent
- E faecium amp sensitive in this instance
- 11/25 s/p per drain in the LEFT collection
- Cx: E coli, C albicans, enterococcus faecium (amp-resistant)
# Transient Nakaseomyces glabrata candidemia 1 out of 2 sets
- Intra-abdominal source.
- repeat blood cx (1 set prior to micafungin, 2nd set after 1 dose micafungin) neg to date
# Leukocytosis
- trending down
# Ileus - on TPN since 11/22 (picc placed after candidemia)
PLAN:
- Add Vancomycin IV (d1) to cover the amp-resistant E. faecium isolate.
- Narrow Zosyn (d#13) to ceftriaxone and metronidazole.
- Continue Micafungin (d#7 of )
- Follow WBC
#Additional Past Medical History:
Paroxysmal Atrial Fibrillation
CHF
Essential Hypertension
Hyperlipidemia
Interstitial cystitis
Chronic Pain with Opioid Dependence
Diverticulitis
Appendectomy
Cholecystectomy
Hysterectomy
Partial hysterectomy
Right rotator cuff
Chief Complaint
-: Leukocytosis and Other (Fungemia)
Subjective / Review of Systems
More alert. c/o abd pain.
Vital Signs / Physical Exam
Vital Signs
Vital Signs
Temp Pulse Resp BP Pulse Ox
98.5 F 118 23 109/76 96
11/29/23 07:15 11/29/23 09:04 11/29/23 09:04 11/29/23 09:04 11/29/23 09:29
Physical Exam
Constitutional: Acutely Ill
Cardiovascular: Irregular Rate and Other (tachycardic)
Pulmonary: Clear (anteriorly)
Gastrointestinal: Soft, Tender (mild diffuse), Decreased Bowel Sounds and Other (HEMA drains x x2 in place. Ostomy + liquid stool)
Extremities: Edema
Neurological: Awake and Alert
Lines: PICC
Objective Data
Lab Data
Lab Results
11/29/23 05:33
11/29/23 05:33
PT 16.1 Sec (11.4-14.6) H 11/18/23 18:15
INR 1.27 11/18/23 18:15
APTT 27.8 Sec (23.4-35.0) 11/18/23 18:15
Estimated Creat Clear 59 ml/min 11/29/23 05:33
Lactic Acid 0.9 mmol/L (0.7-2.0) 11/18/23 18:15
Total Bilirubin 0.5 mg/dl (0.2-1.3) 11/29/23 05:33
AST 39 U/L (14-36) H 11/29/23 05:33
ALT 24 U/L (0-35) 11/29/23 05:33
Alkaline Phosphatase 144 U/L (38-126) H 11/29/23 05:33
Most recent labs reviewed.
Micro Results:
11/25/23 15:39 Wound Culture - Final
Abscess Escherichia coli
Enterococcus faecium
Samantha albicans
Gram Stain - Final
11/18/23 08:05 Fungus Mold Identification - Final
Blood/Venous Nakaseomyces glabrata
11/22/23 04:38 Blood Culture - Final
Blood/Venous No Growth - Final Report
11/21/23 16:20 Blood Culture - Final
Blood/Venous No Growth - Final Report
11/18/23 00:47 Blood Culture - Final
Blood/Venous Yeast
Gram Stain - Final
11/20/23 12:39 Body Fluid Culture - Final
Fluid Escherichia coli
Enterococcus faecium
Samantha glabrata (T. glab)
Gram Stain - Final
11/18/23 00:48 Blood Culture - Final
Blood/Venous No Growth - Final Report
11/15/23 22:44 Wound Culture - Final
Abdomen Escherichia coli
Enterococcus faecium
Streptococcus species
Gram Stain - Final
11/15/23 22:44 Anaerobic Culture - Final
Abdomen Bacteroides fragilis
Clostridium species
11/15/23 18:19 Blood Culture - Final
Blood/Venous No Growth - Final Report
11/18/23 18:31 Urine Culture - Final
Urine NO GROWTH
11/15/23 14:27 Influenza Types A & B (MARIELA) - Final
Nasal Swab Negative for Influenza A & B, NAAT
Negative results must be combined with clinical observations
and patient history.
Nucleic Acid Amplification test (NAAT)performed on the
Capical platform.
11/15/23 CT a/p: The findings are most consistent with perforation (partially contained) of a diverticulum in the descending or sigmoid colon with free air scattered throughout the abdomen and pelvis, forming a masslike area with fluid and free air in
the left side of the abdomen measuring 10 x 10 x 13 cm.� Additionally there is fluid in the anterior peripancreatic and pararenal space consistent with peritonitis, no discrete fluid collection to suggest an abscess. There is significant stool
within the colon and air within the colon wall, which may be due to previous obstruction prior to perforation or the differential includes the possibility of stercoral colitis.
11/19/23 CT a/p: Elongated fluid collection within the pelvis, extending into the retroperitoneum, measuring 8 x 5.6 x 3.3 cm. Internal gas bubbles and peripheral contrast enhancement are suggestive of postoperative abscess. Abscess is not
immediately adjacent to the suture line for the rectal stump. Bubbles of air within the left paracolic gutter as detailed above, without associated abscess formation. These bubbles of air may be postoperative in nature. Bibasilar airspace
consolidation, which may represent subsegmental atelectasis or pneumonia. Tiny left pleural effusion.
11/22/23: CXR: Right PICC in position as described. Worsening right lung airspace disease suspicious for pneumonia. Stable small left pleural effusion with associated airspace disease.
11/24/23 CT a/p: Right true pelvic pigtail drainage catheter in position with significantly decreased abnormal fluid collection/abscess in comparison to prior study.
Density left lower lobe consolidation and small left pleural effusion which could represent atelectasis and/or pneumonia. Limited evaluation as a result of paucity of oral contrast including possibly of oral contrast opacification of portions of
small bowel as well as entire large bowel. CANNOT EXCLUDE small extraluminal collection in the left flank measuring approximately 3.5 cm such as an abscess, as noted above.
[2023-11-29] MEDS: VANCOCIN 200 IV (11:00)
[2023-11-29] MEDS: NSS (PRESERVATIVE FREE) 10 ML IV (11:34)
[2023-11-29] MEDS: LANOXIN 125 MCG IV (11:36)
[2023-11-29 12:04] LABS: Glucose - Point of Care 171 mg/dl (70-99)
--- NOTE | 2023-11-29 13:17 | W.PN.CRS1 ---
Addendum entered and electronically signed by Barak Alcaraz MD 11/29/23 14:43:
I saw and examined the patient.
The PA's note was reviewed and I agree with the note.
Comment:
Seen in am with PA.
Awakens to voice. Mild abdominal discomfort.
Afebrile. WBC down a bit to 14.5. NGT with less output.
Abdomen mildly distended. Stoma viable with some gas in bag. Incisions fine. HEMA with SS output. IR drain with feculent output.
Antibiotics per ID.
Await stoma function. Continue TPN/NGT.
Continue BID Lovenox and continue to hold Eliquis.
Original Note:
Today's Communication / Plan
-
tpn
increase IR drain flushes
Assessment/Plan
-
78-year-old female with PMH of A-fib (on Eliquis, last dose was the morning of 11/15/2023), chronic pain (on Suboxone), HTN who presented with acute abdominal pain and was found to have perforated stercoral colitis and underwent emergency Dos Santos's
procedure for perforation in the descending colon, in septic shock; given Kcentra preoperatively, on Paul-Synephrine overnight, s/p IR drain placement
1.� WBC is 14.5, overall improving. � Somewhat hypotensive.� Afebrile.
2.� S/P IR drain placement. Will increase flushes to BID.
3.� TPN daily.
4.� Continue to hold Eliquis.� On Lovenox for DVT prophylaxis, 50meq BID.
5.� NG tube until ostomy function. Put out 100ml.
6.� OR cx,�E. coli.�E faecium,�Strep spp.,�Clostridium,�Bacteroides. On ceftriaxone/metronidazole, vancomycin, and micafungin per ID.
7.� Continue HEMA drains.
Subjective Data
Procedure
Juliet's resection 11/15/23
Subjective Data
Date of Service: November 29, 2023
Patient states she feels 'a little better'. Otherwise she has no complaints.
Objective Data
-
Vital Signs
Temp Pulse Resp BP Pulse Ox
98.5 F 116 23 109/76 96
11/29/23 07:15 11/29/23 11:36 11/29/23 09:04 11/29/23 09:04 11/29/23 09:29
Intake & Output
11/28/23 11/29/23 11/30/23
06:59 06:59 06:59
Intake Total 1971 / 1970 1313 / 1313
Output Total 1300 / 1300 1770 / 1770
Balance 671 / 671 -457 / -457
Intake:
IV fluids (Total) 420 / 420
IV piggybacks 405 / 405 780 / 780
TPN/PPN 1056 / 1056 528 / 528
Amount instilled into Drain ( 5 / 5 5 5
Total)
Left Middle Abdomen David- 5 / 5 5 / 5
Clarke C Placed in IR
Amount instilled into GI Tube ( 90 / 90
Total)
[place] Sump 90 / 90
Output:
Drain Output (Total) 0 / 0 70 / 70
Abdomen David-Clarke 0 / 0 25 / 25
Left Middle Abdomen David- 0 / 0 45 / 45
Clarke C Placed in IR
Gastrointestinal tube output ( 100 / 100
Total)
[place] Sump 100 / 100
Urine, Joseph 1200 / 1200
Urine, Voided 1700 / 1700
Other:
How many times incontinent 1
SATURATED amount urine
Lab Results
11/29/23 05:33
11/29/23 05:33
Physical Exam
-
General: No Acute Distress and AOx3
Abdomen: Soft, Non Distended, Non Tender and Other (colostomy warm and pink, no output yet. IR drain and HEMA drains serous. )
Skin: Warm and Dry
[2023-11-29] MEDS: ROCEPHIN 2000 MG IV (14:00)
[2023-11-29] MEDS: STERILE WATER FOR INJECTION 20 ML IV (14:00)
[2023-11-29] MEDS: FLAGYL 500 MG 100 IV ×2 (15:00→21:24)
[2023-11-29] MEDS: DURAGESIC 25 MCG/HR PATCH 1 PATCH TRANSDERM (15:08)
[2023-11-29] MEDS: MYCAMINE 105 MG IV (17:17)
[2023-11-29 18:01] LABS: Glucose - Point of Care 162 mg/dl (70-99)
[2023-11-29] MEDS: VANCOCIN HCL 500 MG 100 IV (18:17)
[2023-11-29] MEDS: Parenteral Nutrition, Central 1070 IV (21:20)
[2023-11-29] MEDS: ATIVAN 0.5 MG IV ×2 (21:27)
[2023-11-29 23:51] LABS: Glucose - Point of Care 139 mg/dl (70-99)
[2023-11-30] VITALS (12 sets, daily range): BP systolic 92–125; BP diastolic 59–95; BMI 18.2
[2023-11-30] MEDS: DILAUDID 0.5 MG IV ×6 (03:42→23:42)
[2023-11-30 04:01] LABS: % Basophils 0.6 % (0-2); % Eosinophils 2.1 % (0-6); % Immature Granulocytes 1.2 % (0-0.5); % Lymphocytes 9.8 % (20.5-51.1); % Monocytes 7.2 % (1.7-9.3); % Neutrophils 79.1 % (42.2-75.2); Absolute Basophils 0.1 10^3/uL (0-0.2); Absolute Eosinophils 0.4 10^3/uL (0-0.7); Absolute Immature Granulocytes 0.2 10^3/uL (0-0.05); Absolute Lymphocytes 1.6 10^3/uL (1.2-3.4); Absolute Monocytes 1.2 10^3/uL (0.1-0.6); Hematocrit 25.2 % (37.0-47.0); Hemoglobin 8.4 g/dL (12.0-16.0); Mean Corp Hgb Conc. 33.3 g/dL (33.0-37.0); Mean Corpuscular Hgb 28.9 pg (27.0-31.0); Mean Corpuscular Volume 86.6 fL (81.0-99.0); Mean Platelet Volume 8.7 fL (7.4-10.4); Nucleated Red Blood Cells % 0 %; Platelet Count 879 10^3/uL (130-400); Red Blood Cell Count 2.91 10^6/uL (4.20-5.40); Red Cell Dist. Width 15.4 % (11.5-14.5); White Blood Cell Count 16.4 10^3/uL (4.8-10.8)
[2023-11-30 04:18] LABS: ALT (SGPT) 25 U/L (0-35); AST (SGOT) 34 U/L (14-36); Albumin 2.5 g/dl (3.5-5.0); Alkaline Phosphatase 147 U/L (38-126); Blood Urea Nitrogen 15 mg/dl (7-17); Calcium 8.5 mg/dl (8.4-10.2); Carbon Dioxide 25 mmol/L (22-30); Chloride 105 mmol/L (98-107); Digoxin 0.5 ng/ml (0.8-2.0); Estimated Creatinine Clearance 59 ml/min; Glucose 170 mg/dl (70-99); Potassium 4.1 mmol/L (3.5-5.1); Sodium 133 mmol/L (135-145); Total Bilirubin 0.4 mg/dl (0.2-1.3); Total Protein 5.9 g/dl (6.3-8.2); eGFR > 60.00
[2023-11-30 04:23] LABS: NT-proBNP 612 pg/ml
[2023-11-30] MEDS: FLAGYL 500 MG 100 IV ×3 (05:11→21:49)
[2023-11-30] MEDS: ATIVAN 0.5 MG IV (05:30)
[2023-11-30] MEDS: NSS (PRESERVATIVE FREE) 0.25 ML IV (05:31)
[2023-11-30] MEDS: VANCOCIN HCL 500 MG 100 IV ×2 (06:14→18:39)
[2023-11-30 06:29] LABS: Glucose - Point of Care 140 mg/dl (70-99)
[2023-11-30] MEDS: LOVENOX 50 MG SC ×2 (07:24→19:39)
[2023-11-30] MEDS: PROTONIX IV 40 MG IV (07:25)
[2023-11-30] MEDS: NSS (PRESERVATIVE FREE) 10 ML IV (07:25)
[2023-11-30] MEDS: CARDIZEM 125 IV ×2 (07:25→15:20)
--- NOTE | 2023-11-30 08:28 | W.PN.HOSP.TC ---
Today's Communication/Plan
-
cont TPN as per surgery
abx as per ID
rate rhythm control as per cardio
pain control
PT/OT
Assessment / Plan
Assessment / Plan
Physical Exam
General: No Apparent Distress
HEENT: Normocephalic and Atraumatic
Respiratory: Negative Wheezes
Cardiac: Regular Rhythm
GI: Soft tender colostomy and HEMA drain in place
Genito-urinary: No Costovertebral Tender
Neuro: AO x 3
Psych: Calm
Assessment:
Septic Shock secondary to perforated bowel from diverticulitis vs stercoral colitis
- was given K-centra for Eliquis reversal
- underwent on 11/16 1) Juliet's procedure (left colectomy with colostomy) 2) takedown splenic flexure on 11/16/23. Operative findings: perforated distal descending colon with associated bloody contamination (blood plus stool-- particularly at left
retroperitoneum)
- post-op course complicated by post-op pelvic abscess seen on CT 11/19 s/p IRAD drain. Culture growing E. coli. E faecium and yeast.
- later CT abdomen/pelvis on 11/24 showed left paracolic gutter area; IR drain placed 11/25
- shock state resolved
- Zosyn narrowed to ceftriaxone/metronidazole and empiric vanc added as per ID; OR cx, E. coli. E faecium, Strep, Clostridium, Bacteroides
- continue Micafungin for candidemia 1/2 sets
- continue NPO/IVF/TPN per CRS, OR drain removed 11/30
- continue NGT/Joseph
- Colorectal/ID eval appreciated
-cont fentanyl patch prn dilaudid q4h pain and IV tylenol TID
Parox A Fib with RVR
- resume Eliquis when cleared by GS; currently on full dose Lovenox
HFpEF
-stable at this time, BNP improved from 2000s to 600s
- monitoring off Lasix
VDRF in setting of acute emergency surgery for airway protection
- extubated - stable respiratory status
Post-operative acute anemia from blood loss
- s/p 3 units PRBCs
-H&H so far stable
Hyponatremia
Non-NE trop elevation
- trop 0.744
- follow tele/EKGs
Chronic Pain with Opioid Dependence
- continue Dilaudid as needed for pain; reduce to q4hprn. Fentanyl patch also added
- holding buprenorphine
Essential HTN
- hold BB/Doxazosin
LUE SVT cephalic just above antecubital vein
- resume Eliquis when cleared by GS; currently on full dose Lovenox
DVT prophylaxis: Lovenox
CODE STATUS: Full code
I spent a total of 50 minutes with the patient or on the floor. More than 50% of this time involved counseling and coordination of care.
Anticipated Discharge: > 48 hours
Subjective/Interval History
-
Date of Service: November 30, 2023
Reports significant pain receiving dilaudid every 4h, sedated in btwn doses.
Objective Data
-
Labs:
Laboratory Results
11/30/23
03:45
WBC 16.4 H
Hgb 8.4 L
Hct 25.2 L
Plt Count 879 H
Sodium 133 L
Potassium 4.1
Chloride 105
Carbon Dioxide 25
BUN 15
Creatinine 0.5 L
Glucose 170 H
Calcium 8.5
Total Bilirubin 0.4
AST 34
ALT 25
Alkaline Phosphatase 147 H
Vital Signs:
Vital Signs
Temp Pulse Resp BP Pulse Ox
98.4 F 115 21 106/69 95
11/30/23 03:50 11/30/23 04:00 11/30/23 04:00 11/30/23 04:00 11/30/23 04:00
I&O
11/29/23 11/30/23 12/01/23
06:59 06:59 06:59
Intake Total 1313 / 1313 2330 / 2330
Output Total 1770 / 1770 1185 / 1185
Balance -457 / -457 1145 / 1145
--- NOTE | 2023-11-30 08:54 | PHA.VAN.FU ---
Vancomycin Assessment / Plan
- Assessment
Renal Function: Stable
WBC's are: Trending Up
In the past 24 hrs, patient has been: Afebrile
Concomitant Antimicrobials: ceftriaxone, metronidazole, micafungin
- Dosing Plan
Continue: Vanc 500mg Q12H
- Monitoring Plan
Peak Level: 11/30 20:30
Trough Level: 12/01 05:30
Monitoring Comments: levels to be drawn after 3rd maintenance dose
- Follow Up
Pharmacy will continue to follow.
Vancomycin Follow UP
- -
Patient Age: 78
Patient Sex: Female
Vancomycin Day #: 2
Indication: Gi / Intra-Abdominal
Requesting Provider: Dr. Sanchez
Pertinent Antimicrobial Allergies:
NKDA
Height / Weight:
Height 5 ft 5 in
Actual Weight 49.6 kg
IBW in k
Pertinent Past Medical History: BMI ~18.4
- Vital Signs / Lab Results
Temp Pulse Resp BP Pulse Ox
98.4 F 115 21 106/69 95
11/30/23 03:50 11/30/23 04:00 11/30/23 04:00 11/30/23 04:00 11/30/23 04:00
Lab Results - Hematology
11/28/23 11/29/23 11/30/23
09:46 05:33 03:45
WBC 15.5 H 14.5 H 16.4 H
Lab Results - Chemistry
11/28/23 11/28/23 11/29/23
09:46 10:53 05:33
BUN Cancelled 15 16
Creatinine Cancelled 0.5 L 0.5 L
Estimated Creat Clear Cancelled 57 59
Albumin Cancelled 2.4 L 2.4 L
11/30/23
03:45
BUN 15
Creatinine 0.5 L
Estimated Creat Clear 59
Albumin 2.5 L
Microbiology Results
11/25/23 15:39 Wound Culture - Final
Abscess Escherichia coli
Enterococcus faecium
Samantha albicans
Gram Stain - Final
[2023-11-30] MEDS: CORDARONE 104 MG IV ×2 (08:56→20:54)
--- NOTE | 2023-11-30 09:14 | W.PN.ID1 ---
Date of Service
Date of Service: November 30, 2023
Today's Communication
Continue Vanco/ceftriaxone/MNTZ/micafungin.
Assessment / Plan
# Perforated diverticulitis with free air and peritonitis
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
- OR cx, E. coli. E faecium, Strep spp., Clostridium, Bacteroides
# Post-op pelvic abscess
- 11/20 s/p perc drain - right/pelvis
- Cx: E. coli, E. faecium; C glabrata, no anaerobic cx sent
- E faecium amp sensitive in this instance
- 11/25 s/p per drain in the LEFT collection
- Cx: E coli, C albicans, enterococcus faecium (amp-resistant)
# Transient Nakaseomyces glabrata candidemia 1 out of 2 sets
- Intra-abdominal source.
- repeat blood cx (1 set prior to micafungin, 2nd set after 1 dose micafungin) neg to date
# Leukocytosis
- trended up today. Afebrile.
# Ileus - on TPN since 11/22 (picc placed after candidemia)
PLAN:
- Continue Vancomycin IV (d2) to cover the amp-resistant E. faecium isolate.
-Continue ceftriaxone and metronidazole (d14 abx)
- Continue Micafungin (d# of )
- Follow WBC
#Additional Past Medical History:
Paroxysmal Atrial Fibrillation
CHF
Essential Hypertension
Hyperlipidemia
Interstitial cystitis
Chronic Pain with Opioid Dependence
Diverticulitis
Appendectomy
Cholecystectomy
Hysterectomy
Partial hysterectomy
Right rotator cuff
Chief Complaint
-: Leukocytosis and Other (Fungemia)
Subjective / Review of Systems
c/o pain.
Vital Signs / Physical Exam
Vital Signs
Vital Signs
Temp Pulse Resp BP Pulse Ox
98.4 F 115 21 106/69 95
11/30/23 03:50 11/30/23 04:00 11/30/23 04:00 11/30/23 04:00 11/30/23 04:00
Physical Exam
Constitutional: Acutely Ill and Chronically Ill
Cardiovascular: Irregular Rate and Other (tachycardic)
Gastrointestinal: Soft, Non Distended, Decreased Bowel Sounds and Other (IR drain with cloudy brown output)
Extremities: Negative Edema
Lines: PICC
Objective Data
Lab Data
Lab Results
11/30/23 03:45
11/30/23 03:45
PT 16.1 Sec (11.4-14.6) H 11/18/23 18:15
INR 1.27 11/18/23 18:15
APTT 27.8 Sec (23.4-35.0) 11/18/23 18:15
Estimated Creat Clear 59 ml/min 11/30/23 03:45
Lactic Acid 0.9 mmol/L (0.7-2.0) 11/18/23 18:15
Total Bilirubin 0.4 mg/dl (0.2-1.3) 11/30/23 03:45
AST 34 U/L (14-36) 11/30/23 03:45
ALT 25 U/L (0-35) 11/30/23 03:45
Alkaline Phosphatase 147 U/L (38-126) H 11/30/23 03:45
Most recent labs reviewed.
Micro Results:
11/25/23 15:39 Wound Culture - Final
Abscess Escherichia coli
Enterococcus faecium
Samantha albicans
Gram Stain - Final
11/18/23 08:05 Fungus Mold Identification - Final
Blood/Venous Nakaseomyces glabrata
11/22/23 04:38 Blood Culture - Final
Blood/Venous No Growth - Final Report
11/21/23 16:20 Blood Culture - Final
Blood/Venous No Growth - Final Report
11/18/23 00:47 Blood Culture - Final
Blood/Venous Yeast
Gram Stain - Final
11/20/23 12:39 Body Fluid Culture - Final
Fluid Escherichia coli
Enterococcus faecium
Samantha glabrata (T. glab)
Gram Stain - Final
11/18/23 00:48 Blood Culture - Final
Blood/Venous No Growth - Final Report
11/15/23 22:44 Wound Culture - Final
Abdomen Escherichia coli
Enterococcus faecium
Streptococcus species
Gram Stain - Final
11/15/23 22:44 Anaerobic Culture - Final
Abdomen Bacteroides fragilis
Clostridium species
11/15/23 18:19 Blood Culture - Final
Blood/Venous No Growth - Final Report
11/18/23 18:31 Urine Culture - Final
Urine NO GROWTH
11/15/23 14:27 Influenza Types A & B (MARIELA) - Final
Nasal Swab Negative for Influenza A & B, NAAT
Negative results must be combined with clinical observations
and patient history.
Nucleic Acid Amplification test (NAAT)performed on the
[employer] platform.
11/15/23 CT a/p: The findings are most consistent with perforation (partially contained) of a diverticulum in the descending or sigmoid colon with free air scattered throughout the abdomen and pelvis, forming a masslike area with fluid and free air in
the left side of the abdomen measuring 10 x 10 x 13 cm.� Additionally there is fluid in the anterior peripancreatic and pararenal space consistent with peritonitis, no discrete fluid collection to suggest an abscess. There is significant stool
within the colon and air within the colon wall, which may be due to previous obstruction prior to perforation or the differential includes the possibility of stercoral colitis.
11/19/23 CT a/p: Elongated fluid collection within the pelvis, extending into the retroperitoneum, measuring 8 x 5.6 x 3.3 cm. Internal gas bubbles and peripheral contrast enhancement are suggestive of postoperative abscess. Abscess is not
immediately adjacent to the suture line for the rectal stump. Bubbles of air within the left paracolic gutter as detailed above, without associated abscess formation. These bubbles of air may be postoperative in nature. Bibasilar airspace
consolidation, which may represent subsegmental atelectasis or pneumonia. Tiny left pleural effusion.
11/22/23: CXR: Right PICC in position as described. Worsening right lung airspace disease suspicious for pneumonia. Stable small left pleural effusion with associated airspace disease.
11/24/23 CT a/p: Right true pelvic pigtail drainage catheter in position with significantly decreased abnormal fluid collection/abscess in comparison to prior study.
Density left lower lobe consolidation and small left pleural effusion which could represent atelectasis and/or pneumonia. Limited evaluation as a result of paucity of oral contrast including possibly of oral contrast opacification of portions of
small bowel as well as entire large bowel. CANNOT EXCLUDE small extraluminal collection in the left flank measuring approximately 3.5 cm such as an abscess, as noted above.
--- NOTE | 2023-11-30 09:22 | W.PN.CARDCBS ---
Today's Communication / Plan
-
Cardiac status stable with stable HR and bp.
AFib with stable HR. Cont IV Amidarone, IV Digoxin and IV Diltiazem. Convert to POs once able to take POs.
Last Dig level 0.5 on 11/30.
Cont full anticoagulation with Lovenox 50 mg IV every 12 hours.
Volume status appears stable. pBNP is lower in 600s.
Impression / Plan
-
Senior Game Designer: Dr. HAILEY Nash
Impression:
Perforated stercoral colitis with septic shock
s/p Juliet's procedure 11/16/2023
Paroxysmal atrial fibrillation w/ RVR recurrent postoperatively with difficult to control rates
Acute blood loss anemia
Troponin elevation
Chronic HFpEF
Hypertension
Hyperlipidemia
Spinal stenosis
Fibromyalgia
h/o tobacco abuse on nicotine patch
Acute HFpEF postoperatively
Echo 11/22/2023: EF 55-60% mild LVH, dilated left atrium and right atrium, moderate mitral regurgitation mild TR, pulmonary artery systolic pressure 43-48 mmHg
Plan:
Cardiac status stable with stable HR and bp.
AFib with stable HR. Cont IV Amidarone, IV Digoxin and IV Diltiazem. Convert to POs once able to take POs.
Last Dig level 0.5 on 11/30.
Cont full anticoagulation with Lovenox 50 mg IV every 12 hours.
Volume status appears stable. pBNP is lower in 600s.
Cont support care with TPN.
HPI: Bailey is an 78 year old female with PMH of paroxysmal atrial fibrillation, chronic HFpEF, hypertension, hyperlipidemia, and chronic pain who presented to [facility] for evaluation of abdominal pain. She reported that for approximately 2 days prior
to arrival, she noted increased abdominal pain and constipation. She also noted associated chills. On arrival to ER, she was found to have perforated diverticulitis by CT scan with associated peritonitis. She was admitted, started on antibiotics,
and ultimately underwent Juliet's procedure w/ takedown of splenic flexure on 11/16/2023. She then went into rapid atrial fibrillation post op on 11/17/2023. She was started on IV diltiazem and cardiology consulted for evaluation. She was symptomatic
with this and noted palpitations and some chest pain. Her heart rates are improved this AM on cardizem gtt and she is feeling better from a cardiac standpoint, although still complains of pain related to surgery.
Progress Note - Senior Game Designer
Subjective
Date of Service: November 30, 2023
Pt seen and examined. No cp.
Objective
Labs:
11/30/23 03:45
11/30/23 03:45
Labs
Hgb 8.4 g/dL (12.0-16.0) L 11/30/23 03:45
Hct 25.2 % (37.0-47.0) L 11/30/23 03:45
Plt Count 879 10^3/uL (130-400) H 11/30/23 03:45
PT 16.1 Sec (11.4-14.6) H 11/18/23 18:15
INR 1.27 11/18/23 18:15
APTT 27.8 Sec (23.4-35.0) 11/18/23 18:15
Sodium 133 mmol/L (135-145) L 11/30/23 03:45
Potassium 4.1 mmol/L (3.5-5.1) 11/30/23 03:45
BUN 15 mg/dl (7-17) 11/30/23 03:45
Creatinine 0.5 mg/dL (0.6-1.0) L 11/30/23 03:45
Glucose 170 mg/dl (70-99) H 11/30/23 03:45
Digoxin Cancelled 11/30/23 11:05
Vital Signs and I&O:
Vital Signs
Temp Pulse Resp BP Pulse Ox
98.4 F 115 21 106/69 95
11/30/23 03:50 11/30/23 04:00 11/30/23 04:00 11/30/23 04:00 11/30/23 04:00
Vital Signs
Temp Pulse Resp BP Pulse Ox
98.4 F 115 21 106/69 95
11/30/23 03:50 11/30/23 04:00 11/30/23 04:00 11/30/23 04:00 11/30/23 04:00
Intake & Output
11/28/23 11/29/23 11/30/23 12/01/23
06:59 06:59 06:59 06:59
Intake Total 1971 / 1971 1313 / 1313 2330 / 2330
Output Total 1300 / 1300 1770 / 1770 1185 / 1185
Balance 671 / 671 -457 / -457 1145 / 1145
Physical Exam
Physical Exam
General: No acute distress, AAOX3, frail.
Neck: Negative JVD
HEENT: NGT
Heart: Irregularly irregular, Negative S3 positive S1/S2, Negative S4, No murmur
Lungs: CTA b/l, negative wheezes/rales/rhonchi
Abd: Positive BS, NT/ND, neg rebound/rigidity/guarding
Ext: Negative cyanosis/clubbing/edema
Neuro: nonfocal
[2023-11-30] MEDS: OFIRMEV 100 IV ×3 (10:20→21:26)
[2023-11-30] MEDS: LANOXIN 125 MCG IV (11:52)
--- NOTE | 2023-11-30 12:07 | W.PN.CRS1 ---
Today's Communication / Plan
-
TPN
Assessment/Plan
-
78-year-old female with PMH of A-fib (on Eliquis, last dose was the morning of 11/15/2023), chronic pain (on Suboxone), HTN who presented with acute abdominal pain and was found to have perforated stercoral colitis and underwent emergency Dos Santos's
procedure for perforation in the descending colon, in septic shock; given Kcentra preoperatively, on Paul-Synephrine overnight, s/p IR drain placement
1.� WBC is 16.4. � Afebrile.
2.� S/P IR drain placement. Flush BID.
3.� TPN daily.
4.� Continue to hold Eliquis.� On Lovenox for DVT prophylaxis, 50meq BID.
5.� NG tube until ostomy function. Put out 100ml.
6.� OR cx,�E. coli.�E faecium,�Strep spp.,�Clostridium,�Bacteroides. On ceftriaxone/metronidazole, vancomycin, and micafungin per ID.
7.� Will remove OR drain later today.
8. I will come back to flush colostomy later this afternoon.
Subjective Data
Procedure
Juliet's resection 11/15/23
Subjective Data
Date of Service: November 30, 2023
Patient states she had a 'bad night'. She has some abdominal pain. She has no nausea or vomiting.
Objective Data
-
Vital Signs
Temp Pulse Resp BP Pulse Ox
98.3 F 99 25 122/95 97
11/30/23 07:25 11/30/23 11:52 11/30/23 10:00 11/30/23 10:00 11/30/23 10:13
Intake & Output
11/29/23 11/30/23 12/01/23
06:59 06:59 06:59
Intake Total 1313 / 1313 2330 / 2330 205 / 205
Output Total 1770 / 1770 1185 / 1185
Balance -457 / -457 1145 / 1145
Intake:
IV piggybacks 780 / 780 1130 / 1130 200 / 200
TPN/PPN 528 / 528 1090 / 1090
Amount instilled into Drain ( 5 / 5
Total)
Left Middle Abdomen David- / 5
Clarke C Placed in IR
Amount instilled into GI Tube ( 100 / 100
Total)
[place] Sump 100 / 100
Output:
Drain Output (Total) 70 / 70 35 / 35
Abdomen David-Clarke 25 / 25 20 / 20
Left Middle Abdomen David- 45 / 45 15 / 15
Clarke C Placed in IR
Gastrointestinal tube output ( 100 / 100
Total)
[place] Sump 100 / 100
Urine, Voided 1700 / 1700 1050 / 1050
Other:
How many times incontinent 3
MODERATE amount urine
How many times incontinent 2
SATURATED amount urine
Lab Results
11/30/23 03:45
11/30/23 03:45
Physical Exam
-
General: No Acute Distress and AOx3
Abdomen: Soft, Distended (slight) and Other (colostomy warm and pink, no output. IR drain with brown output, OR drain with serous. )
Skin: Warm and Dry
[2023-11-30 12:20] LABS: Glucose - Point of Care 174 mg/dl (70-99)
[2023-11-30] MEDS: STERILE WATER FOR INJECTION 20 ML IV (12:45)
[2023-11-30] MEDS: ROCEPHIN 2000 MG IV (12:45)
--- NOTE | 2023-11-30 14:43 | W.PN.UPDATE ---
Update Note
Progress Note Update
I was present at bedside with wound RN Taylor Jernigan. I took a red rubber catheter and flushed about 30ml tap water into the stoma and aspirated back. On return was clear tap water. I was met with no resistance. I did this a total of 3 times. I
then placed the red rubber into the stoma to allow it to vent and secured it with a nylon suture that was secured by the colostomy appliance itself. I then removed her OR drain. I updated the daughter, Jennifer, who was present at bedside.
--- NOTE | 2023-11-30 14:45 | WOUNDNOTE ---
RED RUBBER CATHETER WITH SUTURE STRINGS(IN CATHETER) SECURED WITH POUCH
--- NOTE | 2023-11-30 14:45 | WOUNDNOTE ---
COLOSTOMY APPLIANCE WITH CATHETER IN PLACE.
--- NOTE | 2023-11-30 14:45 | WOUNDNOTE ---
WON RN NOTE: Followed up today along with DAYAN Connor for irrigation assistance and changed appliance. Stoma pink and budded, peristomal skin intact. Per Lexii's note; red rubber catheter placed into the stoma to allow it to vent and secured
it with a nylon suture that was secured by the colostomy appliance itself. Spoke to nurse Wendy who was made aware of the above. Will continue to follow and assist as needed.
[2023-11-30 17:14] LABS: Glucose - Point of Care 172 mg/dl (70-99)
[2023-11-30] MEDS: MYCAMINE 105 MG IV (17:21)
--- NOTE | 2023-11-30 19:34 | PTCARENOTE ---
day shift note.assessment as charted.remains in afib.cardizem gtt at 15 mg hr per ordered parameters.right abd chaka removed by surgery today. red rubber cath placed into stoma by surgery senior administrative support and is sutured in place.small amount air noted in ostomy bag.
pt refused x3 to get oob to chair today srtating she had a bad night and doesnt feel well enough today. pt takind dilaidid q 4 hrs for pain reported at level 10. pt sleeping most of shift but awakens easily.discussed with hospitalist. offirmev
restarted q 8 hrs.
[2023-11-30] MEDS: Parenteral Nutrition, Central 1070 IV (21:02)
[2023-11-30 21:44] LABS: Glucose - Point of Care 210 mg/dl (70-99)
--- NOTE | 2023-11-30 23:51 | PTCARENOTE ---
Received pt at start of shift. aaox3, forgetful. Afib on monitor, continues to be on cardizem gtt, weaned down to 5mg. TPN running, new bag hung at 2100. ivabx given. amio bolus given. Ofirmev given. Remains RA. NGT in place, connected to suction. L
HEMA in place. Midline incision CDI. Colostomy draining very small amount of brown liquid, will monitor. R PICC in place, pt complained of tenderness at site, assessed & no redness, warmth, or edeme, will monitor. Pt still c/o 08/17 abdominal pain &
lower back pain. Dilaudid PRN given. Pt asked for ativan to sleep but educated her that it is for anxiety or agitation, not sleep. Q2T. Legs elevated & air cushion under buttocks. No issues at this time. Calll simmons in reach.
[2023-12-01] VITALS (18 sets, daily range): BP systolic 88–135; BP diastolic 49–103; PULSE 112–136; O2SAT 96–97; BMI 18.3
[2023-12-01 00:26] LABS: Glucose - Point of Care 164 mg/dl (70-99)
--- NOTE | 2023-12-01 00:58 | PTCARENOTE ---
KNITTER OPERATOR aware of 210 blood sugar. Next midnight check was <200. Will monitor.
[2023-12-01] MEDS: DILAUDID 0.5 MG IV ×5 (03:45→20:13)
[2023-12-01] MEDS: FLAGYL 500 MG 100 IV ×3 (05:21→21:03)
[2023-12-01 05:39] LABS: Hematocrit 26.8 % (37.0-47.0); Hemoglobin 8.9 g/dL (12.0-16.0); Mean Corp Hgb Conc. 33.2 g/dL (33.0-37.0); Mean Corpuscular Hgb 29.5 pg (27.0-31.0); Mean Corpuscular Volume 88.7 fL (81.0-99.0); Mean Platelet Volume 8.8 fL (7.4-10.4); Platelet Count 879 10^3/uL (130-400); Red Blood Cell Count 3.02 10^6/uL (4.20-5.40); Red Cell Dist. Width 15.9 % (11.5-14.5); White Blood Cell Count 15.3 10^3/uL (4.8-10.8)
--- NOTE | 2023-12-01 06:12 | PTCARENOTE ---
Was able to titrate cardizem gtt off during the night since HR was hitting 70's consistently. Unfortunately, had to wean cardizem gtt back up to 15mg/hr this morning d/t HR as high as 140's. Pt was coughing up mucus & feeling nauseous at the time
when HR began to start increasing.
[2023-12-01 06:27] LABS: Vancomycin Trough 8.9 ug/ml (5-20)
[2023-12-01] MEDS: CARDIZEM 125 IV ×2 (06:27→16:54)
[2023-12-01] MEDS: VANCOCIN HCL 500 MG 100 IV (06:28)
[2023-12-01 06:52] LABS: Glucose - Point of Care 194 mg/dl (70-99)
[2023-12-01] MEDS: PROTONIX IV 40 MG IV (07:52)
[2023-12-01] MEDS: NSS (PRESERVATIVE FREE) 10 ML IV (07:52)
[2023-12-01] MEDS: LOVENOX 50 MG SC ×2 (07:53→19:45)
[2023-12-01] MEDS: OFIRMEV 100 IV (07:54)
--- NOTE | 2023-12-01 07:55 | W.PN.HOSP.TC ---
Today's Communication/Plan
-
cont TPN as per surgery
abx as per ID
rate rhythm control as per cardio
pain control
PT/OT
Assessment / Plan
Assessment / Plan
Physical Exam
General: No Apparent Distress
HEENT: Normocephalic and Atraumatic
Respiratory: Negative Wheezes
Cardiac: Regular Rhythm
GI: Soft tender colostomy and HEMA drain in place
Genito-urinary: No Costovertebral Tender
Neuro: AO x 3
Psych: Calm
Assessment:
Septic Shock secondary to perforated bowel from diverticulitis vs stercoral colitis
- was given K-centra for Eliquis reversal
- underwent on 11/16 1) Juliet's procedure (left colectomy with colostomy) 2) takedown splenic flexure on 11/16/23. Operative findings: perforated distal descending colon with associated bloody contamination (blood plus stool-- particularly at left
retroperitoneum)
- post-op course complicated by post-op pelvic abscess seen on CT 11/19 s/p IRAD drain. Culture growing E. coli. E faecium and yeast.
- later CT abdomen/pelvis on 11/24 showed left paracolic gutter area; IR drain placed 11/25
- shock state resolved
- Zosyn narrowed to ceftriaxone/metronidazole and empiric vanc added as per ID; OR cx, E. coli. E faecium, Strep, Clostridium, Bacteroides
- continue Micafungin for candidemia 1/2 sets
- continue NPO/IVF/TPN per CRS, OR drain removed 11/30
- continue NGT/Joseph
- Colorectal/ID eval appreciated
-cont fentanyl patch prn dilaudid q4h pain and IV tylenol TID
Parox A Fib with RVR
- resume Eliquis when cleared by GS; currently on full dose Lovenox
HFpEF
-stable at this time, BNP improved from 2000s to 600s
- monitoring off Lasix
VDRF in setting of acute emergency surgery for airway protection
- extubated - stable respiratory status
Post-operative acute anemia from blood loss
- s/p 3 units PRBCs
-H&H so far stable
Hyponatremia
Non-CO trop elevation
- trop peak 0.744 since trended down
- follow tele/EKGs
Chronic Pain with Opioid Dependence
- continue Dilaudid as needed for pain; reduce to q4hprn. Fentanyl patch also added
- holding buprenorphine
Essential HTN
- hold BB/Doxazosin
LUE SVT cephalic just above antecubital vein
- resume Eliquis when cleared by GS; currently on full dose Lovenox
DVT prophylaxis: Lovenox
CODE STATUS: Full code
Discussed with patient's daughter Jennifer over phone
I spent a total of 50 minutes with the patient or on the floor. More than 50% of this time involved counseling and coordination of care.
Anticipated Discharge: > 48 hours
Subjective/Interval History
-
Date of Service: December 01, 2023
Awake appears comfortable however continues to report diffuse 10/10 pain
Objective Data
-
Labs:
Laboratory Results
12/01/23
05:27
WBC 15.3 H
Hgb 8.9 L
Hct 26.8 L
Plt Count 879 H
Vital Signs:
Vital Signs
Temp Pulse Resp BP Pulse Ox
97.4 F 129 26 120/90 97
12/01/23 05:02 12/01/23 06:00 12/01/23 06:00 12/01/23 06:00 12/01/23 06:00
I&O
11/30/23 12/01/23 12/02/23
06:59 06:59 06:59
Intake Total 2330 / 2330 1370 / 1370 1044 / 1044
Output Total 1185 / 1185 2915 / 2915
Balance 1145 / 1145 -1545 / -1545 1044 / 1044
[2023-12-01] MEDS: ZOFRAN 4 MG IV ×3 (07:59→20:13)
[2023-12-01] MEDS: CORDARONE 104 MG IV ×2 (08:00→19:46)
--- NOTE | 2023-12-01 08:06 | W.PN.CRS1 ---
Today's Communication / Plan
-
Continue NGT and TPN.
Will consider a laxative via the NGT.
Continue out of bed/PT.
DVT prophylaxis with SCD's and Lovenox 50mg IV q12h
Eliquis still on hold
Assessment/Plan
-
POD#15 s/p Juliet's procedure for perforated diverticulitis, s/p IR drain x2 (first drain now removed)
Persistent ileus
Cultures with E coli, Enterococcus faecium and ramiro. Abx per ID.
WBC down a little at 15.3. Hgb stable at 8.9 g/dL.
Persistent pain issues, which are chronic.
Subjective Data
Procedure
Juliet's resection 11/15/23
Subjective Data
Date of Service: December 01, 2023
Her only complaint is diffuse pain all over her body. The stoma was irrigated yesterday with very little return.
Objective Data
-
Vital Signs
Temp Pulse Resp BP Pulse Ox
97.4 F 129 26 120/90 97
12/01/23 05:02 12/01/23 06:00 12/01/23 06:00 12/01/23 06:00 12/01/23 06:00
Intake & Output
11/30/23 12/01/23 12/02/23
06:59 06:59 06:59
Intake Total 2330 / 2330 1370 / 1370 1044 / 1044
Output Total 1185 / 1185 2915 / 2915
Balance 1145 / 1145 -1545 / -1545 1044 / 1044
Intake:
IV piggybacks 1130 / 1130 580 / 580 504 / 504
TPN/PPN 1090 / 1090 540 / 540 540 / 540
Amount instilled into Drain (
Total)
Left Middle Abdomen David-
Clarke C Placed in IR
Amount instilled into GI Tube ( 100 / 100 240 / 240
Total)
[place] Sump 100 / 100 240 / 240
Output:
Liquid stool amount
Colostomy
Drain Output (Total) 35 / 35
Abdomen David-Clarke
Left Middle Abdomen David-
Clarke C Placed in IR
Gastrointestinal tube output ( 100 / 100 1025 / 1025
Total)
[place] Sump 100 / 100 1025 / 1025
Urine, Voided 1050 / 1050 1875 / 1875
Other:
How many times incontinent 3
MODERATE amount urine
How many times incontinent 2
SATURATED amount urine
Lab Results
12/01/23 05:27
11/30/23 03:45
Physical Exam
-
General: No Acute Distress
Abdomen: Non Distended, Non Tender and Other (Delivery is intact and the ostomy is pink and viable. There is very little output.)
Extremities: No Calf Tenderness
Incision: Clear, Dry, Intact
--- NOTE | 2023-12-01 08:30 | PHA.VAN.FU ---
Vancomycin Assessment / Plan
- Assessment
Renal Function: Stable
WBC's are: Trending Down
In the past 24 hrs, patient has been: Afebrile
Concomitant Antimicrobials: ceftriaxone, metronidazole, micafungin
- Assessment - Trough Based Monitoring
Trough Value: 8.9
Level Today was: Subtherapeutic
Level Comments: level drawn ~11 H after 3rd maintenance dose
Peak not drawn - unable to calculate AUC and patient's half-life
- Dosing Plan
Adjust Regimen to: Vanc 750mg Q12H starting at 1800
New Regimen Predicts: Trough (13 based on linear PK)
- Monitoring Plan
No level(s) ordered at this time: consider repeat levels in next few days to assess new regimen and half-life
- Follow Up
Pharmacy will continue to follow.
Vancomycin Follow UP
- -
Patient Age: 78
Patient Sex: Female
Vancomycin Day #: 3
Indication: Gi / Intra-Abdominal
Requesting Provider: Dr. Sanchez
Pertinent Antimicrobial Allergies:
NKDA
Height / Weight:
Height 5 ft 5 in
Actual Weight 50 kg
IBW in k
Pertinent Past Medical History: BMI ~18.4
- Vital Signs / Lab Results
Temp Pulse Resp BP Pulse Ox
97.3 F 129 26 120/90 97
12/01/23 07:25 12/01/23 06:00 12/01/23 06:00 12/01/23 06:00 12/01/23 06:00
Lab Results - Hematology
11/28/23 11/29/23 11/30/23
09:46 05:33 03:45
WBC 15.5 H 14.5 H 16.4 H
12/01/23
05:27
WBC 15.3 H
Lab Results - Chemistry
11/28/23 11/28/23 11/29/23
09:46 10:53 05:33
BUN Cancelled 15 16
Creatinine Cancelled 0.5 L 0.5 L
Estimated Creat Clear Cancelled 57 59
Albumin Cancelled 2.4 L 2.4 L
11/30/23
03:45
BUN 15
Creatinine 0.5 L
Estimated Creat Clear 59
Albumin 2.5 L
Therapeutic Drug Monitoring
Vancomycin Peak Cancelled 11/30/23 20:30
Vancomycin Trough 8.9 ug/ml (5-20) 12/01/23 05:27
--- NOTE | 2023-12-01 09:46 | W.PN.CARDCBS ---
Today's Communication / Plan
-
Cardiac status stable with stable HR and bp overall.
AFib with stable HR overall. Cont IV Amiodarone, IV Digoxin and IV Diltiazem. Convert to POs once able to take POs.
Last Dig level 0.5 on 11/30.
Cont full anticoagulation with Lovenox 50 mg IV every 12 hours. Resume Eliquis once able to take POs. H/H stable.
Volume status appears stable. last pBNP was lower in 600s.
Cont support care with TPN.
Impression / Plan
-
Plastic Sewer: Dr. HAILEY Nash
Impression:
Perforated stercoral colitis with septic shock
s/p Juliet's procedure 11/16/2023
Paroxysmal atrial fibrillation w/ RVR recurrent postoperatively with difficult to control rates
Acute blood loss anemia
Troponin elevation
Chronic HFpEF
Hypertension
Hyperlipidemia
Spinal stenosis
Fibromyalgia
h/o tobacco abuse on nicotine patch
Acute HFpEF postoperatively
Echo 11/22/2023: EF 55-60% mild LVH, dilated left atrium and right atrium, moderate mitral regurgitation mild TR, pulmonary artery systolic pressure 43-48 mmHg
Plan:
Cardiac status stable with stable HR and bp overall.
AFib with stable HR overall. Cont IV Amiodarone, IV Digoxin and IV Diltiazem. Convert to POs once able to take POs.
Last Dig level 0.5 on 11/30.
Cont full anticoagulation with Lovenox 50 mg IV every 12 hours. Resume Eliquis once able to take POs. H/H stable.
Volume status appears stable. last pBNP was lower in 600s.
Cont support care with TPN.
HPI: Bailey is an 78 year old female with PMH of paroxysmal atrial fibrillation, chronic HFpEF, hypertension, hyperlipidemia, and chronic pain who presented to [facility] for evaluation of abdominal pain. She reported that for approximately 2 days prior
to arrival, she noted increased abdominal pain and constipation. She also noted associated chills. On arrival to ER, she was found to have perforated diverticulitis by CT scan with associated peritonitis. She was admitted, started on antibiotics,
and ultimately underwent Juliet's procedure w/ takedown of splenic flexure on 11/16/2023. She then went into rapid atrial fibrillation post op on 11/17/2023. She was started on IV diltiazem and cardiology consulted for evaluation. She was symptomatic
with this and noted palpitations and some chest pain. Her heart rates are improved this AM on cardizem gtt and she is feeling better from a cardiac standpoint, although still complains of pain related to surgery.
Progress Note - Plastic Sewer
Subjective
Date of Service: December 01, 2023
Pt seen and examined. No complaints. No chest pain or shortness of breath.
Objective
Labs:
12/01/23 05:27
11/30/23 03:45
Labs
Hgb 8.9 g/dL (12.0-16.0) L 12/01/23 05:27
Hct 26.8 % (37.0-47.0) L 12/01/23 05:27
Plt Count 879 10^3/uL (130-400) H 12/01/23 05:27
PT 16.1 Sec (11.4-14.6) H 11/18/23 18:15
INR 1.27 11/18/23 18:15
APTT 27.8 Sec (23.4-35.0) 11/18/23 18:15
Sodium 133 mmol/L (135-145) L 11/30/23 03:45
Potassium 4.1 mmol/L (3.5-5.1) 11/30/23 03:45
BUN 15 mg/dl (7-17) 11/30/23 03:45
Creatinine 0.5 mg/dL (0.6-1.0) L 11/30/23 03:45
Glucose 170 mg/dl (70-99) H 11/30/23 03:45
Digoxin Cancelled 11/30/23 11:05
Vital Signs and I&O:
Vital Signs
Temp Pulse Resp BP Pulse Ox
97.3 F 129 26 120/90 97
12/01/23 07:25 12/01/23 06:00 12/01/23 06:00 12/01/23 06:00 12/01/23 06:00
Vital Signs
Temp Pulse Resp BP Pulse Ox
97.3 F 129 26 120/90 97
12/01/23 07:25 12/01/23 06:00 12/01/23 06:00 12/01/23 06:00 12/01/23 06:00
Intake & Output
11/29/23 11/30/23 12/01/23 12/02/23
06:59 06:59 06:59 06:59
Intake Total 1313 / 1313 2330 / 2330 1370 / 1370 1044 / 1044
Output Total 1770 / 1770 1185 / 1185 2915 / 2915
Balance -457 / -457 1145 / 1145 -1545 / -1545 1044 / 1044
Physical Exam
Physical Exam
General: No acute distress, AAOX3, frail.
Neck: Negative JVD
HEENT: NGT
Heart: Irregularly irregular, Negative S3 positive S1/S2, Negative S4, No murmur
Lungs: CTA b/l, negative wheezes/rales/rhonchi
Abd: Positive BS, NT/ND, neg rebound/rigidity/guarding
Ext: Negative cyanosis/clubbing/edema
Neuro: nonfocal
--- NOTE | 2023-12-01 10:31 | CM ---
Patient with Dx Septic Shock secondary to perforated bowel s/p left colectomy with colostomy, Parox A Fib with RVR, Post-operative anemia, LUE SVT/superficial venous thrombosis cephalic, persistant ileus s/p stoma irrigation yesterday. Receiving IV
Amio, IV Cardizem, 4 IV Abx, Dilaudid prn pain. TPN/NPO/NGT. PICC. HEMA drain for abscess. Seen by WOC for ostomy. PT & OT recommend skilled rehab.
SNF referrals reviewed in [facility] - accepted by [facility] if bed available at time of d/c. Declined by [facility] due to [employer] insurance. No response [facility] or [facility].
Spoke with Jennifer, daughter; she had an update from Dr Contreras today. Daughter has been coming in to be with the patient and has been able to work from her computer while here. Reviewed with daughter that [facility] has accepted and she is pleased
about that.
Plan [facility] when medically ready.
[2023-12-01 12:07] LABS: Glucose - Point of Care 218 mg/dl (70-99)
[2023-12-01] MEDS: ROCEPHIN 2000 MG IV (12:07)
[2023-12-01] MEDS: STERILE WATER FOR INJECTION 20 ML IV (12:07)
[2023-12-01] MEDS: LANOXIN 125 MCG IV (12:07)
[2023-12-01] MEDS: CITROMA 300 ML TUBE (13:28)
--- NOTE | 2023-12-01 13:37 | W.PN.ID1 ---
Date of Service
Date of Service: December 01, 2023
Today's Communication
Continue abx's.
Assessment / Plan
# Perforated diverticulitis with free air and peritonitis
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
- OR cx, E. coli. E faecium, Strep spp., Clostridium, Bacteroides
# Post-op intra-abdominal abscesses
- 11/20 s/p perc drain - right/pelvis
- Cx: E. coli, E. faecium; C glabrata, no anaerobic cx sent
- E faecium amp sensitive in this instance
- 11/25 s/p per drain in the LEFT collection
- Cx: E coli, C albicans, enterococcus faecium (amp-resistant)
# Transient Nakaseomyces glabrata candidemia 1 out of 2 sets
- Intra-abdominal source.
- repeat blood cx (1 set prior to micafungin, 2nd set after 1 dose micafungin) neg to date
# Leukocytosis
- stable
# Ileus - on TPN since 11/22 (picc placed after candidemia)
PLAN:
- Continue Vancomycin IV (d3) to cover the amp-resistant E. faecium isolate.
-Continue ceftriaxone and metronidazole (d15 abx)
- Continue Micafungin (d#9 )
- Follow WBC
#Additional Past Medical History:
Paroxysmal Atrial Fibrillation
CHF
Essential Hypertension
Hyperlipidemia
Interstitial cystitis
Chronic Pain with Opioid Dependence
Diverticulitis
Appendectomy
Cholecystectomy
Hysterectomy
Partial hysterectomy
Right rotator cuff
Chief Complaint
-: Leukocytosis and Other (Fungemia)
Subjective / Review of Systems
No new complaints.
Vital Signs / Physical Exam
Vital Signs
Vital Signs
Temp Pulse Resp BP Pulse Ox
98.1 F 123 26 120/90 97
12/01/23 11:27 12/01/23 12:07 12/01/23 06:00 12/01/23 06:00 12/01/23 06:00
Physical Exam
Constitutional: Acutely Ill and Chronically Ill
Cardiovascular: Other (tachycardic)
Gastrointestinal: Soft and Non Distended
Extremities: Negative Edema
Lines: PICC
Objective Data
Lab Data
Lab Results
12/01/23 05:27
11/30/23 03:45
PT 16.1 Sec (11.4-14.6) H 11/18/23 18:15
INR 1.27 11/18/23 18:15
APTT 27.8 Sec (23.4-35.0) 11/18/23 18:15
Estimated Creat Clear 59 ml/min 11/30/23 03:45
Lactic Acid 0.9 mmol/L (0.7-2.0) 11/18/23 18:15
Total Bilirubin 0.4 mg/dl (0.2-1.3) 11/30/23 03:45
AST 34 U/L (14-36) 11/30/23 03:45
ALT 25 U/L (0-35) 11/30/23 03:45
Alkaline Phosphatase 147 U/L (38-126) H 11/30/23 03:45
Most recent labs reviewed.
Micro Results:
11/25/23 15:39 Wound Culture - Final
Abscess Escherichia coli
Enterococcus faecium
Samantha albicans
Gram Stain - Final
11/18/23 08:05 Fungus Mold Identification - Final
Blood/Venous Nakaseomyces glabrata
11/22/23 04:38 Blood Culture - Final
Blood/Venous No Growth - Final Report
11/21/23 16:20 Blood Culture - Final
Blood/Venous No Growth - Final Report
11/18/23 00:47 Blood Culture - Final
Blood/Venous Yeast
Gram Stain - Final
11/20/23 12:39 Body Fluid Culture - Final
Fluid Escherichia coli
Enterococcus faecium
Samantha glabrata (T. glab)
Gram Stain - Final
11/18/23 00:48 Blood Culture - Final
Blood/Venous No Growth - Final Report
11/15/23 22:44 Wound Culture - Final
Abdomen Escherichia coli
Enterococcus faecium
Streptococcus species
Gram Stain - Final
11/15/23 22:44 Anaerobic Culture - Final
Abdomen Bacteroides fragilis
Clostridium species
11/15/23 18:19 Blood Culture - Final
Blood/Venous No Growth - Final Report
11/18/23 18:31 Urine Culture - Final
Urine NO GROWTH
11/15/23 14:27 Influenza Types A & B (MARIELA) - Final
Nasal Swab Negative for Influenza A & B, NAAT
Negative results must be combined with clinical observations
and patient history.
Nucleic Acid Amplification test (NAAT)performed on the
[employer] platform.
11/15/23 CT a/p: The findings are most consistent with perforation (partially contained) of a diverticulum in the descending or sigmoid colon with free air scattered throughout the abdomen and pelvis, forming a masslike area with fluid and free air in
the left side of the abdomen measuring 10 x 10 x 13 cm.� Additionally there is fluid in the anterior peripancreatic and pararenal space consistent with peritonitis, no discrete fluid collection to suggest an abscess. There is significant stool
within the colon and air within the colon wall, which may be due to previous obstruction prior to perforation or the differential includes the possibility of stercoral colitis.
11/19/23 CT a/p: Elongated fluid collection within the pelvis, extending into the retroperitoneum, measuring 8 x 5.6 x 3.3 cm. Internal gas bubbles and peripheral contrast enhancement are suggestive of postoperative abscess. Abscess is not
immediately adjacent to the suture line for the rectal stump. Bubbles of air within the left paracolic gutter as detailed above, without associated abscess formation. These bubbles of air may be postoperative in nature. Bibasilar airspace
consolidation, which may represent subsegmental atelectasis or pneumonia. Tiny left pleural effusion.
11/22/23: CXR: Right PICC in position as described. Worsening right lung airspace disease suspicious for pneumonia. Stable small left pleural effusion with associated airspace disease.
11/24/23 CT a/p: Right true pelvic pigtail drainage catheter in position with significantly decreased abnormal fluid collection/abscess in comparison to prior study.
Density left lower lobe consolidation and small left pleural effusion which could represent atelectasis and/or pneumonia. Limited evaluation as a result of paucity of oral contrast including possibly of oral contrast opacification of portions of
small bowel as well as entire large bowel. CANNOT EXCLUDE small extraluminal collection in the left flank measuring approximately 3.5 cm such as an abscess, as noted above.
--- NOTE | 2023-12-01 14:49 | PTCARENOTE ---
Rec'd pt this AM. medicated for pain as ordered. Tolerated mag citrate in the NGT. Shortly after, 400ml liquid stool out from colostomy. GI GAME ROOM ATTENDANT updated. HR 110s to 120s. Remains on Cardizem gtt.
[2023-12-01] MEDS: VANCOCIN 150 IV (17:22)
[2023-12-01] MEDS: MYCAMINE 105 MG IV (18:11)
[2023-12-01 19:04] LABS: Glucose - Point of Care 249 mg/dl (70-99)
[2023-12-01] MEDS: Parenteral Nutrition, Central 1070 IV (21:03)
[2023-12-01 23:54] LABS: Glucose - Point of Care 186 mg/dl (70-99)
[2023-12-02] VITALS (14 sets, daily range): BP systolic 92–171; BP diastolic 56–90; PULSE 99; O2SAT 93; BMI 18.0
[2023-12-02] MEDS: DILAUDID 0.5 MG IV ×6 (00:21→21:40)
[2023-12-02] MEDS: CARDIZEM 125 IV (00:33)
[2023-12-02 03:55] LABS: Hemoglobin 8.2 g/dL (12.0-16.0); Mean Corp Hgb Conc. 34.2 g/dL (33.0-37.0); Mean Corpuscular Hgb 29.8 pg (27.0-31.0); Mean Corpuscular Volume 87.3 fL (81.0-99.0); Mean Platelet Volume 8.9 fL (7.4-10.4); Platelet Count 781 10^3/uL (130-400); Red Blood Cell Count 2.75 10^6/uL (4.20-5.40); Red Cell Dist. Width 16.3 % (11.5-14.5); White Blood Cell Count 12.7 10^3/uL (4.8-10.8)
[2023-12-02] MEDS: ZOFRAN 4 MG IV ×3 (04:32→20:34)
[2023-12-02] MEDS: FLAGYL 500 MG 100 IV ×3 (05:08→22:02)
[2023-12-02] MEDS: VANCOCIN 150 IV ×2 (06:10→19:26)
[2023-12-02 06:24] LABS: Glucose - Point of Care 144 mg/dl (70-99)
[2023-12-02 07:10] LABS: Glucose - Point of Care 214 mg/dl (70-99)
--- NOTE | 2023-12-02 07:13 | W.PN.HOSP.TC ---
Today's Communication/Plan
-
oral care
antibiotics
wound, ostomy, TPN as per surgery
cont IV rate rhythm control
pain control
Assessment / Plan
Assessment / Plan
Physical Exam
General: No Apparent Distress
HEENT: Normocephalic and Atraumatic
Respiratory: Negative Wheezes
Cardiac: Regular Rhythm
GI: Soft tender colostomy and HEMA drain in place
Genito-urinary: No Costovertebral Tender
Neuro: AO x 3
Psych: Calm
Assessment:
Septic Shock secondary to perforated bowel from diverticulitis vs stercoral colitis
- was given K-centra for Eliquis reversal
- underwent on 11/16 1) Juliet's procedure (left colectomy with colostomy) 2) takedown splenic flexure on 11/16/23. Operative findings: perforated distal descending colon with associated bloody contamination (blood plus stool-- particularly at left
retroperitoneum)
- post-op course complicated by post-op pelvic abscess seen on CT 11/19 s/p IRAD drain. Culture growing E. coli. E faecium and yeast.
- later CT abdomen/pelvis on 11/24 showed left paracolic gutter area; IR drain placed 11/25
- shock state resolved
- Zosyn narrowed to ceftriaxone/metronidazole and empiric vanc added as per ID; OR cx, E. coli. E faecium, Strep, Clostridium, Bacteroides
- continue Micafungin for candidemia /2 sets
- continue NPO/IVF/TPN per CRS, OR drain removed 11/30
- continue NGT/Joseph
- Colorectal/ID eval appreciated
-cont fentanyl patch prn dilaudid q4h pain and IV tylenol TID
Parox A Fib with RVR
- resume Eliquis when cleared by GS; currently on full dose Lovenox
HFpEF
-stable at this time, BNP improved from 2000s to 600s
- monitoring off Lasix
VDRF in setting of acute emergency surgery for airway protection
- extubated - stable respiratory status
Post-operative acute anemia from blood loss
- s/p 3 units PRBCs
-H&H so far stable
Hyponatremia
Non-DE trop elevation
- trop peak 0.744 since trended down
- follow tele/EKGs
Chronic Pain with Opioid Dependence
- continue Dilaudid as needed for pain; reduced to q4hprn. Fentanyl patch also added
- holding buprenorphine
Essential HTN
- hold BB/Doxazosin
LUE SVT cephalic just above antecubital vein
- conservative mgmt
DVT prophylaxis: Lovenox
CODE STATUS: Full code
Discussed with patient's daughter Jennifer over phone
I spent a total of 50 minutes with the patient or on the floor. More than 50% of this time involved counseling and coordination of care.
Anticipated Discharge: > 48 hours
Subjective/Interval History
-
Date of Service: December 02, 2023
Appears well though continues to endorse 10/10 pain. Liquid stool noted in ostomy.
Objective Data
-
Labs:
Laboratory Results
12/02/23
03:20
WBC 12.7 H
Hgb 8.2 L
Hct 24.0 L
Plt Count 781 H
Vital Signs:
Vital Signs
Temp Pulse Resp BP Pulse Ox
98.4 F 115 18 92/59 96
12/02/23 07:03 12/02/23 07:03 12/02/23 07:03 12/02/23 06:00 12/02/23 07:03
I&O
12/01/23 12/02/23 12/03/23
06:59 06:59 06:59
Intake Total 1370 / 1370 3909 / 3909
Output Total 2915 / 2915 1455 / 1455
Balance -1545 / -1545 2454 / 9396
[2023-12-02] MEDS: CORDARONE 104 MG IV ×2 (07:19→20:34)
[2023-12-02] MEDS: LOVENOX 50 MG SC ×2 (07:21→20:33)
[2023-12-02] MEDS: NSS (PRESERVATIVE FREE) 10 ML IV (07:23)
[2023-12-02] MEDS: PROTONIX IV 40 MG IV (07:24)
--- NOTE | 2023-12-02 09:19 | W.PN.CARDCBS ---
Today's Communication / Plan
-
Overall improved
Continue current cardiac regimen
Transition to oral amiodarone, diltiazem, digoxin when able
Continue Lovenox
Eventual cardioversion
Impression / Plan
-
Tag Writer: Dr. HAILEY Nash
Impression:
Perforated stercoral colitis with septic shock
s/p Juliet's procedure 11/16/2023
Paroxysmal atrial fibrillation w/ RVR recurrent postoperatively with difficult to control rates
Acute blood loss anemia
Troponin elevation
Chronic HFpEF
Hypertension
Hyperlipidemia
Spinal stenosis
Fibromyalgia
h/o tobacco abuse on nicotine patch
Acute HFpEF postoperatively
Echo 11/22/2023: EF 55-60% mild LVH, dilated left atrium and right atrium, moderate mitral regurgitation mild TR, pulmonary artery systolic pressure 43-48 mmHg
Plan:
She remains very fragile but overall improving. Heart rate is adequately controlled with marginal blood pressure on IV digoxin, IV amiodarone, and IV diltiazem
proBNP and digoxin level are satisfactory. No evidence of heart failure on exam.
She looks a little stronger with TPN. It is encouraging she has output from colostomy.
Continue current regimen, transition to oral diltiazem, digoxin, and amiodarone when able.
Eventual cardioversion.
HPI: Bailey is an 78 year old female with PMH of paroxysmal atrial fibrillation, chronic HFpEF, hypertension, hyperlipidemia, and chronic pain who presented to [facility] for evaluation of abdominal pain. She reported that for approximately 2 days prior
to arrival, she noted increased abdominal pain and constipation. She also noted associated chills. On arrival to ER, she was found to have perforated diverticulitis by CT scan with associated peritonitis. She was admitted, started on antibiotics,
and ultimately underwent Juliet's procedure w/ takedown of splenic flexure on 11/16/2023. She then went into rapid atrial fibrillation post op on 11/17/2023. She was started on IV diltiazem and cardiology consulted for evaluation. She was symptomatic
with this and noted palpitations and some chest pain. Her heart rates are improved this AM on cardizem gtt and she is feeling better from a cardiac standpoint, although still complains of pain related to surgery.
Progress Note - Tag Writer
Subjective
Date of Service: December 02, 2023:
She feels brighter today. Received mag citrate, had output from colostomy 2.
Medications: Micafungin, digoxin 125 mcg daily, fentanyl patch, amiodarone 200 mg IV twice daily, IV diltiazem, ceftriaxone, vancomycin, Lovenox 50 every 12
PMH/PSH/SH/FH: Reviewed
Allergies none
Outpatient meds apixaban, atorvastatin, doxazosin, metoprolol ER 100 twice daily
Review of systems negative except as above
92/59, 110/70, pulse 115, intake and output +1.4 L, weight is 49.1 kg, down 0.9 kg
Hemoglobin 8.2 white count 12.7, BUN/creatinine 15 and 0.5, potassium 4.1, dig level was 0.5 on the , proBNP was 612 on the
Telemetry: Heart rate overall reasonably controlled
Objective
Labs:
12/02/23 03:20
11/30/23 03:45
Labs
Hgb 8.2 g/dL (12.0-16.0) L 12/02/23 03:20
Hct 24.0 % (37.0-47.0) L 12/02/23 03:20
Plt Count 781 10^3/uL (130-400) H 12/02/23 03:20
PT 16.1 Sec (11.4-14.6) H 11/18/23 18:15
INR 1.27 11/18/23 18:15
APTT 27.8 Sec (23.4-35.0) 11/18/23 18:15
Sodium 133 mmol/L (135-145) L 11/30/23 03:45
Potassium 4.1 mmol/L (3.5-5.1) 11/30/23 03:45
BUN 15 mg/dl (7-17) 11/30/23 03:45
Creatinine 0.5 mg/dL (0.6-1.0) L 11/30/23 03:45
Glucose 170 mg/dl (70-99) H 11/30/23 03:45
Digoxin Cancelled 11/30/23 11:05
Vital Signs and I&O:
Vital Signs
Temp Pulse Resp BP Pulse Ox
36.9 C 115 18 92/59 96
12/02/23 07:03 12/02/23 07:03 12/02/23 07:03 12/02/23 06:00 12/02/23 07:03
Vital Signs
Temp Pulse Resp BP Pulse Ox
36.9 C 115 18 92/59 96
12/02/23 07:03 12/02/23 07:03 12/02/23 07:03 12/02/23 06:00 12/02/23 07:03
Intake & Output
11/30/23 12/01/23 12/02/23 12/03/23
07:59 07:59 07:59 07:59
Intake Total 2330 / 2330 2414 / 2414 2865 / 2865
Output Total 1185 / 1185 2915 / 2915 1455 / 1455
Balance 1145 / 1145 -501 / -501 1410 / 1410
Physical Exam
Physical Exam
Frail but appears more comfortable
Head neck exam unremarkable
Lungs with rhonchi
Irregular rate and rhythm relatively tachycardic, JVD okay, no obvious murmurs
Abdomen benign
Extremities without clubbing cyanosis or edema
Neuro nonfocal
--- NOTE | 2023-12-02 09:28 | PHA.VAN.FU ---
Vancomycin Assessment / Plan
- Assessment
Renal Function: Stable
WBC's are: Trending Down
In the past 24 hrs, patient has been: Afebrile
Concomitant Antimicrobials: ceftriaxone, metronidazole, micafungin
- Dosing Plan
Continue: Vanc 750mg Q12H (adjusted 12/01)
- Monitoring Plan
Peak Level: 12/02 20:30
Trough Level: 12/03 05:30
Monitoring Comments: levels to be drawn after 3rd dose of new regimen
- Follow Up
Pharmacy will continue to follow.
Vancomycin Follow UP
- -
Patient Age: 78
Patient Sex: Female
Vancomycin Day #: 4
Indication: Gi / Intra-Abdominal
Requesting Provider: Dr. Sanchez
Pertinent Antimicrobial Allergies:
NKDA
Height / Weight:
Height 5 ft 5 in
Actual Weight 49.1 kg
IBW in k
Pertinent Past Medical History: BMI ~18.4
- Vital Signs / Lab Results
Temp Pulse Resp BP Pulse Ox
98.4 F 115 18 92/59 96
12/02/23 07:03 12/02/23 07:03 12/02/23 07:03 12/02/23 06:00 12/02/23 07:03
Lab Results - Hematology
11/30/23 12/01/23 12/02/23
03:45 05:27 03:20
WBC 16.4 H 15.3 H 12.7 H
Lab Results - Chemistry
11/30/23
03:45
BUN 15
Creatinine 0.5 L
Estimated Creat Clear 59
Albumin 2.5 L
Therapeutic Drug Monitoring
Vancomycin Peak Cancelled 11/30/23 20:30
Vancomycin Trough 8.9 ug/ml (5-20) 12/01/23 05:27
[2023-12-02] MEDS: OFIRMEV 100 IV ×3 (09:46→21:29)
--- NOTE | 2023-12-02 10:48 | W.PN.ID1 ---
Date of Service
Date of Service: December 02, 2023
Today's Communication
Continue current abx's.
Assessment / Plan
# Perforated diverticulitis with free air and peritonitis
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
- OR cx, E. coli. E faecium, Strep spp., Clostridium, Bacteroides
# Post-op intra-abdominal abscesses
- 11/20 s/p perc drain - right/pelvis
- Cx: E. coli, E. faecium; C glabrata, no anaerobic cx sent
- E faecium amp sensitive in this instance
- 11/25 s/p per drain in the LEFT collection
- Cx: E coli, C albicans, enterococcus faecium (amp-resistant)
# Transient Nakaseomyces glabrata candidemia 1 out of 2 sets
- Intra-abdominal source.
- repeat blood cx (1 set prior to micafungin, 2nd set after 1 dose micafungin) neg to date
# Leukocytosis
- Trending down
# Ileus - on TPN since 11/22 (picc placed after candidemia)
PLAN:
- Continue Vancomycin IV (d4) to cover the amp-resistant E. faecium isolate.
-Continue ceftriaxone and metronidazole (d16 abx)
- Continue Micafungin (d#10 )
- Follow WBC
#Additional Past Medical History:
Paroxysmal Atrial Fibrillation
CHF
Essential Hypertension
Hyperlipidemia
Interstitial cystitis
Chronic Pain with Opioid Dependence
Diverticulitis
Appendectomy
Cholecystectomy
Hysterectomy
Partial hysterectomy
Right rotator cuff
Chief Complaint
-: Leukocytosis and Other (Fungemia)
Subjective / Review of Systems
Pain is better.
Vital Signs / Physical Exam
Vital Signs
Vital Signs
Temp Pulse Resp BP Pulse Ox
98.4 F 115 18 92/59 96
12/02/23 07:03 12/02/23 07:03 12/02/23 07:03 12/02/23 06:00 12/02/23 07:03
Physical Exam
Constitutional: Comfortable
Cardiovascular: Irregular Rate and Other (tachy)
Pulmonary: Clear (anteriorly)
Gastrointestinal: Soft, Non Tender and Non Distended
Extremities: Negative Edema
Lines: PICC
Objective Data
Lab Data
Lab Results
12/02/23 03:20
11/30/23 03:45
PT 16.1 Sec (11.4-14.6) H 11/18/23 18:15
INR 1.27 11/18/23 18:15
APTT 27.8 Sec (23.4-35.0) 11/18/23 18:15
Estimated Creat Clear 59 ml/min 11/30/23 03:45
Lactic Acid 0.9 mmol/L (0.7-2.0) 11/18/23 18:15
Total Bilirubin 0.4 mg/dl (0.2-1.3) 11/30/23 03:45
AST 34 U/L (14-36) 11/30/23 03:45
ALT 25 U/L (0-35) 11/30/23 03:45
Alkaline Phosphatase 147 U/L (38-126) H 11/30/23 03:45
Most recent labs reviewed.
Micro Results:
11/25/23 15:39 Wound Culture - Final
Abscess Escherichia coli
Enterococcus faecium
Samantha albicans
Gram Stain - Final
11/18/23 08:05 Fungus Mold Identification - Final
Blood/Venous Nakaseomyces glabrata
11/22/23 04:38 Blood Culture - Final
Blood/Venous No Growth - Final Report
11/21/23 16:20 Blood Culture - Final
Blood/Venous No Growth - Final Report
11/18/23 00:47 Blood Culture - Final
Blood/Venous Yeast
Gram Stain - Final
11/20/23 12:39 Body Fluid Culture - Final
Fluid Escherichia coli
Enterococcus faecium
Samantha glabrata (T. glab)
Gram Stain - Final
11/18/23 00:48 Blood Culture - Final
Blood/Venous No Growth - Final Report
11/15/23 22:44 Wound Culture - Final
Abdomen Escherichia coli
Enterococcus faecium
Streptococcus species
Gram Stain - Final
11/15/23 22:44 Anaerobic Culture - Final
Abdomen Bacteroides fragilis
Clostridium species
11/15/23 18:19 Blood Culture - Final
Blood/Venous No Growth - Final Report
11/18/23 18:31 Urine Culture - Final
Urine NO GROWTH
11/15/23 14:27 Influenza Types A & B (MARIELA) - Final
Nasal Swab Negative for Influenza A & B, NAAT
Negative results must be combined with clinical observations
and patient history.
Nucleic Acid Amplification test (NAAT)performed on the
[employer] platform.
11/15/23 CT a/p: The findings are most consistent with perforation (partially contained) of a diverticulum in the descending or sigmoid colon with free air scattered throughout the abdomen and pelvis, forming a masslike area with fluid and free air in
the left side of the abdomen measuring 10 x 10 x 13 cm.� Additionally there is fluid in the anterior peripancreatic and pararenal space consistent with peritonitis, no discrete fluid collection to suggest an abscess. There is significant stool
within the colon and air within the colon wall, which may be due to previous obstruction prior to perforation or the differential includes the possibility of stercoral colitis.
11/19/23 CT a/p: Elongated fluid collection within the pelvis, extending into the retroperitoneum, measuring 8 x 5.6 x 3.3 cm. Internal gas bubbles and peripheral contrast enhancement are suggestive of postoperative abscess. Abscess is not
immediately adjacent to the suture line for the rectal stump. Bubbles of air within the left paracolic gutter as detailed above, without associated abscess formation. These bubbles of air may be postoperative in nature. Bibasilar airspace
consolidation, which may represent subsegmental atelectasis or pneumonia. Tiny left pleural effusion.
11/22/23: CXR: Right PICC in position as described. Worsening right lung airspace disease suspicious for pneumonia. Stable small left pleural effusion with associated airspace disease.
11/24/23 CT a/p: Right true pelvic pigtail drainage catheter in position with significantly decreased abnormal fluid collection/abscess in comparison to prior study.
Density left lower lobe consolidation and small left pleural effusion which could represent atelectasis and/or pneumonia. Limited evaluation as a result of paucity of oral contrast including possibly of oral contrast opacification of portions of
small bowel as well as entire large bowel. CANNOT EXCLUDE small extraluminal collection in the left flank measuring approximately 3.5 cm such as an abscess, as noted above.
[2023-12-02 11:53] LABS: Glucose - Point of Care 183 mg/dl (70-99)
[2023-12-02] MEDS: LANOXIN 125 MCG IV (12:08)
--- NOTE | 2023-12-02 12:08 | W.PN.CRS1 ---
Today's Communication / Plan
-
TPN
NG tube clamping trial
Assessment/Plan
-
78-year-old female with PMH of A-fib (on Eliquis, last dose was the morning of 11/15/2023), chronic pain (on Suboxone), HTN who presented with acute abdominal pain and was found to have perforated stercoral colitis and underwent emergency Dos Santos's
procedure for perforation in the descending colon, in septic shock; given Kcentra preoperatively, on Paul-Synephrine overnight, s/p IR drain placement
1.� WBC is 12.7. � Afebrile.
2.� S/P IR drain placement. Flush BID.
3.� TPN daily.
4.� Continue to hold Eliquis.� On Lovenox for DVT prophylaxis, 50meq BID.
5.� NG tube until ostomy function. Put out 650 mL. Given this we will do an NG tube clamping trial.
6.� OR cx,�E. coli.�E faecium,�Strep spp.,�Clostridium,�Bacteroides. On ceftriaxone/metronidazole, vancomycin, and micafungin per ID.
Subjective Data
Procedure
Juliet's resection 11/15/23
Subjective Data
Date of Service: December 02, 2023
Patient states she has some nausea. She denies vomiting. Her pain is 'not great'. Her ileostomy is producing.
Objective Data
-
Vital Signs
Temp Pulse Resp BP Pulse Ox
98.2 F 103 16 92/59 97
12/02/23 11:02 12/02/23 11:02 12/02/23 11:02 12/02/23 06:00 12/02/23 11:02
Intake & Output
12/01/23 12/02/23 12/03/23
06:59 06:59 06:59
Intake Total 1370 / 1370 3909 / 3909
Output Total 2915 / 2915 1455 / 1455
Balance -1545 / -1545 2454 / 2454
Intake:
IV fluids (Total) 900 / 900
IV piggybacks 580 / 580 1284 / 1284
TPN/PPN 540 / 540 1620 / 1620
Amount instilled into Drain (
Total)
Left Middle Abdomen David-
Clarke C Placed in IR
Amount instilled into GI Tube ( 240 / 240 100 / 100
Total)
Ellis Sump 240 / 240 100 / 100
Output:
Liquid stool amount 500 / 500
Colostomy 500 / 500
Drain Output (Total)
Left Middle Abdomen David-
Clarke C Placed in IR
Gastrointestinal tube output ( 1025 / 1025 150 / 150
Total)
Ellis Sump 1025 / 1025 150 / 150
Urine, Voided 1874 / 1874 800 / 800
Other:
How many times incontinent 2
SATURATED amount urine
Lab Results
12/02/23 03:20
11/30/23 03:45
Physical Exam
-
General: No Acute Distress and AOx3
Abdomen: Soft, Distended, Non Distended (Slight), Non Tender and Other (Ileostomy warm and pink with liquid stool)
Skin: Warm and Dry
[2023-12-02] MEDS: STERILE WATER FOR INJECTION 20 ML IV (12:10)
[2023-12-02] MEDS: ROCEPHIN 2000 MG IV (12:10)
[2023-12-02] MEDS: DURAGESIC 25 MCG/HR PATCH 1 PATCH TRANSDERM (15:07)
--- NOTE | 2023-12-02 15:51 | PTCARENOTE ---
Rec'd pt this AM. Pt requires a lot of encouragement to do more for herself and excercise her muscles. She was able to get OOB with less assistance today. Pt reported nausea a few minutes after NGT clampted. NGT returend to suction. RN provided
extensive education to pt regarding importance of using alternative techniques to combat nausea and to evaluate if the nausea is the same as her typical nausea or if it gets worse once NGT is clamped. Discussed ways she can help to move her
recovery. Pt agreed and is now sitting OOB in chair. Challenged her to sit OOB as long as possible. update GI PA.
[2023-12-02 17:24] LABS: Glucose - Point of Care 176 mg/dl (70-99)
[2023-12-02] MEDS: MYCAMINE 105 MG IV (17:34)
--- NOTE | 2023-12-02 20:07 | PTCARENOTE ---
Received pt from ruth KNIGHT. Pt is AAOx3, forgetful. Afib on the monitor, Cardizem gtt infusing @ 5 mg/hr. On RA O2 sat 96%, lungs diminished. Pw in place. L colostomy in place. NG tube to suction. L HEMA drain. Pt c/o nausea and 10/10 back and abd
pain, PRN nausea and pain meds given (see MAR). Mouth care provided. Pt is laying comfortable in bed with call simmons in reach.
[2023-12-02] MEDS: Parenteral Nutrition, Central 1070 IV (20:30)
[2023-12-02 23:19] LABS: Vancomycin Peak 18.4 ug/ml (18-26)
[2023-12-03] VITALS (12 sets, daily range): BP systolic 101–151; BP diastolic 54–118; BMI 18.6
[2023-12-03 00:23] LABS: Glucose - Point of Care 138 mg/dl (70-99)
[2023-12-03] MEDS: DILAUDID 0.5 MG IV ×5 (02:16→21:38)
[2023-12-03] MEDS: ZOFRAN 4 MG IV ×2 (04:46→20:07)
[2023-12-03] MEDS: FLAGYL 500 MG 100 IV ×3 (04:55→21:38)
[2023-12-03 05:11] LABS: Hematocrit 24.9 % (37.0-47.0); Hemoglobin 8.4 g/dL (12.0-16.0); Mean Corp Hgb Conc. 33.7 g/dL (33.0-37.0); Mean Corpuscular Hgb 28.7 pg (27.0-31.0); Mean Platelet Volume 8.7 fL (7.4-10.4); Platelet Count 799 10^3/uL (130-400); Red Blood Cell Count 2.93 10^6/uL (4.20-5.40); Red Cell Dist. Width 16.1 % (11.5-14.5); White Blood Cell Count 11.9 10^3/uL (4.8-10.8)
[2023-12-03] MEDS: VANCOCIN 150 IV (05:47)
[2023-12-03] MEDS: CARDIZEM 125 IV ×3 (05:47→22:51)
[2023-12-03 05:48] LABS: Blood Urea Nitrogen 14 mg/dl (7-17); Calcium 8.5 mg/dl (8.4-10.2); Carbon Dioxide 27 mmol/L (22-30); Chloride 101 mmol/L (98-107); Estimated Creatinine Clearance 60 ml/min; Glucose 152 mg/dl (70-99); Potassium 3.6 mmol/L (3.5-5.1); Sodium 137 mmol/L (135-145); eGFR > 60.00
[2023-12-03 06:01] LABS: Vancomycin Trough 12.5 ug/ml (5-20)
[2023-12-03] MEDS: LOPRESSOR 5 MG IV (06:11)
[2023-12-03 06:26] LABS: Glucose - Point of Care 173 mg/dl (70-99)
--- NOTE | 2023-12-03 07:28 | W.PN.HOSP.TC ---
Today's Communication/Plan
-
TPN, trial clear liquid diet as per CRS
abx
PT/OT
pain control
CT abd/pelvis w/ contrast HEMA drain evaluation
Assessment / Plan
Assessment / Plan
Physical Exam
General: No Apparent Distress
HEENT: Normocephalic and Atraumatic
Respiratory: Negative Wheezes
Cardiac: Regular Rhythm
GI: Soft tender colostomy and HEMA drain in place
Genito-urinary: No Costovertebral Tender
Neuro: AO x 3
Psych: Calm
Assessment:
Septic Shock secondary to perforated bowel from diverticulitis vs stercoral colitis
- was given K-centra for Eliquis reversal
- underwent on 11/16 1) Juliet's procedure (left colectomy with colostomy) 2) takedown splenic flexure on 11/16/23. Operative findings: perforated distal descending colon with associated bloody contamination (blood plus stool-- particularly at left
retroperitoneum)
- post-op course complicated by post-op pelvic abscess seen on CT 11/19 s/p IRAD drain. Culture growing E. coli. E faecium and yeast.
- later CT abdomen/pelvis on 11/24 showed left paracolic gutter area; IR drain placed 11/25
- shock state resolved
- Zosyn narrowed to ceftriaxone/metronidazole and empiric vanc added as per ID; OR cx, E. coli. E faecium, Strep, Clostridium, Bacteroides
- continue Micafungin for candidemia /2 sets
- continue NPO/IVF/TPN per CRS, OR drain removed 11/30
- continue Joseph, NGT discontinued 12/03 clear liquid diet started as per CRS
- Colorectal/ID eval appreciated
-cont fentanyl patch prn dilaudid q4h pain, IV Tylenol TID completed (no clear benefit noted)
-developed bleeding at HEMA drain site since resolved, evaluated by IR, non-emergent CT abd/pelvis w contrast pending
Parox A Fib with RVR
- resume Eliquis when cleared by GS; currently on full dose Lovenox
HFpEF
-stable at this time, BNP improved from 2000s to 600s
- monitoring off Lasix
VDRF in setting of acute emergency surgery for airway protection
- extubated - stable respiratory status
Post-operative acute anemia from blood loss
- s/p 3 units PRBCs
-H&H so far stable
Hyponatremia
Non-IL trop elevation
- trop peak 0.744 since trended down
- follow tele/EKGs
Chronic Pain with Opioid Dependence
- continue Dilaudid as needed for pain; reduced to q4hprn. Fentanyl patch also added
- holding buprenorphine
Essential HTN
- hold BB/Doxazosin
LUE SVT cephalic just above antecubital vein
- conservative mgmt
DVT prophylaxis: Lovenox
CODE STATUS: Full code
Discussed with patient's daughter Jennifer over phone
I spent a total of 50 minutes with the patient or on the floor. More than 50% of this time involved counseling and coordination of care.
Anticipated Discharge: > 48 hours
Subjective/Interval History
-
Date of Service: December 03, 2023
No acute distress, appears comfortable sitting up in bed. Awake conversant,
Objective Data
-
Labs:
Laboratory Results
12/03/23
04:39
WBC 11.9 H
Hgb 8.4 L
Hct 24.9 L
Plt Count 799 H
Sodium 137
Potassium 3.6
Chloride 101
Carbon Dioxide 27
BUN 14
Creatinine 0.4 L
Glucose 152 H
Calcium 8.5
Vital Signs:
Vital Signs
Temp Pulse Resp BP Pulse Ox
97.9 F 145 18 133/90 97
12/03/23 03:10 12/03/23 06:11 12/03/23 06:09 12/03/23 06:11 12/03/23 06:09
I&O
12/02/23 12/03/23 12/04/23
06:59 06:59 06:59
Intake Total 3909 / 3909 2469 / 2469
Output Total 1455 / 1455 1025 / 1025
Balance 2454 / 2454 1444 / 1444
[2023-12-03] MEDS: CORDARONE 104 MG IV ×2 (08:39→20:08)
[2023-12-03] MEDS: LOVENOX 50 MG SC ×2 (08:40→20:07)
[2023-12-03] MEDS: PROTONIX IV 40 MG IV (08:40)
[2023-12-03] MEDS: NSS (PRESERVATIVE FREE) 10 ML IV (08:40)
--- NOTE | 2023-12-03 09:38 | PHA.VAN.FU ---
Vancomycin Assessment / Plan
- Assessment
Renal Function: Stable
WBC's are: Trending Down
In the past 24 hrs, patient has been: Afebrile
Concomitant Antimicrobials: ceftriaxone, metronidazole, micafungin
- Assessment - Therapeutic Drug Monitoring
Extrapolated Cmax (mcg/mL): 21.6
Peak level was drawn: Appropriately (drawn ~2.4H after end of previous infusion)
Extrapolated Cmin (mcg/mL): 10.4
Trough Drawn: Appropriately
Levels were drawn: At steady state (levels drawn after 3rd dose of new regimen)
Calculated AUC (mcg*h/mL): 369
Calculated ke: 0.0667
Calculated half life (H): 10.4
Calculated Vd (L): 61 (~1.2 L/kg)
Calculated Vanc CL (ml/min): 68
- Dosing Plan
Adjust Regimen to: Vanc 1000mg Q12H starting at 1800
New Regimen Predicts: AUC (509), Peak (29.8), Trough (14.3)
Patient may have additional accumulation but has received 8 total doses prior to levels
Will increase dosing for now following subtherapeutic AUC
- Monitoring Plan
No level(s) ordered at this time: consider levels in next few days
- Follow Up
Pharmacy will continue to follow.
Vancomycin Follow UP
- -
Patient Age: 78
Patient Sex: Female
Vancomycin Day #: 5
Indication: Gi / Intra-Abdominal
Requesting Provider: Dr. Sanchez
Pertinent Antimicrobial Allergies:
NKDA
Height / Weight:
Height 5 ft 5 in
Actual Weight 50.7 kg
IBW in k
Pertinent Past Medical History: BMI ~18.4
- Vital Signs / Lab Results
Temp Pulse Resp BP Pulse Ox
97.9 F 145 18 133/90 97
12/03/23 03:10 12/03/23 06:11 12/03/23 06:09 12/03/23 06:11 12/03/23 06:09
Lab Results - Hematology
12/01/23 12/02/23 12/03/23
05:27 03:20 04:39
WBC 15.3 H 12.7 H 11.9 H
Lab Results - Chemistry
12/03/23
04:39
BUN 14
Creatinine 0.4 L
Estimated Creat Clear 60
Therapeutic Drug Monitoring
Vancomycin Peak 18.4 ug/ml (18-26) 12/02/23 22:51
Vancomycin Trough 12.5 ug/ml (5-20) 12/03/23 04:39
--- NOTE | 2023-12-03 10:43 | W.PN.ID1 ---
Date of Service
Date of Service: December 03, 2023
Today's Communication
Continue Micafungin, Vancomycin, ceftriaxone, metronidazole.
Assessment / Plan
# Perforated diverticulitis with free air and peritonitis
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
- OR cx, E. coli. E faecium, Strep spp., Clostridium, Bacteroides
# Post-op intra-abdominal abscesses
- 11/20 s/p perc drain - right/pelvis
- Cx: E. coli, E. faecium; C glabrata, no anaerobic cx sent
- E faecium amp sensitive in this instance
- 11/25 s/p per drain in the LEFT collection
- Cx: E coli, C albicans, enterococcus faecium (amp-resistant)
# Transient Nakaseomyces glabrata candidemia 1 out of 2 sets
- Intra-abdominal source.
- repeat blood cx (1 set prior to micafungin, 2nd set after 1 dose micafungin) neg to date
# Leukocytosis
- Trending down
# Ileus - on TPN since 11/22 (picc placed after candidemia)
PLAN:
- Continue Vancomycin IV (d5) to cover the amp-resistant E. faecium isolate.
-Continue ceftriaxone and metronidazole (d17 abx)
- Continue Micafungin (d# )
- Follow WBC
#Additional Past Medical History:
Paroxysmal Atrial Fibrillation
CHF
Essential Hypertension
Hyperlipidemia
Interstitial cystitis
Chronic Pain with Opioid Dependence
Diverticulitis
Appendectomy
Cholecystectomy
Hysterectomy
Partial hysterectomy
Right rotator cuff
Chief Complaint
-: Leukocytosis and Other (Fungemia)
Subjective / Review of Systems
Doing better. NGT is out.
Vital Signs / Physical Exam
Vital Signs
Vital Signs
Temp Pulse Resp BP Pulse Ox
98.9 F 100 17 118/75 96
12/03/23 07:03 12/03/23 10:00 12/03/23 10:00 12/03/23 10:00 12/03/23 10:00
Physical Exam
Constitutional: Comfortable
Cardiovascular: Regular Rate and Irregular Rate
Pulmonary: Clear (anteriorly)
Gastrointestinal: Soft, Non Tender and Non Distended
Extremities: Negative Edema
Neurological: AO x 3
Lines: PICC
Objective Data
Lab Data
Lab Results
12/03/23 04:39
12/03/23 04:39
PT 16.1 Sec (11.4-14.6) H 11/18/23 18:15
INR 1.27 11/18/23 18:15
APTT 27.8 Sec (23.4-35.0) 11/18/23 18:15
Estimated Creat Clear 60 ml/min 12/03/23 04:39
Lactic Acid 0.9 mmol/L (0.7-2.0) 11/18/23 18:15
Total Bilirubin 0.4 mg/dl (0.2-1.3) 11/30/23 03:45
AST 34 U/L (14-36) 11/30/23 03:45
ALT 25 U/L (0-35) 11/30/23 03:45
Alkaline Phosphatase 147 U/L (38-126) H 11/30/23 03:45
Most recent labs reviewed.
Micro Results:
11/25/23 15:39 Wound Culture - Final
Abscess Escherichia coli
Enterococcus faecium
Samantha albicans
Gram Stain - Final
11/18/23 08:05 Fungus Mold Identification - Final
Blood/Venous Nakaseomyces glabrata
11/22/23 04:38 Blood Culture - Final
Blood/Venous No Growth - Final Report
11/21/23 16:20 Blood Culture - Final
Blood/Venous No Growth - Final Report
11/18/23 00:47 Blood Culture - Final
Blood/Venous Yeast
Gram Stain - Final
11/20/23 12:39 Body Fluid Culture - Final
Fluid Escherichia coli
Enterococcus faecium
Samantha glabrata (T. glab)
Gram Stain - Final
11/18/23 00:48 Blood Culture - Final
Blood/Venous No Growth - Final Report
11/15/23 22:44 Wound Culture - Final
Abdomen Escherichia coli
Enterococcus faecium
Streptococcus species
Gram Stain - Final
11/15/23 22:44 Anaerobic Culture - Final
Abdomen Bacteroides fragilis
Clostridium species
11/15/23 18:19 Blood Culture - Final
Blood/Venous No Growth - Final Report
11/18/23 18:31 Urine Culture - Final
Urine NO GROWTH
11/15/23 14:27 Influenza Types A & B (MARIELA) - Final
Nasal Swab Negative for Influenza A & B, NAAT
Negative results must be combined with clinical observations
and patient history.
Nucleic Acid Amplification test (NAAT)performed on the
[employer] platform.
11/15/23 CT a/p: The findings are most consistent with perforation (partially contained) of a diverticulum in the descending or sigmoid colon with free air scattered throughout the abdomen and pelvis, forming a masslike area with fluid and free air in
the left side of the abdomen measuring 10 x 10 x 13 cm.� Additionally there is fluid in the anterior peripancreatic and pararenal space consistent with peritonitis, no discrete fluid collection to suggest an abscess. There is significant stool
within the colon and air within the colon wall, which may be due to previous obstruction prior to perforation or the differential includes the possibility of stercoral colitis.
11/19/23 CT a/p: Elongated fluid collection within the pelvis, extending into the retroperitoneum, measuring 8 x 5.6 x 3.3 cm. Internal gas bubbles and peripheral contrast enhancement are suggestive of postoperative abscess. Abscess is not
immediately adjacent to the suture line for the rectal stump. Bubbles of air within the left paracolic gutter as detailed above, without associated abscess formation. These bubbles of air may be postoperative in nature. Bibasilar airspace
consolidation, which may represent subsegmental atelectasis or pneumonia. Tiny left pleural effusion.
11/22/23: CXR: Right PICC in position as described. Worsening right lung airspace disease suspicious for pneumonia. Stable small left pleural effusion with associated airspace disease.
11/24/23 CT a/p: Right true pelvic pigtail drainage catheter in position with significantly decreased abnormal fluid collection/abscess in comparison to prior study.
Density left lower lobe consolidation and small left pleural effusion which could represent atelectasis and/or pneumonia. Limited evaluation as a result of paucity of oral contrast including possibly of oral contrast opacification of portions of
small bowel as well as entire large bowel. CANNOT EXCLUDE small extraluminal collection in the left flank measuring approximately 3.5 cm such as an abscess, as noted above.
--- NOTE | 2023-12-03 10:56 | CM ---
Addendum entered by Conchita Henriquez RN 12/06/23 09:11:
Late Entry for 12/03/23: Response from Jennifer at [facility]; they are able to accept the patient with a Fentanyl Patch.
Original Note:
Patient with Dx Septic Shock secondary to perforated bowel s/p left colectomy with colostomy, Post-op intra-abdominal abscesses. Receiving IV Amio, IV Cardizem, 4 IV Abx, Dilaudid prn pain. Subutex on hold. TPN/NPO/NGT. NGT clamping trial.
PICC. HEMA drain for abscess. Seen by [facility] for ostomy. PT & OT recommend skilled rehab.
Patient accepted by [facility]. If Subutex will be restarted at d/c will need to discuss with [facility] if they can take her with that med---> message to Dr Contreras. Message from Dr Contreras---> Will they accept pts with fentanyl patches?
Phone call to [facility]; left message if they can accept patient on Subutex or Fentanyl Patch when medically ready for d/c.
Plan follow up with [facility] if Subutex or Fentanyl Patch okay for their SNF.
--- NOTE | 2023-12-03 11:50 | WOUNDNOTE ---
[facility] RN note: Patient's stoma with some soft dark brown stool. Stoma pink and budded. Peristomal skin intact. RN Fanny stated she had removed the stoma catheter from instruction from colorectal surgeon. Patient observed appliance change using
Enrique wafer # [id number] and Enrique pouch # [id number]. t/c SPD and ordered more ostomy supplies. Patient's sacrum and heels are intact. Heels off bed with pillow. Patient is on a [facility] air bed. Next appliance change due on Wednesday.
--- NOTE | 2023-12-03 12:00 | PTCARENOTE ---
IV Dilaudid given this am for 07/18 abd pain- relieved to 06/17 but constantly asking for pain meds. Seen by Dr. Alcaraz and assoc. this am- NGT removed by this automotive service writer without difficulty. No c/o nausea- tolerating ice chips- awaiting diet orders.
Set up to do her own oral care. Left side HEMA drain flushed as ordered.
Rubber cath removed from colostomy appliance- string still attached but whole appliance changed out by JOSTIN Mccauley. Purewick exchanged. Will encourage OOB and IS.
[2023-12-03 12:07] LABS: Glucose - Point of Care 221 mg/dl (70-99)
[2023-12-03] MEDS: LANOXIN 125 MCG IV (12:30)
--- NOTE | 2023-12-03 12:33 | W.PN.CARDCBS ---
Today's Communication / Plan
-
Continue attempts for rate control with IV Cardizem, digoxin, amiodarone
Could consider eventual cardioversion but is high risk of recurrent A-fib
Also need to make sure patient is stable from colorectal viewpoint and tolerating p.o.'s
Rate control might be a better option
Impression / Plan
-
Devil Tender: Dr. HAILEY Nash
Impression:
Perforated stercoral colitis with septic shock
s/p Juliet's procedure 11/16/2023
Paroxysmal atrial fibrillation w/ RVR recurrent postoperatively with difficult to control rates
Acute blood loss anemia
Troponin elevation
Chronic HFpEF
Hypertension
Hyperlipidemia
Spinal stenosis
Fibromyalgia
h/o tobacco abuse on nicotine patch
Acute HFpEF postoperatively
Echo 11/22/2023: EF 55-60% mild LVH, dilated left atrium and right atrium, moderate mitral regurgitation mild TR, pulmonary artery systolic pressure 43-48 mmHg
Plan:
Heart rate is poorly controlled at times with marginal blood pressure on IV digoxin, IV amiodarone, and IV diltiazem
proBNP and digoxin level are satisfactory. No evidence of heart failure on exam.
Could consider eventual cardioversion once she is stabilized but would have high rate of recurrent A-fib
Also need to make sure patient is stable from colorectal viewpoint and tolerating p.o.'s
Rate control might be a better option
HPI: Bailey is an 78 year old female with PMH of paroxysmal atrial fibrillation, chronic HFpEF, hypertension, hyperlipidemia, and chronic pain who presented to [facility] for evaluation of abdominal pain. She reported that for approximately 2 days prior
to arrival, she noted increased abdominal pain and constipation. She also noted associated chills. On arrival to ER, she was found to have perforated diverticulitis by CT scan with associated peritonitis. She was admitted, started on antibiotics,
and ultimately underwent Ujliet's procedure w/ takedown of splenic flexure on 11/16/2023. She then went into rapid atrial fibrillation post op on 11/17/2023. She was started on IV diltiazem and cardiology consulted for evaluation. She was symptomatic
with this and noted palpitations and some chest pain. Her heart rates are improved this AM on cardizem gtt and she is feeling better from a cardiac standpoint, although still complains of pain related to surgery.
Progress Note - Devil Tender
Subjective
Date of Service: December 03, 2023
No complaints
Objective
Labs:
12/03/23 04:39
12/03/23 04:39
Labs
Hgb 8.4 g/dL (12.0-16.0) L 12/03/23 04:39
Hct 24.9 % (37.0-47.0) L 12/03/23 04:39
Plt Count 799 10^3/uL (130-400) H 12/03/23 04:39
PT 16.1 Sec (11.4-14.6) H 11/18/23 18:15
INR 1.27 11/18/23 18:15
APTT 27.8 Sec (23.4-35.0) 11/18/23 18:15
Sodium 137 mmol/L (135-145) 12/03/23 04:39
Potassium 3.6 mmol/L (3.5-5.1) 12/03/23 04:39
BUN 14 mg/dl (7-17) 12/03/23 04:39
Creatinine 0.4 mg/dL (0.6-1.0) L 12/03/23 04:39
Glucose 152 mg/dl (70-99) H 12/03/23 04:39
Digoxin Cancelled 11/30/23 11:05
Vital Signs and I&O:
Vital Signs
Temp Pulse Resp BP Pulse Ox
99.3 F 100 17 118/75 96
12/03/23 11:10 12/03/23 10:00 12/03/23 10:00 12/03/23 10:00 12/03/23 10:00
Vital Signs
Temp Pulse Resp BP Pulse Ox
99.3 F 100 17 118/75 96
12/03/23 11:10 12/03/23 10:00 12/03/23 10:00 12/03/23 10:00 12/03/23 10:00
Intake & Output
12/01/23 12/02/23 12/03/23 12/04/23
06:59 06:59 06:59 06:59
Intake Total 1370 / 1370 3909 / 3909 2469 / 2469 5 / 5
Output Total 2915 / 2915 1455 / 1455 1025 / 1025 1000 / 1000
Balance -1545 / -1545 2454 / 2454 1444 / 1444 -995 / -995
Physical Exam
Physical Exam
General: Well developed, well nourished in NAD.
Neck: Supple, no JVD, HJR, carotids +2 B/L, no bruits bilaterally.
Heart: Non displaced PMI, irregular, no murmurs, No S3, S4, no rubs.
Lungs: Scattered rhonchi
Extremities: No clubbing, cyanosis or edema bilaterally.
Neuro: Grossly nonfocal, awake, alert and oriented x3.
[2023-12-03] MEDS: ROCEPHIN 2000 MG IV (12:35)
[2023-12-03] MEDS: STERILE WATER FOR INJECTION 20 ML IV (12:35)
--- NOTE | 2023-12-03 13:47 | W.PN.CRS1 ---
Addendum entered and electronically signed by Barak Alcaraz MD 12/03/23 17:39:
I saw and examined the patient.
The PA's note was reviewed and I agree with the note.
Comment:
Patient seen in a.m. with PA.
Awake and appropriate. Denies nausea. Denies significant discomfort.
Afebrile with mild tachycardia. White blood cell count down to 11.9.
Abdomen less distended and fairly soft. Incision looks good. Ostomy with gas and a little bit of greenish liquid stool in bag.
Given abdominal exam with some stoma function I offered the patient the option of NG tube removal and clear liquid diet to see if she does well. She has not had the NG in for a while now and I think it is worth a shot. She understood that there is
a chance that she does not tolerate and the NG would had to be replaced in that circumstance.
Continue antibiotics per ID.
Tachycardia management per cardiology. Continue twice daily Lovenox.
Continue TPN.
Original Note:
Today's Communication / Plan
-
Discontinue NG tube
Clears
Continue TPN for 1 more day
Assessment/Plan
-
78-year-old female with PMH of A-fib (on Eliquis, last dose was the morning of 11/15/2023), chronic pain (on Suboxone), HTN who presented with acute abdominal pain and was found to have perforated stercoral colitis and underwent emergency Dos Santos's
procedure for perforation in the descending colon, in septic shock; given Kcentra preoperatively, on Paul-Synephrine overnight, s/p IR drain placement
1.� WBC is 12.7. � Afebrile.
2.� S/P IR drain placement. Flush BID.
3.� TPN daily.
4.� Continue to hold Eliquis.� On Lovenox for DVT prophylaxis, 50meq BID.
5.� Discontinue NG tube start on clears.
6.� OR cx,�E. coli.�E faecium,�Strep spp.,�Clostridium,�Bacteroides. On ceftriaxone/metronidazole, vancomycin, and micafungin per ID.
Subjective Data
Procedure
Juliet's resection 11/15/23
Subjective Data
Date of Service: December 03, 2023
Patient states she is about the same. Her ileostomy is producing stool. She is less distended.
Objective Data
-
Vital Signs
Temp Pulse Resp BP Pulse Ox
99.3 F 100 17 118/75 96
12/03/23 11:10 12/03/23 10:00 12/03/23 10:00 12/03/23 10:00 12/03/23 10:00
Intake & Output
12/02/23 12/03/23 12/04/23
06:59 06:59 06:59
Intake Total 3909 / 3909 2469 / 2469
Output Total 1455 / 1455 1025 / 1025 1000 / 1000
Balance 2454 / 2454 1444 / 1444 -995 / -995
Intake:
Oral fluids 0 / 0
IV fluids (Total) 900 / 900
IV piggybacks 1284 / 1284 1084 / 1084
TPN/PPN 1620 / 1620 1080 / 1080
Amount instilled into Drain (
Total)
Left Middle Abdomen David-
Clarke C Placed in IR
Amount instilled into GI Tube ( 100 / 100 300 / 300
Total)
Gro[place] Sump 100 / 100 300 / 300
Output:
Liquid stool amount 500 / 500 30 / 30
Colostomy 500 / 500 30 / 30
Drain Output (Total)
Left Middle Abdomen David-
Clarke C Placed in IR
Gastrointestinal tube output ( 150 / 150 90 / 90
Total)
Gro[place] Sump 150 / 150 90 / 90
Urine, Voided 800 / 800 900 / 900 1000 / 1000
Other:
How many times incontinent 2 1
SATURATED amount urine
Lab Results
12/03/23 04:39
12/03/23 04:39
Physical Exam
-
General: No Acute Distress and AOx3
Abdomen: Soft, Distended (Very mild), Non Tender and Other (Ileostomy warm and pink with output)
Incision: Clear, Dry, Intact
[2023-12-03] MEDS: MYCAMINE 105 MG IV (17:33)
[2023-12-03] MEDS: VANCOCIN 200 IV (17:38)
[2023-12-03 17:39] LABS: Glucose - Point of Care 174 mg/dl (70-99)
--- NOTE | 2023-12-03 19:49 | PTCARENOTE ---
Getting up to chair this afternoon- noticed blood on her gown- HEMA site dressing 1/2 saturated. Pressure applied- replaced dressing-continued to ooze- call IRAD and brought down to dept. Returned with dressing CDI. CT scan ordered. Denies
increased pain at site- just her constant abd. pain/ back pain.
--- NOTE | 2023-12-03 19:52 | PTCARENOTE ---
TPN infusing, IV Cardizem via PICC line. IV antibiotics / IV Dilaudid (x3 this shift) given peripherally left arm. Started clear liq diet- being cautious- taking small bites and sips. Colostomy appliance changed out today, having small amts brown
loose stool and +flatus.
SCDs intact. Daughter visited this pm.
[2023-12-03] MEDS: Parenteral Nutrition, Central 1070 IV (20:54)
[2023-12-03] MEDS: ATIVAN 0.5 MG IV (22:51)
[2023-12-03] MEDS: NSS (PRESERVATIVE FREE) 0.25 ML IV (22:51)
[2023-12-04] VITALS (12 sets, daily range): BP systolic 94–145; BP diastolic 56–84; BMI 17.7
[2023-12-04 00:26] LABS: Glucose - Point of Care 174 mg/dl (70-99)
--- NOTE | 2023-12-04 01:27 | PTCARENOTE ---
Pt complaining of pain in ABD and back, PRN pain med given. Pt also had complaints of not being able to sleep and feeling anxious, PRN given. See MAR. Assessments care and vitals as charted.
[2023-12-04] MEDS: DILAUDID 0.5 MG IV ×5 (04:03→20:50)
[2023-12-04 05:07] LABS: Hematocrit 25.9 % (37.0-47.0); Hemoglobin 8.5 g/dL (12.0-16.0); Mean Corp Hgb Conc. 32.8 g/dL (33.0-37.0); Mean Corpuscular Hgb 28.8 pg (27.0-31.0); Mean Corpuscular Volume 87.8 fL (81.0-99.0); Platelet Count 776 10^3/uL (130-400); Red Blood Cell Count 2.95 10^6/uL (4.20-5.40); Red Cell Dist. Width 16.1 % (11.5-14.5); White Blood Cell Count 13.4 10^3/uL (4.8-10.8)
[2023-12-04] MEDS: ZOFRAN 4 MG IV ×3 (05:32→17:21)
[2023-12-04] MEDS: FLAGYL 500 MG 100 IV ×3 (05:32→22:14)
[2023-12-04 05:35] LABS: ALT (SGPT) 24 U/L (0-35); AST (SGOT) 35 U/L (14-36); Albumin 2.4 g/dl (3.5-5.0); Alkaline Phosphatase 145 U/L (38-126); Blood Urea Nitrogen 17 mg/dl (7-17); Calcium 8.4 mg/dl (8.4-10.2); Carbon Dioxide 27 mmol/L (22-30); Chloride 99 mmol/L (98-107); Estimated Creatinine Clearance 60 ml/min; Glucose 156 mg/dl (70-99); Potassium 3.7 mmol/L (3.5-5.1); Sodium 134 mmol/L (135-145); Total Bilirubin 0.3 mg/dl (0.2-1.3); Total Protein 5.7 g/dl (6.3-8.2); eGFR > 60.00
[2023-12-04] MEDS: VANCOCIN 200 IV ×2 (05:44→18:35)
--- NOTE | 2023-12-04 07:42 | W.PN.HOSP.TC ---
Today's Communication/Plan
-
diet as per CRS
CT abd/pelvis
antibiotics
HR control
PT/OT
pain control
Assessment / Plan
Assessment / Plan
Physical Exam
General: No Apparent Distress
HEENT: Normocephalic and Atraumatic
Respiratory: Negative Wheezes
Cardiac: Regular Rhythm
GI: Soft tender colostomy and HEMA drain in place
Genito-urinary: No Costovertebral Tender
Neuro: AO x 3
Psych: Calm
Assessment:
Septic Shock secondary to perforated bowel from diverticulitis vs stercoral colitis
- was given K-centra for Eliquis reversal
- underwent on 11/16 1) Juliet's procedure (left colectomy with colostomy) 2) takedown splenic flexure on 11/16/23. Operative findings: perforated distal descending colon with associated bloody contamination (blood plus stool-- particularly at left
retroperitoneum)
- post-op course complicated by post-op pelvic abscess seen on CT 11/19 s/p IRAD drain. Culture growing E. coli. E faecium and yeast.
- later CT abdomen/pelvis on 11/24 showed left paracolic gutter area; IR drain placed 11/25
- shock state resolved
- Zosyn narrowed to ceftriaxone/metronidazole and empiric vanc added as per ID; OR cx, E. coli. E faecium, Strep, Clostridium, Bacteroides
- continue Micafungin for candidemia 11/09 sets
- continue NPO/IVF/TPN per CRS, OR drain removed 11/30
- continue Joseph, NGT discontinued 12/03 clear liquid diet started as per CRS
- Colorectal/ID eval appreciated
-cont fentanyl patch prn dilaudid q4h pain, IV Tylenol TID completed (no clear benefit noted)
-developed bleeding at HEMA drain site since resolved, evaluated by IR, non-emergent CT abd/pelvis w contrast pending
Parox A Fib with RVR
- resume Eliquis when cleared by GS; currently on full dose Lovenox
HFpEF
-stable at this time, BNP improved from 2000s to 600s
- monitoring off Lasix
VDRF in setting of acute emergency surgery for airway protection
- extubated - stable respiratory status
Post-operative acute anemia from blood loss
- s/p 3 units PRBCs
-H&H so far stable
Hyponatremia
Non-MA trop elevation
- trop peak 0.744 since trended down
- follow tele/EKGs
Chronic Pain with Opioid Dependence
- continue Dilaudid as needed for pain; reduced to q4hprn. Fentanyl patch also added
- holding buprenorphine
Essential HTN
- hold BB/Doxazosin
LUE SVT cephalic just above antecubital vein
- conservative mgmt
DVT prophylaxis: Lovenox
CODE STATUS: Full code
Discussed with patient's daughter Jennifer over phone
I spent a total of 50 minutes with the patient or on the floor. More than 50% of this time involved counseling and coordination of care.
Anticipated Discharge: > 48 hours
Subjective/Interval History
-
Date of Service: December 04, 2023
Off NGT. tolerating clears.
Objective Data
-
Labs:
Laboratory Results
12/04/23
04:17
WBC 13.4 H
Hgb 8.5 L
Hct 25.9 L
Plt Count 776 H
Sodium 134 L
Potassium 3.7
Chloride 99
Carbon Dioxide 27
BUN 17
Creatinine 0.4 L
Glucose 156 H
Calcium 8.4
Total Bilirubin 0.3
AST 35
ALT 24
Alkaline Phosphatase 145 H
Vital Signs:
Vital Signs
Temp Pulse Resp BP Pulse Ox
98.1 F 89 23 120/57 92
01/27/24 07:39 12/04/23 06:00 12/04/23 06:00 12/04/23 06:00 12/04/23 06:00
I&O
12/03/23 12/04/23 12/05/23
06:59 06:59 06:59
Intake Total 2469 / 2469 2934 / 2934
Output Total 1025 / 1025 2305 / 2305
Balance 1444 / 1444 629 / 629
[2023-12-04] MEDS: CARDIZEM 125 IV ×2 (07:44→16:19)
--- NOTE | 2023-12-04 08:15 | W.PN.ID1 ---
Date of Service
Date of Service: December 04, 2023
Today's Communication
Continue antibiotics.
Assessment / Plan
# Perforated diverticulitis with free air and peritonitis
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
- OR cx, E. coli. E faecium, Strep spp., Clostridium, Bacteroides
# Post-op intra-abdominal abscesses
- 11/20 s/p perc drain - right/pelvis
- Cx: E. coli, E. faecium; C glabrata, no anaerobic cx sent
- E faecium amp sensitive in this instance
- 11/25 s/p per drain in the LEFT collection
- Cx: E coli, C albicans, enterococcus faecium (amp-resistant)
# Transient Nakaseomyces glabrata candidemia 1 out of 2 sets
- Intra-abdominal source.
- repeat blood cx (1 set prior to micafungin, 2nd set after 1 dose micafungin) neg to date
# Leukocytosis
- Trending down
# Ileus - on TPN since 11/22 (picc placed after candidemia)
PLAN:
- Continue Vancomycin IV (d#6) to cover the amp-resistant E. faecium isolate.
- Continue ceftriaxone and metronidazole (d#18 abx)
- Continue Micafungin (d# of )
- Follow WBC. Slight rise noted today.
#Additional Past Medical History:
Paroxysmal Atrial Fibrillation
CHF
Essential Hypertension
Hyperlipidemia
Interstitial cystitis
Chronic Pain with Opioid Dependence
Diverticulitis
Appendectomy
Cholecystectomy
Hysterectomy
Partial hysterectomy
Right rotator cuff
����������������������������������������������������������
Chief Complaint
-: Leukocytosis and Other (Fungemia)
Subjective / Review of Systems
Patient seen and examined. Reports abdominal discomfort. No fevers or chills.
Vital Signs / Physical Exam
Vital Signs
Vital Signs
Temp Pulse Resp BP Pulse Ox
98.1 F 89 23 120/57 92
12/04/23 07:39 12/04/23 06:00 12/04/23 06:00 12/04/23 06:00 12/04/23 06:00
Physical Exam
Constitutional: Comfortable, Chronically Ill and Non-toxic
Eyes: No Conjunctival Hemorrhage and Sclera Anicteric
Cardiovascular: S1/S2; Negative S3/S4
Pulmonary: Symmetric and Non Labored; Negative Wheezes or Rales
Gastrointestinal: Soft, Tender, Non Distended, Decreased Bowel Sounds, No Rebound, No Guarding and Other (Drains in place.)
Extremities: Edema; Negative Cyanosis or Erythema
Neurological: Awake and Alert
Psychological: Calm
Objective Data
Lab Data
Lab Results
12/04/23 04:17
12/04/23 04:17
PT 16.1 Sec (11.4-14.6) H 11/18/23 18:15
INR 1.27 11/18/23 18:15
APTT 27.8 Sec (23.4-35.0) 11/18/23 18:15
Estimated Creat Clear 60 ml/min 12/04/23 04:17
Lactic Acid 0.9 mmol/L (0.7-2.0) 11/18/23 18:15
Total Bilirubin 0.3 mg/dl (0.2-1.3) 12/04/23 04:17
AST 35 U/L (14-36) 12/04/23 04:17
ALT 24 U/L (0-35) 12/04/23 04:17
Alkaline Phosphatase 145 U/L (38-126) H 12/04/23 04:17
Most recent labs reviewed.
Micro Results:
11/25/23 15:39 Wound Culture - Final
Abscess Escherichia coli
Enterococcus faecium
Samantha albicans
Gram Stain - Final
11/18/23 08:05 Fungus Mold Identification - Final
Blood/Venous Nakaseomyces glabrata
11/22/23 04:38 Blood Culture - Final
Blood/Venous No Growth - Final Report
11/21/23 16:20 Blood Culture - Final
Blood/Venous No Growth - Final Report
11/18/23 00:47 Blood Culture - Final
Blood/Venous Yeast
Gram Stain - Final
11/20/23 12:39 Body Fluid Culture - Final
Fluid Escherichia coli
Enterococcus faecium
Samantha glabrata (T. glab)
Gram Stain - Final
11/18/23 00:48 Blood Culture - Final
Blood/Venous No Growth - Final Report
11/15/23 22:44 Wound Culture - Final
Abdomen Escherichia coli
Enterococcus faecium
Streptococcus species
Gram Stain - Final
11/15/23 22:44 Anaerobic Culture - Final
Abdomen Bacteroides fragilis
Clostridium species
11/15/23 18:19 Blood Culture - Final
Blood/Venous No Growth - Final Report
11/18/23 18:31 Urine Culture - Final
Urine NO GROWTH
11/15/23 14:27 Influenza Types A & B (MARIELA) - Final
Nasal Swab Negative for Influenza A & B, NAAT
Negative results must be combined with clinical observations
and patient history.
Nucleic Acid Amplification test (NAAT)performed on the
[employer] platform.
Imaging:
11/15/23 CT a/p: The findings are most consistent with perforation (partially contained) of a diverticulum in the descending or sigmoid colon with free air scattered throughout the abdomen and pelvis, forming a masslike area with fluid and free air in
the left side of the abdomen measuring 10 x 10 x 13 cm.� Additionally there is fluid in the anterior peripancreatic and pararenal space consistent with peritonitis, no discrete fluid collection to suggest an abscess. There is significant stool
within the colon and air within the colon wall, which may be due to previous obstruction prior to perforation or the differential includes the possibility of stercoral colitis.
11/19/23 CT a/p: Elongated fluid collection within the pelvis, extending into the retroperitoneum, measuring 8 x 5.6 x 3.3 cm. Internal gas bubbles and peripheral contrast enhancement are suggestive of postoperative abscess. Abscess is not
immediately adjacent to the suture line for the rectal stump. Bubbles of air within the left paracolic gutter as detailed above, without associated abscess formation. These bubbles of air may be postoperative in nature. Bibasilar airspace
consolidation, which may represent subsegmental atelectasis or pneumonia. Tiny left pleural effusion.
11/22/23: CXR: Right PICC in position as described. Worsening right lung airspace disease suspicious for pneumonia. Stable small left pleural effusion with associated airspace disease.
11/24/23 CT a/p: Right true pelvic pigtail drainage catheter in position with significantly decreased abnormal fluid collection/abscess in comparison to prior study.
Density left lower lobe consolidation and small left pleural effusion which could represent atelectasis and/or pneumonia. Limited evaluation as a result of paucity of oral contrast including possibly of oral contrast opacification of portions of
small bowel as well as entire large bowel. CANNOT EXCLUDE small extraluminal collection in the left flank measuring approximately 3.5 cm such as an abscess, as noted above.
[2023-12-04] MEDS: CORDARONE 104 MG IV ×2 (08:20→20:55)
[2023-12-04] MEDS: NSS (PRESERVATIVE FREE) 10 ML IV (08:21)
[2023-12-04] MEDS: PROTONIX IV 40 MG IV (08:22)
[2023-12-04] MEDS: LOVENOX 50 MG SC ×2 (08:23→20:50)
[2023-12-04] MEDS: FLUSH (NSS) 1 FLUSH IV ×4 (08:25→16:35)
--- NOTE | 2023-12-04 08:26 | PHA.VAN.FU ---
Vancomycin Assessment / Plan
- Assessment
Renal Function: Stable
In the past 24 hrs, patient has been: Afebrile
Concomitant Antimicrobials: CEFTRIAXONE, METRONIDAZOLE, MICAFUNGIN
- Dosing Plan
Continue: 1000 MG Q12H
- Monitoring Plan
Level(s) appropriate: Recheck trough at minimum of weekly intervals, Repeat sooner for changes in renal function or clinical status
- Follow Up
Pharmacy will continue to follow.
Vancomycin Follow UP
- -
Patient Age: 78
Patient Sex: Female
Vancomycin Day #: 6
Indication: Gi / Intra-Abdominal
Requesting Provider: Dr. Sanchez
Pertinent Antimicrobial Allergies:
NKDA
Height / Weight:
Height 5 ft 5 in
Actual Weight 48.2 kg
IBW in k
Pertinent Past Medical History: BMI ~18.4
- Vital Signs / Lab Results
Temp Pulse Resp BP Pulse Ox
98.1 F 89 23 120/57 92
12/04/23 07:39 12/04/23 06:00 12/04/23 06:00 12/04/23 06:00 12/04/23 06:00
Lab Results - Hematology
12/02/23 12/03/23 12/04/23
03:20 04:39 04:17
WBC 12.7 H 11.9 H 13.4 H
Lab Results - Chemistry
12/03/23 12/04/23
04:39 04:17
BUN 14 17
Creatinine 0.4 L 0.4 L
Estimated Creat Clear 60 60
Albumin 2.4 L
Therapeutic Drug Monitoring
Vancomycin Peak 18.4 ug/ml (18-26) 12/02/23 22:51
Vancomycin Trough 12.5 ug/ml (5-20) 12/03/23 04:39
--- NOTE | 2023-12-04 10:47 | W.PN.CARDCBS ---
Today's Communication / Plan
-
Continue IV dig, Cardizem, amiodarone until able to take p.o.'s
Continue rate control for now might consider cardioversion but could be done as an outpatient as we need to be certain patent does not need any other procedures as will require 4 weeks of continuous anticoagulation status post cardioversion
Impression / Plan
-
Faucets Assembler: Dr. HAILEY Nash
Impression:
Perforated stercoral colitis with septic shock
s/p Juliet's procedure 11/16/2023
Paroxysmal atrial fibrillation w/ RVR recurrent postoperatively with difficult to control rates
Acute blood loss anemia
Troponin elevation
Chronic HFpEF
Hypertension
Hyperlipidemia
Spinal stenosis
Fibromyalgia
h/o tobacco abuse on nicotine patch
Acute HFpEF postoperatively
Echo 11/22/2023: EF 55-60% mild LVH, dilated left atrium and right atrium, moderate mitral regurgitation mild TR, pulmonary artery systolic pressure 43-48 mmHg
Plan:
Heart rate control in atrial fibrillation is reasonable on IV digoxin, IV amiodarone, and IV diltiazem
Await clearance to resume oral medications
Could consider eventual cardioversion once she is stabilized but would have high rate of recurrent A-fib
Also need to make sure patient is stable from colorectal viewpoint as she would be committed to at least 4 weeks of anticoagulation
Rate control might be a better option and defer decision regarding cardioversion as an
Volume status reasonable on no diuretics
HPI: Bailey is an 78 year old female with PMH of paroxysmal atrial fibrillation, chronic HFpEF, hypertension, hyperlipidemia, and chronic pain who presented to [facility] for evaluation of abdominal pain. She reported that for approximately 2 days prior
to arrival, she noted increased abdominal pain and constipation. She also noted associated chills. On arrival to ER, she was found to have perforated diverticulitis by CT scan with associated peritonitis. She was admitted, started on antibiotics,
and ultimately underwent Juliet's procedure w/ takedown of splenic flexure on 11/16/2023. She then went into rapid atrial fibrillation post op on 11/17/2023. She was started on IV diltiazem and cardiology consulted for evaluation. She was symptomatic
with this and noted palpitations and some chest pain. Her heart rates are improved this AM on cardizem gtt and she is feeling better from a cardiac standpoint, although still complains of pain related to surgery.
Progress Note - Faucets Assembler
Subjective
Date of Service: December 04, 2023
She is without complaints
Objective
Labs:
12/04/23 04:17
12/04/23 04:17
Labs
Hgb 8.5 g/dL (12.0-16.0) L 12/04/23 04:17
Hct 25.9 % (37.0-47.0) L 12/04/23 04:17
Plt Count 776 10^3/uL (130-400) H 12/04/23 04:17
PT 16.1 Sec (11.4-14.6) H 11/18/23 18:15
INR 1.27 11/18/23 18:15
APTT 27.8 Sec (23.4-35.0) 11/18/23 18:15
Sodium 134 mmol/L (135-145) L 12/04/23 04:17
Potassium 3.7 mmol/L (3.5-5.1) 12/04/23 04:17
BUN 17 mg/dl (7-17) 12/04/23 04:17
Creatinine 0.4 mg/dL (0.6-1.0) L 12/04/23 04:17
Glucose 156 mg/dl (70-99) H 12/04/23 04:17
Digoxin Cancelled 11/30/23 11:05
Vital Signs and I&O:
Vital Signs
Temp Pulse Resp BP Pulse Ox
98.1 F 89 23 120/57 92
12/04/23 07:39 12/04/23 06:00 12/04/23 06:00 12/04/23 06:00 12/04/23 06:00
Vital Signs
Temp Pulse Resp BP Pulse Ox
98.1 F 89 23 120/57 92
12/04/23 07:39 12/04/23 06:00 12/04/23 06:00 12/04/23 06:00 12/04/23 06:00
Intake & Output
12/02/23 12/03/23 12/04/23 12/05/23
06:59 06:59 06:59 06:59
Intake Total 3909 / 3909 2469 / 2469 2934 / 2934
Output Total 1455 / 1455 1025 / 1025 2305 / 2305
Balance 2454 / 2454 1444 / 1444 629 / 629
Physical Exam
Physical Exam
General: Well developed, well nourished in NAD.
Neck: Supple, no JVD, HJR, carotids +2 B/L, no bruits bilaterally.
Heart: Non displaced PMI, irregular, no murmurs, No S3, S4, no rubs.
Lungs: Scattered rhonchi
Extremities: No clubbing, cyanosis or edema bilaterally.
Neuro: Grossly nonfocal, awake, alert and oriented x3.
--- NOTE | 2023-12-04 11:19 | PTCARENOTE ---
Dr. Alcaraz to room and removed abdominal stables, dressing applied to area. Patient currently off unit to CT for abdominal scan for HEMA tube evaluation.
[2023-12-04 12:26] LABS: Glucose - Point of Care 124 mg/dl (70-99)
[2023-12-04] MEDS: LANOXIN 125 MCG IV (12:35)
[2023-12-04] MEDS: ROCEPHIN 2000 MG IV (12:35)
[2023-12-04] MEDS: STERILE WATER FOR INJECTION 20 ML IV (12:35)
[2023-12-04] MEDS: FLUSH (NSS) 3 FLUSH IV (12:36)
--- NOTE | 2023-12-04 12:51 | W.PN.CRS1 ---
Today's Communication / Plan
-
Fulls/TPN.
CT per hospitalist.
Assessment/Plan
-
POD 18.
1. tolerated clears. Go to fulls. Will give some Magnesium Citrate. Continue TPN for now.
2. afebrile. WBC 13.4. Repeat CT ordered by hospitalist. Will follow up on.
3. skin lamonte removed.
4. antibiotics per ID.
Subjective Data
Procedure
Juliet's resection 11/15/23
Subjective Data
Date of Service: December 04, 2023
Awake, verbal.
Admits to unchanged abdominal discomfort.
Denies nausea.
Did ok with clears.
Objective Data
-
Vital Signs
Temp Pulse Resp BP Pulse Ox
98.1 F 102 27 132/81 92
12/04/23 07:39 12/04/23 12:35 12/04/23 12:00 12/04/23 12:00 12/04/23 12:00
Intake & Output
12/03/23 12/04/23 12/05/23
06:59 06:59 06:59
Intake Total 2469 / 2469 2934 / 2934
Output Total 1025 / 1025 2305 / 2305
Balance 1444 / 1444 629 / 629
Intake:
Oral fluids 0 / 0 720 / 720
IV fluids (Total) 60 / 60
IV piggybacks 1084 / 1084 1064 / 1064
TPN/PPN 1080 / 1080 1080 / 1080
Amount instilled into Drain (
Total)
Left Middle Abdomen David-
Clarke C Placed in IR
Amount instilled into GI Tube ( 300 / 300
Total)
Concho Sump 300 / 300
Output:
Liquid stool amount 40 / 40
Colostomy 40 / 40
Drain Output (Total)
Left Middle Abdomen David-
Clarke C Placed in IR
Gastrointestinal tube output (
Total)
Concho Sump
Urine, Voided 900 / 900 2250 / 2250
Other:
How many times incontinent 1 2
SATURATED amount urine
Lab Results
12/04/23 04:17
12/04/23 04:17
Physical Exam
-
General: No Acute Distress
Chest: Decreased Breath Sounds (at bases)
Cardiovascular: Sinus Tachycardia (borderline)
Abdomen: Distended (mild), Tender (mild incisional) and Other (stoma viable with gas in bag; IR drain with light brown output)
Extremities: No Calf Tenderness
Incision: No Skin Erythema and Other (lamonte removed.)
[2023-12-04] MEDS: CITROMA 300 ML PO (15:23)
[2023-12-04] MEDS: MYCAMINE 105 MG IV (17:22)
[2023-12-04] MEDS: FLUSH (NSS) 2 FLUSH IV (17:22)
[2023-12-04 19:58] LABS: Glucose - Point of Care 211 mg/dl (70-99)
[2023-12-04] MEDS: Parenteral Nutrition, Central 1070 IV (20:56)
[2023-12-04] MEDS: ATIVAN 0.5 MG IV (22:14)
[2023-12-04] MEDS: NSS (PRESERVATIVE FREE) 0.25 ML IV (22:15)
[2023-12-04 23:50] LABS: Glucose - Point of Care 144 mg/dl (70-99)
[2023-12-05] VITALS (11 sets, daily range): BP systolic 106–155; BP diastolic 59–103; PULSE 111; O2SAT 88; BMI 18.3
[2023-12-05] MEDS: CARDIZEM 125 IV ×2 (00:19→09:21)
--- NOTE | 2023-12-05 01:57 | PTCARENOTE ---
Received pt from Day RN. Pt AAOX3. Pt having continuous pain in ABD and lower back see MAR for med administration. Pt colostomy now putting out liquid brown stool. Assessments care and vitals as charted.
[2023-12-05] MEDS: DILAUDID 0.5 MG IV ×2 (02:43→12:19)
--- NOTE | 2023-12-05 03:03 | PTCARENOTE ---
Right HEMA drain dressing has serosanguineous drainage,outlined with sharpie to watch amount.
[2023-12-05] MEDS: VANCOCIN 200 IV ×2 (05:06→18:32)
[2023-12-05 05:27] LABS: Hematocrit 23.7 % (37.0-47.0); Hemoglobin 7.8 g/dL (12.0-16.0); Mean Corp Hgb Conc. 32.9 g/dL (33.0-37.0); Mean Corpuscular Volume 88.1 fL (81.0-99.0); Mean Platelet Volume 8.9 fL (7.4-10.4); Platelet Count 641 10^3/uL (130-400); Red Blood Cell Count 2.69 10^6/uL (4.20-5.40); Red Cell Dist. Width 16.2 % (11.5-14.5); White Blood Cell Count 11.7 10^3/uL (4.8-10.8)
[2023-12-05 05:44] LABS: ALT (SGPT) 24 U/L (0-35); AST (SGOT) 35 U/L (14-36); Albumin 2.2 g/dl (3.5-5.0); Alkaline Phosphatase 128 U/L (38-126); Blood Urea Nitrogen 16 mg/dl (7-17); Calcium 7.9 mg/dl (8.4-10.2); Carbon Dioxide 27 mmol/L (22-30); Chloride 102 mmol/L (98-107); Estimated Creatinine Clearance 59 ml/min; Glucose 172 mg/dl (70-99); Potassium 3.5 mmol/L (3.5-5.1); Sodium 137 mmol/L (135-145); Total Bilirubin 0.2 mg/dl (0.2-1.3); Total Protein 5.3 g/dl (6.3-8.2); eGFR > 60.00
[2023-12-05] MEDS: FLAGYL 500 MG 100 IV ×3 (06:10→22:12)
[2023-12-05 06:25] LABS: Glucose - Point of Care 197 mg/dl (70-99)
--- NOTE | 2023-12-05 07:28 | W.PN.HOSP.TC ---
Today's Communication/Plan
-
Diet wound ostomy care as per CRS
IV dilaudid reduced to [id number] for severe breakthrough pain
Oxycodone Q6HPRN mod severe pain
Tylenol 1000 mg TID PO started
cont heart rate rhythm control as per cardio
cont abx as per ID
Assessment / Plan
Assessment / Plan
Physical Exam
General: No Apparent Distress
HEENT: Normocephalic and Atraumatic
Respiratory: Negative Wheezes
Cardiac: Regular Rhythm
GI: Soft tender colostomy and HEMA drain in place
Genito-urinary: No Costovertebral Tender
Neuro: AO x 3
Psych: Calm
Assessment:
Septic Shock secondary to perforated bowel from diverticulitis vs stercoral colitis
- was given K-centra for Eliquis reversal
- underwent on 11/16 1) Juliet's procedure (left colectomy with colostomy) 2) takedown splenic flexure on 11/16/23. Operative findings: perforated distal descending colon with associated bloody contamination (blood plus stool-- particularly at left
retroperitoneum)
- post-op course complicated by post-op pelvic abscess seen on CT 11/19 s/p IRAD drain. Culture growing E. coli. E faecium and yeast.
- later CT abdomen/pelvis on 11/24 showed left paracolic gutter area; IR drain placed 11/25
- shock state resolved
- Zosyn narrowed to ceftriaxone/metronidazole and empiric vanc added as per ID; OR cx, E. coli. E faecium, Strep, Clostridium, Bacteroides
- continue Micafungin for candidemia 11/09 sets
- continue NPO/IVF/TPN/Diet per CRS, OR drain removed 11/30
- continue Joseph, NGT discontinued 12/03 clear liquid diet started as per CRS
- Colorectal/ID eval appreciated
-cont fentanyl patch prn dilaudid q4h pain, IV Tylenol TID completed (no clear benefit noted)
-developed bleeding at HEMA drain site since resolved, evaluated by IR, non-emergent CT abd/pelvis w contrast obtained for further evaluation, residual fluid collections in the pelvis noted as per CRS no need for further drain placement at this time
given clinical improvement
-12/05 Tolerating Full liquid diet TPN discontinued
Parox A Fib with RVR
- resume Eliquis when cleared by GS; currently on full dose Lovenox
- IV digoxin Cardizem Amio as per Cardio
HFpEF
-stable at this time, BNP improved from 2000s to 600s
- monitoring off Lasix
VDRF in setting of acute emergency surgery for airway protection
- extubated - stable respiratory status
Post-operative acute anemia from blood loss
- s/p 3 units PRBCs
-H&H so far stable
Hyponatremia
Non-NV trop elevation
- trop peak 0.744 since trended down
- follow tele/EKGs
Chronic Pain with Opioid Dependence
-Fentanyl patch added, cont
- holding buprenorphine
-tolerating diet
-Tylenol 1000 mg TID PO started
-oxycodone 5 mg Q6HPRN mod severe pain added
- Dilaudid IV 0.5 mg Q4HPRN reduced to [id number] for severe breakthrough pain
Essential HTN
- BB/Doxazosin on hold while npo
-consider resuming as pt tolerates diet
LUE SVT cephalic just above antecubital vein
- conservative mgmt
DVT prophylaxis: Lovenox
CODE STATUS: Full code
Discussed with patient's daughter Jennifer over phone
I spent a total of 52 minutes with the patient or on the floor. More than 50% of this time involved counseling and coordination of care.
Anticipated Discharge: > 48 hours
Subjective/Interval History
-
Date of Service: December 05, 2023
Appears well, continues to report complaint regarding short action prn dilaudid. Otherwise tolerating full liquid diet. stool output noted in ostomy.
Objective Data
-
Labs:
Laboratory Results
12/05/23
05:03
WBC 11.7 H
Hgb 7.8 L
Hct 23.7 L
Plt Count 641 H
Sodium 137
Potassium 3.5
Chloride 102
Carbon Dioxide 27
BUN 16
Creatinine 0.5 L
Glucose 172 H
Calcium 7.9 L
Total Bilirubin 0.2
AST 35
ALT 24
Alkaline Phosphatase 128 H
Vital Signs:
Vital Signs
Temp Pulse Resp BP Pulse Ox
97.6 F 104 22 155/90 94
12/05/23 03:03 12/05/23 06:00 12/05/23 06:00 12/05/23 06:00 12/05/23 04:00
I&O
12/04/23 12/05/23 12/06/23
06:59 06:59 06:59
Intake Total 2934 / 2934 3488 / 3488
Output Total 2305 / 2305 2370 / 2370
Balance 629 / 629 1118 / 1118
--- NOTE | 2023-12-05 08:02 | PHA.VAN.FU ---
Vancomycin Assessment / Plan
- Assessment
Renal Function: Stable
WBC's are: Stable
In the past 24 hrs, patient has been: Afebrile
Concomitant Antimicrobials: CEFTRIAXONE, METRONIDAZOLE, MICAFUNGIN
- Dosing Plan
Continue: 1000MG Q12H
- Monitoring Plan
Level(s) appropriate: Recheck trough at minimum of weekly intervals, Repeat sooner for changes in renal function or clinical status
- Follow Up
Pharmacy will continue to follow.
Vancomycin Follow UP
- -
Patient Age: 78
Patient Sex: Female
Vancomycin Day #: 7
Indication: Gi / Intra-Abdominal
Requesting Provider: Dr. Sanchez
Pertinent Antimicrobial Allergies:
NKDA
Height / Weight:
Height 5 ft 5 in
Actual Weight 49.8 kg
IBW in k
Pertinent Past Medical History: BMI ~18.4
- Vital Signs / Lab Results
Temp Pulse Resp BP Pulse Ox
98.4 F 104 22 155/90 94
12/05/23 07:42 12/05/23 06:00 12/05/23 06:00 12/05/23 06:00 12/05/23 04:00
Lab Results - Hematology
12/03/23 12/04/23 12/05/23
04:39 04:17 05:03
WBC 11.9 H 13.4 H 11.7 H
Lab Results - Chemistry
12/03/23 12/04/23 12/05/23
04:39 04:17 05:03
BUN 14 17 16
Creatinine 0.4 L 0.4 L 0.5 L
Estimated Creat Clear 60 60 59
Albumin 2.4 L 2.2 L
Therapeutic Drug Monitoring
Vancomycin Peak 18.4 ug/ml (18-26) 12/02/23 22:51
Vancomycin Trough 12.5 ug/ml (5-20) 12/03/23 04:39
[2023-12-05] MEDS: ROXICODONE 5 MG PO ×3 (09:20→21:38)
[2023-12-05] MEDS: CORDARONE 104 MG IV (09:20)
[2023-12-05] MEDS: LOVENOX 50 MG SC ×2 (09:20→19:54)
[2023-12-05] MEDS: PROTONIX IV 40 MG IV (09:21)
[2023-12-05] MEDS: NSS (PRESERVATIVE FREE) 10 ML IV (09:21)
--- NOTE | 2023-12-05 09:27 | W.PN.ID1 ---
Date of Service
Date of Service: December 05, 2023
Today's Communication
Continue antibiotics.
Assessment / Plan
# Perforated diverticulitis with free air and peritonitis
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
- OR cx, E. coli. E faecium, Strep spp., Clostridium, Bacteroides
# Post-op intra-abdominal abscesses
- 11/20 s/p perc drain - right/pelvis
- Cx: E. coli, E. faecium; C glabrata, no anaerobic cx sent
- E faecium amp sensitive in this instance
- 11/25 s/p per drain in the LEFT collection
- Cx: E coli, C albicans, enterococcus faecium (amp-resistant)
# Transient Nakaseomyces glabrata candidemia 1 out of 2 sets
- Intra-abdominal source.
- repeat blood cx (1 set prior to micafungin, 2nd set after 1 dose micafungin) neg to date
# Leukocytosis
- Trending down
# Ileus - on TPN since 11/22 (picc placed after candidemia)
PLAN:
- Continue Vancomycin IV (d#7) to cover the amp-resistant E. faecium isolate.
- Continue ceftriaxone and metronidazole (d#19 abx)
- Continue Micafungin (d#13 of )
- Follow WBC. Slight improvement today.
#Additional Past Medical History:
Paroxysmal Atrial Fibrillation
CHF
Essential Hypertension
Hyperlipidemia
Interstitial cystitis
Chronic Pain with Opioid Dependence
Diverticulitis
Appendectomy
Cholecystectomy
Hysterectomy
Partial hysterectomy
Right rotator cuff
����������������������������������������������������������
Chief Complaint
-: Leukocytosis and Other (Fungemia)
Subjective / Review of Systems
VAP patient seen and examined. Reports no significant issues at present. Notes some ongoing abdominal discomfort. Denies fevers or chills.
Vital Signs / Physical Exam
Vital Signs
Vital Signs
Temp Pulse Resp BP Pulse Ox
98.4 F 104 22 155/90 94
12/05/23 07:42 12/05/23 06:00 12/05/23 06:00 12/05/23 06:00 12/05/23 04:00
Physical Exam
Physical Exam:
Constitutional: Comfortable, Chronically Ill and Non-toxic
Eyes: No Conjunctival Hemorrhage and Sclera Anicteric
Cardiovascular: S1/S2; Negative S3/S4
Pulmonary: Symmetric and Non Labored; Negative Wheezes or Rales
Gastrointestinal: Soft, Tender, Non Distended, Decreased Bowel Sounds, No Rebound, No Guarding and Other (Drains in place.)
Extremities: Edema; Negative Cyanosis or Erythema
Neurological: Awake and Alert
Psychological: Calm
Objective Data
Lab Data
Lab Results
12/05/23 05:03
PT 16.1 Sec (11.4-14.6) H 11/18/23 18:15
INR 1.27 11/18/23 18:15
APTT 27.8 Sec (23.4-35.0) 11/18/23 18:15
Estimated Creat Clear 59 ml/min 12/05/23 05:03
Lactic Acid 0.9 mmol/L (0.7-2.0) 11/18/23 18:15
Total Bilirubin 0.2 mg/dl (0.2-1.3) 12/05/23 05:03
AST 35 U/L (14-36) 12/05/23 05:03
ALT 24 U/L (0-35) 12/05/23 05:03
Alkaline Phosphatase 128 U/L (38-126) H 12/05/23 05:03
Most recent labs reviewed.
Micro Results:
11/25/23 15:39 Wound Culture - Final
Abscess Escherichia coli
Enterococcus faecium
Samantha albicans
Gram Stain - Final
11/18/23 08:05 Fungus Mold Identification - Final
Blood/Venous Nakaseomyces glabrata
11/22/23 04:38 Blood Culture - Final
Blood/Venous No Growth - Final Report
11/21/23 16:20 Blood Culture - Final
Blood/Venous No Growth - Final Report
11/18/23 00:47 Blood Culture - Final
Blood/Venous Yeast
Gram Stain - Final
11/20/23 12:39 Body Fluid Culture - Final
Fluid Escherichia coli
Enterococcus faecium
Samantha glabrata (T. glab)
Gram Stain - Final
11/18/23 00:48 Blood Culture - Final
Blood/Venous No Growth - Final Report
11/15/23 22:44 Wound Culture - Final
Abdomen Escherichia coli
Enterococcus faecium
Streptococcus species
Gram Stain - Final
11/15/23 22:44 Anaerobic Culture - Final
Abdomen Bacteroides fragilis
Clostridium species
11/15/23 18:19 Blood Culture - Final
Blood/Venous No Growth - Final Report
11/18/23 18:31 Urine Culture - Final
Urine NO GROWTH
11/15/23 14:27 Influenza Types A & B (MARIELA) - Final
Nasal Swab Negative for Influenza A & B, NAAT
Negative results must be combined with clinical observations
and patient history.
Nucleic Acid Amplification test (NAAT)performed on the
ISH platform.
Imaging:
11/15/23 CT a/p: The findings are most consistent with perforation (partially contained) of a diverticulum in the descending or sigmoid colon with free air scattered throughout the abdomen and pelvis, forming a masslike area with fluid and free air in
the left side of the abdomen measuring 10 x 10 x 13 cm.� Additionally there is fluid in the anterior peripancreatic and pararenal space consistent with peritonitis, no discrete fluid collection to suggest an abscess. There is significant stool
within the colon and air within the colon wall, which may be due to previous obstruction prior to perforation or the differential includes the possibility of stercoral colitis.
11/19/23 CT a/p: Elongated fluid collection within the pelvis, extending into the retroperitoneum, measuring 8 x 5.6 x 3.3 cm. Internal gas bubbles and peripheral contrast enhancement are suggestive of postoperative abscess. Abscess is not
immediately adjacent to the suture line for the rectal stump. Bubbles of air within the left paracolic gutter as detailed above, without associated abscess formation. These bubbles of air may be postoperative in nature. Bibasilar airspace
consolidation, which may represent subsegmental atelectasis or pneumonia. Tiny left pleural effusion.
11/22/23: CXR: Right PICC in position as described. Worsening right lung airspace disease suspicious for pneumonia. Stable small left pleural effusion with associated airspace disease.
11/24/23 CT a/p: Right true pelvic pigtail drainage catheter in position with significantly decreased abnormal fluid collection/abscess in comparison to prior study.
Density left lower lobe consolidation and small left pleural effusion which could represent atelectasis and/or pneumonia. Limited evaluation as a result of paucity of oral contrast including possibly of oral contrast opacification of portions of
small bowel as well as entire large bowel. CANNOT EXCLUDE small extraluminal collection in the left flank measuring approximately 3.5 cm such as an abscess, as noted above.
[2023-12-05] MEDS: ZOFRAN 4 MG IV ×2 (10:15→18:39)
--- NOTE | 2023-12-05 12:05 | W.PN.CRS1 ---
Addendum entered and electronically signed by Barak Alcaraz MD 12/05/23 14:37:
I saw and examined the patient.
The PA's note was reviewed and I agree with the note.
Comment:
Seen in a.m. with PA.
Denied nausea. Pain control a bit better. Tolerating fulls.
Vitals reasonable. White blood cell count down to 11.7.
Abdomen fairly soft. Incision looks good. Stoma viable with output of both gas and stool.
Advancing to fulls. Stop TPN.
CT scan from yesterday reviewed. There are a few residual fluid collections in the pelvis that are fairly small. Will hold off on further consideration for drain placement given her improving clinical status.
Continue IV antibiotics per ID.
Continue therapeutic Lovenox. At some point will need to resume Eliquis.
Original Note:
Today's Communication / Plan
-
fulls
let tpn run out
Assessment/Plan
-
78-year-old female with PMH of A-fib (on Eliquis, last dose was the morning of 11/15/2023), chronic pain (on Suboxone), HTN who presented with acute abdominal pain and was found to have perforated stercoral colitis and underwent emergency Dos Santos's
procedure for perforation in the descending colon, in septic shock; given Kcentra preoperatively, on Paul-Synephrine overnight, s/p IR drain placement
1.� Vitlas normal.
2.� S/P IR drain placement. Flush BID.
3.� Allow TPN to run tonight. We are not renewing it. Remain on fulls.
4.� Continue to hold Eliquis.� On Lovenox for DVT prophylaxis, 50meq BID.
5.� OR cx,�E. coli.�E faecium,�Strep spp.,�Clostridium,�Bacteroides. On ceftriaxone/metronidazole, vancomycin, and micafungin per ID.
Subjective Data
Procedure
Juliet's resection 11/15/23
Subjective Data
Date of Service: December 05, 2023
Patient states she feels 'ok'. Her abdominal pain is not as bad. She denies nausea or vomiting. She is tolerating fulls.
Objective Data
-
Vital Signs
Temp Pulse Resp BP Pulse Ox
98.4 F 104 22 155/90 94
12/05/23 07:42 12/05/23 06:00 12/05/23 06:00 12/05/23 06:00 12/05/23 04:00
Intake & Output
12/04/23 12/05/23 12/06/23
06:59 06:59 06:59
Intake Total 2934 / 2934 3488 / 3488
Output Total 2305 / 2305 2370 / 2370
Balance 629 / 629 1118 / 1118
Intake:
Oral fluids 720 / 720 1125 / 1125
IV fluids (Total) 60 / 60 60 / 60
IV piggybacks 1064 / 1064 1213 / 1213
TPN/PPN 1080 / 1080 1080 / 1080
Amount instilled into Drain (
Total)
Left Middle Abdomen David-
Clarke C Placed in IR
Output:
Liquid stool amount 40 / 40 850 / 850
Colostomy 40 / 40 850 / 850
Drain Output (Total)
Left Middle Abdomen David-
Clarke C Placed in IR
Urine, Voided 2250 / 2250 1510 / 1510
Other:
How many times incontinent 1
MODERATE amount urine
How many times incontinent 2
SATURATED amount urine
Lab Results
12/05/23 05:03
Physical Exam
-
General: No Acute Distress and AOx3
Abdomen: Soft, Non Distended, Non Tender and Other (colostomy warm and pink with output)
[2023-12-05] MEDS: LANOXIN 125 MCG IV (12:12)
[2023-12-05] MEDS: STERILE WATER FOR INJECTION 20 ML IV (12:13)
[2023-12-05] MEDS: ROCEPHIN 2000 MG IV (12:13)
[2023-12-05 12:44] LABS: Hematocrit 25.3 % (37.0-47.0); Hemoglobin 8.4 g/dL (12.0-16.0)
[2023-12-05 13:23] LABS: Glucose - Point of Care 180 mg/dl (70-99)
[2023-12-05] MEDS: DURAGESIC 25 MCG/HR PATCH 1 PATCH TRANSDERM (15:36)
[2023-12-05] MEDS: TYLENOL 1000 MG PO ×2 (15:36→21:38)
[2023-12-05] MEDS: MYCAMINE 105 MG IV (17:11)
[2023-12-05 18:42] LABS: Glucose - Point of Care 204 mg/dl (70-99)
--- NOTE | 2023-12-05 19:19 | PTCARENOTE ---
OOB in chair all day. Requests pain meds, zofran, frequently - 2 doses Roxycodone, 1 dose IV Dilaudid and 2 doses IV Zofran given today with better relief from oral doses! PS 05/17 vs 07/18 with IV. Tolerating PO Diet but does have chronic issues
with nausea per daughter- IV Zofran given. Difficult time with IS so I reviewed C/DB technique instead. Audible Rhonchi and coughing this am- resolved oob in chair. HEMA drain flushed / intact. Colostomy burped flatus and 150 brown liq stool.
Duragesic patch replaced today MAGGIE. TPN infusing, IV antibiotics (multi) with KVO line. IV Cardizem discontinued- will start PO dose tonight. Currently AF 100.
[2023-12-05] MEDS: CARDIZEM CD 240 MG PO (19:55)
[2023-12-05] MEDS: PACERONE 200 MG PO (19:55)
--- NOTE | 2023-12-05 20:24 | PTCARENOTE ---
Received pt from ruth RN. Pt OOB in chair, assisted back to bed x2. Pt is AAOx3, anxious, forgetful @ times. Afib on the monitor, L UE +1 edema. On RA O2 sat 96%, lungs diminished. Pw in place. L HEMA drain, irrigated per order. Colostomy in
place. SCDs on. Pt c/o 10/ pain, PRN meds given (see JAN). Pt is laying comfortable in bed with call simmons in reach.
[2023-12-05] MEDS: NSS (PRESERVATIVE FREE) 0.25 ML IV (21:38)
[2023-12-05] MEDS: ATIVAN 0.5 MG IV (21:39)
[2023-12-06] VITALS (14 sets, daily range): BP systolic 107–195; BP diastolic 53–97; PULSE 100; BMI 18.6
[2023-12-06 00:10] LABS: Glucose - Point of Care 85 mg/dl (70-99)
[2023-12-06] MEDS: ZOFRAN 4 MG IV ×3 (01:45→23:49)
[2023-12-06] MEDS: DILAUDID 0.5 MG IV ×2 (01:45→14:09)
[2023-12-06] MEDS: ROXICODONE 5 MG PO ×4 (04:16→23:46)
[2023-12-06 04:44] LABS: Hematocrit 23.5 % (37.0-47.0); Hemoglobin 7.7 g/dL (12.0-16.0); Mean Corp Hgb Conc. 32.8 g/dL (33.0-37.0); Mean Corpuscular Hgb 27.6 pg (27.0-31.0); Mean Corpuscular Volume 84.2 fL (81.0-99.0); Platelet Count 574 10^3/uL (130-400); Red Blood Cell Count 2.79 10^6/uL (4.20-5.40); Red Cell Dist. Width 16.1 % (11.5-14.5); White Blood Cell Count 12.4 10^3/uL (4.8-10.8)
[2023-12-06] MEDS: FLAGYL 500 MG 100 IV ×3 (05:01→21:43)
[2023-12-06 05:12] LABS: ALT (SGPT) 25 U/L (0-35); AST (SGOT) 44 U/L (14-36); Albumin 2.4 g/dl (3.5-5.0); Alkaline Phosphatase 138 U/L (38-126); Blood Urea Nitrogen 16 mg/dl (7-17); Calcium 7.9 mg/dl (8.4-10.2); Carbon Dioxide 28 mmol/L (22-30); Chloride 105 mmol/L (98-107); Estimated Creatinine Clearance 60 ml/min; Glucose 88 mg/dl (70-99); Magnesium 2.1 mg/dl (1.6-2.3); Phosphorus 3.6 mg/dl (2.5-4.5); Potassium 3.5 mmol/L (3.5-5.1); Sodium 133 mmol/L (135-145); Total Bilirubin 0.4 mg/dl (0.2-1.3); Total Protein 5.5 g/dl (6.3-8.2); Triglycerides 169 mg/dl (10-149); eGFR > 60.00
[2023-12-06] MEDS: VANCOCIN 200 IV ×2 (06:04→18:21)
[2023-12-06] MEDS: LOVENOX 50 MG SC ×2 (08:12→20:38)
[2023-12-06] MEDS: TYLENOL 1000 MG PO ×3 (08:12→21:43)
[2023-12-06] MEDS: PACERONE 200 MG PO ×2 (08:13→20:38)
[2023-12-06] MEDS: PROTONIX IV 40 MG IV (08:13)
[2023-12-06] MEDS: NSS (PRESERVATIVE FREE) 10 ML IV (08:13)
[2023-12-06] MEDS: CARDIZEM CD 240 MG PO ×2 (08:13→20:38)
--- NOTE | 2023-12-06 08:49 | PHA.VAN.FU ---
Vancomycin Assessment / Plan
- Assessment
Renal Function: Stable
WBC's are: Stable
In the past 24 hrs, patient has been: Afebrile
Concomitant Antimicrobials: ceftriaxone, metronidazole, micafungin
- Dosing Plan
Continue: Vanc 1000mg Q12H
- Monitoring Plan
Peak Level: 12/06 20:30
Trough Level: 12/07 05:30
Monitoring Comments: levels to be drawn after 7th dose of new regimen
- Follow Up
Pharmacy will continue to follow.
Vancomycin Follow UP
- -
Patient Age: 78
Patient Sex: Female
Vancomycin Day #: 8
Indication: Gi / Intra-Abdominal
Requesting Provider: Dr. Sanchez
Pertinent Antimicrobial Allergies:
NKDA
Height / Weight:
Height 5 ft 5 in
Actual Weight 50.7 kg
IBW in k
Pertinent Past Medical History: BMI ~18.4
- Vital Signs / Lab Results
Temp Pulse Resp BP Pulse Ox
97.4 F 126 19 189/74 95
12/06/23 03:10 12/06/23 08:13 12/06/23 06:00 12/06/23 08:13 12/06/23 06:00
Lab Results - Hematology
12/04/23 12/05/23 12/06/23
04:17 05:03 04:30
WBC 13.4 H 11.7 H 12.4 H
Lab Results - Chemistry
12/04/23 12/05/23 12/06/23
04:17 05:03 04:30
BUN 17 16 16
Creatinine 0.4 L 0.5 L 0.5 L
Estimated Creat Clear 60 59 60
Albumin 2.4 L 2.2 L 2.4 L
Therapeutic Drug Monitoring
Vancomycin Peak 18.4 ug/ml (18-26) 12/02/23 22:51
Vancomycin Trough 12.5 ug/ml (5-20) 12/03/23 04:39
--- NOTE | 2023-12-06 09:12 | PN.IRAD.UPD ---
Update Note - IRAD
- -
Cleaned left sided Abscess drain with chloraprep and removed bedside. Site dressed with a primapore.
Say Chaney RT(R)()
--- NOTE | 2023-12-06 09:30 | W.PN.ID1 ---
Date of Service
Date of Service: December 06, 2023
Today's Communication
Continue abx's.
Assessment / Plan
# Perforated diverticulitis with free air and peritonitis
-1/ s/p left hemicolectomy with colostomy
- OR cx, E. coli. E faecium, Strep spp., Clostridium, Bacteroides
# Post-op intra-abdominal abscesses
- 11/20 s/p perc drain - right/pelvis
- Cx: E. coli, E. faecium; C glabrata, no anaerobic cx sent
- E faecium amp sensitive in this instance
- 11/25 s/p per drain in the LEFT collection
- Cx: E coli, C albicans, enterococcus faecium (amp-resistant)
# Transient Nakaseomyces glabrata candidemia 1 out of 2 sets
- Intra-abdominal source.
- repeat blood cx (1 set prior to micafungin, 2nd set after 1 dose micafungin) neg to date
# Leukocytosis
- Trending down
#Off TPN
PLAN:
- Continue Vancomycin IV (d#8) to cover the amp-resistant E. faecium isolate.
- Continue ceftriaxone and metronidazole (d#20 abx)
- Continue Micafungin (d#14 of )
- Follow WBC.
#Additional Past Medical History:
Paroxysmal Atrial Fibrillation
CHF
Essential Hypertension
Hyperlipidemia
Interstitial cystitis
Chronic Pain with Opioid Dependence
Diverticulitis
Appendectomy
Cholecystectomy
Hysterectomy
Partial hysterectomy
Right rotator cuff
����������������������������������������������������������
Chief Complaint
-: Leukocytosis and Other (Fungemia)
Subjective / Review of Systems
Tolerating liquids.
+ cough productive of clear phlegm.
Vital Signs / Physical Exam
Vital Signs
Vital Signs
Temp Pulse Resp BP Pulse Ox
98.6 F 126 19 189/74 95
12/06/23 07:10 12/06/23 08:13 12/06/23 06:00 12/06/23 08:13 12/06/23 06:00
Physical Exam
Constitutional: Comfortable
Cardiovascular: Irregular Rate
Pulmonary: Rhonchi
Gastrointestinal: Soft, Non Tender and Non Distended
Extremities: Negative Edema
Neurological: AO x 3
Lines: PICC
Objective Data
Lab Data
Lab Results
12/06/23 04:30
12/06/23 04:30
PT 16.1 Sec (11.4-14.6) H 11/18/23 18:15
INR 1.27 11/18/23 18:15
APTT 27.8 Sec (23.4-35.0) 11/18/23 18:15
Estimated Creat Clear 60 ml/min 12/06/23 04:30
Lactic Acid 0.9 mmol/L (0.7-2.0) 11/18/23 18:15
Total Bilirubin 0.4 mg/dl (0.2-1.3) 12/06/23 04:30
AST 44 U/L (14-36) H 12/06/23 04:30
ALT 25 U/L (0-35) 12/06/23 04:30
Alkaline Phosphatase 138 U/L (38-126) H 12/06/23 04:30
Most recent labs reviewed.
Micro Results:
11/25/23 15:39 Wound Culture - Final
Abscess Escherichia coli
Enterococcus faecium
Samantha albicans
Gram Stain - Final
11/18/23 08:05 Fungus Mold Identification - Final
Blood/Venous Nakaseomyces glabrata
11/22/23 04:38 Blood Culture - Final
Blood/Venous No Growth - Final Report
11/21/23 16:20 Blood Culture - Final
Blood/Venous No Growth - Final Report
11/18/23 00:47 Blood Culture - Final
Blood/Venous Yeast
Gram Stain - Final
11/20/23 12:39 Body Fluid Culture - Final
Fluid Escherichia coli
Enterococcus faecium
Samantha glabrata (T. glab)
Gram Stain - Final
11/18/23 00:48 Blood Culture - Final
Blood/Venous No Growth - Final Report
11/15/23 22:44 Wound Culture - Final
Abdomen Escherichia coli
Enterococcus faecium
Streptococcus species
Gram Stain - Final
11/15/23 22:44 Anaerobic Culture - Final
Abdomen Bacteroides fragilis
Clostridium species
11/15/23 18:19 Blood Culture - Final
Blood/Venous No Growth - Final Report
11/18/23 18:31 Urine Culture - Final
Urine NO GROWTH
11/15/23 14:27 Influenza Types A & B (MARIELA) - Final
Nasal Swab Negative for Influenza A & B, NAAT
Negative results must be combined with clinical observations
and patient history.
Nucleic Acid Amplification test (NAAT)performed on the
[employer] platform.
Imaging:
11/15/23 CT a/p: The findings are most consistent with perforation (partially contained) of a diverticulum in the descending or sigmoid colon with free air scattered throughout the abdomen and pelvis, forming a masslike area with fluid and free air in
the left side of the abdomen measuring 10 x 10 x 13 cm.� Additionally there is fluid in the anterior peripancreatic and pararenal space consistent with peritonitis, no discrete fluid collection to suggest an abscess. There is significant stool
within the colon and air within the colon wall, which may be due to previous obstruction prior to perforation or the differential includes the possibility of stercoral colitis.
11/19/23 CT a/p: Elongated fluid collection within the pelvis, extending into the retroperitoneum, measuring 8 x 5.6 x 3.3 cm. Internal gas bubbles and peripheral contrast enhancement are suggestive of postoperative abscess. Abscess is not
immediately adjacent to the suture line for the rectal stump. Bubbles of air within the left paracolic gutter as detailed above, without associated abscess formation. These bubbles of air may be postoperative in nature. Bibasilar airspace
consolidation, which may represent subsegmental atelectasis or pneumonia. Tiny left pleural effusion.
11/22/23: CXR: Right PICC in position as described. Worsening right lung airspace disease suspicious for pneumonia. Stable small left pleural effusion with associated airspace disease.
11/24/23 CT a/p: Right true pelvic pigtail drainage catheter in position with significantly decreased abnormal fluid collection/abscess in comparison to prior study.
Density left lower lobe consolidation and small left pleural effusion which could represent atelectasis and/or pneumonia. Limited evaluation as a result of paucity of oral contrast including possibly of oral contrast opacification of portions of
small bowel as well as entire large bowel. CANNOT EXCLUDE small extraluminal collection in the left flank measuring approximately 3.5 cm such as an abscess, as noted above.
12/04/23 CT a.p: Left lateral percutaneous drainage catheter remains in place. Slightly increased soft tissue/complex fluid attenuation is suggested surrounding the coiled tip measuring 3.2 cm, as well as a few tiny gas bubbles.
2 previously noted pelvic drainage catheters have been discontinued. The examination is limited by lack of enteric opacification from oral contrast. However, there is a reaccumulated collection in the right posterolateral pelvis measuring
approximately 4.5 x 2 centimeters. Questionable small oblong collection along the left pelvic sidewall measuring 3.9 x 1.1 cm versus unopacified bowel. Questionable focal collection measuring 3.6 x 1.9 cm in the anterolateral left mid pelvis versus
unopacified fluid within bowel. Additional rounded 1.6 cm fluid collection versus loop of unopacified bowel in the left midpelvis.
--- NOTE | 2023-12-06 10:29 | VATNOTE ---
Reported left arm Cardizem infiltrate resolved
--- NOTE | 2023-12-06 11:05 | W.PN.CARDCBS ---
Today's Communication / Plan
-
Heart rate control suboptimal at times but overall reasonable
Now on p.o. Cardizem, amiodarone, digoxin
Continue rate control
Consider outpatient cardioversion
Will sign off
Impression / Plan
-
Wet Process Technician: Dr. HAILEY Nash
Impression:
Perforated stercoral colitis with septic shock
s/p Juliet's procedure 11/16/2023
Paroxysmal atrial fibrillation w/ RVR recurrent postoperatively with difficult to control rates
Acute blood loss anemia
Troponin elevation
Chronic HFpEF
Hypertension
Hyperlipidemia
Spinal stenosis
Fibromyalgia
h/o tobacco abuse on nicotine patch
Acute HFpEF postoperatively
Echo 11/22/2023: EF 55-60% mild LVH, dilated left atrium and right atrium, moderate mitral regurgitation mild TR, pulmonary artery systolic pressure 43-48 mmHg
Plan:
Heart rate control is suboptimal at times but overall reasonable
She was changed to oral Cardizem, amiodarone, digoxin on 12/05/2023
Could consider eventual cardioversion once she is stabilized but would have high rate of recurrent A-fib and should be deferred to outpatient
Also need to make sure patient is stable from colorectal viewpoint as she would be committed to at least 4 weeks of anticoagulation
Rate control might be a better option
Volume status reasonable on no diuretics
Will sign off, call with questions
HPI: Bailey is an 78 year old female with PMH of paroxysmal atrial fibrillation, chronic HFpEF, hypertension, hyperlipidemia, and chronic pain who presented to [facility] for evaluation of abdominal pain. She reported that for approximately 2 days prior
to arrival, she noted increased abdominal pain and constipation. She also noted associated chills. On arrival to ER, she was found to have perforated diverticulitis by CT scan with associated peritonitis. She was admitted, started on antibiotics,
and ultimately underwent Juliet's procedure w/ takedown of splenic flexure on 11/16/2023. She then went into rapid atrial fibrillation post op on 11/17/2023. She was started on IV diltiazem and cardiology consulted for evaluation. She was symptomatic
with this and noted palpitations and some chest pain. Her heart rates are improved this AM on cardizem gtt and she is feeling better from a cardiac standpoint, although still complains of pain related to surgery.
Progress Note - Wet Process Technician
Subjective
Date of Service: December 06, 2023
No complaints
Objective
Labs:
12/06/23 04:30
12/06/23 04:30
Labs
Hgb 7.7 g/dL (12.0-16.0) L 12/06/23 04:30
Hct 23.5 % (37.0-47.0) L 12/06/23 04:30
Plt Count 574 10^3/uL (130-400) H 12/06/23 04:30
PT 16.1 Sec (11.4-14.6) H 11/18/23 18:15
INR 1.27 11/18/23 18:15
APTT 27.8 Sec (23.4-35.0) 11/18/23 18:15
Sodium 133 mmol/L (135-145) L 12/06/23 04:30
Potassium 3.5 mmol/L (3.5-5.1) 12/06/23 04:30
BUN 16 mg/dl (7-17) 12/06/23 04:30
Creatinine 0.5 mg/dL (0.6-1.0) L 12/06/23 04:30
Glucose 88 mg/dl (70-99) 12/06/23 04:30
Digoxin Cancelled 11/30/23 11:05
Vital Signs and I&O:
Vital Signs
Temp Pulse Resp BP Pulse Ox
98.6 F 126 19 189/74 95
12/06/23 07:10 12/06/23 08:13 12/06/23 06:00 12/06/23 08:13 12/06/23 06:00
Vital Signs
Temp Pulse Resp BP Pulse Ox
98.6 F 126 19 189/74 95
12/06/23 07:10 12/06/23 08:13 12/06/23 06:00 12/06/23 08:13 12/06/23 06:00
Intake & Output
12/04/23 12/05/23 12/06/23 12/07/23
06:59 06:59 06:59 06:59
Intake Total 2934 / 2934 3488 / 3488 2630 / 2630
Output Total 2305 / 2305 2370 / 2370 1610 / 1610
Balance 629 / 629 1118 / 1118 1020 / 1020
Physical Exam
Physical Exam
General: Well developed, well nourished in NAD.
Neck: Supple, no JVD, HJR, carotids +2 B/L, no bruits bilaterally.
Heart: Non displaced PMI, irregular, no murmurs, No S3, S4, no rubs.
Lungs: Scattered rhonchi
Extremities: No clubbing, cyanosis or edema bilaterally.
Neuro: Grossly nonfocal, awake, alert and oriented x3.
--- NOTE | 2023-12-06 12:31 | W.PN.CRS1 ---
Today's Communication / Plan
-
Advance diet to regular soft
Assessment/Plan
-
78-year-old female with PMH of A-fib (on Eliquis, last dose was the morning of 11/15/2023), chronic pain (on Suboxone), HTN who presented with acute abdominal pain and was found to have perforated stercoral colitis and underwent emergency Dos Santos's
procedure for perforation in the descending colon, in septic shock; given Kcentra preoperatively, on Paul-Synephrine overnight, s/p IR drain placement
1.� Vitlas normal.
2.� S/P IR drain placement. Flush BID.
3.� Advance diet to soft regular with strawberry Ensure supplement
4.� Continue to hold Eliquis.� On Lovenox for DVT prophylaxis, 50meq BID.
5.� OR cx,�E. coli.�E faecium,�Strep spp.,�Clostridium,�Bacteroides. On ceftriaxone/metronidazole, vancomycin, and micafungin per ID.
Subjective Data
Procedure
Juliet's resection 11/15/23
Subjective Data
Date of Service: December 06, 2023
Patient states she has mild pain. This is unchanged. She has some nausea. This is also unchanged. She is tolerating fulls.
Objective Data
-
Vital Signs
Temp Pulse Resp BP Pulse Ox
98.6 F 126 19 189/74 95
12/06/23 07:10 12/06/23 08:13 12/06/23 06:00 12/06/23 08:13 12/06/23 06:00
Intake & Output
12/05/23 12/06/23 12/07/23
06:59 06:59 06:59
Intake Total 3488 / 3488 2630 / 2630
Output Total 2370 / 2370 1610 / 1610
Balance 1118 / 1118 1020 / 1020
Intake:
Oral fluids 1125 / 1125 1180 / 1180
IV fluids (Total) 60 / 60
IV piggybacks 1213 / 1213 900 / 900
TPN/PPN 1080 / 1080 540 / 540
Amount instilled into Drain (
Total)
Left Middle Abdomen David-
Clarke C Placed in IR
Output:
Liquid stool amount 850 / 850 550 / 550
Colostomy 850 / 850 550 / 550
Drain Output (Total)
Left Middle Abdomen David-
Clarke C Placed in IR
Urine, Voided 1510 / 1510 1050 / 1050
Other:
How many times incontinent 1
MODERATE amount urine
Lab Results
12/06/23 04:30
12/06/23 04:30
Physical Exam
-
General: No Acute Distress and AOx3
Abdomen: Soft, Non Distended, Tender (Mild unchanged) and Other (HEMA drain serosanguineous)
Incision: Clear, Dry, Intact
[2023-12-06] MEDS: STERILE WATER FOR INJECTION 20 ML IV (13:11)
[2023-12-06] MEDS: LANOXIN 125 MCG PO (13:11)
[2023-12-06] MEDS: ROCEPHIN 2000 MG IV (13:11)
--- NOTE | 2023-12-06 13:38 | W.PN.HOSP.TC ---
Today's Communication/Plan
-
resume home BB
trial diet per surgery
tx to tele
Assessment / Plan
Assessment / Plan
Assessment:
Septic Shock secondary to perforated bowel from diverticulitis vs stercoral colitis
- was given K-centra for Eliquis reversal
- underwent on 11/16 1) Juliet's procedure (left colectomy with colostomy) 2) takedown splenic flexure on 11/16/23. Operative findings: perforated distal descending colon with associated bloody contamination (blood plus stool-- particularly at left
retroperitoneum)
- post-op course complicated by post-op pelvic abscess seen on CT 11/19 s/p IRAD drain. Culture growing E. coli. E faecium and yeast.
- later CT abdomen/pelvis on 11/24 showed left paracolic gutter area; IR drain placed 11/25. OR drain removed 11/30
- shock state resolved
- Zosyn narrowed to ceftriaxone/metronidazole and empiric vanc added as per ID; OR cx, E. coli. E faecium, Strep, Clostridium, Bacteroides
- continue Micafungin for candidemia 1/2 sets
- now off TPN and NGT, advancing diet
- Joseph removed
- follow CRS/ID consults
- for pain control: Fentanyl patch and prn Oxy/Dilaudid
Parox A. Fib with RVR
- continue oral Cardizem, Amiodarone, Digoxin
- resume home BB
- continue Lovenox; when stable and cleared from surgical perspective, resume Eliquis
acute HFpEF post-operatively on chronic HFpEF
- stable at this time, BNP improved from 2000s to 600s
- monitoring off Lasix
VDRF in setting of acute emergency surgery for airway protection
- extubated - stable respiratory status
Post-operative acute anemia from blood loss
- s/p 3 units PRBCs
- H&H so far stable
Hyponatremia
Non-RI trop elevation
- trop peak 0.744 since trended down
- follow tele/EKGs
Chronic Pain with Opioid Dependence
- for pain control: Fentanyl patch and prn Oxy/Dilaudid
- holding buprenorphine
Essential HTN
- resume home BB
- stop Doxazosin
LUE SVT cephalic just above antecubital vein
- conservative management
DVT prophylaxis: Lovenox
CODE STATUS: Full code
Anticipated Discharge: > 48 hours
Subjective/Interval History
-
Date of Service: December 06, 2023
feels well, eager to eat
pain controlled
denies any n/v
Objective Data
-
Labs:
Laboratory Results
12/06/23
04:30
WBC 12.4 H
Hgb 7.7 L
Hct 23.5 L
Plt Count 574 H
Sodium 133 L
Potassium 3.5
Chloride 105
Carbon Dioxide 28
BUN 16
Creatinine 0.5 L
Glucose 88
Calcium 7.9 L
Total Bilirubin 0.4
AST 44 H
ALT 25
Alkaline Phosphatase 138 H
Vital Signs:
Vital Signs
Temp Pulse Resp BP Pulse Ox
97.8 F 100 19 189/74 95
12/06/23 11:30 12/06/23 13:11 12/06/23 06:00 12/06/23 08:13 12/06/23 06:00
I&O
12/05/23 12/06/23 12/07/23
06:59 06:59 06:59
Intake Total 3488 / 3488 2630 / 2630
Output Total 2370 / 2370 1610 / 1610
Balance 1118 / 1118 1020 / 1020
Physical Exam
-
General: No Apparent Distress
HEENT: Normocephalic and Atraumatic
Respiratory: Negative Wheezes or Rales
Cardiac: Regular Rhythm and S1/S2
GI: Soft and Nontender
Neuro: AO x 3
Psych: Calm
Data Reviewed
-
Total Time Spent with Patient (in minutes): 45
Labs: Labs Reviewed by me
[2023-12-06] MEDS: TOPROL XL 100 MG PO ×2 (14:09→20:38)
--- NOTE | 2023-12-06 14:29 | CM ---
Patient with Dx Septic Shock secondary to perforated bowel s/p left colectomy with colostomy, Post-op intra-abdominal abscesses. Receiving 4 IV Abx, Dilaudid prn pain, Duragesic patch. Subutex on hold. Full liquids. PICC. HEMA drain for abscess.
Seen by [facility] for ostomy. PT & OT recommend skilled rehab.
Message from Dr Andrade; patient will probably be medically ready for d/c 12/08 or 28/11. The patient will be transferred out of IMU to the med/surg floor today.
Spoke with [facility]; they will no longer have an available bed this week due to the need to repatriate some of their own [facility] patients into the skilled unit.
Spoke with [facility]; they also do not take [employer] insurance.
Spoke with Jennifer, daughter; explained that unfortunately [facility] will not have an available bed this week. Daughter would like a SNF in the [place] area near where she lives/works so she can visit her mother at SNF. [facility] and [facility] SNFs. Daughter aware that the Subutex will be held until patient is discharged from SNF.
SNF referrals placed.
Plan follow up SNF referrals.
Plan initiate insurance auth tomorrow if MD plans d/c on 12/08.
--- NOTE | 2023-12-06 17:38 | PTCARENOTE ---
Rec'd pt this AM. Requests pain meds frequently. OOB to chair X2 assist with PT. Needs encouragement to participate in her care. Tolerating soft bites diet. downgraded to tele. awaititng bed on surgical floor. Daughter updated at bedside.
[2023-12-06] MEDS: MYCAMINE 105 MG IV (18:20)
--- NOTE | 2023-12-06 20:51 | PTCARENOTE ---
Received pt from ruth RN. Fentanyl patch in place right upper arm. Pt c/o pain and nausea, PRN pain meds and nausea meds given (see MAR). Pt is laying comfortable in bed with call simmons in reach.
[2023-12-06 21:17] LABS: Vancomycin Peak 49.3 ug/ml (18-26)
[2023-12-06] MEDS: ATIVAN 0.5 MG IV (21:43)
[2023-12-07] VITALS (14 sets, daily range): BP systolic 85–163; BP diastolic 57–88; PULSE 67; O2SAT 96; BMI 18.5
[2023-12-07] MEDS: DILAUDID 0.5 MG IV (02:11)
[2023-12-07 04:14] LABS: Hematocrit 23.2 % (37.0-47.0); Hemoglobin 7.7 g/dL (12.0-16.0); Mean Corp Hgb Conc. 33.2 g/dL (33.0-37.0); Mean Corpuscular Hgb 28.4 pg (27.0-31.0); Mean Corpuscular Volume 85.6 fL (81.0-99.0); Mean Platelet Volume 9.2 fL (7.4-10.4); Platelet Count 595 10^3/uL (130-400); Red Blood Cell Count 2.71 10^6/uL (4.20-5.40); Red Cell Dist. Width 15.9 % (11.5-14.5); White Blood Cell Count 12.8 10^3/uL (4.8-10.8)
[2023-12-07 04:43] LABS: Vancomycin Trough 15.9 ug/ml (5-20)
[2023-12-07 04:52] LABS: ALT (SGPT) 22 U/L (0-35); AST (SGOT) 37 U/L (14-36); Albumin 2.1 g/dl (3.5-5.0); Alkaline Phosphatase 116 U/L (38-126); Blood Urea Nitrogen 10 mg/dl (7-17); Calcium 7.9 mg/dl (8.4-10.2); Carbon Dioxide 27 mmol/L (22-30); Chloride 99 mmol/L (98-107); Estimated Creatinine Clearance 60 ml/min; Glucose 84 mg/dl (70-99); Magnesium 1.9 mg/dl (1.6-2.3); Phosphorus 3.6 mg/dl (2.5-4.5); Potassium 3.2 mmol/L (3.5-5.1); Sodium 132 mmol/L (135-145); Total Bilirubin 0.4 mg/dl (0.2-1.3); Total Protein 5.1 g/dl (6.3-8.2); eGFR > 60.00
[2023-12-07] MEDS: FLAGYL 500 MG 100 IV ×3 (05:22→21:27)
[2023-12-07] MEDS: ROXICODONE 5 MG PO ×3 (06:03→18:37)
[2023-12-07] MEDS: ZOFRAN 4 MG IV ×3 (08:05→23:09)
[2023-12-07] MEDS: LOVENOX 50 MG SC ×2 (08:07→20:30)
[2023-12-07] MEDS: PROTONIX 40 MG PO (08:08)
[2023-12-07] MEDS: PACERONE 200 MG PO ×2 (08:08→20:30)
[2023-12-07] MEDS: CARDIZEM CD 240 MG PO (08:08)
[2023-12-07] MEDS: TOPROL XL 100 MG PO ×2 (08:08→20:30)
[2023-12-07] MEDS: TYLENOL 1000 MG PO ×3 (08:08→22:39)
--- NOTE | 2023-12-07 08:18 | PHA.VAN.FU ---
Vancomycin Assessment / Plan
- Assessment
Renal Function: Stable
WBC's are: Stable
In the past 24 hrs, patient has been: Afebrile
Concomitant Antimicrobials: ceftriaxone, metronidazole
- Assessment - Therapeutic Drug Monitoring
Extrapolated Cmax (mcg/mL): 62.1
Peak level was drawn: Appropriately (drawn ~1.5H after end of infusion)
Extrapolated Cmin (mcg/mL): 10.4
Trough Drawn: Appropriately
Levels were drawn: At steady state (levels drawn after 7th dose of new regimen)
Calculated AUC (mcg*h/mL): 709
Calculated ke: 0.1624
Calculated half life (H): 4.3
Calculated Vd (L): 17 (~0.34 L/kg)
Calculated Vanc CL (ml/min): 47
Cmax / peak much higher than anticipated based on patient-specific calculations (62.1 vs 29.8) but trough in appropriate range
Patient either with unusual PK or there may be some inaccuracies with level draws (possibilities include issues with infusion, scanned administration and draw times are not accurate, level value inaccurate; notes reviewed and no documentations
related to administration issues)
If peak is accurate, demonstrates significant changes in ke, Vd and Vanc clearance from prior calculations on 12/03
- Dosing Plan
Adjust Regimen to: Vanc 750mg Q12H starting at 1800 - continue to hold AM dose
New Regimen Predicts: AUC (576), Peak (50.4), Trough (8.4)
Predictions based on patient specific PK from today although question accuracy of peak based on prior experience this admission
Patient may have had additional accumulation but not seen with trough
Will adjust dosing for now in case new levels accurate with elevated AUC to minimize toxicity and prior trough on 750mg Q12H was appropriate (AUC slightly subtherapeutic at that time)
- Monitoring Plan
No level(s) ordered at this time: consider levels after 3rd dose of new regimen (12/08 1800)
- Follow Up
Pharmacy will continue to follow.
Vancomycin Follow UP
- -
Patient Age: 78
Patient Sex: Female
Vancomycin Day #: 9
Indication: Gi / Intra-Abdominal
Requesting Provider: Dr. Sanchez
Pertinent Antimicrobial Allergies:
NKDA
Height / Weight:
Height 5 ft 5 in
Actual Weight 50.4 kg
IBW in k
Pertinent Past Medical History: BMI ~18.4
- Vital Signs / Lab Results
Temp Pulse Resp BP Pulse Ox
98.2 F 80 30 119/68 85
12/07/23 07:03 12/07/23 08:08 12/07/23 06:00 12/07/23 08:08 12/07/23 06:27
Lab Results - Hematology
12/05/23 12/06/23 12/07/23
05:03 04:30 03:44
WBC 11.7 H 12.4 H 12.8 H
Lab Results - Chemistry
12/05/23 12/06/23 12/07/23
05:03 04:30 03:44
BUN 16 16 10
Creatinine 0.5 L 0.5 L 0.4 L
Estimated Creat Clear 59 60 60
Albumin 2.2 L 2.4 L 2.1 L
Therapeutic Drug Monitoring
Vancomycin Peak 49.3 ug/ml (18-26) H* 12/06/23 20:46
Vancomycin Trough 15.9 ug/ml (5-20) 12/07/23 03:44
[2023-12-07] MEDS: KCL 40 MEQ PO (09:18)
--- NOTE | 2023-12-07 09:57 | W.PN.ID1 ---
Date of Service
Date of Service: December 07, 2023
Today's Communication
Will dc antibitocs after tomorrow.
Assessment / Plan
# Perforated diverticulitis with free air and peritonitis
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
- OR cx, E. coli. E faecium, Strep spp., Clostridium, Bacteroides
# Post-op intra-abdominal abscesses
- 11/20 s/p perc drain - right/pelvis
- Cx: E. coli, E. faecium; C glabrata, no anaerobic cx sent
- E faecium amp sensitive in this instance
- 11/25 s/p per drain in the LEFT collection
- Cx: E coli, C albicans, enterococcus faecium (amp-resistant)
# Transient Nakaseomyces glabrata candidemia 1 out of 2 sets
- Intra-abdominal source.
- repeat blood cx (1 set prior to micafungin, 2nd set after 1 dose micafungin) neg
# Leukocytosis
- stable
#Off TPN
PLAN:
- Completed 14d Micafungin (12/06/23)
- Continue Vancomycin IV (d# 9 of 10) to cover the amp-resistant E. faecium isolate.
- Continue ceftriaxone and metronidazole (d#22 abx)
- Will dc abx's after tomorrow and observe.
- Follow WBC.
#Additional Past Medical History:
Paroxysmal Atrial Fibrillation
CHF
Essential Hypertension
Hyperlipidemia
Interstitial cystitis
Chronic Pain with Opioid Dependence
Diverticulitis
Appendectomy
Cholecystectomy
Hysterectomy
Partial hysterectomy
Right rotator cuff
����������������������������������������������������������
Chief Complaint
-: Leukocytosis and Other (Fungemia)
Subjective / Review of Systems
Sitting up in chair.
Vital Signs / Physical Exam
Vital Signs
Vital Signs
Temp Pulse Resp BP Pulse Ox
98.2 F 81 28 124/76 96
12/07/23 07:03 12/07/23 09:37 12/07/23 09:37 12/07/23 09:37 12/07/23 09:37
Physical Exam
Constitutional: Comfortable
Cardiovascular: Irregular Rate and S1/S2
Pulmonary: Coarse (bases)
Gastrointestinal: Soft, Non Tender and Non Distended
Extremities: Negative Edema
Neurological: AO x 3
Objective Data
Lab Data
Lab Results
12/07/23 03:44
12/07/23 03:44
PT 16.1 Sec (11.4-14.6) H 11/18/23 18:15
INR 1.27 11/18/23 18:15
APTT 27.8 Sec (23.4-35.0) 11/18/23 18:15
Estimated Creat Clear 60 ml/min 12/07/23 03:44
Lactic Acid 0.9 mmol/L (0.7-2.0) 11/18/23 18:15
Total Bilirubin 0.4 mg/dl (0.2-1.3) 12/07/23 03:44
AST 37 U/L (14-36) H 12/07/23 03:44
ALT 22 U/L (0-35) 12/07/23 03:44
Alkaline Phosphatase 116 U/L (38-126) 12/07/23 03:44
Most recent labs reviewed.
Micro Results:
11/25/23 15:39 Wound Culture - Final
Abscess Escherichia coli
Enterococcus faecium
Samantha albicans
Gram Stain - Final
11/18/23 08:05 Fungus Mold Identification - Final
Blood/Venous Nakaseomyces glabrata
11/22/23 04:38 Blood Culture - Final
Blood/Venous No Growth - Final Report
11/21/23 16:20 Blood Culture - Final
Blood/Venous No Growth - Final Report
11/18/23 00:47 Blood Culture - Final
Blood/Venous Yeast
Gram Stain - Final
11/20/23 12:39 Body Fluid Culture - Final
Fluid Escherichia coli
Enterococcus faecium
Samantha glabrata (T. glab)
Gram Stain - Final
11/18/23 00:48 Blood Culture - Final
Blood/Venous No Growth - Final Report
11/15/23 22:44 Wound Culture - Final
Abdomen Escherichia coli
Enterococcus faecium
Streptococcus species
Gram Stain - Final
11/15/23 22:44 Anaerobic Culture - Final
Abdomen Bacteroides fragilis
Clostridium species
11/15/23 18:19 Blood Culture - Final
Blood/Venous No Growth - Final Report
11/18/23 18:31 Urine Culture - Final
Urine NO GROWTH
11/15/23 14:27 Influenza Types A & B (MARIELA) - Final
Nasal Swab Negative for Influenza A & B, NAAT
Negative results must be combined with clinical observations
and patient history.
Nucleic Acid Amplification test (NAAT)performed on the
tradeNOW platform.
Imaging:
11/15/23 CT a/p: The findings are most consistent with perforation (partially contained) of a diverticulum in the descending or sigmoid colon with free air scattered throughout the abdomen and pelvis, forming a masslike area with fluid and free air in
the left side of the abdomen measuring 10 x 10 x 13 cm.� Additionally there is fluid in the anterior peripancreatic and pararenal space consistent with peritonitis, no discrete fluid collection to suggest an abscess. There is significant stool
within the colon and air within the colon wall, which may be due to previous obstruction prior to perforation or the differential includes the possibility of stercoral colitis.
11/19/23 CT a/p: Elongated fluid collection within the pelvis, extending into the retroperitoneum, measuring 8 x 5.6 x 3.3 cm. Internal gas bubbles and peripheral contrast enhancement are suggestive of postoperative abscess. Abscess is not
immediately adjacent to the suture line for the rectal stump. Bubbles of air within the left paracolic gutter as detailed above, without associated abscess formation. These bubbles of air may be postoperative in nature. Bibasilar airspace
consolidation, which may represent subsegmental atelectasis or pneumonia. Tiny left pleural effusion.
11/22/23: CXR: Right PICC in position as described. Worsening right lung airspace disease suspicious for pneumonia. Stable small left pleural effusion with associated airspace disease.
11/24/23 CT a/p: Right true pelvic pigtail drainage catheter in position with significantly decreased abnormal fluid collection/abscess in comparison to prior study.
Density left lower lobe consolidation and small left pleural effusion which could represent atelectasis and/or pneumonia. Limited evaluation as a result of paucity of oral contrast including possibly of oral contrast opacification of portions of
small bowel as well as entire large bowel. CANNOT EXCLUDE small extraluminal collection in the left flank measuring approximately 3.5 cm such as an abscess, as noted above.
12/04/23 CT a.p: Left lateral percutaneous drainage catheter remains in place. Slightly increased soft tissue/complex fluid attenuation is suggested surrounding the coiled tip measuring 3.2 cm, as well as a few tiny gas bubbles.
2 previously noted pelvic drainage catheters have been discontinued. The examination is limited by lack of enteric opacification from oral contrast. However, there is a reaccumulated collection in the right posterolateral pelvis measuring
approximately 4.5 x 2 centimeters. Questionable small oblong collection along the left pelvic sidewall measuring 3.9 x 1.1 cm versus unopacified bowel. Questionable focal collection measuring 3.6 x 1.9 cm in the anterolateral left mid pelvis versus
unopacified fluid within bowel. Additional rounded 1.6 cm fluid collection versus loop of unopacified bowel in the left midpelvis.
Care Review
Plan reviewed with: Physician (Dr. Andrade)
[2023-12-07] MEDS: STERILE WATER FOR INJECTION 20 ML IV (12:10)
[2023-12-07] MEDS: LANOXIN 125 MCG PO (12:10)
[2023-12-07] MEDS: ROCEPHIN 2000 MG IV (12:11)
--- NOTE | 2023-12-07 12:53 | W.PN.CRS1 ---
Addendum entered and electronically signed by Barak Alcaraz MD 12/07/23 16:31:
I saw and examined the patient.
The PA's note was reviewed and I agree with the note.
Comment:
Seen in a.m. with PA.
Awake and no new complaints. Denies nausea. Tolerating diet.
Afebrile with stable vital signs. White blood cell count 12.8.
Abdominal exam soft and nontender. Incision looks good. Stoma viable with output.
Correction to note below�patient's IR drain was removed by IR yesterday successfully.
Antibiotics per ID.
Agree with resuming Eliquis.
?SNF soon.
Original Note:
Today's Communication / Plan
-
regular diet
drain study
Assessment/Plan
-
78-year-old female with PMH of A-fib (on Eliquis, last dose was the morning of 11/15/2023), chronic pain (on Suboxone), HTN who presented with acute abdominal pain and was found to have perforated stercoral colitis and underwent emergency Dos Santos's
procedure for perforation in the descending colon, in septic shock; given Kcentra preoperatively, on Paul-Synephrine overnight, s/p IR drain placement
1.� Vitals normal.
2.� S/P IR drain placement. Flush BID. Will order drain study.
3.� Advance diet to regular with strawberry Ensure supplement
4.� Okay to restart Eliquis from our perspective.� On Lovenox for DVT prophylaxis, 50meq BID.
5.� Antibiotics per ID.
6. Okay for discharge from our perspective after drain study. Follow up in 2 weeks in the office.
Subjective Data
Procedure
Juliet's resection 11/15/23
Subjective Data
Date of Service: December 07, 2023
Patient states she is in pain. She denies nausea or vomiting. She is tolerating a diet.
Objective Data
-
Vital Signs
Temp Pulse Resp BP Pulse Ox
98.2 F 70 28 124/76 96
12/07/23 07:03 12/07/23 12:10 12/07/23 09:37 12/07/23 09:37 12/07/23 09:37
Intake & Output
12/06/23 12/07/23 12/08/23
06:59 06:59 06:59
Intake Total 2630 / 2630 400 / 400
Output Total 1610 / 1610 1200 / 1200
Balance 1020 / 1020 -800 / -800
Intake:
Oral fluids 1180 / 1180 400 / 400
IV piggybacks 900 / 900
TPN/PPN 540 / 540
Amount instilled into Drain (
Total)
Left Middle Abdomen David-
Clarke C Placed in IR
Output:
Liquid stool amount 550 / 550 250 / 250
Colostomy 550 / 550 250 / 250
Drain Output (Total)
Left Middle Abdomen David-
Clarke C Placed in IR
Urine, Voided 1050 / 1050 950 / 950
Other:
How many times incontinent 2
SATURATED amount urine
Lab Results
12/07/23 03:44
12/07/23 03:44
Physical Exam
-
General: No Acute Distress
Abdomen: Soft, Non Distended, Non Tender and Other (colostomy warm and pink with stool output, IR drain with little serous output)
Incision: Clear, Dry, Intact
--- NOTE | 2023-12-07 14:32 | CM ---
Patient with Dx Septic Shock secondary to perforated bowel s/p left colectomy with colostomy, Post-op intra-abdominal abscesses. Receiving IV Abx. Dilaudid prn pain, Duragesic patch. Subutex on hold. Full liquids. PICC. HEMA drain for abscess.
Seen by [facility] for ostomy. PT & OT recommend skilled rehab.
Met with patient and spoke with daughter Jennifer; both agree to d/c tomorrow to [facility] or [facility]F, whichever is available. IMM completed.
Spoke with Erendira, [facility]; [facility] does not have a bed tomorrow. She is checking with DON at [facility] to see if they will have a room for her there tomorrow.
Patient will need insurance auth for SNF.
Plan follow up with [facility] for bed availability for tomorrow.
--- NOTE | 2023-12-07 14:45 | WOUNDNOTE ---
KARINA RN NOTE: Unable to change appliance today, asked nurse if she can change today or tomorrow if not leaking. Nurse Khris states patient in process of being transferred to [address] [place] [address]. Will follow up with nursing tomorrow.
--- NOTE | 2023-12-07 14:48 | W.PN.HOSP.TC ---
Today's Communication/Plan
-
transfer floors
completing Abx
trial reg diet
Eliquis
DC Planning SNF
Assessment / Plan
Assessment / Plan
Assessment:
Septic Shock secondary to perforated bowel from diverticulitis vs stercoral colitis
- was given K-centra for Eliquis reversal
- underwent on 11/16 1) Juliet's procedure (left colectomy with colostomy) 2) takedown splenic flexure on 11/16/23. Operative findings: perforated distal descending colon with associated bloody contamination (blood plus stool-- particularly at left
retroperitoneum)
- post-op course complicated by post-op pelvic abscess seen on CT 11/19 s/p IRAD drain. Culture growing E. coli. E faecium and yeast.
- later CT abdomen/pelvis on 11/24 showed left paracolic gutter area; IR drain placed 11/25.
- shock state resolved
- Zosyn narrowed to ceftriaxone/metronidazole and empiric vanc added as per ID; OR cx, E. coli. E faecium, Strep, Clostridium, Bacteroides
- completed Micafungin course
- now off TPN and NGT, advancing diet
- Joseph removed
- follow CRS/ID consults
- for pain control: Fentanyl patch and prn Oxy/Dilaudid
Parox A. Fib with RVR
- continue oral Cardizem, Amiodarone, Digoxin
- resume home BB
- switch back to Eliquis
acute HFpEF post-operatively on chronic HFpEF
- stable at this time, BNP improved from 2000s to 600s
- monitoring off Lasix
VDRF in setting of acute emergency surgery for airway protection
- extubated - stable respiratory status
Post-operative acute anemia from blood loss
- s/p 3 units PRBCs
- H&H so far stable
Hyponatremia
Non-[place] trop elevation
- trop peak 0.744 since trended down
- follow tele/EKGs
Chronic Pain with Opioid Dependence
- for pain control: Fentanyl patch and prn Oxy/Dilaudid
- holding buprenorphine
Essential HTN
- resume home BB
- stop Doxazosin
- prn Midodrine if low
LUE SVT cephalic just above antecubital vein
- conservative management
Hypokalemia - replete prn
DVT prophylaxis: switch back to Eliquis
CODE STATUS: Full code
Anticipated Discharge: Within 24 hours
Subjective/Interval History
-
Date of Service: December 07, 2023
advanced to reg diet
Objective Data
-
Labs:
Laboratory Results
12/07/23
03:44
WBC 12.8 H
Hgb 7.7 L
Hct 23.2 L
Plt Count 595 H
Sodium 132 L
Potassium 3.2 L
Chloride 99
Carbon Dioxide 27
BUN 10
Creatinine 0.4 L
Glucose 84
Calcium 7.9 L
Total Bilirubin 0.4
AST 37 H
ALT 22
Alkaline Phosphatase 116
Vital Signs:
Vital Signs
Temp Pulse Resp BP Pulse Ox
98.2 F 61 18 85/57 99
12/07/23 07:03 12/07/23 14:16 12/07/23 14:16 12/07/23 14:16 12/07/23 14:16
I&O
12/06/23 12/07/23 12/08/23
06:59 06:59 06:59
Intake Total 2630 / 2630 400 / 400
Output Total 1610 / 1610 1200 / 1200
Balance 1020 / 1020 -800 / -800
Physical Exam
-
General: No Apparent Distress
HEENT: Normocephalic and Atraumatic
Respiratory: Negative Wheezes
Cardiac: Regular Rhythm and S1/S2
GI: Soft
Genito-urinary: No Costovertebral Tender
Musculoskeletal: No Edema
Neuro: AO x 3
Hematologic / Lymphatic: No Lymphadenopathy
Psych: Calm
Data Reviewed
-
Total Time Spent with Patient (in minutes): 42
Labs: Labs Reviewed by me
--- NOTE | 2023-12-07 15:36 | PTCARENOTE ---
Pt arrived to [facility] from [facility]. Pt is AAOx3, very dry mouth, foams to each elbow, L colostomy with brown stool output, RUE PICC line in place, fentanyl patch to RUE. Pt c/o nausea and pain-will review orders and see when next dose is due. Pt
oriented to call simmons and room, bed locked and in lowest position, call simmons within reach.
[2023-12-07] MEDS: FERRLECIT 110 MG IV (15:53)
[2023-12-07] MEDS: VANCOCIN 150 IV (17:50)
--- NOTE | 2023-12-07 18:16 | W.PN.UPDATE ---
Update Note
Progress Note Update
Telemetry reviewed, will decrease diltiazem ER to 240 mg a day
[2023-12-07] MEDS: ATIVAN 0.5 MG IV (18:41)
[2023-12-08] VITALS (8 sets, daily range): BP systolic 137–173; BP diastolic 68–97; PULSE 85; BMI 18.8
[2023-12-08] MEDS: ROXICODONE 5 MG PO ×2 (00:34→07:17)
[2023-12-08] MEDS: ATIVAN 0.5 MG IV ×2 (03:06→20:26)
[2023-12-08] MEDS: NSS (PRESERVATIVE FREE) 0.25 ML IV (03:06)
[2023-12-08] MEDS: FLAGYL 500 MG 100 IV ×3 (05:19→21:32)
[2023-12-08] MEDS: VANCOCIN 150 IV ×2 (06:29→18:08)
[2023-12-08 06:33] LABS: Hematocrit 23.7 % (37.0-47.0); Hemoglobin 7.9 g/dL (12.0-16.0); Mean Corp Hgb Conc. 33.3 g/dL (33.0-37.0); Mean Corpuscular Hgb 28.4 pg (27.0-31.0); Mean Corpuscular Volume 85.3 fL (81.0-99.0); Platelet Count 635 10^3/uL (130-400); Red Blood Cell Count 2.78 10^6/uL (4.20-5.40); White Blood Cell Count 9.8 10^3/uL (4.8-10.8)
[2023-12-08 07:01] LABS: ALT (SGPT) 20 U/L (0-35); AST (SGOT) 32 U/L (14-36); Albumin 2.2 g/dl (3.5-5.0); Alkaline Phosphatase 116 U/L (38-126); Blood Urea Nitrogen 10 mg/dl (7-17); Calcium 7.9 mg/dl (8.4-10.2); Carbon Dioxide 25 mmol/L (22-30); Chloride 100 mmol/L (98-107); Estimated Creatinine Clearance 61 ml/min; Glucose 85 mg/dl (70-99); Magnesium 1.9 mg/dl (1.6-2.3); Phosphorus 3.6 mg/dl (2.5-4.5); Sodium 133 mmol/L (135-145); Total Bilirubin 0.4 mg/dl (0.2-1.3); Total Protein 5.3 g/dl (6.3-8.2); eGFR > 60.00
[2023-12-08] MEDS: KCL 40 MEQ PO (08:42)
[2023-12-08] MEDS: TYLENOL 1000 MG PO ×3 (08:42→21:32)
[2023-12-08] MEDS: TOPROL XL 100 MG PO ×2 (08:43→20:16)
[2023-12-08] MEDS: PACERONE 200 MG PO ×2 (08:43→20:17)
[2023-12-08] MEDS: PROTONIX 40 MG PO (08:43)
[2023-12-08] MEDS: ZOFRAN 4 MG IV ×3 (08:43→21:49)
[2023-12-08] MEDS: KCL 270 MEQ IV (08:43)
[2023-12-08] MEDS: LOVENOX 50 MG SC (08:44)
[2023-12-08] MEDS: CARDIZEM CD 240 MG PO (08:46)
--- NOTE | 2023-12-08 10:04 | CM ---
Addendum entered by Magno Coy 12/08/23 12:29:
CM received a phone call from [facility] SNF liaison and she stated she forgot that [facility] has no contract with [employer] insurance and per liaison [facility] will have a bed available for pt tomorrow 12/09/23.
CM received a phone call from [employer] representative Frederick and she stated that [facility] is not contracted with [employer] and pt has no out of network benefits. CM asked [employer] players club representative to switch a request for SNF level of care from
[facility] to [facility] and Letia players club representative successfully switched and pt approved for skilled level of care at [facility] for 5 initial days starting tomorrow 12/09/23 till 12/13/23 with LCD and NRD 12/13/23. Auth # [id number].
For additional days fax: [phone].
Auth numbers provided to [facility] liaison and she confirmed that pt is accepted for admission to [facility] tomorrow.
to arrange transportation BLS for [facility]09[facility]23. [facility]
Both pt and her daughter are aware of discharge tomorrow to [facility] and they expressed their agreement. IMM reviewed, placed on chart, pt has a copy.
[facility] nursing report: [phone]
Discharge instructions fax: [phone]
D/C plan: [facility] tomorrow 12/09/23.
CM will follow to assist pt with discharge to [facility] tomorrow 12/09/23.
Original Note:
CM following re: discharge planning.
Reviewed pt's chart, met with pt and spoke to pt's daughter Jennifer to update on discharge plan progress.
CM spoke to [facility] liaison and she stated neither [facility] nor [facility] have bed available and they might not have a bed available for some times. Per liaison [facility] has available beds and she offered a bed at [facility].
CM discussed it with pt and her daughter and they agree with [facility]. CM provided a list of SNFs in 10-15 [place] radius and pt's daughter stated she lives in [place] and she preferred a SNF in [facility].
CM initiated an auth with [facility] for skilled level of care at [facility] for today 12/08/23 , spoke to players club representative Al, reference # [id number]. Requested pt's clinical faxed to provided fax number [phone]
D/c plan: [facility] when an auth is available. Awaiting for an auth.
CM will follow to assist pt with discharge to [facility]
--- NOTE | 2023-12-08 10:48 | W.PN.CRS1 ---
Today's Communication / Plan
-
okay for d/c from our perspective
f/u in 2 weeks
Assessment/Plan
-
78-year-old female with PMH of A-fib (on Eliquis, last dose was the morning of 11/15/2023), chronic pain (on Suboxone), HTN who presented with acute abdominal pain and was found to have perforated stercoral colitis and underwent emergency Dos Santos's
procedure for perforation in the descending colon, in septic shock; given Kcentra preoperatively, on Paul-Synephrine overnight, s/p IR drain placement
1.� Vitals normal.
2.� IR drain removed.
3.� On a regular with strawberry Ensure supplement
4.� Currently on Eliquis.
5.� Antibiotics per ID.
6.� Okay for discharge from our perspective. Follow up in 2 weeks in the office.
Subjective Data
Procedure
Juliet's resection 11/15/23
Subjective Data
Date of Service: December 08, 2023
Patient states that she still has pain which is unchanged. She denies vomiting. She has nausea which is her baseline. She is tolerating a diet.
Objective Data
-
Vital Signs
Temp Pulse Resp BP Pulse Ox
97.3 F 77 16 168/74 96
12/08/23 07:57 12/08/23 07:57 12/08/23 07:57 12/08/23 07:57 12/08/23 07:57
Intake & Output
12/07/23 12/08/23 12/09/23
06:59 06:59 06:59
Intake Total 400 / 400 200 / 200
Output Total 1200 / 1200 200 / 200
Balance -800 / -800 0 / 0
Intake:
Oral fluids 400 / 400
IV piggybacks 200 / 200
Output:
Liquid stool amount 250 / 250
Colostomy 250 / 250
Urine, Voided 950 / 950 200 / 200
Other:
How many times incontinent 1
MODERATE amount urine
How many times incontinent 2
SATURATED amount urine
Lab Results
12/08/23 06:24
12/08/23 06:24
Physical Exam
-
General: No Acute Distress
Abdomen: Soft, Non Distended, Non Tender and Other (colostomy warm and pink with function)
Wound: No Signs of Infection and Other
--- NOTE | 2023-12-08 11:11 | W.PN.HOSP.TC ---
Today's Communication/Plan
-
medically stable for SNF pending bed/auth
Assessment / Plan
Assessment / Plan
Assessment:
Septic Shock secondary to perforated bowel from diverticulitis vs stercoral colitis
- was given K-centra for Eliquis reversal
- underwent on 11/16 1) Juliet's procedure (left colectomy with colostomy) 2) takedown splenic flexure on 11/16/23. Operative findings: perforated distal descending colon with associated bloody contamination (blood plus stool-- particularly at left
retroperitoneum)
- post-op course complicated by post-op pelvic abscess seen on CT 11/19 s/p IRAD drain. Culture growing E. coli. E faecium and yeast. Drain was later removed.
- later CT abdomen/pelvis on 11/24 showed left paracolic gutter area; IR drain placed 11/25. Drain was later removed.
- shock state resolved
- OR cx, E. coli. E faecium, Strep, Clostridium, Bacteroides. Completed course of Abx. Also completed Micafungin course.
- now off TPN and NGT, advancing diet
- Joseph removed
- follow CRS/ID consults
- for pain control: Fentanyl patch and prn Oxy/Dilaudid
Parox A. Fib with RVR
- continue oral Cardizem, Amiodarone, Digoxin. BB
- continue Eliquis
acute HFpEF post-operatively on chronic HFpEF
- stable at this time, BNP improved from 2000s to 600s
- monitoring off Lasix
VDRF in setting of acute emergency surgery for airway protection
- extubated - stable respiratory status
Post-operative acute anemia from blood loss
- s/p 3 units PRBCs
- add IV iron for blood loss
Hyponatremia
Non-[place] trop elevation
- trop peak 0.744 since trended down
- follow tele/EKGs
Chronic Pain with Opioid Dependence
- for pain control: Fentanyl patch and prn Oxy/Dilaudid
- holding buprenorphine
Essential HTN
- resume home BB
- stop Doxazosin
- prn Midodrine if low
LUE SVT cephalic just above antecubital vein
- conservative management
Hypokalemia - replete prn
DVT prophylaxis: Eliquis
CODE STATUS: Full code
Anticipated Discharge: 24 - 48 hours
Subjective/Interval History
-
Date of Service: December 08, 2023
continues to report pain, complains about pain meds only lasting '2 hours at most'
tolerating diet
Objective Data
-
Labs:
Laboratory Results
12/08/23
06:24
WBC 9.8
Hgb 7.9 L
Hct 23.7 L
Plt Count 635 H
Sodium 133 L
Potassium 3.0 L
Chloride 100
Carbon Dioxide 25
BUN 10
Creatinine 0.5 L
Glucose 85
Calcium 7.9 L
Total Bilirubin 0.4
AST 32
ALT 20
Alkaline Phosphatase 116
Vital Signs:
Vital Signs
Temp Pulse Resp BP Pulse Ox
97.3 F 77 16 168/74 96
12/08/23 07:57 12/08/23 07:57 12/08/23 07:57 12/08/23 07:57 12/08/23 07:57
I&O
12/07/23 12/08/23 12/09/23
06:59 06:59 06:59
Intake Total 400 / 400 200 / 200
Output Total 1200 / 1200 200 / 200
Balance -800 / -800 0 / 0
Physical Exam
-
General: No Apparent Distress
HEENT: Normocephalic and Atraumatic
Respiratory: Negative Wheezes
Cardiac: Regular Rhythm
GI: Soft
Musculoskeletal: No Edema
Neuro: AO x 3
Psych: Calm
Data Reviewed
-
Total Time Spent with Patient (in minutes): 45
Labs: Labs Reviewed by me
[2023-12-08] MEDS: DILAUDID 0.5 MG IV (11:15)
[2023-12-08] MEDS: LANOXIN 125 MCG PO (11:15)
[2023-12-08] MEDS: DURAGESIC 25 MCG/HR PATCH 1 PATCH TRANSDERM (12:17)
[2023-12-08] MEDS: STERILE WATER FOR INJECTION 20 ML IV (12:18)
[2023-12-08] MEDS: ROCEPHIN 2000 MG IV (12:18)
--- NOTE | 2023-12-08 13:28 | WOUNDNOTE ---
WOC RN- Patient sitting in chair today. Stoma with small amount of soft dark brown stool. Stoma pink and budded. Peristomal skin intact. Patient observed appliance change using [place] wafer # [id number] and [place] pouch # [id number]. Supplies in room in
bag and should go with the patient to SNF tomorrow. Heels intact. Sacral foam currently intact and patient sitting in chair with air cushion. RN Alicia to assess sacrum and will call WOC RN for sacral changes. Patient on Versa Care Accumax. Per chart
review, intake is poor and BMI is 18. Patient to begin supplementation with Ensure shakes. Plan is for SNF tomorrow. Discharge instructions updated.
[2023-12-08] MEDS: ROXICODONE 10 MG PO ×2 (13:31→20:11)
[2023-12-08] MEDS: FERRLECIT 110 MG IV (13:32)
--- NOTE | 2023-12-08 13:42 | W.PN.ID1 ---
Date of Service
Date of Service: December 08, 2023
Today's Communication
Last day of antibiotics today.
ID will sign off.
Assessment / Plan
# Perforated diverticulitis with free air and peritonitis
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
- OR cx, E. coli. E faecium, Strep spp., Clostridium, Bacteroides
# Post-op intra-abdominal abscesses
- 11/20 s/p perc drain - right/pelvis
- Cx: E. coli, E. faecium; C glabrata, no anaerobic cx sent
- E faecium amp sensitive in this instance
- 11/25 s/p per drain in the LEFT collection
- Cx: E coli, C albicans, enterococcus faecium (amp-resistant)
- Drains removed 12/06
# Transient Nakaseomyces glabrata candidemia 1 out of 2 sets
- Intra-abdominal source.
- repeat blood cx (1 set prior to micafungin, 2nd set after 1 dose micafungin) neg
# Leukocytosis
-Resolved
#Off TPN
PLAN:
- Completed 14d Micafungin (12/06/23)
- last day of Vancomycin IV (d# 10 of 10) to cover the amp-resistant E. faecium isolate.
- Last day of ceftriaxone and metronidazole (d#23 abx)
#Additional Past Medical History:
Paroxysmal Atrial Fibrillation
CHF
Essential Hypertension
Hyperlipidemia
Interstitial cystitis
Chronic Pain with Opioid Dependence
Diverticulitis
Appendectomy
Cholecystectomy
Hysterectomy
Partial hysterectomy
Right rotator cuff
����������������������������������������������������������
Chief Complaint
-: Leukocytosis and Other (Fungemia)
Subjective / Review of Systems
Continues to feel improved.
Vital Signs / Physical Exam
Vital Signs
Vital Signs
Temp Pulse Resp BP Pulse Ox
97.2 F 87 17 154/90 95
12/08/23 11:29 12/08/23 11:29 12/08/23 11:29 12/08/23 11:29 12/08/23 11:29
Physical Exam
Constitutional: Comfortable
Pulmonary: Other (decreased bs at bases)
Gastrointestinal: Soft, Non Tender and Non Distended
Neurological: AO x 3
Objective Data
Lab Data
Lab Results
12/08/23 06:24
12/08/23 06:24
PT 16.1 Sec (11.4-14.6) H 11/18/23 18:15
INR 1.27 11/18/23 18:15
APTT 27.8 Sec (23.4-35.0) 11/18/23 18:15
Estimated Creat Clear 61 ml/min 12/08/23 06:24
Lactic Acid 0.9 mmol/L (0.7-2.0) 11/18/23 18:15
Total Bilirubin 0.4 mg/dl (0.2-1.3) 12/08/23 06:24
AST 32 U/L (14-36) 12/08/23 06:24
ALT 20 U/L (0-35) 12/08/23 06:24
Alkaline Phosphatase 116 U/L (38-126) 12/08/23 06:24
Most recent labs reviewed.
Micro Results:
11/25/23 15:39 Wound Culture - Final
Abscess Escherichia coli
Enterococcus faecium
Samantha albicans
Gram Stain - Final
11/18/23 08:05 Fungus Mold Identification - Final
Blood/Venous Nakaseomyces glabrata
11/22/23 04:38 Blood Culture - Final
Blood/Venous No Growth - Final Report
11/21/23 16:20 Blood Culture - Final
Blood/Venous No Growth - Final Report
11/18/23 00:47 Blood Culture - Final
Blood/Venous Yeast
Gram Stain - Final
11/20/23 12:39 Body Fluid Culture - Final
Fluid Escherichia coli
Enterococcus faecium
Samantha glabrata (T. glab)
Gram Stain - Final
11/18/23 00:48 Blood Culture - Final
Blood/Venous No Growth - Final Report
11/15/23 22:44 Wound Culture - Final
Abdomen Escherichia coli
Enterococcus faecium
Streptococcus species
Gram Stain - Final
11/15/23 22:44 Anaerobic Culture - Final
Abdomen Bacteroides fragilis
Clostridium species
11/15/23 18:19 Blood Culture - Final
Blood/Venous No Growth - Final Report
11/18/23 18:31 Urine Culture - Final
Urine NO GROWTH
11/15/23 14:27 Influenza Types A & B (MARIELA) - Final
Nasal Swab Negative for Influenza A & B, NAAT
Negative results must be combined with clinical observations
and patient history.
Nucleic Acid Amplification test (NAAT)performed on the
[employer] platform.
Imaging:
11/15/23 CT a/p: The findings are most consistent with perforation (partially contained) of a diverticulum in the descending or sigmoid colon with free air scattered throughout the abdomen and pelvis, forming a masslike area with fluid and free air in
the left side of the abdomen measuring 10 x 10 x 13 cm.� Additionally there is fluid in the anterior peripancreatic and pararenal space consistent with peritonitis, no discrete fluid collection to suggest an abscess. There is significant stool
within the colon and air within the colon wall, which may be due to previous obstruction prior to perforation or the differential includes the possibility of stercoral colitis.
11/19/23 CT a/p: Elongated fluid collection within the pelvis, extending into the retroperitoneum, measuring 8 x 5.6 x 3.3 cm. Internal gas bubbles and peripheral contrast enhancement are suggestive of postoperative abscess. Abscess is not
immediately adjacent to the suture line for the rectal stump. Bubbles of air within the left paracolic gutter as detailed above, without associated abscess formation. These bubbles of air may be postoperative in nature. Bibasilar airspace
consolidation, which may represent subsegmental atelectasis or pneumonia. Tiny left pleural effusion.
11/22/23: CXR: Right PICC in position as described. Worsening right lung airspace disease suspicious for pneumonia. Stable small left pleural effusion with associated airspace disease.
11/24/23 CT a/p: Right true pelvic pigtail drainage catheter in position with significantly decreased abnormal fluid collection/abscess in comparison to prior study.
Density left lower lobe consolidation and small left pleural effusion which could represent atelectasis and/or pneumonia. Limited evaluation as a result of paucity of oral contrast including possibly of oral contrast opacification of portions of
small bowel as well as entire large bowel. CANNOT EXCLUDE small extraluminal collection in the left flank measuring approximately 3.5 cm such as an abscess, as noted above.
12/04/23 CT a.p: Left lateral percutaneous drainage catheter remains in place. Slightly increased soft tissue/complex fluid attenuation is suggested surrounding the coiled tip measuring 3.2 cm, as well as a few tiny gas bubbles.
2 previously noted pelvic drainage catheters have been discontinued. The examination is limited by lack of enteric opacification from oral contrast. However, there is a reaccumulated collection in the right posterolateral pelvis measuring
approximately 4.5 x 2 centimeters. Questionable small oblong collection along the left pelvic sidewall measuring 3.9 x 1.1 cm versus unopacified bowel. Questionable focal collection measuring 3.6 x 1.9 cm in the anterolateral left mid pelvis versus
unopacified fluid within bowel. Additional rounded 1.6 cm fluid collection versus loop of unopacified bowel in the left midpelvis.
--- NOTE | 2023-12-08 14:58 | PHA.VAN.FU ---
Vancomycin Assessment / Plan
- Assessment
Renal Function: Stable
WBC's are: WNL
In the past 24 hrs, patient has been: Afebrile
Concomitant Antimicrobials: ceftriaxone, metronidazole
- Dosing Plan
Continue: Vanc 750mg Q12H
- Monitoring Plan
No level(s) ordered at this time: will consider levels if continued beyond today
- Follow Up
Pharmacy will continue to follow.
Vancomycin Follow UP
- -
Patient Age: 78
Patient Sex: Female
Vancomycin Day #: 10
Indication: Gi / Intra-Abdominal
Requesting Provider: Dr. Sanchez
Pertinent Antimicrobial Allergies:
NKDA
Height / Weight:
Height 5 ft 5 in
Actual Weight 51.313 kg
IBW in k
Pertinent Past Medical History: BMI ~18.4
- Vital Signs / Lab Results
Temp Pulse Resp BP Pulse Ox
97.2 F 87 17 154/90 95
12/08/23 11:29 12/08/23 11:29 12/08/23 11:29 12/08/23 11:29 12/08/23 11:29
Lab Results - Hematology
12/06/23 12/07/23 12/08/23
04:30 03:44 06:24
WBC 12.4 H 12.8 H 9.8
Lab Results - Chemistry
12/06/23 12/07/23 12/08/23
04:30 03:44 06:24
BUN 16 10 10
Creatinine 0.5 L 0.4 L 0.5 L
Estimated Creat Clear 60 60 61
Albumin 2.4 L 2.1 L 2.2 L
Therapeutic Drug Monitoring
Vancomycin Peak 49.3 ug/ml (18-26) H* 12/06/23 20:46
Vancomycin Trough 15.9 ug/ml (5-20) 12/07/23 03:44
--- NOTE | 2023-12-08 16:22 | WOUNDNOTE ---
Addendum entered by Demetra Beach RN 12/08/23 16:36:
Contacted SONJA Kiran and asked to please coordinate air surface at [facility].
Original Note:
[facility] RN NOTE: Received TT from patient RN, Audrey stating patient has stage 1 of sacrum. Recommend static air overlay and turning schedule. Recommend keeping sacrum covered with silicone border foam. Orders and discharge instructions updated.
[2023-12-08] MEDS: ELIQUIS 5 MG PO (20:17)
[2023-12-09] MEDS: DILAUDID 0.5 MG IV ×2 (01:03→13:04)
[2023-12-09] MEDS: ROXICODONE 10 MG PO ×2 (02:34→08:38)
[2023-12-09 03:10] VITALS: BP 139/75
[2023-12-09] MEDS: ZOFRAN 4 MG IV (05:54)
[2023-12-09] MEDS: FLAGYL 500 MG 100 IV (05:55)
[2023-12-09 06:00] VITALS: BMI 18.5
[2023-12-09] MEDS: ATIVAN 0.5 MG IV (06:04)
[2023-12-09 06:37] LABS: Hematocrit 24.2 % (37.0-47.0); Hemoglobin 7.8 g/dL (12.0-16.0); Mean Corp Hgb Conc. 32.2 g/dL (33.0-37.0); Mean Corpuscular Hgb 27.8 pg (27.0-31.0); Mean Corpuscular Volume 86.1 fL (81.0-99.0); Mean Platelet Volume 9.2 fL (7.4-10.4); Platelet Count 727 10^3/uL (130-400); Red Blood Cell Count 2.81 10^6/uL (4.20-5.40); Red Cell Dist. Width 16.6 % (11.5-14.5); White Blood Cell Count 12.9 10^3/uL (4.8-10.8)
[2023-12-09 07:03] LABS: ALT (SGPT) 18 U/L (0-35); AST (SGOT) 29 U/L (14-36); Albumin 2.3 g/dl (3.5-5.0); Alkaline Phosphatase 118 U/L (38-126); Blood Urea Nitrogen 10 mg/dl (7-17); Calcium 8.3 mg/dl (8.4-10.2); Carbon Dioxide 24 mmol/L (22-30); Chloride 102 mmol/L (98-107); Estimated Creatinine Clearance 60 ml/min; Glucose 80 mg/dl (70-99); Phosphorus 3.6 mg/dl (2.5-4.5); Potassium 3.7 mmol/L (3.5-5.1); Sodium 135 mmol/L (135-145); Total Bilirubin 0.4 mg/dl (0.2-1.3); Total Protein 5.6 g/dl (6.3-8.2); eGFR > 60.00
[2023-12-09 07:05] VITALS: BP 170/85
[2023-12-09 07:11] LABS: Magnesium 1.9 mg/dl (1.6-2.3)
[2023-12-09] MEDS: PROTONIX 40 MG PO (08:38)
[2023-12-09] MEDS: TOPROL XL 100 MG PO (08:38)
[2023-12-09] MEDS: TYLENOL 1000 MG PO (08:38)
[2023-12-09] MEDS: CARDIZEM CD 240 MG PO (08:38)
[2023-12-09] MEDS: PACERONE 200 MG PO (08:38)
[2023-12-09] MEDS: ELIQUIS 5 MG PO (08:38)
--- NOTE | 2023-12-09 09:11 | CM ---
Addendum entered by Magno Coy 12/09/23 10:52:
Per , brain picker time 14:30 by Acute care.
Both pt, her daughter and [facility] liaison are aware.
Original Note:
CM following re: discharge planning.
Reviewed pt's chart, met with pt and spoke to pt's daughter Jennifer to update on discharge plan progress.
Discharge order noted. Both pt and her daughter Jennifer are aware, expressed their agreement with discharge. IMM reviewed yesterday.
CM spoke to [facility] liaison and she confirmed that pt is accepted for admission today.
Pt approved by [facility] for skilled level of care at [facility] for 5 initial days starting today 12/09/23 till 12/13/23 with LCD and NRD 12/13/23. Auth # [id number]. For additional days fax: [phone].
to arrange transportation. PMNC completed and placed on chart.
[facility] nursing report: [phone]
Discharge instructions fax: [phone]
D/C plan: [facility]
--- NOTE | 2023-12-09 11:14 | W.PN.CRS1 ---
Today's Communication / Plan
-
dispo per primary team
Assessment/Plan
-
78-year-old female with PMH of A-fib (on Eliquis, last dose was the morning of 11/15/2023), chronic pain (on Suboxone), HTN who presented with acute abdominal pain and was found to have perforated stercoral colitis and underwent emergency Dos Santos's
procedure for perforation in the descending colon, in septic shock; given Kcentra preoperatively, on Paul-Synephrine overnight, s/p IR drain placement
1.� Vitals normal.
2.� IR drain removed.
3.� On a regular with strawberry Ensure supplement
4.� Currently on Eliquis.
5.� Antibiotics per ID.
6.� Okay for discharge from our perspective. Follow up in 2 weeks in the office. Disposition per hospitalist.
7. I updated her daughter, Jennifer, via phone.
Subjective Data
Procedure
Juliet's resection 11/15/23
Subjective Data
Date of Service: December 09, 2023
Patient states she has no complaints other than pain. She feels 'good' overall. She has no vomiting. She feels nausous, but at her baseline. She has been out of bed.
Objective Data
-
Vital Signs
Temp Pulse Resp BP Pulse Ox
97.6 F 80 20 170/85 92
12/09/23 07:05 12/09/23 07:05 12/09/23 07:05 12/09/23 07:05 12/09/23 07:05
Intake & Output
12/08/23 12/09/23 12/10/23
06:59 06:59 06:59
Intake Total 200 / 200 1560 / 1560
Output Total 200 / 200 1800 / 1800
Balance 0 / 0 -240 / -240
Intake:
Oral fluids 1560 / 1560
IV piggybacks 200 / 200
Output:
Liquid stool amount 100 / 100
Colostomy 100 / 100
Urine, Voided 200 / 200 1700 / 1700
Other:
How many times incontinent 1
MODERATE amount urine
Lab Results
12/09/23 06:14
12/09/23 06:14
Physical Exam
-
General: No Acute Distress and AOx3
Abdomen: Soft, Non Distended, Non Tender and Other (colostomy warm and pink with function)
Skin: Warm and Dry
--- NOTE | 2023-12-09 12:16 | W.PN.HOSP.TC ---
Addendum entered and electronically signed by Liborio Andrade MD 12/09/23 14:30:
Stage 1 sacral pressure injury
Original Note:
Today's Communication/Plan
-
dc to SNF
Assessment / Plan
Assessment / Plan
Assessment:
Septic Shock secondary to perforated bowel from diverticulitis vs stercoral colitis
- was given K-centra for Eliquis reversal
- underwent on 11/16 1) Juliet's procedure (left colectomy with colostomy) 2) takedown splenic flexure on 11/16/23. Operative findings: perforated distal descending colon with associated bloody contamination (blood plus stool-- particularly at left
retroperitoneum)
- post-op course complicated by post-op pelvic abscess seen on CT 11/19 s/p IRAD drain. Culture growing E. coli. E faecium and yeast. Drain was later removed.
- later CT abdomen/pelvis on 11/24 showed left paracolic gutter area; IR drain placed 11/25. Drain was later removed.
- shock state resolved
- OR cx, E. coli. E faecium, Strep, Clostridium, Bacteroides. Completed course of Abx. Also completed Micafungin course.
- now off TPN and NGT, advancing diet
- Joseph removed
- follow CRS/ID consults
- for pain control: Fentanyl patch and prn Oxy/Dilaudid
Parox A. Fib with RVR
- continue oral Cardizem, Amiodarone, Digoxin. BB
- continue Eliquis
acute HFpEF post-operatively on chronic HFpEF
- stable at this time, BNP improved from 2000s to 600s
- monitoring off Lasix
VDRF in setting of acute emergency surgery for airway protection
- extubated - stable respiratory status
Post-operative acute anemia from blood loss
- s/p 3 units PRBCs
- add IV iron for blood loss
Hyponatremia
Non-SC trop elevation
- trop peak 0.744 since trended down
- follow tele/EKGs
Chronic Pain with Opioid Dependence
- for pain control: Fentanyl patch and prn Oxy/Dilaudid
- holding buprenorphine
Essential HTN
- resume home BB
- stop Doxazosin
- prn Midodrine if low
LUE SVT cephalic just above antecubital vein
- conservative management
Hypokalemia - replete prn
DVT prophylaxis: Eliquis
CODE STATUS: Full code
More than 30 minutes spent in discharge including
Final examination of the patient
Summarizing hospital stay
Instructions for continuing care to all relevant caregivers
Preparation of discharge records, prescriptions, and referral forms
Total time spent (in minutes): 45
Anticipated Discharge: Today
Subjective/Interval History
-
Date of Service: December 09, 2023
no new overnight events
Objective Data
-
Labs:
Laboratory Results
12/09/23
06:14
WBC 12.9 H
Hgb 7.8 L
Hct 24.2 L
Plt Count 727 H
Sodium 135
Potassium 3.7
Chloride 102
Carbon Dioxide 24
BUN 10
Creatinine 0.6
Glucose 80
Calcium 8.3 L
Total Bilirubin 0.4
AST 29
ALT 18
Alkaline Phosphatase 118
Vital Signs:
Vital Signs
Temp Pulse Resp BP Pulse Ox
97.6 F 80 20 170/85 92
12/09/23 07:05 12/09/23 07:05 12/09/23 07:05 12/09/23 07:05 12/09/23 07:05
I&O
12/08/23 12/09/23 12/10/23
06:59 06:59 06:59
Intake Total 200 / 200 1560 / 1560
Output Total 200 / 200 1800 / 1800
Balance 0 / 0 -240 / -240
Physical Exam
-
General: No Apparent Distress
HEENT: Normocephalic and Atraumatic
Respiratory: Negative Wheezes
Cardiac: Regular Rhythm
GI: Soft
Musculoskeletal: No Edema
Neuro: AO x 3
Psych: Calm
Data Reviewed
-
Total Time Spent with Patient (in minutes): 45
Labs: Labs Reviewed by me
--- NOTE | 2023-12-09 12:27 | W.DS.TRANS ---
DC Summary - [employer] Representative
-
Discharge Instructions:
Discharge Diagnosis/Procedures septic shock due to perforated bowel complicated
by post-op abscess and rapid Afib and CHF, post
-op anemia
Diet Regular,Supplements
Activity As tolerated
Bathing Restrictions None
Instructions:
Stand-Alone Forms:
Changes to Home Medications: Yes
Discharge Medications:
DC Medications w/original date entered in [facility]
apixaban 5 mg tablet (Eliquis) 5 mg PO BID Blood Clot Prevention/Tx 05/15/23
atorvastatin 20 mg tablet 20 mg PO DAILY High Cholesterol 05/15/23
metoprolol succinate 100 mg tablet,extended release 24 hr 100 mg PO BID Heart Disease/Condition 05/15/23
melatonin 10 mg tablet 10 mg PO HS Sleep 11/15/23
nicotine 7 mg/24 hr daily transdermal patch 7 mg transdermal Q48H Smoking Cessation 11/15/23
ondansetron HCl 8 mg tablet 8 mg PO Q12H PRN nausea/vomiting 11/15/23
acetaminophen 500 mg tablet (Pain Relief Extra Strength (acetaminophen)) 1,000 mg PO TID #100 tabs 12/09/23
amiodarone 200 mg tablet (Pacerone) 200 mg PO BID #60 tabs 12/09/23
digoxin 125 mcg (0.125 mg) tablet 125 mcg PO NOON #30 tabs 12/09/23
diltiazem HCl 240 mg capsule,extended release 24 hr 240 mg PO DAILY #30 caps 12/09/23
fentanyl 25 mcg/hr transdermal patch 1 patch transdermal Q72H #5 ea 12/09/23
oxycodone 5 mg tablet 10 mg PO Q6HPRN PRN severe pain #20 tabs 12/09/23
pantoprazole 40 mg tablet,delayed release 40 mg PO DAILY #30 tabs 12/09/23
polyethylene glycol 3350 17 gram oral powder packet (Miralax) 17 g PO DAILY Constipation #0 ea 12/09/23
Home Medication Changes
Buprenorphine stopped
Pending Results: No
Total time spent discharging patient (in min): 45
--- NOTE | 2023-12-09 14:03 | PN.CDI ---
CDI
- -
CDI:
Physician Documentation Request
Admit Date: 11/15/23 22:11
Dear Doctor Raymond,
Patient admitted with septic shock.
12/08 Nursing skin assessment, 'Stage 1 sacral pressure injury.'
Physician documentation of the type and location of wounds is required for compliant documentation. Based on the above clinical findings and your assessment, please provide the following in your progress note:
Type (etiology) of ulcer/wound:
- Pressure (decubitus) ulcer
- Other
- Unable to determine
For a pressure ulcer, please also include the stage* of the ulcer:
- Stage 1 - Skin intact, non-blanchable redness
- Stage 2 - Partial thickness loss of dermis, includes intact or open blister
- Stage 3 - Full thickness tissue not including bone, tendon or muscle
- Stage 4 - Full thickness tissue loss, including exposed bone, tendon or muscle
- Unstageable - Full thickness loss in which the base of the ulcer is covered by slough (yellow, rocha, andujar, green or brown) and/or eschar (rocha, brown or black) in the wound bed.
- Unable to determine
Use of terms such as suspected, likely, concern for, or probable (associated with a specific diagnosis that is being evaluated, monitored, or treated as if it exists) are acceptable and can be coded in the inpatient setting, when documented at the
time of discharge.
Thank you,
Twila HERNANDEZ,RN,CCDS
CDI Specialist
Available via [place] text
Please use your independent medical judgment in providing your response.
*Source: National Pressure Ulcer Advisory Panel (NPUAP)
[2023-12-09] MEDS: LANOXIN 125 MCG PO (14:08)
--- NOTE | 2023-12-13 12:37 | CM ---
CM received call post dc Felicita ramos/Lopez
DC date and dispo provided
--- NOTE | 2023-12-13 12:39 | CM ---
CM received call post dc Felicita ramos/Lopez
DC date and dispo provided
== END 2023-12-09 15:34 | DRG 853 ==
LOC: 2 SOUTH 22:11
PROVIDERS: Emergency Medicine; Internal Medicine; Internal Medicine Cardiovascular Disease; Nurse Practitioner Family; Nurse Practitioner Gerontology; Nurse Practitioner Primary Care; Physician Assistant; Radiology Vascular & Interventional Radiology; Registered Nurse; Surgery; ADMITTING PHYSICIAN Hospitalist; ATTENDING PHYSICIAN Internal Medicine; CONSULT PHYSICIAN Internal Medicine Cardiovascular Disease; CONSULT PHYSICIAN Internal Medicine Infectious Disease; CONSULT PHYSICIAN Internal Medicine Pulmonary Disease; CONSULT PHYSICIAN Surgery; EMERGENCY PHYSICIAN Student in an Organized Health Care Education/Training Program
PROC: 0DTG0ZZ Resection of Left Large Intestine, Open Approach (ICD-10-PCS; 2023-11-16)
PROC: 0D1E0Z4 Bypass Large Intestine to Cutaneous, Open Approach (ICD-10-PCS; 2023-11-16)
PROC: 30283B1 Transfusion of Nonautologous 4-Factor Prothrombin Complex Concentrate into Vein, Percutaneous Approach (ICD-10-PCS; 2023-11-16)
PROC: 30233N1 Transfusion of Nonautologous Red Blood Cells into Peripheral Vein, Percutaneous Approach (ICD-10-PCS; 2023-11-16)
PROC: 0W9J30Z Drainage of Pelvic Cavity with Drainage Device, Percutaneous Approach (ICD-10-PCS; 2023-11-20)
PROC: 02HV33Z Insertion of Infusion Device into Superior Vena Cava, Percutaneous Approach (ICD-10-PCS; 2023-11-22)
PROC: 3E0436Z Introduction of Nutritional Substance into Central Vein, Percutaneous Approach (ICD-10-PCS; 2023-11-22)
PROC: 0W9G30Z Drainage of Peritoneal Cavity with Drainage Device, Percutaneous Approach (ICD-10-PCS; 2023-11-25)
DX: A41.9 Sepsis, unspecified organism (principal); I50.33 Acute on chronic diastolic (congestive) heart failure; K65.1 Peritoneal abscess; R65.21 Severe sepsis with septic shock; J95.821 Acute postprocedural respiratory failure; K65.8 Other peritonitis; K57.20 Diverticulitis of large intestine with perforation and abscess without bleeding; T81.43XA Infection following a procedure, organ and space surgical site, initial encounter; D62 Acute posthemorrhagic anemia; E87.1 Hypo-osmolality and hyponatremia; I5A Non-ischemic myocardial injury (non-traumatic); F11.20 Opioid dependence, uncomplicated; I82.612 Acute embolism and thrombosis of superficial veins of left upper extremity; B37.89 Other sites of candidiasis; K56.7 Ileus, unspecified; Z68.1 Body mass index [BMI] 19.9 or less, adult; E87.20 Acidosis, unspecified; K52.89 Other specified noninfective gastroenteritis and colitis; I48.0 Paroxysmal atrial fibrillation; Y83.8 Other surgical procedures as the cause of abnormal reaction of the patient, or of later complication, without mention of misadventure at the time of the procedure; E87.6 Hypokalemia; E16.2 Hypoglycemia, unspecified; I11.0 Hypertensive heart disease with heart failure; E86.0 Dehydration; L89.151 Pressure ulcer of sacral region, stage 1; R63.6 Underweight; R73.9 Hyperglycemia, unspecified; K59.09 Other constipation; G89.4 Chronic pain syndrome; E78.00 Pure hypercholesterolemia, unspecified; M79.7 Fibromyalgia; B96.20 Unspecified Escherichia coli [E. coli] as the cause of diseases classified elsewhere; B95.2 Enterococcus as the cause of diseases classified elsewhere; B95.4 Other streptococcus as the cause of diseases classified elsewhere; M48.00 Spinal stenosis, site unspecified; Z79.01 Long term (current) use of anticoagulants; Z87.891 Personal history of nicotine dependence; Z11.52 Encounter for screening for COVID-19
CPT/HCPCS: 88307; 49406; 71045; 71046; 74177; 80048; 80053; 80162; 80202; 81003; 81015; 82330; 82805; 82962; 83605; 83690; 83735; 83880; 84100; 84132; 84134; 84145; 84302; 84443; 84478; 84484; 85014; 85018; 85025; 85027; 85610; 85730; 86850; 86900; 86901; 86920; 87015; 87040; 87070; 87071; 87075; 87076; 87077; 87086; 87106; 87107; 87158; 87185; 87186; 87205; 87502; 87811; 93005; 93306; 93971; 94002; 97110; 97112; 97116; 97163; 97167; 97530; 97535; 99152; 99153; 99285; J1160; J2916; J7168; P9016; P9045; Q9967

== ENCOUNTER 2024-01-13 05:42 | Inpatient (IN) | payer OTHER, SELFPAY ==
[2024-01-13] VITALS (60 sets, daily range): BP systolic 84–175; BP diastolic 29–137; BMI 16.9; BMI 15.4
[2024-01-13] MEDS: CALCIUM GLUCONATE 10% 10 ML 4.65000000000000036 MEQ IV (02:48)
--- NOTE | 2024-01-13 03:04 | ED.GENMED ---
History of Present Illness
General
Chief Complaint: Heart Rate Problem
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
Exam Limitations: none
Time Seen by Provider: 01/13/24 02:36
Nursing documentation reviewed up to this point in time: agreed with
Travel History
Have you had any contact with someone who has COVID-19?: No
Do you have any symptoms of coronavirus? Fever > 100 degrees, chills, cough, shortness of breath, sore throat, loss of taste or smell, muscle aches, or headache?: No
History of Present Illness
History of Present Illness:
This is an 78-year-old woman who was hospitalized November 15 until December 09 when she presented with severe abdominal pain found to have perforated diverticulitis versus perforated bowel from stercoral colitis. Underwent urgent Dos Santos's procedure
and postop course was complicated by 2 postop abscesses 1 in the pelvis requiring IR drainage and then left paracolic gutter. Septic shock. She has history of chronic A-fib and persistent tachycardia, she was placed on Cardizem, amiodarone, dig
and beta-erica with eventual adequate control. She was discharged December 09 to a local longterm where she remains receiving physical therapy.
She has not been feeling well over the past 2 to 3 days, poor oral intake, intermittent nausea without vomiting. Tonight she was noted to be hypoxic with pulse ox in the 80s on her usual 2 L nasal cannula, found to be significantly fatigued and
markedly bradycardic with heart rate in the 30s. She received atropine 1 mg prehospital with improvement in heart rate to the 40s to 50s. Prehospital blood pressure 124/74. Accu-Chek 168. There has been no report of fever. Patient admits to
occasional cough but no increased cough. She denies abdominal pain. She does note poor oral intake over the past few days.
Past History
Past History
ED Past Medical History: Arrthythmia (Atrial fibrillation chronically maintained on Eliquis), CHF, HTN, Hypercholesterolemia, Other (Chronic pain syndrome/narcotic dependent) and Other (Perforated diverticulitis November 2023 requiring Juliet
procedure-prolonged hospitalization.)
ED Past Surgical History: Appendectomy, Bowel resection (Urgent Juliet procedure for perforated diverticulitis November 2023) and Cholecystectomy
Social History
Tobacco: Non-smoker
Alcohol: None
Living: longterm (Currently residing in a longterm after prolonged hospitalization November to December 2023)
Employment: Retired
Family History
Family History: Other (Noncontributory)
Phy Exam
Physical Exam
Physical Exam:
GENERAL: 78-year-old frail appearing woman appears her stated age, awake, moderately drowsy, answering questions appropriately, moderately ill in appearance.
EYE: pupils equal and reactive. anicteric conjunctiva are moderately pale.
NECK: Supple, nontender, no meningismus, no significant adenopathy. No JVD.
ENT: posterior pharynx is clear, oral mucosa is significantly dry, lips are dry. No rhinorrhea.
CARDIAC: Irregularly irregular, bradycardic in the 40s to 50s, 2/6 holosystolic murmur at left sternal border.
LUNGS: Mild resting tachypnea, bibasilar Rales with fine rales right anterior lung cast
ABDOMEN: Soft, nondistended, without focal tenderness, colostomy left lower quadrant with brown to mildly rust colored liquid stool within the bag. Stool is heme positive. normoactive BS.
NEUROLOGICAL: Drowsy, oriented x 3, no focal neuro deficits.
SKIN: Warm and dry, moderately pale in color, skin intact. No rash.
MUSCULOSKELETAL: No C/C/E. peripheral pulses are full and equal b/l. No palpable tenderness.
PSYCH: Normal and appropriate interaction.
Course
Orders/Labs/Results
Orders:
Orders
01/13/24 02:34
Electrocardiogram (*1) Urgent
Reason for Study: Chest Pain
EKG- Treatment ONCE
01/13/24 02:35
COVID-19 Antigen Urgent
Source: Nasal Swab
Complete Blood Count/With Diff Urgent
Comprehensive Metabolic Panel Urgent
Digoxin Urgent
Magnesium Urgent
Comment: ADD ON
Manual Differential Urgent
NT-proBNP Urgent
Comment: ADDED
Prothrombin Time Urgent
Troponin I Urgent
INF RAPID [Influenza A+B Rapid Molecular] Urgent
RICK Source: Nasal Swab
Specimen Description:
01/13/24 02:42
Add On- LAB Urgent
Tests Added?: PRO BNP
01/13/24 02:44
Calcium Gluconate IV [Calcium Gluconate 10% 10 ml] 4.65 meq .ROUTE .STK-MED ONE
01/13/24 02:45
Calcium Gluconate 1 gram/100mL [Calcium Gluconate] 1 gram in 100 ml .ROUTE .STK-MED
01/13/24 02:47
Calcium Gluconate IV [Calcium Gluconate 10% 10 ml] 4.65 meq IV NOW STA
01/13/24 02:50
CR Chest Portable - 1 View Urgent
Comment:
Reason For Exam: SOB, hypoxia, bradycardia
Reason Study Needs to be Portable: Patient Unstable
01/13/24 03:18
Type+Screen Urgent
Lactic Acid Urgent
Blood Culture Q30M
RICK Source: Blood/Venous
Specimen Description:
Blood Culture Q30M
RICK Source: Blood/Venous
Specimen Description:
01/13/24 03:19
Glucagon [GlucaGen] 5 mg IV NOW STA
01/13/24 03:40
Pantoprazole 80 mg/100 ml Nss [Protonix] 80 mg in 100 ml IV NOW
Pantoprazole [Protonix IV] 80 mg IV NOW STA
Potassium Chloride 10% Elixir [KCl Elixir] 40 meq PO NOW STA
01/13/24 03:41
Add On- LAB Urgent
Tests Added?: Mg
01/13/24 04:25
Piperacillin/Tazo 3.375 Gram [Zosyn] 3.375 gram in 50 ml IV NOW
01/13/24 04:26
Atropine Sulfate [Atropine 0.1 mg/ml Syringe] 1 mg IV NOW STA
01/13/24 05:25
Admit/Transfer Patient As Directed
Co-Sign Provider:
Level of Care: Inpatient admission
Assign to:: IMU- Intermediate Care
Physician / Group: Amber Larson
Diagnosis: sepsis 2/2 PNA; bradycardia
Reason for Hospitalization: sepsis 2/2 PNA; bradycardia
Expected length of stay greater than two midnights?: Yes
ELOS- Estimated Length of Stay in days: 4
I certify the patient meets the requirements for IP care: Yes
01/13/24 05:26
Code Status As Directed
Resuscitation Status: Full Code
01/13/24 05:28
Vancomycin 1 Gram/200 ml [Vancocin] 1 gram in 200 ml IV NOW
01/13/24 05:33
MRSA Screen Routine
RICK Source: Nose
Specimen Description:
01/13/24 05:[address] Non Medication Order As Directed
Physician Order: please place pacer pads on patient in case develops severe bradycardia
01/13/24 06:00
Flush (0.9% Sodium Chloride) [Flush (Nss)] See Dose Instructions IV PER PROTOCOL
VANCOMYCIN Pharmacy to Dose [VANCOCIN Pharmacy to Dose] 1 each Pharmacy To Prepare [Call Pharmacy To Prepare] 0 ml IV PER PROTOCOL
Abnormal Lab Results
01/13/24
02:35
WBC 28.7 H 10^3/uL
(4.8-10.8)
RBC 3.37 L 10^6/uL
(4.20-5.40)
Hgb 9.2 L g/dL
(12.0-16.0)
Hct 26.9 L %
(37.0-47.0)
MCV 79.8 L fL
(81.0-99.0)
RDW 15.9 H %
(11.5-14.5)
Plt Count 686 H 10^3/uL
(130-400)
Abs Neuts (Manual) 25.8 H 10^3/uL
(1.4-6.5)
Band Neutrophils 16 H %
(0-3)
Lymphocytes (Manual) 7 L %
(20-51)
PT 44.9 H Sec
(11.4-14.6)
Sodium 130 L mmol/L
(135-145)
Potassium 3.2 L mmol/L
(3.5-5.1)
Chloride 94 L mmol/L
(98-107)
BUN 32 H mg/dl
(7-17)
Glucose 123 H mg/dl
(70-99)
Calcium 7.9 L mg/dl
(8.4-10.2)
AST 41 H U/L
(14-36)
Alkaline Phosphatase 146 H U/L
(38-126)
Total Protein 5.7 L g/dl
(6.3-8.2)
Albumin 2.7 L g/dl
(3.5-5.0)
01/13/24 02:35
01/13/24 02:35
Vital Signs
Initial and Last Documented VS:
Initial Vital Signs
Pulse Resp
58 29
01/13/24 02:36 01/13/24 02:36
Last Documented Vital Signs
Temp Pulse Resp BP Pulse Ox
98.3 F 66 18 119/44 92
01/13/24 02:38 01/13/24 03:01 01/13/24 03:01 01/13/24 03:01 01/13/24 03:01
MDM/Problems Addressed
Differential Diagnosis Includes:
Patient presents significantly bradycardic, concern for dig toxicity, beta-erica toxicity, calcium channel erica toxicity, amiodarone toxicity.
Clinically appears significantly dry, concern for acute kidney injury.
Bibasilar rales and rales right anteriorly, concerning for CHF versus pneumonia.
Concern for sepsis.
Brown to rust colored liquid stool in colostomy bag that is heme positive, concern for occult GI bleed, anemia.
Patient has been given atropine 1 mg prehospital, will give an amp of calcium gluconate as well as IV glucagon.
Labs are pending including dig level. May require Digibind as well as additional atropine.
Pulse ox currently 93% on 5 L nasal cannula and respirations are easy.
Blood pressure 114/70.
Chronic conditions affecting care: HTN, Cardiomyopathy, Arrhythmia, COPD and Other (Chronic pain syndrome, narcotic dependent)
Acute Exacerbation and/or Progression of Chronic Illness: Cardiomyopathy (Concern for CHF however clinically patient appears significantly dehydrated and concern for sepsis) and Arrhythmia (Chronic atrial fibrillation with profound bradycardia,
likely related to multiple antiarrhythmics.)
*Radiology
Radiology exam reviewed: preliminary read by ED provider (Chest x-ray shows right lower lung field infiltrate which is new compared to previous. Diffuse patchy interstitial lung disease may be CHF in nature)
*Pulse Oximetry
Patient hypoxic: yes
*EKG
Interpreted by ED Provider?: Yes
Interpretation: abnormal
Comparison EKG: changes noted (Chronic atrial fibrillation with profound bradycardia with prolonged QT new compared to previous EKG November 18, 2023 showing A-fib with ventricular response of 92.)
Rate: bradycardiac
Rhythm: a-fib
[place]: normal axis
Interval: long QT
QRS Pattern: normal QRS
Ischemia: non-specific ST changes
*Production Planning Supervisor Interpretation
Rate: bradycardiac
Interpretation: abnormal
Rhythm: a-fib
*Critical Care Note
Total Time (30-74mins, 75-104mins- exclusive of procedures): 90
comment:
Critical care statement: A total of 90 minutes of critical care time was provided for this patient. This includes management of unstable vital signs, evaluation of the patient at bedside, reviewing the patient's pertinent medical records, discussion
with consultants, review of old EKGs and review of pertinent medical records. This time with separate from time utilized to perform the aforementioned documented procedures
Update Note
Update Note:
Patient continues with significant bradycardia in the 40s to 50s but remains hemodynamically stable with systolic blood pressure in the 110-120
Labs remarkable for significantly elevated white blood cell count of 28.7, mild anemia with hemoglobin of 9.2 which is trended up from 1 month ago however unclear as to what her most recent hemoglobin has been running at the longterm. Moderate
thrombocytosis is similar to previous. Moderate bandemia of 16% concerning for sepsis.
Mild hyponatremia of 130, mild hypokalemia of 3.2, patient has been given an oral dose of K. Dur. Moderately elevated BUN of 32 has trended up from a BUN of 10 December 09. Normal creatinine of 0.9.
Lactic acid is normal at 1.5.
Significantly elevated BNP of 10,000. Concerning for CHF however clinically patient appears dry, prerenal azotemia.
Dig level is normal at 1.9.
Chest x-ray shows right lower lung field infiltrate which is new compared to previous, consistent with lung findings on exam. Will initiate Zosyn for healthcare associated pneumonia.
Patient has been given IV dose of calcium, IV glucagon as well as as an additional dose of IV atropine which have been briefly successful in mild uptick in heart rate to 50s.
Liquid brown to minimally rust colored stool in colostomy bag is heme positive. Concern for upper GI bleed. Chronically maintained on Eliquis and INR significantly gapped at 4.68. IV Protonix bolus and drip has been initiated.
Thus far has not required pressor support.
According to longterm records patient is full code.
Will admit to hospitalist service to ICU versus IMU.
ED Attending Note
-
Portions of this chart may have been created with voice recognition software.� Occasional wrong word or��sound alike� substitutions may have occurred due to the inherent limitations of voice recognition software.
Discharge Plan
Departure
Patient Disposition: Admit
Date of Disposition: 01/13/24
Time of Disposition: 04:32
Admit to: IMU
Admit to doctor: Neo
Presentation/result/management discussed w/ accepting MD/DO: Hospitalist
Condition: Serious
Discharge Problem:
atrial fib with severe bradycardia, health care associated pneumonia, Sepsis, GI bleed, Dehydration, CHF (congestive heart failure)
Prescriptions:
No Action
atorvastatin 20 mg Tablet
20 mg PO DAILY
metoprolol succinate 100 mg Tablet Extended Release 24 Hr
100 mg PO BID
Eliquis 5 mg Tablet
5 mg PO BID
melatonin 10 mg Tablet
10 mg PO HS
amiodarone [Pacerone] 200 mg Tablet
200 mg PO BID Qty: 60 0RF
diltiazem HCl 240 mg Capsule,Extended Release 24hr
240 mg PO DAILY Qty: 30 0RF
acetaminophen [Pain Relief ES (acetaminophen)] 500 mg Tablet
1,000 mg PO TID Qty: 100 0RF
digoxin 125 mcg (0.125 mg) Tablet
125 mcg PO NOON Qty: 30 0RF
pantoprazole 40 mg Tablet,Delayed Release (Dr/Ec)
40 mg PO DAILY Qty: 30 0RF
polyethylene glycol 3350 [Miralax] 17 gram Powder In Packet
17 g PO DAILY
ondansetron HCl [Zofran] 8 mg Tablet
8 mg PO Q12H PRN (Reason: nausea vomiting)
oxycodone 10 mg Tablet
10 mg PO Q8H PRN (Reason: pain)
guaifenesin 600 mg Tablet Extended Release 12hr
600 mg PO BID
Interventions
Interventions:
ED- Fall Risk Assessment Last Done: 01/13/24 02:59
ED- Cardiac Assessment Last Done: 01/13/24 02:59
ED- Pulmonary Assessment Last Done: 01/13/24 02:59
[2024-01-13 03:16] LABS: Hematocrit 26.9 % (37.0-47.0); Hemoglobin 9.2 g/dL (12.0-16.0); Mean Corp Hgb Conc. 34.2 g/dL (33.0-37.0); Mean Corpuscular Hgb 27.3 pg (27.0-31.0); Mean Corpuscular Volume 79.8 fL (81.0-99.0); Platelet Count 686 10^3/uL (130-400); Red Blood Cell Count 3.37 10^6/uL (4.20-5.40); Red Cell Dist. Width 15.9 % (11.5-14.5); White Blood Cell Count 28.7 10^3/uL (4.8-10.8)
[2024-01-13 03:27] LABS: INR 4.68; PT 44.9 Sec (11.4-14.6)
[2024-01-13 03:28] LABS: ALT (SGPT) 17 U/L (0-35); AST (SGOT) 41 U/L (14-36); Albumin 2.7 g/dl (3.5-5.0); Alkaline Phosphatase 146 U/L (38-126); Blood Urea Nitrogen 32 mg/dl (7-17); Calcium 7.9 mg/dl (8.4-10.2); Carbon Dioxide 30 mmol/L (22-30); Chloride 94 mmol/L (98-107); Digoxin 1.9 ng/ml (0.8-2.0); Estimated Creatinine Clearance 35 ml/min; Glucose 123 mg/dl (70-99); Potassium 3.2 mmol/L (3.5-5.1); Sodium 130 mmol/L (135-145); Total Bilirubin 0.6 mg/dl (0.2-1.3); Total Protein 5.7 g/dl (6.3-8.2); eGFR > 60.00
[2024-01-13] MEDS: GlucaGen 5 MG IV (03:29)
[2024-01-13 03:34] LABS: COVID-19 Antigen Negative (Negative)
[2024-01-13 03:38] LABS: Lactic Acid 1.5 mmol/L (0.7-2.0)
[2024-01-13 03:38] LABS: Troponin I 0.016 ng/ml
[2024-01-13 03:56] LABS: Magnesium 1.9 mg/dl (1.6-2.3)
[2024-01-13 03:58] LABS: NT-proBNP 10300 pg/ml
[2024-01-13 04:07] LABS: Absolute Neutrophils -Man Diff 25.8 10^3/uL (1.4-6.5); Band Neutrophils 16 % (0-3); Lymphocytes 7 % (20-51); Monocytes 3 % (2-9); Platelets Checked Yes; Segmented Neutrophils 74 % (42-75)
[2024-01-13 04:08] LABS: Anisocytosis 1+; Hypochromasia 1+; Normal RBC Morphology No; Polychromasia Occasional; Target Cells 1+; Total Cells Counted 100; Toxic Granulation 1+; Vacuolated Segs 1+
[2024-01-13 04:09] LABS: Ovalocytes Occasional; Stomatocytes Occasional
[2024-01-13] MEDS: PROTONIX IV 80 MG IV (04:12)
[2024-01-13] MEDS: PROTONIX 100 IV (04:12)
[2024-01-13] MEDS: KCL ELIXIR 40 MEQ PO (04:12)
[2024-01-13] MEDS: ZOSYN 50 IV (04:31)
[2024-01-13] MEDS: ATROPINE 0.1 MG/ML SYRINGE 1 MG IV (04:31)
--- NOTE | 2024-01-13 04:52 | HPS.HSE ---
Family Physician
-
Family Physician: Shahram Hand
Chief Complaint
-
low oxygen
History of Present Illness
Ms. Bailey Martinez is a 78 yo woman with hx afib on Eliquis, HTN, HLD, recent prolonged hospitalization 11/15/23-12/09/23 for perforated bowel 2/2 diverticulitis versus stercoral colitis s/p urgent Juliet's procedure with complication postop abscess s/p
HEMA drain presents to the ER with fatigue, bradycardia and low oxygen.
Patient was found to be bradycardic to the 30's by EMS and given atropine. She is able to provide short answers to questions but difficulty elaborating on history. Her mouth is very dry and difficult to understand she appears confused. She states
she has pain all over (chronic pain). Denies change in characteristics of ostomy output. Patient states she has been walking in rehab.
Difficult to obtain further history 2/2 confusion.
Medical History
Past Medical History
Past Medical History: Reports Other
Additional Past Medical History:
Paroxysmal Atrial Fibrillation
Essential Hypertension
Hyperlipidemia
Interstitial cystitis
Chronic Pain with Opioid Dependence
Septic shock from perforated bowel s/p Juliet's
Heart Failure preserved Ejection Fraction
Past Surgical History: Reports Other
Additional Past Surgical History:
Tonsillectomy
Appendectomy
Hysterectomy
Partial hysterectomy
Right rotator cuff
Juliet's procedure
Social History
Tobacco: Former Smoker (Quit a little over a year ago)
Alcohol: None
Living: With Family
Family History
Family History: Not pertinent
Allergies / Home Medications
Allergies reflects when Allergies were last updated in [facility].
Home Medications with original date entered in [facility]
Allergy/Medication List:
Allergies
Allergy/AdvReac Type Severity Reaction Status Date / Time
No Known Allergies Allergy Verified 01/13/24 04:38
Home Medications
apixaban 5 mg tablet (Eliquis) 5 mg PO BID Blood Clot Prevention/Tx 05/15/23
atorvastatin 20 mg tablet 20 mg PO DAILY High Cholesterol 05/15/23
metoprolol succinate 100 mg tablet,extended release 24 hr 100 mg PO BID Heart Disease/Condition 05/15/23
melatonin 10 mg tablet 10 mg PO HS Sleep 11/15/23
acetaminophen 500 mg tablet (Pain Relief Extra Strength (acetaminophen)) 1,000 mg PO TID #100 tabs 12/09/23
amiodarone 200 mg tablet (Pacerone) 200 mg PO BID #60 tabs 12/09/23
digoxin 125 mcg (0.125 mg) tablet 125 mcg PO NOON #30 tabs 12/09/23
diltiazem HCl 240 mg capsule,extended release 24 hr 240 mg PO DAILY #30 caps 12/09/23
pantoprazole 40 mg tablet,delayed release 40 mg PO DAILY #30 tabs 12/09/23
guaifenesin 600 mg tablet, extended release 12 hr 600 mg PO BID 01/13/24
ondansetron HCl 8 mg tablet 8 mg PO Q12H PRN nausea vomiting 01/13/24
oxycodone 10 mg tablet 10 mg PO Q8H PRN pain 01/13/24
polyethylene glycol 3350 17 gram oral powder packet (Miralax) 17 g PO DAILY 01/13/24
Review of Systems
-
History Source: Patient
A 12 point ROS was completed and negative except as noted: Yes
Physical Exam
Vital Signs
Vital Signs
Temp Pulse Resp BP Pulse Ox
98.3 F 66 18 119/44 92
01/13/24 02:38 01/13/24 03:01 01/13/24 03:01 01/13/24 03:01 01/13/24 03:01
Physical Exam
General: Other (awake, alert, dry mucous membranes, able to answer short answers to questions)
HEENT: PERRLA
Respiratory: Clear, Rales and Rhonchi (right lower lung base ); No Wheezes
Cardiac: Bradycardia
GI: Soft and Non Tender
Musculoskeletal: No Edema
Skin: Warm and Dry; No Rash
Neuro: AO x 3
Psych: Calm
Laboratory Results
-
01/13/24 02:35
01/13/24 02:35
Laboratory Results
PT 44.9 Sec (11.4-14.6) H 01/13/24 02:35
INR 4.68 01/13/24 02:35
Lactic Acid 1.5 mmol/L (0.7-2.0) 01/13/24 03:18
Total Bilirubin 0.6 mg/dl (0.2-1.3) 01/13/24 02:35
AST 41 U/L (14-36) H 01/13/24 02:35
ALT 17 U/L (0-35) 01/13/24 02:35
Alkaline Phosphatase 146 U/L (38-126) H 01/13/24 02:35
Troponin I 0.016 ng/ml 01/13/24 02:35
Data Reviewed
-
Diagnostic Radiology: Report Reviewed by me
Lab Data: Labs Reviewed by me
Impression/Plan
-
Ms. Bailey Martinez is a 78 yo woman with hx afib on Eliquis, HTN, HLD, recent prolonged hospitalization 11/15/23-12/09/23 for perforated bowel 2/2 diverticulitis versus stercoral colitis s/p urgent Juliet's procedure with complication postop abscess s/p
HEMA drain presents to the ER with fatigue, bradycardia and low oxygen. She is found to have elevated WBC and RLL pneumonia on chest x-ray. Regarding bradycardia she is s/p atropine, glucagon with HR currently in 50's; dig level 1.9.
Triage VS: T 98.3, P 54, RR 14, BP 117/44, SpO2 90%
LABS: WBC 28.7, Hg 9.2, PLT 686, Na 130, K+ 3.2, Cr 0.9, lactate 1.5, Mag 1.9, T. Bili 0.6, AST 41, ALT 17, Alk Phos 146, Trop 0.016, BNP 17356
MAR: potassium, atropine, protonix gtt, Glucagon, Zosyn
covid negative
CXR: RLL pneumonia
Sepsis 2/2 RLL Pneumonia
TME 2/2 above - patient with intermittent confusion in the ER
-s/p zosyn in ER, will admit on IV Vanc/Cefepime
-flu and covid negative
-given bradycardia, admit to IMU (see below)
-patient appears mildly tachypneic and BNP elevated but do not appreciate significant JVP on exam - monitor volume status closely wtih IVF
-F/U cultures, MRSA screen
Bradycardia
Hx Afib with RVR
Prolonged Qtc
-patient likely bradycardic in setting of sepsis. Dig level 1.9 and K low not elevated. Mag level 1.9
-s/p atropine x 2
-will admit to IMU
-place pacer pads on patient
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
-patient's HR currently in 50's and she is conversant
-cardiology consult
-hold Eliquis in case intervention needed
-NPO until cardiology eval
Hypokalemia
-repleted with 40mEQ in the ER
Heme positive stool
-colostomy output is brown and Hg stable
-I will stop protonix gtt started in ER and continue IV protonix BID
-trend Hg and if notice signs of active bleeding would consult GI
-patient is NPO for cardiology eval
-hold Eliquis for now
chronic pain
Opiate Dependence
-SENIOR SOFTWARE TESTER oxycodone PRN, caution given low HR
DVT PPx SCD
FULL CODE
Total Critical Care Time 60 minutes. I was immediately available to the patient and staff. I personally examined, reviewed labs, diagnostic images/reports, interpretations, treatment plans, discussed patient care with other providers and family
or caregivers (if patient is unable to make decisions), entered orders as appropriate and documented the medical record.
[2024-01-13] MEDS: VANCOCIN 200 IV (06:31)
[2024-01-13] MEDS: NSS 1000 IV ×2 (06:32→20:50)
--- NOTE | 2024-01-13 07:25 | PHA.VAN.IN ---
Assessment
- Assessment
Renal Function: Appears similar to baseline
Maximum Temperature: 98.4
Minimum Temperature: 98.4
Concomitant Antimicrobials: Cefepime
- Previous Dosing Experience
Previous Regimen: 750mg Q12H
Date of Regimen: 12/07/23
Provided Trough of: No labs drawn after adjustment. Calculated trough 8.4
Provided AUC of: Calculated AUC 576
Patient's SCR is: Similar to previous dosing experience
Patient's weight is: Decreased compared to previous dosing experience
Plan
- Plan
Initial / Loading Dose: 1000mg on 01/13/24
Maintenance Regimen: Will be dosing by levels due to decrease in patient's weight
Monitoring: Random 01/14/24 @0600
Pharmacokinetics Vancomycin I
- -
Patient Age: 78
Patient Sex: Female
Vancomycin Day #: 1
Indication: Pulmonary/Respiratory
Requesting Provider: Jose Rod
Pertinent Antimicrobial Allergies:
NKDA
Height / Weight:
Height 5 ft 6 in
Actual Weight 43.3 kg
- Vital Signs / Lab Results
Temp Pulse Resp BP Pulse Ox
98.4 F 49 23 96/74 96
01/13/24 06:23 01/13/24 06:37 01/13/24 06:37 01/13/24 06:37 01/13/24 06:37
Lab Results - Hematology
01/13/24
02:35
WBC 28.7 H
Band Neutrophils 16 H
Lab Results - Chemistry
01/13/24
02:35
BUN 32 H
Creatinine 0.9
Estimated Creat Clear 35
Albumin 2.7 L
01/13/24
03:18
Lactic Acid 1.5
Microbiology Results
01/13/24 02:35 Influenza Types A & B (MARIELA) - Final
Nasal Swab Negative for Influenza A & B, NAAT
Negative results must be combined with clinical observations
and patient history.
Nucleic Acid Amplification test (NAAT)performed on the
[employer] platform.
--- NOTE | 2024-01-13 07:39 | CON.CAR ---
Addendum entered and electronically signed by Julieta Serrano MD 01/13/24 14:43:
I saw and examined the patient.
The R&D Engineer's note was reviewed and I agree with the note.
Comment: She is significantly ill with confusion and cachexia. Recently with an extended hospital stay for colitis, perforation and Juliet's pouch. She is not communicative at this time.
During last hospital stay she had rapid atrial fibrillation and was discharged on Multiple AV beltran suppressing medications. She now comes in ill with sepsis and possible pneumonia.
She was bradycardic and received atropine. She remains in atrial fibrillation. Slow ventricular response. She initially was in the 30s to 40s and now 60s to 70s after holding all AV beltran blocking agents and amiodarone.
Reassess ability to take anticoagulation. Colostomy output is maroon and heme positive. Hgb stable. Eliquis is on hold
Continue off of AV beltran blocking medications/amiodarone and continue to follow telemetry.
Check TSH
Treat sepsis/pneumonia
Continue to replete electrolytes. QT interval has improved somewhat.
Original Note:
Consultation
Consultation Request
Date/Time Consultation Requested: 01/13/24 at 0605
Date/Time Consultation Performed: 01/13/24 at 0730
Requesting Provider: Dr. Abdullahi
Performing Provider: Dr. Julieta Serrano
Reason for Consultation: Bradycardia
Medical History
-
History of Present Illness:
Patient came to [facility] this morning with fatigue and was found to be bradycardic so cardiology has been consulted. Patient was just admitted to 11/15/23 until 12/09/23 with stercoral colitis, perforation and received a Dos Santos's pouch. Patient had Afib
with RVR that admission and was discharged to rehab on Cardizem CD 240 mg daily, amiodarone 200 mg BID, digoxin 0.125 mg daily and Toprol Xl 100 mg BID. Patient is a poor historian, but SNF called for an ambulance early this morning due to weakness,
fatigue and bradycardia. EMS reports HRs initially of 30 and patient was given atropine in the field with improvement up to 40 then 50 bpm. Patient now admitted with sepsis and RLL PNA. Cardiology consulted for bradycardia.
PMH:
Paroxysmal Afib
Chronic Eliquis OAC
Admission for perforated divertic with stercoral colitis, abscess and Dos Santos pouch 11/15/23 until 12/09/23
Anemia
Chronic HFpEF
Hypertension
Hyperlipidemia
Spinal stenosis
Fibromyalgia
h/o tobacco abuse on nicotine patch
Past Medical History
Past Medical History: Other (in HPI)
Past Surgical History: Appendectomy, Bowel Resection (emergency Dos Santos's procedure for perforation in the descending colon 11/2023), Cholecystectomy, Gynecological (Hysterectomy), Orthopedic (Rotator cuff repair) and Tonsilectomy
Social History
Tobacco: Former Smoker
Alcohol: None
Drug: None
Personal:
Family History
Family History: CAD and Hypertension
Allergies / Home Medications
Allergy/AdvReac Type Severity Reaction Status Date / Time
No Known Allergies Allergy Verified 01/13/24 04:38
Medication Instructions Recorded Confirmed Type
apixaban 5 mg tablet (Eliquis) 5 mg PO BID Blood Clot 05/15/23 01/13/24 History
Prevention/Tx
atorvastatin 20 mg tablet 20 mg PO DAILY High Cholesterol 05/15/23 01/13/24 History
metoprolol succinate 100 mg 100 mg PO BID Heart 05/15/23 01/13/24 History
tablet,extended release 24 hr Disease/Condition
melatonin 10 mg tablet 10 mg PO HS Sleep 11/15/23 01/13/24 History
acetaminophen 500 mg tablet (Pain 1,000 mg PO TID #100 tabs 12/09/23 01/13/24 Rx
Relief Extra Strength
(acetaminophen))
amiodarone 200 mg tablet (Pacerone) 200 mg PO BID #60 tabs 12/09/23 01/13/24 Rx
digoxin 125 mcg (0.125 mg) tablet 125 mcg PO NOON #30 tabs 12/09/23 01/13/24 Rx
diltiazem HCl 240 mg 240 mg PO DAILY #30 caps 12/09/23 01/13/24 Rx
capsule,extended release 24 hr
pantoprazole 40 mg tablet,delayed 40 mg PO DAILY #30 tabs 12/09/23 01/13/24 Rx
release
guaifenesin 600 mg tablet, 600 mg PO BID 01/13/24 01/13/24 History
extended release 12 hr
ondansetron HCl 8 mg tablet 8 mg PO Q12H PRN nausea vomiting 01/13/24 01/13/24 History
oxycodone 10 mg tablet 10 mg PO Q8H PRN pain 01/13/24 01/13/24 History
polyethylene glycol 3350 17 gram 17 g PO DAILY 01/13/24 01/13/24 History
oral powder packet (Miralax)
Review of Systems
-
History Source: Patient
All other systems: Negative unless noted
Physical Exam
Vital Signs
Temp Pulse Resp BP Pulse Ox
98.4 F 49 23 96/74 96
01/13/24 06:23 01/13/24 06:37 01/13/24 06:37 01/13/24 06:37 01/13/24 06:37
General: Frail and cachectic. Awake, but not alert or oriented
HEENT: EOMI, dry and cracked lips
Heart: Slow and reg, no murmurs
Lungs: Rhonchi right base greater than left. No wheeze. Poor inspiratory effort. Wearing oxygen at 6 L NC
Extremities: No clubbing, cyanosis, lesions or edema B/L
Neuro: Grossly nonfocal
Lab Results
Troponin I 0.016 ng/ml 01/13/24 02:35
Zgf-M-Iepsniiyimm Pept 59068 pg/ml 01/13/24 02:35
Impression / Plan
-
PCP: Dr. Walton
Forensic Science Technician: Dr. HAILEY Nash
Impression:
Admitted with sepsis and bradycardia 01/13/24
Sepsis
RLL PNA
Bradycardia
Long QT
Paroxysmal Afib
Chronic Eliquis OAC
Admission for perforated divertic with stercoral colitis, abscess and Dos Santos pouch 11/15/23 until 12/09/23
Hyponatremia
Hypokalemia
Anemia
Chronic HFpEF
Hypertension
Hyperlipidemia
Spinal stenosis
Fibromyalgia
h/o tobacco abuse on nicotine patch
Echo 11/22/23: EF 55-60% mild LVH, dilated left atrium and right atrium, moderate mitral regurgitation mild TR, pulmonary artery systolic pressure 43-48 mmHg
Plan:
-Patient came to [facility] this morning with fatigue and was found to be bradycardic so cardiology has been consulted. Patient was just admitted to 11/15/23 until 12/09/23 with stercoral colitis, perforation and received a Dos Santos's pouch. Patient had
Afib with RVR that admission and was discharged to rehab on Cardizem CD 240 mg daily, amiodarone 200 mg BID, digoxin 0.125 mg daily and Toprol XL 100 mg BID. Patient is a poor historian, but SNF called for an ambulance early this morning due to
weakness, fatigue and bradycardia. EMS reports HRs initially of 30 and patient was given atropine in the field with improvement up to 40 then 50 bpm. Patient now admitted with sepsis and RLL PNA. Cardiology consulted for bradycardia.
-Agree with holding outpatient doses of Cardizem CD 240 mg daily, amiodarone 200 mg BID, digoxin 0.125 mg daily and Toprol Xl 100 mg BID.
-Digoxin level 1.9. Will stop Digoxin and likely not restart.
-Colostomy output is maroon and heme positive. Hgb stable. Eliquis is on hold
-If HR trends down again then would start Dopamine gtt.
-If needed could place a temporary pacing wire as well, but for now she is stable
-QT prolonged in the setting of bradycardia, potassium down to 3.2 and magnesium 1.9. Potassium repleted by primary service.
-ECG reviewed by me with slow Afib HR 49 and QTc prolonged at 554 ms. Will repeat ECG this afternoon
[2024-01-13] MEDS: PROTONIX IV 40 MG IV ×2 (07:43→19:55)
[2024-01-13] MEDS: NSS (PRESERVATIVE FREE) 10 ML IV ×2 (07:43→19:54)
--- NOTE | 2024-01-13 10:16 | W.PN.UPDATE ---
Update Note
Progress Note Update
Patient seen and examined after post midnight admission. 96/74, 49, 23, 96.6 �F, 96% on 6L NC O2. Currently nonverbal. No acute distress, awake and alert. Irregularly irregular, bradycardic, normal S1-S2. Clear to auscultation bilaterally
anteriorly. Cranial nerves II to XII are intact, nonfocal. Continue vancomycin/cefepime. Follow blood cultures. Trend bandemia. Continue IV fluids. Cardiology following and discussed with cardiology. No need for temporary pacer wire at this
time. Consult infectious disease.
[2024-01-13] MEDS: MAXIPIME 2000 MG IV ×2 (10:42→23:13)
[2024-01-13] MEDS: STERILE WATER FOR INJECTION 10 ML IV ×2 (10:42→23:13)
[2024-01-13 11:05] LABS: Hemoglobin 8.7 g/dL (12.0-16.0)
[2024-01-13 11:14] LABS: Potassium 3.7 mmol/L (3.5-5.1)
[2024-01-13 11:25] LABS: Troponin I < 0.012 ng/ml
--- NOTE | 2024-01-13 12:52 | PTOTSP ---
Speech Therapy Swallowing Assessment
Patient presents with signs of aspiration likely due in part to current deconditioned state.
Recommend
1. Maintain NPO status.
2. Frequent oral care with suction toothbrush.
3. Non oral meds
4. Not appropriate for ARHP at this time due to coughing and desaturation with oral trials including ice chips during this assessment.
ST will reassess daily.
--- NOTE | 2024-01-13 14:13 | CM ---
CM following re: discharge planning.
Reviewed pt's chart, met with pt and spoke to pt's daughter Jennifer over the phone.
Pt is an 78 year old female, admitted with primary dx of Sepsis 2/2 RLL Pneumonia.
Pt is not a great historian, information obtained from pt's daughter Jennifer. Per daughter, pt lives with her in a 2[address], has 3 children. Per daughter, pt went to [facility] on 12/09/23 and supposed to be discharged from skilled services today
and pt admitted to yesterday' Pt's daughter expressed her unhappy feelings regarding care at [facility] and she stated she wants her mother goes to [facility] or [facility] to continue on skilled services. Pt's daughter stated that pt was able to
walk with a walker in therapy sessions and was using a wheelchair for safety. Pt's daughter stated she will bring her mother home when she will able to walk independently.
A referral to [facility] and [facility] made. PT and OT will evaluate the pt to determine a level of care at discharge.
D/C plan: preferred SNF: [facility] or [facility].
CM will follow with discharge plan updates as hospitalization progresses
[2024-01-13 16:52] LABS: TSH Reflex To Free T4 2.95 uIU/ml (0.47-4.68)
[2024-01-13 18:18] LABS: Hemoglobin 8.6 g/dL (12.0-16.0)
--- NOTE | 2024-01-13 18:22 | PTCARENOTE ---
Pt received in bed @ 0700. Pacer pads in placed per order. Pt oriented to self. Garbled speech. Pupils 4mm, reactive to light. SaO2 96% on 6L NC. SaO2 began dropping to 88-90% on 6. Midflow NC applied and increased to 10 L; Sao2 increased to 96%.
Rhonchi auscultated throughout and fine crackles auscultated at bases. Atrial fibrillation on cardiac monitor technician. No edema observed. DTI observed on sacrum. Silicone border foam applied. Blood cultures growing gram (+) cocci; Dr. Abdullahi notified.
[2024-01-13 18:47] LABS: Troponin I < 0.012 ng/ml
[2024-01-14] VITALS (41 sets, daily range): BP systolic 42–218; BP diastolic 13–186; BMI 15.6
--- NOTE | 2024-01-14 00:06 | PTCARENOTE ---
Received pt at change of shift. AAOx1 - oriented only to self. Pt NPO; pt did not pass speech eval during the day. No PO medications given as pt unable. NSS 80 ml/hr. Pt difficult to understand when attempting to speak; garbled speech and very
soft spoken. Resting in bed with call simmons in reach.
[2024-01-14 04:05] LABS: % Basophils 0.3 % (0-2); % Eosinophils 1.8 % (0-6); % Immature Granulocytes 0.6 % (0-0.5); % Lymphocytes 2.5 % (20.5-51.1); % Monocytes 3.1 % (1.7-9.3); % Neutrophils 91.7 % (42.2-75.2); Absolute Basophils 0.1 10^3/uL (0-0.2); Absolute Eosinophils 0.4 10^3/uL (0-0.7); Absolute Immature Granulocytes 0.1 10^3/uL (0-0.05); Absolute Lymphocytes 0.5 10^3/uL (1.2-3.4); Absolute Monocytes 0.7 10^3/uL (0.1-0.6); Absolute Neutrophils 19.4 10^3/uL (1.4-6.5); Hematocrit 25.3 % (37.0-47.0); Hemoglobin 8.5 g/dL (12.0-16.0); Mean Corp Hgb Conc. 33.6 g/dL (33.0-37.0); Mean Corpuscular Hgb 27.1 pg (27.0-31.0); Mean Corpuscular Volume 80.6 fL (81.0-99.0); Mean Platelet Volume 8.9 fL (7.4-10.4); Nucleated Red Blood Cells % 0 %; Platelet Count 570 10^3/uL (130-400); Red Blood Cell Count 3.14 10^6/uL (4.20-5.40); Red Cell Dist. Width 15.8 % (11.5-14.5); White Blood Cell Count 21.1 10^3/uL (4.8-10.8)
[2024-01-14 04:31] LABS: Blood Urea Nitrogen 24 mg/dl (7-17); Calcium 8.7 mg/dl (8.4-10.2); Carbon Dioxide 26 mmol/L (22-30); Chloride 101 mmol/L (98-107); Estimated Creatinine Clearance 52 ml/min; Glucose 129 mg/dl (70-99); Magnesium 1.9 mg/dl (1.6-2.3); Potassium 3.3 mmol/L (3.5-5.1); Sodium 139 mmol/L (135-145); eGFR > 60.00
[2024-01-14 04:33] LABS: Vancomycin Random 7.5 ug/ml
[2024-01-14 04:59] LABS: TSH 0.58 uIU/ml (0.47-4.68)
[2024-01-14] MEDS: KCL 160 MEQ IV ×2 (05:46→09:56)
--- NOTE | 2024-01-14 08:26 | PHA.VAN.FU ---
Vancomycin Assessment / Plan
- Assessment
Renal Function: SCR Decreasing (0.9->0.6 (baseline))
WBC's are: Trending Down (28.7-> 21.1)
In the past 24 hrs, patient has been: Hypothermic
Concomitant Antimicrobials: cefepime
- Assessment - Therapeutic Drug Monitoring
Random Level: 7.5 ( approx 21 hours post 1000 mg dose 01/13/24 )
- Dosing Plan
Continue: dose by random level due to low BMI
Dosing by Level: Re-dose today (750 mg x 1 dose ( 17 mg/kg))
- Monitoring Plan
Random Level: repeat random level AM 01/15/24
- Follow Up
Pharmacy will continue to follow.
Vancomycin Follow UP
- -
Patient Age: 78
Patient Sex: Female
Vancomycin Day #: 2
Indication: Pulmonary/Respiratory
Requesting Provider: Jose Rod
Pertinent Antimicrobial Allergies:
NKDA
Height / Weight:
Height 5 ft 6 in
Actual Weight 43.9 kg
Pertinent Past Medical History: BMI ~15
- Vital Signs / Lab Results
Temp Pulse Resp BP Pulse Ox
98.7 F 91 40 184/65 90
01/14/24 07:13 01/14/24 05:00 01/14/24 05:00 01/14/24 05:00 01/14/24 05:00
Lab Results - Hematology
01/13/24 01/14/24
02:35 03:53
WBC 28.7 H 21.1 H
Band Neutrophils 16 H
Lab Results - Chemistry
01/13/24 01/14/24
02:35 03:46
BUN 32 H 24 H
Creatinine 0.9 0.6
Estimated Creat Clear 35 52
Albumin 2.7 L
01/13/24
03:18
Lactic Acid 1.5
Microbiology Results
01/13/24 03:18 Blood Culture - Preliminary
Blood/Venous Staph aureus MRSA
Gram Stain - Final
01/13/24 03:18 Blood Culture - Preliminary
Blood/Venous Positive culture in progress
Gram Stain - Final
01/13/24 02:35 Influenza Types A & B (MARIELA) - Final
Nasal Swab Negative for Influenza A & B, NAAT
Negative results must be combined with clinical observations
and patient history.
Nucleic Acid Amplification test (NAAT)performed on the
[employer] platform.
Therapeutic Drug Monitoring
Random Vancomycin 7.5 ug/ml 01/14/24 03:46
--- NOTE | 2024-01-14 08:42 | W.PN.HOSP.TC ---
Addendum entered and electronically signed by Artemio Abdullahi MD 01/14/24 11:22:
As per nursing pt 85% on 15L midflow. Check CXR and ABG. c/s pulm.
Original Note:
Today's Communication/Plan
-
see bold
Assessment / Plan
Assessment / Plan
Summary at time of admission: 78 yo woman with hx afib on Eliquis, HTN, HLD, recent prolonged hospitalization 11/15/23-12/09/23 for perforated bowel 2/2 diverticulitis versus stercoral colitis s/p urgent Juliet's procedure with complication postop
abscess s/p HEMA drain presents to the ER with fatigue, bradycardia and low oxygen. She is found to have elevated WBC and RLL pneumonia on chest x-ray.� Regarding bradycardia she is s/p atropine, glucagon with HR currently in 50's; dig level 1.9.�
Gen: appears SOB, Awake and alert, appears chronically ill
Eyes: EOMI, PERRLA, no scleral icterus.
Neck: supple.
CV: RRR, +S1/S2, no m/r/g.
Resp: CTAB anteriorly, no rales, wheezes, or rhonchi.
Abd: +BS, soft, NT, ND
Skin: No rashes.
Neuro: CN 2-12 intact, non-focal.
Psych: anxious
Sepsis, POA:
-due to MRSA bacteremia
-cont IV Vanco. Currently on Cefepime. ID to see, will like stop Cefepime.
-cont IVFs
-repeat BCxs
Bradycardia:
-h/o Afib with RVR and prolonged Qtc
-s/p atropine x 2 on admission
-holding home BB/Amio/Dig/Cardizem
-cardiology following
-home Eliquis currently on hold with heme POS stool
Hypokalemia:
-IV K
Heme positive stool:
-Hb drop 0.7 since admission, likely combination of dilution and acute blood loss anemia
-Eliquis contributed to heme positive stool
-GI saw in consult. Case discussed with AP (attg has not yet seen). Will need colonoscopy after acute issues resolved. OK for heparin gtt if needed.
-Hb stable from yesterday evening
-cont PPI BID
Chronic pain with chronic opioid use with dependence:
-hold narcotics for now
FULL/SCD
Total time spent on today's encounter was 50 minutes which included time spent in counseling the patient/family regarding diagnosis and treatment plan as listed above, goals of care, and symptom management. Case was discussed with nursing staff,
specialists, and care coordinators/case management. All labs and imaging personally reviewed by me. Remainder the time spent in detailed review of previous records, lab data, imaging, and other medical provider documentation.
Anticipated Discharge: > 48 hours
Subjective/Interval History
-
Date of Service: January 14, 2024
Pt c/o anxiety. Also says 'I'm getting better.'
Objective Data
-
Labs:
Laboratory Results
01/14/24 01/14/24
03:46 03:53
WBC 21.1 H
Hgb 8.5 L
Hct 25.3 L
Plt Count 570 H
Sodium 139 D
Potassium 3.3 L
Chloride 101
Carbon Dioxide 26
BUN 24 H
Creatinine 0.6
Glucose 129 H
Calcium 8.7
Vital Signs:
Vital Signs
Temp Pulse Resp BP Pulse Ox
98.7 F 91 40 184/65 90
01/14/24 07:13 01/14/24 05:00 01/14/24 05:00 01/14/24 05:00 01/14/24 05:00
I&O
01/13/24 01/14/24 01/15/24
06:59 06:59 06:59
Output Total 650 / 650
Balance -650 / -650
[2024-01-14] MEDS: PROTONIX IV 40 MG IV (09:07)
[2024-01-14] MEDS: STERILE WATER FOR INJECTION 10 ML IV (09:07)
[2024-01-14] MEDS: NSS (PRESERVATIVE FREE) 10 ML IV (09:07)
[2024-01-14] MEDS: MAXIPIME 2000 MG IV (09:07)
--- NOTE | 2024-01-14 09:07 | CON.GI ---
Addendum entered and electronically signed by Dimitris Pedraza MD 01/14/24 14:29:
I saw and examined the patient.
The PA's note was reviewed and I agree with the note.
Comment:
Pt is a 78 year old female with h/o afib on Eliquis, pancreatic cyst,�HTN, hypercholesterolemia, chronic pain with opioid dependence,�perforated bowel/ sepsis 11/2023 with diverticulitis vs stercoral colitis s/p urgent tom's procedure - left
colectomy with colostomy and takedown of splenic flexure�with post -op abscess p/w fatigue and noted with bradycardia with HR in 30's prior to admission.� There is concern for sepsis with PNA. GI consulted for evaluation of heme +ve stool�in ostomy
bag w/o overt GI bleeding. Hgb 9.2 on admission, 8.5 today with 6.6 to 10 during prior admission. INR 4.68.
In absence of suspicion for active GI hemorrhage, will defer further eval of heme +ve stool given her currently clinical status. Heme +ve stool and panc cyst can be evaluated further as OP once her critical illness is resolved. F/u with GI when
she gets d/c'ed home. Will s/o.
Original Note:
Consultation
-
Date/Time Consultation Requested: 01/14/24 0855
Date/Time Consultation Performed: 01/14/24 0900
Requesting Provider: Artemio Abdullahi MD
Performing Provider: CHIVO Fam, Dimitris Pedraza MD
Reason for Consultation: heme + stool
Medical History
Chief Complaint / HPI
Chief Complaint: heme + stool
History of Present Illness:
Pt is an 78yo presents with hx afib on Eliquis, pancreatic cyst, heart failure with preserved EF, HTN, hypercholesterolemia, chronic pain with opioid dependence, perforated bowel/ sepsis 11/2023 with diverticulitis vs stercoral colitis s/p urgent
tom's procedure- left colectomy with colostomy and takedown of splenic flexure with post -op abscess. Path with noted perforated diverticulitis, early ischemic change and tubular adenoma with viable margins. She was also noted with Afib RVR
during that admission. She now returns with fatigue and noted with bradycardia with HR in 30's prior to admission. There is concern for sepsis with PNA and asked to see for heme + stool in ostomy bag with hbg 9.2 on admission with hbg 6.6 to
10 during prior admission. INR 4.68.
At this time pt denies hx EGD or colonoscopy in past but did have follow in [place] for prior pancreatic cyst. She admits to occasional nausea, abdominal pain with slow improvement since surgery and constipation prior to surgery but denies
dysphagia, GERD, vomiting, or black stools.
Past Medical History
Past Medical History: Arrhythmias (afib on Eliquis), CHF (with preserved EF), HTN, Hypercholesterolemia and Other (intersitital cystitis, chronic pain on chronic opioids, panc lesion with follow in [place] prior to moving to [place] )
Past Surgical History: Appendectomy, Bowel Resection (perforated bowel/sepsis 11/2023 with diverticulitis vs stercoral colitis s/p urgent tom's procedure with post -op abscess), Cholecystectomy, Gynecological (hysterectomy), Orthopedic (rotator
cuff surgery) and Tonsilectomy
Social History
Tobacco: Former Smoker (rare episode )
Alcohol: Occasional (social in past )
Drug: None
Personal:
Living: Correction
Employment: Retired
Family History
Family History: Other (no family hx colon cA or polyps)
Allergies / Home Medications
Allergy/AdvReac Type Severity Reaction Status Date / Time
No Known Allergies Allergy Verified 01/13/24 04:38
Medication Instructions Recorded
apixaban 5 mg tablet (Eliquis) 5 mg PO BID Blood Clot 05/15/23
Prevention/Tx
atorvastatin 20 mg tablet 20 mg PO DAILY High Cholesterol 05/15/23
metoprolol succinate 100 mg 100 mg PO BID Heart 05/15/23
tablet,extended release 24 hr Disease/Condition
melatonin 10 mg tablet 10 mg PO HS Sleep 11/15/23
acetaminophen 500 mg tablet (Pain 1,000 mg PO TID Pain 01/13/24
Relief Extra Strength
(acetaminophen))
amiodarone 200 mg tablet (Pacerone) 200 mg PO BID Heart 01/13/24
Disease/Condition
digoxin 125 mcg (0.125 mg) tablet 125 mcg PO NOON Heart 01/13/24
Disease/Condition
diltiazem HCl 240 mg 240 mg PO DAILY Heart 01/13/24
capsule,extended release 24 hr Disease/Condition
guaifenesin 600 mg tablet, 600 mg PO BID Congestion 01/13/24
extended release 12 hr
ondansetron HCl 8 mg tablet 8 mg PO Q12H PRN nausea vomiting 01/13/24
oxycodone 10 mg tablet 10 mg PO Q8H PRN pain 01/13/24
pantoprazole 40 mg tablet,delayed 40 mg PO DAILY GERD 01/13/24
release
polyethylene glycol 3350 17 gram 17 g PO DAILY Constipation 01/13/24
oral powder packet (Miralax)
Review of Systems
-
History Source: Patient
Constitutional: Reports Fatigue
EENT: Reports No Symptoms
Respiratory: Reports No Symptoms
Cardiac: Reports Other (bradicardia on admission )
Abdomen/GI: Reports Abdominal Pain, Nausea and Other (heme + brown stools)
: Reports No Symptoms
Musculoskeletal: Reports No Symptoms
Skin: Reports No Symptoms
Neurological: Reports Weakness
Endocrine: Reports No Symptoms
Hematologic/Lymphatic: Reports Bleeding
Vital Signs
Temp Pulse Resp BP Pulse Ox
98.7 F 91 40 184/65 90
01/14/24 07:13 01/14/24 05:00 01/14/24 05:00 01/14/24 05:00 01/14/24 05:00
Physical Exam
Exam
General: Other (elderly thin female, cooperative in exam )
HEENT: Normocephalic and Anicteric
Respiratory: Other (decreased )
Cardiac: Irregular Rhythm
GI: Soft, Non Distended and Tender (mild diffuse )
Rectal: Other (ostomy with brown stool trace +)
Musculoskeletal: No Clubbing and No Cyanosis
Skin: Warm and Dry
Neuro: Awake, Alert and AO x 3
Psych: Calm
Results
WBC 21.1 10^3/uL (4.8-10.8) H 01/14/24 03:53
Hgb 8.5 g/dL (12.0-16.0) L 01/14/24 03:53
Hct 25.3 % (37.0-47.0) L 01/14/24 03:53
MCV 80.6 fL (81.0-99.0) L 01/14/24 03:53
Plt Count 570 10^3/uL (130-400) H 01/14/24 03:53
Absolute Neuts (auto) 19.4 10^3/uL (1.4-6.5) H 01/14/24 03:53
PT 44.9 Sec (11.4-14.6) H 01/13/24 02:35
INR 4.68 01/13/24 02:35
Sodium 139 mmol/L (135-145) D 01/14/24 03:46
Potassium 3.3 mmol/L (3.5-5.1) L 01/14/24 03:46
Chloride 101 mmol/L (98-107) 01/14/24 03:46
Carbon Dioxide 26 mmol/L (22-30) 01/14/24 03:46
BUN 24 mg/dl (7-17) H 01/14/24 03:46
Creatinine 0.6 mg/dL (0.6-1.0) 01/14/24 03:46
Calcium 8.7 mg/dl (8.4-10.2) 01/14/24 03:46
Total Bilirubin 0.6 mg/dl (0.2-1.3) 01/13/24 02:35
AST 41 U/L (14-36) H 01/13/24 02:35
ALT 17 U/L (0-35) 01/13/24 02:35
Alkaline Phosphatase 146 U/L (38-126) H 01/13/24 02:35
Diagnostic Image Results:
12/04/23 CT a/p with IV contrast
Left lateral percutaneous drainage catheter remains in place. Slightly increased soft tissue/complex fluid attenuation is suggested surrounding the coiled tip measuring 3.2 cm, as well as a few tiny gas bubbles.
No free intraperitoneal air identified.
2 previously noted pelvic drainage catheters have been discontinued. The examination is limited by lack of enteric opacification from oral contrast. However, there is a reaccumulated collection in the right posterolateral pelvis measuring
approximately 4.5 x 2 centimeters. Questionable small oblong collection along the left pelvic sidewall measuring 3.9 x 1.1 cm versus unopacified bowel. Questionable focal collection measuring 3.6 x 1.9 cm in the anterolateral left mid pelvis versus
unopacified fluid within bowel. Additional rounded 1.6 cm fluid collection versus loop of unopacified bowel in the left midpelvis.
Small amount of gas is seen on dependently within the urinary bladder, which may be iatrogenic. Likely, in the absence of instrumentation, possible considerations may include infection by gas producing organism or other fistula.
Minor sigmoid diverticulosis. No evidence of acute diverticulitis.
Improved aeration at the lung bases especially on the left. Residual nodular parenchymal densities, likely atelectasis. Small left and trace right pleural effusion, improved on the left.
05/2023
1. � Extensive diverticulosis. No definite diverticulitis.
2. � No free air. No free fluid or fluid collection.
3. � There is mild wall thickening of the rectosigmoid just posterior to the urinary bladder. This is nonspecific. Does the patient have symptoms of proctitis?
4. � There is a 6 x 6 x 9 mm hypodense lesion in the body of the pancreas, likely represents an IPMN, differential includes simple benign cyst, pseudocyst. Follow-up with dedicated pancreatic CT or MRI.
5. � Dilated common bile duct likely due to prior surgery and patient's age.
6. � Hypodense lesion in the lower pole of the left kidney most consistent with a small cyst. No hydronephrosis.
7. � Significant degenerative disk and joint disease in the lower lumbar spine.
8. � Results discussed with Richar Francis in the emergency room at 5:10 PM.
Prior GI Procedures:
EGD: pt denies
Colonoscopy: pt denies
Assessment / Plan
-
Pt is an 78yo presents with hx afib on Eliquis, pancreatic cyst, HTN, hypercholesterolemia, chronic pain with opioid dependence, perforated bowel/ sepsis 11/2023 with diverticulitis vs stercoral colitis s/p urgent tom's procedure- left colectomy
with colostomy and takedown of splenic flexure with post -op abscess. Path with noted perforated diverticulitis, early ischemic change and tubular adenoma with viable margins. She was also noted with Afib RVR during that admission. She now
returns with fatigue and noted with bradycardia with HR in 30's prior to admission. There is concern for sepsis with PNA and asked to see for heme + stool in ostomy bag with hbg 9.2 on admission with hbg 6.6 to 10 during prior admission. INR 4.68
-heme + stool
- perforated bowel/ sepsis 11/2023 with diverticulitis vs stercoral colitis s/p urgent tom's procedure- left colectomy with colostomy and takedown of splenic flexure with post -op abscess/drainage
-bradycardia on admission
-Afib on Eliquis prior to admission
-concern for sepsis PNA on admission with leukocytosis
-hx pancreatic cyst with prior follow in [place] per CT 2022 with 6x6x9 mm hypodense lesion body of pancreas likely IPMN
-thrombocytosis
-elevated INR on admission
-hypokalemia - management per hospitalist
-mild increased AST and alk phos on admission
other medical problems:
-HTN
-hyperlipidemia
-chronic pain with opioid dependence
-prior constipation- no resolved with chronic ostomy
-hx appe
-hx chela with chronic ductal dilation post chela
PLAN:
etiology of heme + stool related to recent surgical resection, irritation of ostomy vs other
hbg 8.5 today with range of 6-10 during last prolonged admission stool in ostomy bag brown trace +
reviewed with cardiology ok for heparin challenge if needed for afib
with bradycardia on admission, PNA, sepsis not ideal candidate for scope - per patient no hx EGD or colonoscopy in past
if signs of active bleeding or drop in hbg consider IP scope vs Outpatient when improved from recent resection, sepsis/PNA etc
cont abx for sepsis/PNA
trend hbg
INR 4.68 on admission cont to trend may not be accurate with Eliquis use
repeat LFT's in AM
cont Protonix IV BID
eventual follow up for pancreatic cyst noted on CT 2022 -- will review with Dr. Pedraza- no current records as prior eval in [place]
-
-
Thank you for consultation and allowing me to participate in the patient's care. Please call the [facility] consultant GI physician during the after hours with any questions or concerns.
[2024-01-14] MEDS: VANCOCIN 150 IV (09:18)
[2024-01-14] MEDS: APRESOLINE 10 MG IV (09:58)
--- NOTE | 2024-01-14 11:27 | CON.PUL ---
Consultation
Consultation Request
Date/Time Consultation Requested: 01/14/2024-11:30 AM
Date/Time Consultation Performed: 01/14/2024-11:30 AM
Requesting Provider: Dr. Abdullahi
Performing Provider: Dr. Cherry
Reason for Consultation: Shortness of breath
Medical History
-
Chief Complaint: Shortness of breath
History of Present Illness:
78-year-old female with a history of hypertension, hyperlipidemia, prolonged recent hospitalization for bowel perforation presented with fatigue, bradycardia and hypoxemia found to have pneumonia-pulmonary consulted for bacteremia, pneumonia,
shortness of breath 01/14/2024.
Past Medical History
Past Medical History: None (Recent prolonged hospitalization 3 weeks discharged 12/09/2023-perforated bowel/diverticulitis/Dos Santos's procedure/postop abscess. Hypertension. Hyperlipidemia. Interstitial cystitis. PAF. Chronic pain/opioids.)
Past Surgical History: None (Tonsillectomy. Appendectomy. Hysterectomy. Right rotator cuff. Dos Santos's procedure.)
Social History
Tobacco: Former Smoker
Alcohol: None
Drug: None
Living: With Family
Occupational Exposures: No known asbestos exposure
Environmental Exposures: No known tuberculosis exposure
Family History
Family History: Reviewed & Not Pertinent
Allergies / Home Medications
Allergies
Allergy/AdvReac Type Severity Reaction Status Date / Time
No Known Allergies Allergy Verified 01/13/24 04:38
Home Medications
Medication Instructions Recorded Confirmed Last Taken Type
apixaban 5 mg tablet (Eliquis) 5 mg PO BID Blood Clot 05/15/23 01/13/24 11/15/23 History
Prevention/Tx
atorvastatin 20 mg tablet 20 mg PO DAILY High Cholesterol 05/15/23 01/13/24 11/15/23 History
metoprolol succinate 100 mg 100 mg PO BID Heart 05/15/23 01/13/24 11/15/23 History
tablet,extended release 24 hr Disease/Condition
melatonin 10 mg tablet 10 mg PO HS Sleep 11/15/23 01/13/24 11/14/23 History
acetaminophen 500 mg tablet (Pain 1,000 mg PO TID Pain 01/13/24 01/13/24 Unknown History
Relief Extra Strength
(acetaminophen))
amiodarone 200 mg tablet (Pacerone) 200 mg PO BID Heart 01/13/24 01/13/24 Unknown History
Disease/Condition
digoxin 125 mcg (0.125 mg) tablet 125 mcg PO NOON Heart 01/13/24 01/13/24 Unknown History
Disease/Condition
diltiazem HCl 240 mg 240 mg PO DAILY Heart 01/13/24 01/13/24 Unknown History
capsule,extended release 24 hr Disease/Condition
guaifenesin 600 mg tablet, 600 mg PO BID Congestion 01/13/24 01/13/24 Unknown History
extended release 12 hr
ondansetron HCl 8 mg tablet 8 mg PO Q12H PRN nausea vomiting 01/13/24 01/13/24 Unknown History
oxycodone 10 mg tablet 10 mg PO Q8H PRN pain 01/13/24 01/13/24 Unknown History
pantoprazole 40 mg tablet,delayed 40 mg PO DAILY GERD 01/13/24 01/13/24 Unknown History
release
polyethylene glycol 3350 17 gram 17 g PO DAILY Constipation 01/13/24 01/13/24 Unknown History
oral powder packet (Miralax)
Review of Systems
-
Unable to Obtain full review of systems at this time due to: Other (Per HPI)
Vitals / Labs / Diagnostic Testing
Vital Signs
Temp Pulse Resp BP Pulse Ox
98.7 F 90 40 181/74 93
01/14/24 07:13 01/14/24 09:58 01/14/24 05:00 01/14/24 09:58 01/14/24 09:23
Lab Data
01/14/24 03:53
01/14/24 03:46
Microbiology
01/13/24 03:18 Blood/Venous Blood Culture - Preliminary
Staph aureus MRSA
01/13/24 03:18 Blood/Venous Gram Stain - Final
01/13/24 03:18 Blood/Venous Blood Culture - Preliminary
Staph aureus MRSA
01/13/24 03:18 Blood/Venous Gram Stain - Final
01/13/24 06:27 Nose MRSA Screen - Final
Staph aureus MRSA
01/13/24 02:35 Nasal Swab Influenza Types A & B (MARIELA) - Final
Negative for Influenza A & B, NAAT
Negative results must be combined with clinical observations
and patient history.
Nucleic Acid Amplification test (NAAT)performed on the
[employer] platform.
Diagnostic Testing:
Physical Exam
-
Exam:
Well-nourished and well-developed in no apparent distress
HEENT-atraumatic, normocephalic
Neck-supple, no JVD, no bruit
Heart-regular rate and rhythm-no murmurs, rubs or gallops
Chest with crackles and rhonchi
Abdomen-soft, nontender, nondistended, no hepatosplenomegaly
Extremities-no cyanosis, clubbing, edema and good peripheral pulses
Integument-intact, no rashes, lesions or ecchymosis
Neurology-alert and oriented, nonfocal motor and sensory exam
Assessment
-
78-year-old female with a history of hypertension, hyperlipidemia, prolonged recent hospitalization for bowel perforation presented with fatigue, bradycardia and hypoxemia found to have pneumonia-pulmonary consulted for bacteremia, pneumonia,
shortness of breath 01/14/2024.
Assessment
Sepsis
MRSA bacteremia
Pneumonia-right lower lobe
Bradycardia
Hypokalemia
Heme positive stool with anemia-hemoglobin 8.5-mild microcytic
Thrombocytosis
Leukocytosis
Mild hyperglycemia
Pulmonary hypertension-PA systolic 65-70 on echocardiogram 01/13/2024
Intermediate diastolic dysfunction
Conditions present prior to admission:
Recent prolonged hospitalization 3 weeks discharged 12/09/2023-perforated bowel/diverticulitis/Dos Santos's procedure/postop abscess.
COPD suspected
Former smoker-on nicotine patch
Hypertension.
Hyperlipidemia.
Interstitial cystitis.
PAF.
Chronic anticoagulation-Eliquis
Chronic pain/opioids.
Spinal stenosis
Fibromyalgia
Tonsillectomy. Appendectomy. Hysterectomy. Right rotator cuff. Dos Santos's procedure.
Plan
Respiratory decompensation likely related to pneumonia and probable underlying COPD
Supplemental oxygen as needed
High flow oxygen as needed
BiPAP or noninvasive ventilation if needed
Patient is a full code and thus intubated mechanically ventilate if needed
Aspiration precautions
Mucolytic's
Mucus clearing devices
Check cultures
Empiric antibiotics-vancomycin and cefepime initiated
Follow leukocytosis
Monitor chest x-ray
Infectious disease consultation pending
Cardiology evaluation
Echocardiogram noted
Monitor hemoglobin
Transfuse as needed
GI evaluation ongoing
CT abdomen/pelvis summarized below
Monitor blood sugar
Insulin supplementation as needed
DVT prophylaxis-mechanical
GI prophylaxis-on pantoprazole
Nutrition per GI
Eventual physical therapy
Reviewed with primary team and nursing
Outpatient pulmonary [id number] eventually need PFTs, etc.
Diagnostic data:
Chest x-ray 01/13/2024-right mid and lower lung pneumonia
Chest x-ray 01/14/2024-bilateral pneumonia right greater than left
CT abdomen and pelvis 12/04/2023-left lateral percutaneous drain, no free intraperitoneal air, diverticulosis
Echocardiogram 01/13/2024-EF 55-60%, intermediate diastolic dysfunction, moderate mitral regurgitation, moderate tricuspid regurgitation, PA systolic 65-70
Data Reviewed
-
EKG: Report reviewed by me
Radiology: Report reviewed by me
CT Scan: Report reviewed by me
Medical Tests (Nuc Med, Echo etc): Report reviewed by me
Labs: Labs reviewed by me
Old Records: Reviewed
Total Time Spent with Patient (in minutes): 60
[2024-01-14] MEDS: ATIVAN 0.5 MG PO (11:28)
[2024-01-14 11:55] LABS: B.E. -4.4 mmol/L; HCO3 19.8 mmol/L (21-28); O2 Saturation % 97.7 % (94-98); PCO2 32 mmHg (32-35); PO2 92 mmHg (83-108)
--- NOTE | 2024-01-14 12:00 | PTCARENOTE ---
Addendum entered by Khris Pitts RN 01/14/24 15:29:
1415: patient suddenly hypotensive and shallow breathing, drowsy but arousable and talking, stating she was short of breath, MD Abdullahi notified, patient then suddenly agonal, coral and then asystole, code 9 called and compressions started immediately,
see code 9 documentation. Daughter at bedside.
Original Note:
Patient AAOx2-3, occasionally forgets where she is. Very anxious. Elevated BPs. See MAR for intervention. Patient tachypneic. MD Abdullahi notified, ABG drawn. Patient on 15L Midflow, sats 95%. BCx2 drawn. NPO. Continuing to closely monitor patient.
--- NOTE | 2024-01-14 12:15 | WOUNDNOTE ---
SACRAL/COCCYX/BUTTOCKS
--- NOTE | 2024-01-14 12:15 | WOUNDNOTE ---
WO RN note: Patient admitted with sepsis, bradycardia. Patient admitted from [facility].
See H&P for complete history.
PMH: perforated bowel d/t diverticulitis, Dos Santos colostomy (11/15-12/09 stay), HTN, chronic pain on opioid, R rotator cuff surgery.
Wound Location and type/assessment: Patient admitted with: sacral/buttocks red,purple ecchymotic ulcers (DVT vs stage 2?). Blanchable red intact heels. Colostomy pink, some loose brown stool noted in pouch. [place] wafer # [id number] and [place]
pouch #[id number] intact.
Appetite: currently NPO. Patient very thin.
Pressure redistribution devices in place: Centrella Max Wide air bed. Patient assists with turning.
Plan: Sacral shaped silicone border foam maintained. Patient incontinent of urine. Ofelia care given. Ostomy supplies left in room. Nursing can assist patient with pouch emptying/routine pouch changes.
Will confirm orders with hospitalist and discussed with EUGENE Huang.
Care plan to be updated and will follow as needed.
Note to case management of equipment requested for discharge: Air mattress if not already in place.
Recommend follow up at wound care center upon discharge.
--- NOTE | 2024-01-14 12:36 | W.PN.UPDATE ---
Update Note
Progress Note Update
Patient's daughter was updated over the phone. He was communicated to her that the patient is having respiratory distress due to pneumonia. Full code was reconfirmed. Patient's daughter did acknowledge that if the patient requires intubation she
would want the patient to be intubated.
--- NOTE | 2024-01-14 13:00 | CM ---
Plan: DC to SNF when medically stable
[facility] accepted pending bed availability when stable for discharge; no response from [facility] at this time
[2024-01-14 13:36] LABS: APTT 23.2 Sec (23.4-35.0)
--- NOTE | 2024-01-14 14:32 | W.PN.ANESINT ---
Anesthesia Intubation Note
- Intubation Note
Intubation Note:
Diagnosis: cardiac arrest
Blade: Glidescope 4
Tube Size: 8.0cm
Depth: 21 cm
Side Taped: right
Drugs Used: none
Grade View: I
EtCO2 Present: +
Atraumatic: yes
Attempts: 1
Insertion Start and Stop Time:
SaO2 Pre:
SaO2 Post:
Glidescope Used: yes
Other Airway Adjustments:
Pre-Oxygenated: yes
Portable Chest X-Ray: to follow
RSI:
Suctioned:
Bilateral Breath Sounds Confirmed: yes
Vent Settings:
Settings per _X__Attending Physician
--- NOTE | 2024-01-14 14:40 | PTCARENOTE ---
vitals filed from previous hours, recd to 3372 post code/ROSC.
--- NOTE | 2024-01-14 14:41 | W.PN.UPDATE ---
Update Note
Progress Note Update
Called to bedside for cardiac arrest/code 9. Upon arrival the patient had PEA arrest. As per discussion with the nurse the patient rapidly deteriorated (HR dropped quickly). ACLS was immediately started. The patient received quality CPR,
epinephrine, atropine. She had ROSC. Epinephrine drip was started. Pulmonary/critical care (Dr. Ellison) and cardiology (Dr. Courtney) were present during the code. Patient's daughter was also present during the code. After ROSC I updated the
daughter on the aforementioned events. Due to the patient's overwhelming burden of underlying and acute/severe pathology (including MRSA bacteremia, worsening B/L PNA) in the setting of severe deconditioning and moderate protein calorie
malnutrition patient's overall prognosis is extremely poor.
[2024-01-14] MEDS: DOPamine 400 MG 250 IV (14:49)
[2024-01-14] MEDS: ADRENALIN 250 IV (14:50)
[2024-01-14] MEDS: LEVOPHED 250 IV (14:54)
[2024-01-14 14:55] LABS: B.E. -15.9 mmol/L; O2 Saturation % 99.2 % (94-98); PCO2 36 mmHg (32-35); PO2 186 mmHg (83-108)
--- NOTE | 2024-01-14 14:59 | CON.ID ---
Consultation
-
Date/Time Consultation Requested: 01/14/2024 08:45
Date/Time Consultation Performed: 01/14/2024 14:53
Requesting Provider: Dr. Abdullahi
Performing Provider: Dr. Huggins
Reason for Consultation: MRSA bacteremia
Chief Complaint / Past History
History of Present Illness
Bailey Martinez is an 78-year-old female being evaluated at request of Dr. Abdullahi in regards to bacteremia. History is obtained from chart review, along with patient interview.
The patient is known to the Infectious Diseases service, having been seen in late November 2023 for perforated diverticulitis and peritonitis. At that time she had completed a 14-day course of micafungin, and was completing a course of vancomycin to
treat resistant Enterococcus. She was discharged on 12/09/2023, but returned to the emergency room on 01/13/2024 secondary to feeling poorly over the prior 2 to 3 days, with decreased oral intake, intermittent nausea and new hypoxemia with a decreased
pulse ox in the 80s. Additionally, she was noted to be bradycardic with a heart rate in the 30s and she received atropine prehospital. No history of fevers at that time. Blood cultures were obtained at admission, and the patient was started on
empiric antibiotics (vancomycin, cefepime). Blood cultures obtained are now positive for MRSA. Since admission, the patient's respiratory status has declined, with requirements of mid flow O2 earlier this morning. Chest x-ray has revealed
pneumonia. Within the past 2 hours the patient developed cardiac arrest and a code was called. She is currently intubated and in the intensive care unit.
Past History
Additional Past Medical History:
Hypertension
Dyslipidemia
Interstitial cystitis
Paroxysmal atrial fibrillation
Additional Past Surgical History:
Tonsillectomy
Appendectomy
Hysterectomy
Right rotator cuff surgery
Dos Santos's procedure
Allergy History:
No Known Allergies Allergy (Verified 01/13/24 04:38)
Medications Reviewed: Yes
Current Antibiotics:
Vanco
Cefepime
Social History
Tobacco: Former Smoker
Alcohol: None
Drug: None
Personal:
Living: With Family
Employment: Retired
Family History
Family History: Not Pertinent
Review of Systems
Vital Signs
Temp Pulse Resp BP Pulse Ox
97.6 F 49 21 95/52 95
01/14/24 11:40 01/14/24 14:37 01/14/24 14:37 01/14/24 14:37 01/14/24 14:04
Physical Exam
Physical Exam
Constitutional: Acutely Ill, Chronically Ill, Toxic and Cachetic
Head: Normocephalic and Other (ET tube in place)
Eyes: No Conjunctival Hemorrhage and Sclera Anicteric
Lymph Nodes: Negative Lymphadenopathy
Cardiovascular: Irregular Rate and S1/S2; Negative S3/S4 or Murmur
Pulmonary: Rhonchi
Gastrointestinal: Soft, Non Distended, Decreased Bowel Sounds, No Rebound, No Guarding and Other (Ostomy in place)
Genito-Urinary: Negative Joseph
Extremities: Cyanosis (fingertips); Negative Edema or Janeway Lesions
Skin: Negative Rash or Jaundice
Neurological: Other (unresponsive)
.
Lab / Diagnostic Study Results
01/14/24 03:53
01/14/24 03:46
Abs Immat Gran (auto) 0.1 10^3/uL (0-0.05) H 01/14/24 03:53
Absolute Neuts (auto) 19.4 10^3/uL (1.4-6.5) H 01/14/24 03:53
Absolute Lymphs (auto) 0.5 10^3/uL (1.2-3.4) L 01/14/24 03:53
Absolute Monos (auto) 0.7 10^3/uL (0.1-0.6) H 01/14/24 03:53
Absolute Basos (auto) 0.1 10^3/uL (0-0.2) 01/14/24 03:53
Total Counted 100 01/13/24 02:35
Immature Gran % 0.6 % (0-0.5) H 01/14/24 03:53
Neutrophils % 91.7 % (42.2-75.2) H 01/14/24 03:53
Lymphocytes % 2.5 % (20.5-51.1) L 01/14/24 03:53
Monocytes % 3.1 % (1.7-9.3) 01/14/24 03:53
Eosinophils % 1.8 % (0-6) 01/14/24 03:53
Basophils % 0.3 % (0-2) 01/14/24 03:53
Abs Neuts (Manual) 25.8 10^3/uL (1.4-6.5) H 01/13/24 02:35
Segmented Neutrophils 74 % (42-75) 01/13/24 02:35
Band Neutrophils 16 % (0-3) H 01/13/24 02:35
Lymphocytes (Manual) 7 % (20-51) L 01/13/24 02:35
PT 44.9 Sec (11.4-14.6) H 01/13/24 02:35
INR 4.68 01/13/24 02:35
Lactic Acid 1.5 mmol/L (0.7-2.0) 01/13/24 03:18
Microbiology Results
Micro:
01/13/24 03:18 Blood Culture - Preliminary
Blood/Venous Staph aureus MRSA
Gram Stain - Final
01/13/24 03:18 Blood Culture - Preliminary
Blood/Venous Staph aureus MRSA
Gram Stain - Final
01/14/24 10:49 Blood Culture - Pending
Blood/Venous
01/14/24 09:55 Blood Culture - Pending
Blood/Venous
01/13/24 06:27 MRSA Screen - Final
Nose Staph aureus MRSA
01/13/24 02:35 Influenza Types A & B (MARIELA) - Final
Nasal Swab Negative for Influenza A & B, NAAT
Negative results must be combined with clinical observations
and patient history.
Nucleic Acid Amplification test (NAAT)performed on the
[employer] platform.
Imaging:
01/13/2024 ECHO (TTE): No intracardiac mass or thrombus formation noted. Normal left ventricular chamber size. EF approximately 55%. Moderately dilated right atrium. Please see full dictation for additional detail.
01/14/2024 CXR (portable): Patchy airspace disease throughout both lungs, right greater than left, concerning for pneumonia. Heart is mildly enlarged. Moderate aortic arch calcification.
Assessment / Plan
MRSA bacteremia
S/P Cardiac arrest
Suspected MRSA pneumonia
Marked leukocytosis with left shift
Hypertension
Dyslipidemia
Interstitial cystitis
Paroxysmal atrial fibrillation
Recommendation:
Continue with vancomycin and cefepime.
Will add metronidazole to cover for possible aspiration event.
Repeat serial blood cultures to assess clearance.
Monitor white count and temperature curve.
Follow CXR for improvement /worsening.
Continue aggressive measures.
Patient critically ill/VDRF in intensive care unit. High risk of significant morbidity and mortality.
--- NOTE | 2024-01-14 15:00 | W.PN.INTV ---
Addendum entered and electronically signed by Medina Draper, DO 01/14/24 15:41:
Patient coded again in ICU, CPR initiated
She is on levophed, dopamine @ 10, Epi @ 10
CPR continued for 8 minutes, additional Epi given x 1
Bicarb push x 2 based on acidosis present on ABG
Continued CPR without successful ROSC
Daughter at bedside, informed her that the futility of continued compressions is apparent
Code terminated at 15:13, morphine 2mg IV x 1 given for agonal respirations
Patient pronounced shortly after
Family aware and at bedside
Original Note:
Today's Communication / Plan
Recommendations
s/p code 9, intubated and now admitted to ICU
Stat ABG/CXR
Escalation on pressors
Continue IV abx
Unresponsive post code
Family at bedside, confirmed code status
Prognosis poor
Assessment
-
78-year-old female with a history of hypertension, hyperlipidemia, prolonged recent hospitalization for bowel perforation presented with fatigue, bradycardia and hypoxemia found to have pneumonia-pulmonary consulted for bacteremia, pneumonia,
shortness of breath 01/14/2024. Transferred to ICU following cardiac arrest/PEA s/p intubation, CPR/epi x 3. ICU consult placed 01/14/24.
Cardiac arrest s/p CPR/Epi x 3
Acute hypoxic respiratory failure s/p intubation and MV
Unresponsive
Septic shock on levophed, Epi, dopa gtts
MRSA bacteremia
Pneumonia-right lower lobe, suspect MRSA
Symptomatic bradycardia
Hypokalemia
Heme positive stool with anemia-hemoglobin 8.5-mild microcytic
Thrombocytosis
Leukocytosis
Mild hyperglycemia
Pulmonary hypertension-PA systolic 65-70 on echocardiogram 01/13/2024
Intermediate diastolic dysfunction
Conditions present prior to admission:
Recent prolonged hospitalization 3 weeks discharged 12/09/2023-perforated bowel/diverticulitis/Dos Santos's procedure/postop abscess.
COPD suspected
Former smoker-on nicotine patch
Hypertension.�
Hyperlipidemia.
Interstitial cystitis.�
PAF.
Chronic anticoagulation-Eliquis
Chronic pain/opioids.
Spinal stenosis
Fibromyalgia
Tonsillectomy.� Appendectomy.� Hysterectomy.� Right rotator cuff.� Dos Santos's procedure.
Plan
Unresponsive post code likely hypoxic brain injury
No sedation given thus far
Too unstable for TTM
Follow clinically, observe off sedation
Acute PEA arrest s/p resuscitation, see code note
on max dose pressors: levophed/dopa/epi
Bradycardia noted, cards assistance appreciated
Intubated during code, large MRSA PNA suspected
On IV vanc
Repeat CXR showing worsening bilateral disease
Respiratory decompensation likely related to superimposed pneumonia on underlying COPD
Sputum culture pending
ABG stat
ID following
Empiric antibiotics-vancomycin and cefepime initiated
Follow leukocytosis
MRSA + cultures
Cardiology evaluation
Echocardiogram noted
Monitor hemoglobin
Transfuse as needed
GI evaluation ongoing
CT abdomen/pelvis summarized below
Monitor blood sugar
Insulin supplementation as needed
DVT prophylaxis-mechanical
GI prophylaxis-on pantoprazole
Nutrition per GI
Eventual physical therapy
Prognosis grim, family at bedside
Diagnostic data:
Chest x-ray 01/13/2024-right mid and lower lung pneumonia
Chest x-ray 01/14/2024-bilateral pneumonia right greater than left
CT abdomen and pelvis 12/04/2023-left lateral percutaneous drain, no free intraperitoneal air, diverticulosis
Echocardiogram 01/13/2024-EF 55-60%, intermediate diastolic dysfunction, moderate mitral regurgitation, moderate tricuspid regurgitation, PA systolic 65-70
-----
Critical Care time 100 mins -- The patient is admitted for acute critical illness for the treatment of vital organ failure and/or prevention of further life-threatening conditions. Total care includes time spent in review of history, physical exam,
medications, hemodynamic/ventilator parameters, laboratory data, imaging and discussion with house staff, pharmacy, respiratory therapy, grades 1 through 5 teacher, and nursing.
I participated directly in code 9 response and admission into ICU.
Subjective Dataa
Subjective Data
Date of Service:
Date of Service: January 14, 2024
Chief Complaint: Forensic Analyst Follow Up
Subjective:
Code 9 called for respiratory arrest s/p intubation
CPR and EPI x 3 with ROSC, thready bradycardia
Patient remains unresponsive
Transferred to ICU
Objective Data
Data Reviewed
Vital Signs / I&O / Oxygen:
Vital Signs
Temp Pulse Resp BP Pulse Ox
97.6 F 49 21 95/52 95
01/14/24 11:40 01/14/24 14:37 01/14/24 14:37 01/14/24 14:37 01/14/24 14:04
Intake and Output
01/13/24 01/14/24 01/15/24
06:59 06:59 06:59
Output Total 650 / 650
Balance -650 / -650
SaO2 95
Nasal Cannula flow liters per 93
minute
Physical Exam
General: Respiratory Distress (s/p intubation, agonal appearance) and Other (chronically ill appearing, thin, cyanotic appearance)
HEENT: Normocephalic, Anicteric and Other (dry MM)
Cardiovascular: S1-S2, Irregular Rhythm (bradycardic) and Cool Extremities
Respiratory: Crackles, Rhonchi, Accessory Resp Muscle Use (mild-mod, intubated) and ET Tube
GI: Soft, Non Distended, Non Tender and Other (ostomy present)
Neurology: Unresponsive
Skin: Dry, Cyanosis and Other (cool extremities)
Labs/Micro/Reports
Lab Data
01/14/24 03:53
01/14/24 03:46
Laboratory Results
01/14/24 01/14/24
11:39 13:17
APTT 23.2 L
pH 7.40
pCO2 32
pO2 92
HCO3 19.8 L
O2 Delivery Level
Microbiology
01/13/24 03:18 Blood/Venous Blood Culture - Preliminary
Staph aureus MRSA
01/13/24 03:18 Blood/Venous Gram Stain - Final
01/13/24 03:18 Blood/Venous Blood Culture - Preliminary
Staph aureus MRSA
01/13/24 03:18 Blood/Venous Gram Stain - Final
01/13/24 06:27 Nose MRSA Screen - Final
Staph aureus MRSA
01/13/24 02:35 Nasal Swab Influenza Types A & B (MARIELA) - Final
Negative for Influenza A & B, NAAT
Negative results must be combined with clinical observations
and patient history.
Nucleic Acid Amplification test (NAAT)performed on the
[employer] platform.
[2024-01-14 15:04] LABS: pH 7.15 (7.35-7.45)
--- NOTE | 2024-01-14 15:14 | PN.CDI ---
CDI
- -
CDI:
Physician Documentation Request
Admit Date: 01/13/24 05:42
Dear Doctor Kaylen,
Patient admitted with sepsis.
01/13 technology director assessment: 'Per ASPEN/AND guidelines, pt meets for moderate malnutrition in the context of chronic illness as evidenced by < 75% intake estimated needs x 3 months, >5 % weight loss x 1 month, fat and muscle loss'
Based on the information, which of the following most accurately represents the patient's nutritional status?
Moderate protein calorie malnutrition
Other
Spangler Criteria ([facility] Hospitalist 2017)
2 or more criteria must be present for either
non severe or severe malnutrition
Note that the criteria differs related to the
presence of an acute or chronic illness
Acute Illness Chronic Illness
Energy Intake Non Severe: <75% for >7 days Non Severe: <75% for >1 month
Severe: <50% for >5 days Severe: <75% for >1 month
Weight Loss Non Severe: 1-2% over 1 week Non Severe: 5% over 1 month
5% over 1 month 7.5% over 3 months
7.5% over 3 months 10% over 6 months
1 year N/A 20% over 1 year
Severe: >2% over 1 week Severe: >5% over 1 month
>5% over 1 month >7.5% over 3 months
>7.5% over 3 months >10% over 6 months
1 year N/A >20% over 1 year
Body Fat Non Severe: Mild Decrease Non Severe: Mild Loss
Severe: Moderate Decrease Severe: Severe Loss
Muscle Mass Non Severe: Mild Decrease Non Severe: Mild Loss
Severe: Moderate Decrease Severe: Severe Loss
Fluid Accumulation Non Severe: Mild Accumulation Non Severe: Mild Accumulation
Severe: Moderate to severe Severe: Moderate to severe
accumulation accumulation
Reduced Administrative Services Director Strength Non Severe: N/A Non Severe: N/A
Severe: Measurably reduced Severe: Measurably reduced
Use of terms such as suspected, likely, concern for, or probable (associated with a specific diagnosis that is being evaluated, monitored, or treated as if it exists) are acceptable and can be coded in the inpatient setting, when documented at the
time of discharge.
Thank you,
Gabrielle Hutchinson RN, BSN
CDI Specialist
Available via [employer] text
Please use your independent medical judgment in providing your response.
--- NOTE | 2024-01-14 15:18 | W.PN.DEATH ---
Pronouncement of
-
Called to see patient to pronounce.
No spontaneous heart tones or respirations noted.
Patient not responsive to verbal stimuli.
Patient is pronounced .
Time of : 15:13
Date of : 01/14/24
Cause of : Pulseless electrical activity due to acute hypoxemic respiratory failure due to bilateral MRSA PNA with bacteremia
Family Notified: Yes (at bedside)
[2024-01-14 15:36] LABS: Lactic Acid 9.2 mmol/L (0.7-2.0)
[2024-01-14] MEDS: MORPHINE SULFATE 2 MG IV (15:36)
--- NOTE | 2024-01-14 15:42 | W.PN.CARDCBS ---
Today's Communication / Plan
-
Patient after cardiac arrest and code
Impression / Plan
-
PCP: Dr. Walton
Shot Lighter: Dr. HAILEY Nash
Impression:
Status post cardiac arrest would likely hypoxemia as the cause with rhythm of PEA
Admitted with sepsis and bradycardia 01/13/24
Sepsis
RLL PNA
Bradycardia
Long QT
Paroxysmal Afib
Chronic Eliquis OAC
Admission for perforated divertic with stercoral colitis, abscess and Dos Santos pouch 11/15/23 until 12/09/23
Hyponatremia
Hypokalemia
Anemia
Chronic HFpEF
Hypertension
Hyperlipidemia
Spinal stenosis
Fibromyalgia
h/o tobacco abuse on nicotine patch
Echo 11/22/23: EF 55-60% mild LVH, dilated left atrium and right atrium, moderate mitral regurgitation mild TR, pulmonary artery systolic pressure 43-48 mmHg
Plan:
Patient was seen earlier today and plan was to start IV heparin to see if we would assess anticoagulation with known A-fib given heme positive stools
Heparin was ordered but did not get heparin
Patient has significant hypoxemia and had PEA arrest
Aspiration needs to be considered in the differential as worsening pneumonia was noted on chest x-ray
Was given epinephrine and atropine. Initially had return of pulse.
Subsequently had cardiac arrest again and despite CPR and epinephrine there was no return of pulse and patient
Patient's daughter was updated throughout these events
Discussed with primary service as well as inspector of weights and measures
Critical care time 50 minutes.
PREADMIT DATA
-Patient came to [facility] this morning with fatigue and was found to be bradycardic so cardiology has been consulted. Patient was just admitted to 11/15/23 until 12/09/23 with stercoral colitis, perforation and received a Dos Santos's pouch. Patient had
Afib with RVR that admission and was discharged to rehab on Cardizem CD 240 mg daily, amiodarone 200 mg BID, digoxin 0.125 mg daily and Toprol XL 100 mg BID. Patient is a poor historian, but SNF called for an ambulance early this morning due to
weakness, fatigue and bradycardia. EMS reports HRs initially of 30 and patient was given atropine in the field with improvement up to 40 then 50 bpm. Patient now admitted with sepsis and RLL PNA. Cardiology consulted for bradycardia.
Progress Note - Shot Lighter
Subjective
Date of Service: January 14, 2024
Patient had significant shortness of breath. Subsequently became bradycardic with cardiac arrest. Initial rhythm was PEA.
Objective
Labs:
01/14/24 15:05
01/14/24 03:46
Labs
Hgb Cancelled 01/14/24 15:05
Hct Cancelled 01/14/24 15:05
Plt Count Cancelled 01/14/24 15:05
PT Cancelled 01/14/24 15:05
INR Cancelled 01/14/24 15:05
APTT Cancelled 01/14/24 15:05
Sodium 139 mmol/L (135-145) D 01/14/24 03:46
Potassium 3.3 mmol/L (3.5-5.1) L 01/14/24 03:46
BUN 24 mg/dl (7-17) H 01/14/24 03:46
Creatinine 0.6 mg/dL (0.6-1.0) 01/14/24 03:46
Glucose 129 mg/dl (70-99) H 01/14/24 03:46
Digoxin 1.9 ng/ml (0.8-2.0) 01/13/24 02:35
Troponins
01/13/24 01/13/24 01/13/24
02:35 10:52 18:08
Troponin I 0.016 < 0.012 < 0.012
01/14/24
15:05
Troponin I Cancelled
Vital Signs and I&O:
Vital Signs
Temp Pulse Resp BP Pulse Ox
97.6 F 25 16 42/ 100
01/14/24 11:40 01/14/24 15:03 01/14/24 15:03 01/14/24 15:03 01/14/24 14:55
Vital Signs
Temp Pulse Resp BP Pulse Ox
97.6 F 25 16 42/ 100
01/14/24 11:40 01/14/24 15:03 01/14/24 15:03 01/14/24 15:03 01/14/24 14:55
Intake & Output
01/12/24 01/13/24 01/14/24 01/15/24
06:59 06:59 06:59 06:59
Output Total 650 / 650
Balance -650 / -650
Physical Exam
Physical Exam
General: Well developed, well nourished in NAD.
Neck: Supple, no JVD, HJR, carotids +2 B/L, no bruits bilaterally.
Heart: Non displaced PMI, irregular, no murmurs, No S3, S4, no rubs.
Lungs: Scattered rhonchi
Extremities: No clubbing, cyanosis or edema bilaterally.
Neuro: Grossly nonfocal, awake, alert and oriented x3.
--- NOTE | 2024-01-14 16:04 | PTCARENOTE ---
CODE 9 called on patient s/p PEA arrest. CPR, Epinephrine, and Atropine initiated. Intubated with ETT #8 @ 24cm to lip to AC (16/400/100%/5+). ROSC obtained. A Fib on monitor car operator with HR 40s - 50s. Transferred to ICU. Levophed gtt, Dopamine,
gtt, and Epinephrine gtt initiated and MAXED. Bradycardic to PEA. CPR reinitiated. BiCarb x2 administered. Unable to attain ROSC. Daughter brought into room and efforts ended. Post-mortem care provided.
--- NOTE | 2024-01-14 17:10 | W.DCSUMMARY ---
Discharge Summary
Discharge Data
Date of Admission: 01/13/24
Date of Discharge: 01/14/24
-
Pending Results: No
Hospital Course
Primary diagnoses:
Pulseless electrical activity due to acute hypoxemic respiratory failure due to bilateral methicillin-resistant Staphylococcus aureus pneumonia with methicillin-resistant Staphylococcus aureus bacteremia
Bradycardia
Paroxysmal atrial fibrillation with history of rapid ventricular response
Secondary diagnoses:
Recent hospitalization for perforated bowel either due to diverticulum or stercoral colitis s/p and Dos Santos's pouch complicated by 2 postoperative abscesses requiring drainage by interventional radiology 11/15/23-12/09/23
Hypokalemia
Heme positive stool
Moderate protein calorie malnutrition
Chronic pain with chronic opioid use with dependence
Consultants:
Cardiology
Pulmonary
Infectious disease
Hospital course: 78-year-old female who presented with chief complaints of fatigue, bradycardia, and hypoxemia as outlined in the H&P done on admission. On admission she was found to have a leukocytosis and chest x-ray showed right lower lobe
pneumonia. She required atropine for bradycardia. Her home beta-erica, amiodarone, digoxin, and Cardizem were held. She was seen in consultation by cardiology. Eliquis was held for heme positive stool. Patient was septic due to pneumonia.
She was placed on broad-spectrum antibiotics including IV vancomycin/Zosyn/Cefepime. Her blood cultures grew MRSA. On January 14, 2024 the patient developed worsening shortness of breath and hypoxemia. ABG 7.40/32/92/97.7%. Chest x-ray showed
Bilateral pneumonia, right greater than left. Progressed on the right. New on the left. Patient was reported to nursing that she was concerned about feeling tired. She then rapidly developed bradycardia and then pulseless electrical activity.
ACLS was performed with return of spontaneous circulation. The patient then coded again and at 1513 on 01/14/24.
Discharge Plan
-
Activity Restrictions/Additional Instructions:
Wound Care Instructions
Sacral/buttocks ulcers-clean with saline, silicone border foam, change q 3 days and prn loosened dressing.
Air mattress
Pressure redistributing chair cushion (i.e. Air chair cushion).
Elevate heels off bed with pillow and/or air chair cushion.
Change ostomy appliance q 3-5 days and as needed for leakage (Enrique wafer # [id number], Enrique pouch #[id number]).
Follow up with wound career information specialist or at wound care center call for an appointment.
Referrals:
Shahram Hand DO [Family Provider] -
Dimitris Pedraza MD [Active] - (Follow up outpatient for pancreatic cyst and eventual colonoscopy)
Servando Cherry MD [Active] - (or MECHANIC FOREMAN-eventual PFTs)
Prescriptions:
No Action
atorvastatin 20 mg Tablet
20 mg PO DAILY
metoprolol succinate 100 mg Tablet Extended Release 24 Hr
100 mg PO BID
Eliquis 5 mg Tablet
5 mg PO BID
melatonin 10 mg Tablet
10 mg PO HS
polyethylene glycol 3350 [Miralax] 17 gram Powder In Packet
17 g PO DAILY
ondansetron HCl [Zofran] 8 mg Tablet
8 mg PO Q12H PRN (Reason: nausea vomiting)
oxycodone 10 mg Tablet
10 mg PO Q8H PRN (Reason: pain)
guaifenesin 600 mg Tablet Extended Release 12hr
600 mg PO BID
amiodarone [Pacerone] 200 mg tablet
200 mg PO BID
diltiazem HCl 240 mg capsule,extended release 24hr
240 mg PO DAILY
acetaminophen [Pain Relief ES (acetaminophen)] 500 mg tablet
1,000 mg PO TID
pantoprazole 40 mg tablet,delayed release (DR/EC)
40 mg PO DAILY
digoxin 125 mcg (0.125 mg) tablet
125 mcg PO NOON
== END 2024-01-14 15:13 | disposition expired | DRG 871 ==
LOC: ICU 05:42
PROVIDERS: Internal Medicine; Physician Assistant; ADMITTING PHYSICIAN Student in an Organized Health Care Education/Training Program; ATTENDING PHYSICIAN Internal Medicine; CONSULT PHYSICIAN Internal Medicine Critical Care Medicine; CONSULT PHYSICIAN Internal Medicine Infectious Disease; EMERGENCY PHYSICIAN Emergency Medicine; FAMILY PHYSICIAN Internal Medicine; OTHER PHYSICIAN Internal Medicine Cardiovascular Disease; OTHER PHYSICIAN Internal Medicine Gastroenterology
PROC: 5A1935Z Respiratory Ventilation, Less than 24 Consecutive Hours (ICD-10-PCS; 2024-01-14)
PROC: 0CHY7BZ Insertion of Airway into Mouth and Throat, Via Natural or Artificial Opening (ICD-10-PCS; 2024-01-14)
DX: A41.9 Sepsis, unspecified organism (principal); G92.8 Other toxic encephalopathy; J15.212 Pneumonia due to Methicillin resistant Staphylococcus aureus; J96.01 Acute respiratory failure with hypoxia; R64 Cachexia; E87.1 Hypo-osmolality and hyponatremia; I50.32 Chronic diastolic (congestive) heart failure; E44.0 Moderate protein-calorie malnutrition; F11.20 Opioid dependence, uncomplicated; Z68.1 Body mass index [BMI] 19.9 or less, adult; Z11.52 Encounter for screening for COVID-19; Z87.891 Personal history of nicotine dependence; I46.9 Cardiac arrest, cause unspecified; E87.6 Hypokalemia; G89.4 Chronic pain syndrome; I48.0 Paroxysmal atrial fibrillation; I11.0 Hypertensive heart disease with heart failure; E78.00 Pure hypercholesterolemia, unspecified; Z79.01 Long term (current) use of anticoagulants
CPT/HCPCS: 36600; 71045; 80048; 80053; 80162; 80202; 82805; 83605; 83735; 83880; 84132; 84443; 84484; 85018; 85025; 85610; 85730; 86850; 86900; 86901; 87040; 87070; 87147; 87149; 87186; 87205; 87502; 87811; 92610; 93005; 93306; 96365; 96375; 99291; 99292; J1610